=== PATIENT | male | born 1995 | race Caucasian/White ===

== ENCOUNTER 2017-05-25 08:28 | Emergency (ER) | payer SELFPAY ==
[~2017-05-25] VITALS: Ht 162.6 cm; Wt 63.5 kg
[~2017-05-25 08:28] MED LIST: AGM875T PO; IBUP800T26 PO; LVT.05T PO; SPRN25T PO; SULF1TAB38 PO; THYR60TA4; TRAM50TA2 PO; [UNRECOGNIZED DRUG - OTHER] PO
--- NOTE | 2017-05-25 08:43 | ED General ---
General Chief Complaint: General Problems/Pain Stated Complaint: ETOH,SOA Source of Information: Patient Exam Limitations: No Limitations History of Present Illness Date Seen by Provider: May 25, 2017 Time Seen by Provider: 08:28 Initial Comments Here by EMS due to report of being intoxicated. This is a 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 to female and goes by Nayeli. Apparently her grandmother is on hospice and that is causing great stress in her life. She admits to drinking alcohol this morning. The grandmother called because she is quite intoxicated. Denies intent to harm self and denies taking other medications or drugs. Is having difficulty coping with grandmothers illness. Timing/Duration: 1-3 Hours Severity: Moderate Associated Systoms: No Chest Pain, No Fever/Chills, No Headaches, No Nausea/ Vomiting, No Shortness of Air, No Weakness Allergies and Home Medications Allergies Coded Allergies: No Known Drug Allergies (Unverified , 11/12/09) Home Medications Ibuprofen 800 Mg Tablet, 800 MG PO q8h PRN for PAIN Prescribed by: EMANUEL THOMSON on 08/08/132234 Spironolactone 25 Mg Tab, 125 MG PO DAILY, (Reported) Tramadol Hcl 50 Mg Tablet, 50 MG PO Q4H PRN for PAIN Prescribed by: EMANUEL THOMSON on 08/08/132234 Trimethoprim/Sulfamethoxazole 1 Ea Tablet, 1 EA PO BID Prescribed by: EMANUEL THOMSON on 12/28/122139 [Estrofem] , 2 MG PO DAILY, (Reported) Patient Home Medication List Home Medication List Reviewed: Yes Constitutional: see HPI, No chills, No fever EENTM: no symptoms reported Respiratory: no symptoms reported Cardiovascular: no symptoms reported Gastrointestinal: no symptoms reported, No abdominal pain, No vomiting Genitourinary: no symptoms reported Musculoskeletal: no symptoms reported Skin: no symptoms reported All Other Systems Reviewed Negative Unless Noted: Yes Past Hzffqeh-Lzedmb-Bejwhq Hx Patient Social History Alcohol Use: Occasionally Uses Recreational Drug Use: No Smoking Status: Current Everyday Smoker Surgeries History of Surgeries: No Respiratory History of Respiratory Disorde: No Cardiovascular History of Cardiac Disorders: No Neurological History of Neurological Disord: No Reproductive System Hx Reproductive Disorders: No Sexually Transmitted Disease: No Gastrointestinal History of Gastrointestinal Di: No Musculoskeletal History of Musculoskeletal Dis: No Endocrine History of Endocrine Disorders: No Cancer History of Cancer: No Psychosocial History of Psychiatric Problem: No Integumentary History of Skin or Integumenta: Yes (LESION L THIGH) Blood Transfusions History of Blood Disorders: No Reviewed Nursing Assessment Reviewed/Agree w Nursing PMH: Yes Family Medical History Significant Family History: No Pertinent Family Hx Physical Exam Vital Signs Vital Signs - First Documented 05/25/17 08:28 Temp 97.6 Pulse 120 Resp 18 B/P (MAP) 111/68 (82) Pulse Ox 99 O2 Delivery Room Air Capillary Refill : General Appearance: No Apparent Distress, WD/WN HEENT: PERRL/EOMI, Pharynx Normal Neck: Non Tender, Supple Respiratory: Lungs Clear, Normal Breath Sounds Cardiovascular: No Murmur, Tachycardia Gastrointestinal: Non Tender, Soft Back: Normal Inspection, No CVA Tenderness, No Vertebral Tenderness Extremity: Normal Range of Motion, Non Tender Neurologic/Psychiatric: Alert, Oriented x3 Skin: Normal Color, Warm/Dry Progress/Results/Core Measures Suspected Sepsis SIRS Temperature: Pulse: Respiratory Rate: Laboratory Tests 05/25/17 08:44: White Blood Count 7.4 Blood Pressure / Mean: Laboratory Tests 05/25/17 08:44: Creatinine 0.85, Platelet Count 355, Total Bilirubin 0.5 Results/Orders Lab Results Laboratory Tests Test 05/25/17 08:18 05/25/17 08:27 05/25/17 08:44 Range/Units Urine Opiates Screen NEGATIVE NEGATIVE Urine Oxycodone Screen NEGATIVE NEGATIVE Urine Methadone Screen NEGATIVE NEGATIVE Urine Propoxyphene Screen NEGATIVE NEGATIVE Urine Barbiturates Screen NEGATIVE NEGATIVE Ur Tricyclic Antidepressants Screen NEGATIVE NEGATIVE Urine Phencyclidine Screen NEGATIVE NEGATIVE Urine Amphetamines Screen NEGATIVE NEGATIVE Urine Methamphetamines Screen NEGATIVE NEGATIVE Urine Benzodiazepines Screen POSITIVE H NEGATIVE Urine Cocaine Screen NEGATIVE NEGATIVE Urine Cannabinoids Screen POSITIVE H NEGATIVE Urine Color YELLOW Urine Clarity CLEAR Urine pH 7 5-9 Urine Specific [place] 1.005 L 1.016-1.022 Urine Protein NEGATIVE NEGATIVE Urine Glucose (UA) NEGATIVE NEGATIVE Urine Ketones NEGATIVE NEGATIVE Urine Nitrite NEGATIVE NEGATIVE Urine Bilirubin NEGATIVE NEGATIVE Urine Urobilinogen NORMAL NORMAL MG/DL Urine Leukocyte Esterase NEGATIVE NEGATIVE Urine RBC (Auto) NEGATIVE NEGATIVE Urine RBC NONE /HPF Urine WBC NONE /HPF Urine Squamous Epithelial Cells 2-5 /HPF Urine Crystals NONE /LPF Urine Bacteria NEGATIVE /HPF Urine Casts NONE /LPF Urine Mucus NEGATIVE /LPF Urine Culture Indicated NO White Blood Count 7.4 4.3-11.0 10^3/uL Red Blood Count 4.78 4.35-5.85 10^6/uL Hemoglobin 15.5 13.3-17.7 G/DL Hematocrit 44 40-54 % Mean Corpuscular Volume 92 80-99 FL Mean Corpuscular Hemoglobin 32 25-34 PG Mean Corpuscular Hemoglobin Concent 35 32-36 G/DL Red Cell Distribution Width 13.3 10.0-14.5 % Platelet Count 355 130-400 10^3/uL Mean Platelet Volume 9.7 7.4-10.4 FL Neutrophils (%) (Auto) 44 42-75 % Lymphocytes (%) (Auto) 46 H 12-44 % Monocytes (%) (Auto) 9 0-12 % Eosinophils (%) (Auto) 0 0-10 % Basophils (%) (Auto) 1 0-10 % Neutrophils # (Auto) 3.2 1.8-7.8 X 10^3 Lymphocytes # (Auto) 3.4 1.0-4.0 X 10^3 Monocytes # (Auto) 0.7 0.0-1.0 X 10^3 Eosinophils # (Auto) 0.0 0.0-0.3 10^3/uL Basophils # (Auto) 0.1 0.0-0.1 10^3/uL Sodium Level 148 H 135-145 MMOL/L Potassium Level 4.2 3.6-5.0 MMOL/L Chloride Level 112 H 98-107 MMOL/L Carbon Dioxide Level 23 21-32 MMOL/L Anion Gap 13 5-14 MMOL/L Blood Urea Nitrogen 10 7-18 MG/DL Creatinine 0.85 0.60-1.30 MG/DL Estimat Glomerular Filtration Rate > 60 BUN/Creatinine Ratio 12 Glucose Level 104 70-105 MG/DL Calcium Level 9.1 8.5-10.1 MG/DL Total Bilirubin 0.5 0.1-1.0 MG/DL Aspartate Amino Transf (AST/SGOT) 33 5-34 U/L Alanine Aminotransferase (ALT/SGPT) 28 0-55 U/L Alkaline Phosphatase 59 40-136 U/L Total Protein 7.0 6.4-8.2 GM/DL Albumin 4.7 H 3.2-4.5 GM/DL Salicylates Level < 5.0 L 5.0-20.0 MG/DL Acetaminophen Level < 10 L 10-30 UG/ML Serum Alcohol 384 *H <10 MG/DL My Orders Orders - REFUGIO CROUCH MD Acetaminophen (05/25/17 08:34) Alcohol (05/25/17 08:34) Cbc With Automated Diff (05/25/17 08:34) Comprehensive Metabolic Panel (05/25/17 08:34) Salicylate (05/25/17 08:34) Ua Culture If Indicated (05/25/17 08:34) Lactated Ringers (Lr 1000 Ml Iv Solution (05/25/17 08:54) Drug Screen Stat (Urine) (05/25/17 09:09) Medications Given in ED Current Medications Medications Dose Ordered Sig/Selma Route Start Time Stop Time Status Last Admin Dose Admin Lactated Ringer's 1,000 ml @ 0 mls/hr Q0M ONCE IV 05/25/17 08:54 05/25/17 08:55 DC 05/25/17 09:22 1,000 MLS/HR Vital Signs/I&O Vital Sign - Last 12Hours 05/25/17 08:28 Temp 97.6 Pulse 120 Resp 18 B/P (MAP) 111/68 (82) Pulse Ox 99 O2 Delivery Room Air Capillary Refill : Progress Note : Progress Note Seen and evaluated. IV by EMS. 1 L normal saline infusing currently. We will check basic labs and alcohol level. Monitor patient. 1042: I did discuss the case with the patient and the patient's grandmother who is on hospice. Overall this point and comfortable going home and alcohol level is very high. Does have mixed toxicity with reported benzos taken as well. We will admit the patient for monitoring and observation overnight and continued fluids. 1112: Patient has changed her mind now and does not want to stay. Grandmother still uncomfortable but the patient is adamant. We will discharge the patient but AMA form signed. I did discuss with her at length about returning for any concerns. I also expressed my concerns about mixed alcohol and benzodiazepine use as this is dangerous and deadly. Patient and family verbalize understanding. Departure Impression Impression: Primary Impression: Alcohol intoxication Qualified Codes: F10.920 - Alcohol use, unspecified with intoxication, uncomplicated Disposition: AGAINST MEDICAL ADVICE Condition: Stable Departure-Patient Inst. Decision time for Depature: 11:14 Referrals: NO,LOCAL PHYSICIAN (PCP/Family) Primary Care Physician Patient Instructions: Alcohol Poisoning (DC) Add. Discharge Instructions: All discharge instructions reviewed with patient and/or family. Voiced understanding. You should not use benzodiazepines (Xanax/Ativan or similar) and alcohol at the same time as this may result in your . You should avoid alcohol. I highly encouraged due to seek follow-up and establish care with mental health provider such as at [facility] to help you with depression and coping. Return for worse pain, fever, vomiting, weakness, breathing problems or other concerns as needed. REFUGIO CROUCH MD May 25, 2017 08:43
[2017-05-25 08:50] LABS: BASOPHILS # (AUTO) 0.1 10^3/uL (0.0-0.1); BASOPHILS % (AUTO) 1 % (0-10); EOSINOPHILS % (AUTO) 0 % (0-10); HEMATOCRIT 44 % (40-54); HEMOGLOBIN 15.5 G/DL (13.3-17.7); LYMPHOCYTES # (AUTO) 3.4 X 10^3 (1.0-4.0); LYMPHOCYTES % (AUTO) 46 % (12-44); MEAN CORPUSCULAR HEMOGLOBIN 32 PG (25-34); MEAN CORPUSCULAR HGB CONC 35 G/DL (32-36); MEAN CORPUSCULAR VOLUME 92 FL (80-99); MEAN PLATELET VOLUME 9.7 FL (7.4-10.4); MONOCYTES # (AUTO) 0.7 X 10^3 (0.0-1.0); MONOCYTES % (AUTO) 9 % (0-12); NEUTROPHILS # (AUTO) 3.2 X 10^3 (1.8-7.8); NEUTROPHILS % (AUTO) 44 % (42-75); PLATELET COUNT 355 10^3/uL (130-400); RED BLOOD COUNT 4.78 10^6/uL (4.35-5.85); RED CELL DISTRIBUTION WIDTH 13.3 % (10.0-14.5); WHITE BLOOD COUNT 7.4 10^3/uL (4.3-11.0)
[2017-05-25] MEDS ORDERED: LACTATED RINGERS 1,000 ML IV ONE (08:54)
[2017-05-25 08:57] LABS: BILIRUBIN,URINE NEGATIVE (NEGATIVE); CLARITY,URINE CLEAR; COLOR,URINE YELLOW; GLUCOSE, URINE (UA) NEGATIVE (NEGATIVE); KETONES,URINE NEGATIVE (NEGATIVE); LEUKOCYTE ESTERASE ,URINE NEGATIVE (NEGATIVE); NITRITE,URINE NEGATIVE (NEGATIVE); PH,URINE 7 (5-9); PROTEIN,URINE NEGATIVE (NEGATIVE); UROBILINOGEN,URINE NORMAL (NORMAL)
[2017-05-25 09:07] LABS: BACTERIA,URINE NEGATIVE /HPF
[2017-05-25 09:12] LABS: ALANINE AMINOTRANSFERASE 28 U/L (0-55); ALBUMIN 4.7 GM/DL (3.2-4.5); ALKALINE PHOSPHATASE 59 U/L (40-136); BILIRUBIN,TOTAL 0.5 MG/DL (0.1-1.0); BUN/CREATININE RATIO 12; CALCIUM 9.1 MG/DL (8.5-10.1); CARBON DIOXIDE 23 MMOL/L (21-32); CHLORIDE 112 MMOL/L (98-107); CREATININE SERUM 0.85 MG/DL (0.60-1.30); GFR ESTIMATED > 60; GLUCOSE 104 MG/DL (70-105); POTASSIUM 4.2 MMOL/L (3.6-5.0); SALICYLATE < 5.0 MG/DL (5.0-20.0); SODIUM 148 MMOL/L (135-145)
[2017-05-25 09:21] LABS: ACETAMINOPHEN < 10 UG/ML (10-30)
[2017-05-25 09:28] LABS: AMPHETAMINE SCREEN, URINE NEGATIVE (NEGATIVE); BENZODIAZEPINES SCREEN URINE POSITIVE (NEGATIVE); COCAINE SCREEN URINE NEGATIVE (NEGATIVE); METHAMPHETAMINE SCREEN URINE S NEGATIVE (NEGATIVE)
[2017-05-25 09:29] LABS: BARBITURATE SCREEN URINE NEGATIVE (NEGATIVE); CANNABINOID SCREEN, URINE POSITIVE (NEGATIVE); METHADONE STAT NEGATIVE (NEGATIVE); OPIATE SCREEN URINE NEGATIVE (NEGATIVE); OXYCODONE STAT NEGATIVE (NEGATIVE); PROPOXYPHENE STAT NEGATIVE (NEGATIVE); TRICYCLIC ANTIDEPRESSANTS SCRE NEGATIVE (NEGATIVE)
--- OUTSIDE RECORDS SUMMARY | 2017-05-25 11:16 | XMS REPORT | Continuity of Care Document ---
Author Author [facility] Organization [facility] Address Unknown Phone Unavailable Allergies Active Description Code Type Severity Reaction Onset Reported/Identified Relationship to Patient Clinical Status Yes No Known Drug Allergies [id number] Drug Allergy Unknown N/A 11/12/2009 Medications There is no data. Problems Date Dx Coded Attending Type Code Diagnosis Diagnosed By 12/28/2012 EMANUEL BIRMINGHAM Ot 682.6 CELLULITIS OF LEG 12/28/2012 EMANUEL BIRMINGHAM Ot 782.2 LOCAL SUPRFICIAL SWELLNG 08/08/2013 EMANUEL BIRMINGHAM Ot 845.00 SPRAIN OF ANKLE NOS 08/08/2013 EMANUEL BIRMINGHAM Ot E987.9 UNDET CIRC-FALL SITE NOS 07/25/2015 REFUGIO CROUCH MD Ot R05 COUGH 07/25/2015 REFUGIO CROUCH MD Ot Z53.21 PROC/TRTMT NOT CRD OUT D/T PT LV BEF SEE Procedures There is no data. Results Test Result Range Urine drug screening test - 05/25/17 08:18 Urine phencyclidine detection by screening method NEGATIVE NEGATIVE Urine benzodiazepines detection by screening method POSITIVE NEGATIVE Urine cocaine detection NEGATIVE NEGATIVE Urine amphetamines detection by screening method NEGATIVE NEGATIVE Urine methamphetamine detection by screening method NEGATIVE NEGATIVE Urine cannabinoids detection by screening method POSITIVE NEGATIVE Urine opiates detection by screening method NEGATIVE NEGATIVE Urine barbiturates detection NEGATIVE NEGATIVE Screening urine tricyclic antidepressants detection NEGATIVE NEGATIVE Urine methadone detection by screening method NEGATIVE NEGATIVE Urine oxycodone detection NEGATIVE NEGATIVE Urine propoxyphene detection NEGATIVE NEGATIVE Complete urinalysis with reflex to culture - 05/25/17 08:27 Urine color determination YELLOW NRG Urine clarity determination CLEAR NRG Urine pH measurement by test strip 7 5-9 Specific gravity of urine by test strip 1.005 1.016- 1.022 Urine protein assay by test strip, semi-quantitative NEGATIVE NEGATIVE Urine glucose detection by automated test strip NEGATIVE NEGATIVE Erythrocytes detection in urine sediment by light microscopy NEGATIVE NEGATIVE Urine ketones detection by automated test strip NEGATIVE NEGATIVE Urine nitrite detection by test strip NEGATIVE NEGATIVE Urine total bilirubin detection by test strip NEGATIVE NEGATIVE Urine urobilinogen measurement by automated test strip (mass/volume) NORMAL NORMAL Urine leukocyte esterase detection by dipstick NEGATIVE NEGATIVE Automated urine sediment erythrocyte count by microscopy (number/high power field) NONE NRG Automated urine sediment leukocyte count by microscopy (number/high power field ) NONE NRG Bacteria detection in urine sediment by light microscopy NEGATIVE NRG Squamous epithelial cells detection in urine sediment by light microscopy 2-5 NRG Crystals detection in urine sediment by light microscopy NONE NRG Casts detection in urine sediment by light microscopy NONE NRG Mucus detection in urine sediment by light microscopy NEGATIVE NRG Complete urinalysis with reflex to culture NO NRG Complete blood count (CBC) with automated white blood cell (WBC) differential - 05/25/17 08:44 Blood leukocytes automated count (number/volume) 7.4 10*3/uL 4.3-11.0 Blood erythrocytes automated count (number/volume) 4.78 10*6/uL 4.35-5.85 Venous blood hemoglobin measurement (mass/volume) 15.5 g/dL 13.3-17.7 Blood hematocrit (volume fraction) 44 % 40-54 Automated erythrocyte mean corpuscular volume 92 [foz_us] 80-99 Automated erythrocyte mean corpuscular hemoglobin (mass per erythrocyte) 32 pg 25-34 Automated erythrocyte mean corpuscular hemoglobin concentration measurement ( mass/volume) 35 g/dL 32-36 Automated erythrocyte distribution width ratio 13.3 % 10.0-14.5 Automated blood platelet count (count/volume) 355 10*3/uL 130-400 Automated blood platelet mean volume measurement 9.7 [foz_us] 7.4-10.4 Automated blood neutrophils/100 leukocytes 44 % 42-75 Automated blood lymphocytes/100 leukocytes 46 % 12-44 Blood monocytes/100 leukocytes 9 % 0-12 Automated blood eosinophils/100 leukocytes 0 % 0-10 Automated blood basophils/100 leukocytes 1 % 0-10 Blood neutrophils automated count (number/volume) 3.2 10*3 1.8-7.8 Blood lymphocytes automated count (number/volume) 3.4 10*3 1.0-4.0 Blood monocytes automated count (number/volume) 0.7 10*3 0.0-1.0 Automated eosinophil count 0.0 10*3/uL 0.0-0.3 Automated blood basophil count (count/volume) 0.1 10*3/uL 0.0-0.1 Comprehensive metabolic panel - 05/25/17 08:44 Serum or plasma sodium measurement (moles/volume) 148 mmol/L 135-145 Serum or plasma potassium measurement (moles/volume) 4.2 mmol/L 3.6-5.0 Serum or plasma chloride measurement (moles/volume) 112 mmol/L 98-107 Carbon dioxide 23 mmol/L 21-32 Serum or plasma anion gap determination (moles/volume) 13 mmol/L 5-14 Serum or plasma urea nitrogen measurement (mass/volume) 10 mg/dL 7-18 Serum or plasma creatinine measurement (mass/volume) 0.85 mg/dL 0.60-1.30 Serum or plasma urea nitrogen/creatinine mass ratio 12 NRG Serum or plasma creatinine measurement with calculation of estimated glomerular filtration rate > NRG Serum or plasma glucose measurement (mass/volume) 104 mg/dL 70-105 Serum or plasma calcium measurement (mass/volume) 9.1 mg/dL 8.5-10.1 Serum or plasma total bilirubin measurement (mass/volume) 0.5 mg/dL 0.1-1.0 Serum or plasma alkaline phosphatase measurement (enzymatic activity/volume) 59 U/L 40-136 Serum or plasma aspartate aminotransferase measurement (enzymatic activity/ volume) 33 U/L 5-34 Serum or plasma alanine aminotransferase measurement (enzymatic activity/volume ) 28 U/L 0-55 Serum or plasma protein measurement (mass/volume) 7.0 g/dL 6.4-8.2 Serum or plasma albumin measurement (mass/volume) 4.7 g/dL 3.2-4.5 Serum or plasma salicylates measurement (mass/volume) - 05/25/17 08:44 Serum or plasma salicylates measurement (mass/volume) < mg/dL 5.0-20.0 Serum or plasma acetaminophen measurement (mass/volume) - 05/25/17 08:44 Serum or plasma acetaminophen measurement (mass/volume) < ug/mL 10-30 Serum or plasma ethanol measurement (mass/volume) - 05/25/17 08:44 Serum or plasma ethanol measurement (mass/volume) 384 mg/dL <10 Encounters ACCT No. Visit Date/Time Discharge Status Pt. Type Provider Facility Loc./Unit Complaint [id number] 07/25/2015 17:48:00 07/25/2015 18:22:00 DIS Emergency REFUGIO CROUCH MD [facility] ER COUGH/CONGESTION [id number] 03/19/2014 18:54:00 03/19/2014 23:59:59 CLS Outpatient GABI WOOD [facility] QUICK [id number] 08/08/2013 21:32:00 08/08/2013 22:50:00 DIS Emergency EMANUEL BIRMINGHAM [facility] ER L ANKLE INJ [id number] 12/28/2012 21:17:00 12/28/2012 21:44:00 DIS Emergency EMANUEL BIRMINGHAM [facility] ER LEFT LEG ABSCESS [id number] 05/25/2017 11:02:00 ACT Inpatient CHARLENE FRAZIER DO [facility] 4TH ALCOHOL OVERDOSE [id number] 07/25/2015 18:26:00 Document Registration
[2017-05-25 11:20] VITALS: BP 112/80
== END 2017-05-25 11:20 | disposition left against medical advice (07) ==
LOC: EDUNIT# 08:28 → ER 08:29 → 4TH 11:02 → UNDOADMOB 11:02 → ER 11:20
DX: F10.129 Alcohol abuse with intoxication, unspecified (principal); F17.200 Nicotine dependence, unspecified, uncomplicated
CPT/HCPCS: 36415; 80053; 80306; 80320; 80329; 81000; 85025; 96360

== ENCOUNTER 2018-02-14 21:46 | Inpatient (IN) | payer SELFPAY ==
[2018-02-14] VITALS (7 sets, daily range): BP systolic 105–126; BP diastolic 66–97
[~2018-02-14] VITALS: Ht 165.1 cm; Wt 60.8 kg
[2018-02-14 22:09] LABS: BASOPHILS # (AUTO) 0.1 10^3/uL (0.0-0.1); BASOPHILS % (AUTO) 2 % (0-10); EOSINOPHILS % (AUTO) 0 % (0-10); HEMATOCRIT 47 % (40-54); HEMOGLOBIN 16.9 G/DL (13.3-17.7); LYMPHOCYTES # (AUTO) 2.4 X 10^3 (1.0-4.0); LYMPHOCYTES % (AUTO) 35 % (12-44); MEAN CORPUSCULAR HEMOGLOBIN 35 PG (25-34); MEAN CORPUSCULAR HGB CONC 36 G/DL (32-36); MEAN CORPUSCULAR VOLUME 97 FL (80-99); MEAN PLATELET VOLUME 9.8 FL (7.4-10.4); MONOCYTES # (AUTO) 0.3 X 10^3 (0.0-1.0); MONOCYTES % (AUTO) 5 % (0-12); NEUTROPHILS # (AUTO) 3.9 X 10^3 (1.8-7.8); NEUTROPHILS % (AUTO) 58 % (42-75); PLATELET COUNT 452 10^3/uL (130-400); RED BLOOD COUNT 4.88 10^6/uL (4.35-5.85); RED CELL DISTRIBUTION WIDTH 12.7 % (10.0-14.5); WHITE BLOOD COUNT 6.7 10^3/uL (4.3-11.0)
--- NOTE | 2018-02-14 22:20 | ED Psychosocial ---
General Chief Complaint: Substance Abuse Stated Complaint: ALCHOL Source: patient Exam Limitations: no limitations History of Present Illness Date Seen by Provider: Feb 14, 2018 Time Seen by Provider: 21:50 Initial Comments Here with report of alcohol abuse and would like to quit drinking. Drinks approximately 1/2 gallon of vodka daily. Does report seizures with stopping drinking. Admits to getting shakes and then seizures when she abstains from alcohol. Patient is transgender and goes by [employer]. Did take hormone replacement for several years but not under physician guidance. Reports not taking that currently although may be taking estrogen intermittently. There was concerns about suicidality and she admits that she occasionally thinks about suicide with the plan of cutting her wrist. She has done that in the past. Drink approximately 1 gallon of Vicodin today starting at 930 and stopping about 3 hours ago. Timing/Duration: getting worse Severity: moderate, severe Associated Symptoms: anxiety, suicidal ideation, other (alcohol abuse) Allergies and Home Medications Allergies Coded Allergies: No Known Drug Allergies (Unverified , 11/12/09) Home Medications Ibuprofen 800 Mg Tablet, 800 MG PO q8h PRN for PAIN Prescribed by: EMANUEL THOMSON on 08/08/132234 Spironolactone 25 Mg Tab, 125 MG PO DAILY, (Reported) Tramadol Hcl 50 Mg Tablet, 50 MG PO Q4H PRN for PAIN Prescribed by: EMANUEL THOMSON on 08/08/132234 Trimethoprim/Sulfamethoxazole 1 Ea Tablet, 1 EA PO BID Prescribed by: EMANUEL THOMSON on 12/28/12 2140 [Estrofem] , 2 MG PO DAILY, (Reported) Patient Home Medication List Home Medication List Reviewed: Yes Review of Systems Constitutional: see HPI; No chills, No fever EENTM: no symptoms reported Respiratory: no symptoms reported Cardiovascular: no symptoms reported Gastrointestinal: No abdominal pain, No nausea, No vomiting Genitourinary: no symptoms reported Musculoskeletal: no symptoms reported Skin: no symptoms reported Psychiatric/Neurological: Anxiety, Depressed, Emotional Problems All Other Systems Reviewed Negative Unless Noted: Yes Past Jgfilop-Ccdjto-Vsiigo Hx Past Med/Social Hx: Reviewed Nursing Past Med/Soc Hx Patient Social History Alcohol Use: Regular Use Alcohol Beverage of Choice: Vodka Recreational Drug Use: Yes (marijuana) Smoking Status: Current Everyday Smoker Recent Foreign Travel: No Contact w/Someone Who Travel: No Past Medical History Surgeries: No Respiratory: No Cardiac: No Neurological: No Reproductive Disorders: No Sexually Transmitted Disease: No Gastrointestinal: No Musculoskeletal: No Endocrine: No Cancer: No Psychosocial: No Integumentary: Yes (LESION L THIGH) Blood Disorders: No Family Medical History Reviewed Nursing Family Hx No Pertinent Family Hx Physical Exam Vital Signs - First Documented 02/14/18 21:46 Temp 98.1 Pulse 122 Resp 19 B/P (MAP) 124/78 (93) Pulse Ox 93 O2 Delivery Room Air Capillary Refill : Height, Weight, BMI Height: 5'4.00" Weight: 140lbs. oz. 63.992434or; BMI Method:Stated General Appearance: WD/WN, no apparent distress HEENT: PERRL/EOMI, pharynx normal Neck: full range of motion, supple Respiratory: lungs clear, normal breath sounds Cardiovascular: no murmur, tachycardia Peripheral Pulses: 2+ Dorsalis Pedis (R), 2+ Left Dors-Pedis (L), 2+ Radial Pulses (R), 2+ Radial Pulses (L) Gastrointestinal: non tender, soft Extremities: non-tender, normal inspection Neurologic/Psychiatric: alert, oriented x 3 Appearance/Memory: appropriate appearance, neat Behavior/Eye Contact: cooperative, good eye contact Thoughts/Hallucinations: normal thought pattern, no apparent hallucination Skin: normal color, warm/dry Progress/Results/Core Measures Results/Orders Lab Results Laboratory Tests Test 02/14/18 21:46 02/14/18 22:17 Range/Units White Blood Count 6.7 4.3-11.0 10^3/uL Red Blood Count 4.88 4.35-5.85 10^6/uL Hemoglobin 16.9 13.3-17.7 G/DL Hematocrit 47 40-54 % Mean Corpuscular Volume 97 80-99 FL Mean Corpuscular Hemoglobin 35 H 25-34 PG Mean Corpuscular Hemoglobin Concent 36 32-36 G/DL Red Cell Distribution Width 12.7 10.0-14.5 % Platelet Count 452 H 130-400 10^3/uL Mean Platelet Volume 9.8 7.4-10.4 FL Neutrophils (%) (Auto) 58 42-75 % Lymphocytes (%) (Auto) 35 12-44 % Monocytes (%) (Auto) 5 0-12 % Eosinophils (%) (Auto) 0 0-10 % Basophils (%) (Auto) 2 0-10 % Neutrophils # (Auto) 3.9 1.8-7.8 X 10^3 Lymphocytes # (Auto) 2.4 1.0-4.0 X 10^3 Monocytes # (Auto) 0.3 0.0-1.0 X 10^3 Eosinophils # (Auto) 0.0 0.0-0.3 10^3/uL Basophils # (Auto) 0.1 0.0-0.1 10^3/uL Sodium Level 146 H 135-145 MMOL/L Potassium Level 3.8 3.6-5.0 MMOL/L Chloride Level 105 98-107 MMOL/L Carbon Dioxide Level 24 21-32 MMOL/L Anion Gap 17 H 5-14 MMOL/L Blood Urea Nitrogen 7 7-18 MG/DL Creatinine 0.80 0.60-1.30 MG/DL Estimat Glomerular Filtration Rate > 60 BUN/Creatinine Ratio 9 Glucose Level 98 70-105 MG/DL Calcium Level 9.9 8.5-10.1 MG/DL Corrected Calcium 8.5-10.1 MG/DL Total Bilirubin 0.6 0.1-1.0 MG/DL Aspartate Amino Transf (AST/SGOT) 123 H 5-34 U/L Alanine Aminotransferase (ALT/SGPT) 50 0-55 U/L Alkaline Phosphatase 75 40-136 U/L Total Protein 8.5 H 6.4-8.2 GM/DL Albumin 5.2 H 3.2-4.5 GM/DL Salicylates Level < 5.0 L 5.0-20.0 MG/DL Acetaminophen Level < 10 L 10-30 UG/ML Serum Alcohol 384 *H <10 MG/DL Urine Color ANA H Urine Clarity CLEAR Urine pH 6 5-9 Urine Specific [place] 1.015 L 1.016-1.022 Urine Protein 1+ H NEGATIVE Urine Glucose (UA) NEGATIVE NEGATIVE Urine Ketones 2+ H NEGATIVE Urine Nitrite NEGATIVE NEGATIVE Urine Bilirubin NEGATIVE NEGATIVE Urine Urobilinogen NORMAL NORMAL MG/DL Urine Leukocyte Esterase NEGATIVE NEGATIVE Urine RBC (Auto) NEGATIVE NEGATIVE Urine RBC NONE /HPF Urine WBC 0-2 /HPF Urine Squamous Epithelial Cells 0-2 /HPF Urine Crystals NONE /LPF Urine Bacteria NEGATIVE /HPF Urine Casts NONE /LPF Urine Mucus NEGATIVE /LPF Urine Culture Indicated NO Urine Opiates Screen POSITIVE H NEGATIVE Urine Oxycodone Screen NEGATIVE NEGATIVE Urine Methadone Screen NEGATIVE NEGATIVE Urine Propoxyphene Screen NEGATIVE NEGATIVE Urine Barbiturates Screen NEGATIVE NEGATIVE Ur Tricyclic Antidepressants Screen NEGATIVE NEGATIVE Urine Phencyclidine Screen NEGATIVE NEGATIVE Urine Amphetamines Screen POSITIVE H NEGATIVE Urine Methamphetamines Screen NEGATIVE NEGATIVE Urine Benzodiazepines Screen POSITIVE H NEGATIVE Urine Cocaine Screen NEGATIVE NEGATIVE Urine Cannabinoids Screen POSITIVE H NEGATIVE My Orders Orders - REFUGIO CROUCH MD Ua Culture If Indicated (02/14/18 22:) Cbc With Automated Diff (02/14/18 22:) Comprehensive Metabolic Panel (02/14/18 22:) Alcohol (02/14/18 22:) Drug Screen Stat (Urine) (02/14/18:) Acetaminophen (02/14/18:) Salicylate (02/14/18:) Ekg Tracing (02/14/18:) Saline Lock/Iv-Start (02/14/18 22:) Monitor-Rhythm Ecg Trace Only (02/14/18:01) Bh Status Checks/Observation Q15M (02/14/18 22:01) Nicotine Patch (Nicoderm Patch) (02/14/18 22:45) Lorazepam Injection (Ativan Injection) (02/14/18 23:15) Medications Given in ED Current Medications Medications Dose Ordered Sig/[place] Route Start Time Stop Time Status Last Admin Dose Admin Nicotine 21 mg ONCE ONCE TD 02/14/18 22:45 02/14/18 22:46 DC 02/14/18 23:01 21 MG Vital Signs/I&O 02/14/18 21:46 Temp 98.1 Pulse 122 Resp 19 B/P (MAP) 124/78 (93) Pulse Ox 93 O2 Delivery Room Air Progress Progress Note : Progress Note Seen and evaluated. IV by EMS. We will continue normal saline 1 L bolus initiated by EMS. Labs, EKG, UA and UDS ordered. I did discuss with the patient at length about alcohol cessation and she states that she wants to quit drinking. Due to her seizures in the past, patient will require alcohol withdrawal protocol. Monitor patient. 2310: I discussed the case with Dr. Brewster that 2259. She accepts patient for admission, inpatient status. Patient really does want to quit drinking and understands that this will be a several-day stay for the alcohol withdrawal protocol. She denies current suicidality. Ativan 1 mg IV ordered. Nicotine patch ordered. Patient and family agree with plan. Initial ECG Impression Date: Feb 14, 2018 Initial ECG Impression Time: 22:04 Initial ECG Rate: 107 Initial ECG Rhythm: S.Tach Comment No previous available for comparison. Interpreted by me. Sinus tachycardia with normal axis. No evidence of ST elevation SC. Departure Communication (Admissions) Time/Spoke to Admitting Phy: 22:59 Impression Primary Impression: Alcohol abuse Additional Impression: Alcohol withdrawal Qualified Codes: F10.230 - Alcohol dependence with withdrawal, uncomplicated Disposition: ADMITTED INPATIENT Condition: Stable Admissions Decision to Admit Reason: Admit from ER (General) Decision to Admit/Date: Feb 14, 2018 Time/Decision to Admit Time: 22:59 Departure-Patient Inst. Referrals: NO,LOCAL PHYSICIAN (PCP/Family) Primary Care Physician Patient Instructions: ALCOHOL AND SUBSTANCE ABUSE REFUGIO CROUCH MD Feb 14, 2018 22:20
[2018-02-14 22:23] LABS: ALANINE AMINOTRANSFERASE 50 U/L (0-55); ALBUMIN 5.2 GM/DL (3.2-4.5); ALKALINE PHOSPHATASE 75 U/L (40-136); BILIRUBIN,TOTAL 0.6 MG/DL (0.1-1.0); BUN/CREATININE RATIO 9; CALCIUM 9.9 MG/DL (8.5-10.1); CARBON DIOXIDE 24 MMOL/L (21-32); CHLORIDE 105 MMOL/L (98-107); GFR ESTIMATED > 60; GLUCOSE 98 MG/DL (70-105); POTASSIUM 3.8 MMOL/L (3.6-5.0); SALICYLATE < 5.0 MG/DL (5.0-20.0); SODIUM 146 MMOL/L (135-145); TOTAL PROTEIN 8.5 GM/DL (6.4-8.2)
[2018-02-14 22:25] LABS: BILIRUBIN,URINE NEGATIVE (NEGATIVE); CLARITY,URINE CLEAR; COLOR,URINE AMBER; GLUCOSE, URINE (UA) NEGATIVE (NEGATIVE); KETONES,URINE 2+ (NEGATIVE); LEUKOCYTE ESTERASE ,URINE NEGATIVE (NEGATIVE); NITRITE,URINE NEGATIVE (NEGATIVE); PH,URINE 6 (5-9); PROTEIN,URINE 1+ (NEGATIVE); UROBILINOGEN,URINE NORMAL (NORMAL)
[2018-02-14 22:27] LABS: ACETAMINOPHEN < 10 UG/ML (10-30)
[2018-02-14 22:39] LABS: AMPHETAMINE SCREEN, URINE POSITIVE (NEGATIVE); BARBITURATE SCREEN URINE NEGATIVE (NEGATIVE); BENZODIAZEPINES SCREEN URINE POSITIVE (NEGATIVE); CANNABINOID SCREEN, URINE POSITIVE (NEGATIVE); COCAINE SCREEN URINE NEGATIVE (NEGATIVE); METHADONE STAT NEGATIVE (NEGATIVE); METHAMPHETAMINE SCREEN URINE S NEGATIVE (NEGATIVE); OPIATE SCREEN URINE POSITIVE (NEGATIVE); OXYCODONE STAT NEGATIVE (NEGATIVE); PROPOXYPHENE STAT NEGATIVE (NEGATIVE); TRICYCLIC ANTIDEPRESSANTS SCRE NEGATIVE (NEGATIVE)
[2018-02-14 22:44] LABS: BACTERIA,URINE NEGATIVE /HPF; SQUAMOUS EPITHELIAL CELL,UR 0-2 /HPF; WBC,URINE 0-2 /HPF
[2018-02-14] MEDS ORDERED: NICOTINE 21 MG (NICODERM) PATCH TD ONE (22:45)
[2018-02-14] MEDS ORDERED: LORazepam INJ 2 MG/ML (ATIVAN) VIAL IVP ONE (23:15)
--- OUTSIDE RECORDS SUMMARY | 2018-02-14 23:40 | XMS REPORT | Continuity of Care Document ---
Author Author [facility] Organization [facility] Address Unknown Phone Unavailable Allergies Active Description Code Type Severity Reaction Onset Reported/Identified Relationship to Patient Clinical Status Yes No Known Drug Allergies [id number] Drug Allergy Unknown N/A 11/12/2009 Medications There is no data. 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129 ALCOHOL ABUSE WITH INTOXICATION, UNSPECI 05/28/2017 REFUGIO CROUCH MD Ot F17.200 NICOTINE DEPENDENCE, UNSPECIFIED, UNCOMP 05/31/2017 REFUGIO CROUCH MD Ot F10.129 ALCOHOL ABUSE WITH INTOXICATION, UNSPECI 05/31/2017 REFUGIO CROUCH MD Ot F17.200 NICOTINE DEPENDENCE, UNSPECIFIED, UNCOMP Procedures There is no data. Results Test [...] plasma ethanol measurement (mass/volume) 384 mg/dL <10 Complete blood count (CBC) with automated white blood cell (WBC) differential - 02/14/18 21:46 Blood leukocytes automated count (number/volume) 6.7 10*3/uL 4.3-11.0 Blood erythrocytes automated count (number/volume) 4.88 10*6/uL 4.35-5.85 Venous blood hemoglobin measurement (mass/volume) 16.9 g/dL 13.3-17.7 Blood hematocrit (volume fraction) 47 % 40-54 Automated erythrocyte mean corpuscular volume 97 [foz_us] 80-99 Automated erythrocyte mean corpuscular hemoglobin (mass per erythrocyte) 35 pg 25-34 Automated erythrocyte mean corpuscular hemoglobin concentration measurement ( mass/volume) 36 g/dL 32-36 Automated erythrocyte distribution width ratio 12.7 % 10.0-14.5 Automated blood platelet count (count/volume) 452 10*3/uL 130-400 Automated blood platelet mean volume measurement 9.8 [foz_us] 7.4-10.4 Automated blood neutrophils/100 leukocytes 58 % 42-75 Automated blood lymphocytes/100 leukocytes 35 % 12-44 Blood monocytes/100 leukocytes 5 % 0-12 Automated blood eosinophils/100 leukocytes 0 % 0-10 Automated blood basophils/100 leukocytes 2 % 0-10 Blood neutrophils automated count (number/volume) 3.9 10*3 1.8-7.8 Blood lymphocytes automated count (number/volume) 2.4 10*3 1.0-4.0 Blood monocytes automated count (number/volume) 0.3 10*3 0.0-1.0 Automated eosinophil count 0.0 10*3/uL 0.0-0.3 Automated blood basophil count (count/volume) 0.1 10*3/uL 0.0-0.1 Comprehensive metabolic panel - 02/14/18 21:46 Serum or plasma sodium measurement (moles/volume) 146 mmol/L 135-145 Serum or plasma potassium measurement (moles/volume) 3.8 mmol/L 3.6-5.0 Serum or plasma chloride measurement (moles/volume) 105 mmol/L 98-107 Carbon dioxide 24 mmol/L 21-32 Serum or plasma anion gap determination (moles/volume) 17 mmol/L 5-14 Serum or plasma urea nitrogen measurement (mass/volume) 7 mg/dL 7-18 Serum or plasma creatinine measurement (mass/volume) 0.80 mg/dL 0.60-1.30 Serum or plasma urea nitrogen/creatinine mass ratio 9 NRG Serum or plasma creatinine measurement with calculation of estimated glomerular filtration rate > NRG Serum or plasma glucose measurement (mass/volume) 98 mg/dL 70-105 Serum or plasma calcium measurement (mass/volume) 9.9 mg/dL 8.5-10.1 Serum or plasma total bilirubin measurement (mass/volume) 0.6 mg/dL 0.1-1.0 Serum or plasma alkaline phosphatase measurement (enzymatic activity/volume) 75 U/L 40-136 Serum or plasma aspartate aminotransferase measurement (enzymatic activity/ volume) 123 U/L 5-34 Serum or plasma alanine aminotransferase measurement (enzymatic activity/volume ) 50 U/L 0-55 Serum or plasma protein measurement (mass/volume) 8.5 g/dL 6.4-8.2 Serum or plasma albumin measurement (mass/volume) 5.2 g/dL 3.2-4.5 Serum or plasma salicylates measurement (mass/volume) - 02/14/18 21:46 Serum or plasma salicylates measurement (mass/volume) < mg/dL 5.0-20.0 Serum or plasma acetaminophen measurement (mass/volume) - 02/14/18 21:46 Serum or plasma acetaminophen measurement (mass/volume) < ug/mL 10-30 Serum or plasma ethanol measurement (mass/volume) - 02/14/18 21:46 Serum or plasma ethanol measurement (mass/volume) 384 mg/dL <10 Urine drug screening test - 02/14/18 22:17 Urine phencyclidine detection by screening method NEGATIVE NEGATIVE Urine benzodiazepines detection by screening method POSITIVE NEGATIVE Urine cocaine detection NEGATIVE NEGATIVE Urine amphetamines detection by screening method POSITIVE NEGATIVE Urine methamphetamine detection by screening method NEGATIVE NEGATIVE Urine cannabinoids detection by screening method POSITIVE NEGATIVE Urine opiates detection by screening method POSITIVE NEGATIVE Urine barbiturates detection NEGATIVE NEGATIVE Screening urine tricyclic antidepressants detection NEGATIVE NEGATIVE Urine methadone detection by screening method NEGATIVE NEGATIVE Urine oxycodone detection NEGATIVE NEGATIVE Urine propoxyphene detection NEGATIVE NEGATIVE Complete urinalysis with reflex to culture - 02/14/18 22:17 Urine color determination ANA NRG Urine clarity determination CLEAR NRG Urine pH measurement by test strip 6 5-9 Specific gravity of urine by test strip 1.015 1.016- 1.022 Urine protein assay by test strip, semi-quantitative 1+ NEGATIVE Urine glucose detection by automated test strip NEGATIVE NEGATIVE Erythrocytes detection in urine sediment by light microscopy NEGATIVE NEGATIVE Urine ketones detection by automated test strip 2+ NEGATIVE Urine nitrite detection by test strip NEGATIVE NEGATIVE Urine total bilirubin detection by test strip NEGATIVE NEGATIVE Urine urobilinogen measurement by automated test strip (mass/volume) NORMAL NORMAL Urine leukocyte esterase detection by dipstick NEGATIVE NEGATIVE Automated urine sediment erythrocyte count by microscopy (number/high power field) NONE NRG Automated urine sediment leukocyte count by microscopy (number/high power field ) [HPF] NRG Bacteria detection in urine sediment by light microscopy NEGATIVE NRG Squamous epithelial cells detection in urine sediment by light microscopy 0-2 NRG Crystals detection in urine sediment by light microscopy NONE NRG Casts detection in urine sediment by light microscopy NONE NRG Mucus detection in urine sediment by light microscopy NEGATIVE NRG Complete urinalysis with reflex to culture NO NRG Encounters ACCT No. Visit Date/Time Discharge Status Pt. Type Provider Facility Loc./Unit Complaint [id number] 05/25/2017 08:29:00 05/25/2017 11:20:00 DIS Outpatient REFUGIO CROUCH MD [facility] ER ALCOHOL OVERDOSE [id number] 07/25/2015 17:48:00 07/25/2015 18:22:00 DIS Emergency REFUGIO CROUCH MD [facility] ER COUGH/CONGESTION [id number] 03/19/2014 18:54:00 03/19/2014 23:59:59 CLS Outpatient GABI WOOD [facility] QUICK [id number] 08/08/2013 21:32:00 08/08/2013 22:50:00 DIS Emergency EMANUEL BIRMINGHAM [facility] ER L ANKLE INJ [id number] 12/28/2012 21:17:00 12/28/2012 21:44:00 DIS Emergency EMANUEL BIRMINGHAM [facility] ER LEFT LEG ABSCESS [id number] 02/14/2018 22:10:00 Document Registration [id number] 07/25/2015 18:26:00 Document Registration [email or web address] 03/19/2014 18:55:29 ACT Document Registration [id number] 01/30/2018 11:40:00 01/30/2018 23:59:59 CLS Outpatient [facility] [id number] 05/09/2011 14:11:00 05/09/2011 23:59:59 CLS Outpatient [id number] 03/27/2012 18:34:11 RECURRING
[2018-02-15] VITALS (23 sets, daily range): BP systolic 86–128; BP diastolic 51–80
[2018-02-15] MEDS ORDERED: 1/2 NS IV SOLUTION 1,000 ML IV PRN (02:19)
[2018-02-15] MEDS ORDERED: D5 1/2 NS W/KCL 20 MEQ/L 1,000 ML IV ONE (02:22)
[2018-02-15] MEDS ORDERED: SENNA W/DOCUSATE (SENOKOT S) TABLET PO PRN (02:30)
[2018-02-15] MEDS ORDERED: ONDANSETRON 4 MG/2 ML (SDV) Z0FRAN IV PRN (02:30)
[2018-02-15] MEDS ORDERED: LORazepam INJ 2 MG/ML (ATIVAN) VIAL IM/IV PRN (02:30)
[2018-02-15] MEDS ORDERED: ANTACID SUSP 30 ML UDC (MYLANTA) PO PRN (02:30)
[2018-02-15] MEDS ORDERED: ONDANSETRON 4 MG (ZOFRAN) ORAL DISSOLVE TAB SL PRN (02:30)
[2018-02-15] MEDS ORDERED: D5 1/2 NS 1000 ML IV SOLUTION 1,000 ML IV PRN (02:30)
[2018-02-15] MEDS: D5 1/2 NS W/KCL 20 MEQ/L 1,000 ML IV SCH ×6 (02:31→21:58)
[2018-02-15] MEDS: THIAMINE INJECTION 100 MG, FOLIC ACID INJECTION 1 MG, MAGNESIUM SULFATE 2 GM, VITAMIN M... IV SCH ×15 (02:32→08:42)
[2018-02-15] MEDS ORDERED: LORazepam INJ 2 MG/ML (ATIVAN) VIAL ONE (02:41)
[2018-02-15] MEDS: LORazepam INJ 2 MG/ML (ATIVAN) VIAL IV PRN ×3 (02:44→12:26)
[2018-02-15 03:58] LABS: BASOPHILS # (AUTO) 0.1 10^3/uL (0.0-0.1); BASOPHILS % (AUTO) 1 % (0-10); EOSINOPHILS % (AUTO) 0 % (0-10); HEMATOCRIT 40 % (40-54); HEMOGLOBIN 13.5 G/DL (13.3-17.7); LYMPHOCYTES # (AUTO) 1.4 X 10^3 (1.0-4.0); LYMPHOCYTES % (AUTO) 15 % (12-44); MEAN CORPUSCULAR HEMOGLOBIN 34 PG (25-34); MEAN CORPUSCULAR HGB CONC 34 G/DL (32-36); MEAN CORPUSCULAR VOLUME 99 FL (80-99); MEAN PLATELET VOLUME 9.6 FL (7.4-10.4); MONOCYTES # (AUTO) 0.4 X 10^3 (0.0-1.0); MONOCYTES % (AUTO) 4 % (0-12); NEUTROPHILS % (AUTO) 80 % (42-75); PLATELET COUNT 324 10^3/uL (130-400); RED BLOOD COUNT 3.98 10^6/uL (4.35-5.85); RED CELL DISTRIBUTION WIDTH 12.3 % (10.0-14.5); WHITE BLOOD COUNT 8.8 10^3/uL (4.3-11.0)
[2018-02-15 04:24] LABS: MAGNESIUM 1.8 MG/DL (1.8-2.4); PHOSPHORUS 4.1 MG/DL (2.3-4.7)
[2018-02-15 04:25] LABS: ALANINE AMINOTRANSFERASE 43 U/L (0-55); ALBUMIN 4.1 GM/DL (3.2-4.5); ALKALINE PHOSPHATASE 55 U/L (40-136); BILIRUBIN,TOTAL 0.6 MG/DL (0.1-1.0); BUN/CREATININE RATIO 15; CALCIUM 8.4 MG/DL (8.5-10.1); CARBON DIOXIDE 17 MMOL/L (21-32); CHLORIDE 104 MMOL/L (98-107); CREATININE SERUM 0.65 MG/DL (0.60-1.30); GFR ESTIMATED > 60; GLUCOSE 99 MG/DL (70-105); SODIUM 137 MMOL/L (135-145); TOTAL PROTEIN 6.5 GM/DL (6.4-8.2)
[2018-02-15] MEDS: POTASSIUM CL 10MEQ/50ML IVPB 50 ML IV SCH (04:38)
[2018-02-15] MEDS: MAGNESIUM 1 GM/100 ML IVPB 100 ML IV SCH (04:39)
[2018-02-15] MEDS: KCL 20 MEQ TAB (K-DUR) PO SCH (04:39)
--- NOTE | 2018-02-15 07:55 | History & Physical-Hospitalist ---
History of Present Illness HPI/Chief Complaint Pt is a 22yo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 to female who presented to the ER due to alcohol abuse and desire to quit. She states that she drank 1/2 gallon of Vodka yesterday and generally drinks 1L daily. She has tried to quit on her own in the past and has had at least 5 seizures from those attempts. She currently complains of feeling anxious and shakey only right now. She would like to get in to an alcohol treatment center. She states she smokes THC occasionally as well (most recently as last week) but denies any other drug use. Her UDS is positive for amphetamines, benzos, opioids, and THC though. She has no other complaints at this time. Source: patient Date Seen 02/15/18 Time Seen by a Provider: 07:49 Attending Physician Doris Brewster DO PCP No,Local Physician Referring Physician Date of Admission Feb 14, 2018 at 23:05 Home Medications & Allergies Home Medications Reviewed patient Home Medication Reconciliation performed by pharmacy medication reconciliations master fire control technician and/or nursing. Patients Allergies have been reviewed. Allergies Allergies Coded Allergies No Known Drug Allergies (Unverified11/12/09) Past Cjaxzaj-Hafwgk-Uzuphu Hx Past Med/Social Hx: Reviewed Nursing Past Med/Soc Hx Patient Social History Marrital Status: Alcohol Use: Regular Use Number of Drinks Today: FF Alcohol Beverage of Choice: Vodka Recreational Drug Use: Yes (marijuana) Smoking Status: Current Everyday Smoker Type Used: Cigarettes 2nd Hand Smoke Exposure: Yes Physical Abuse Screen: No Sexual Abuse: No Recent Foreign Travel: No Contact w/other who traveled: No Recent Hopitalizations: No Recent Infectious Disease Expo: No Immunizations Up To Date Pediatric: No Seasonal Allergies Seasonal Allergies: No Past Medical History Currently Using CPAP: No Currently Using BIPAP: No Reproductive: No Sexually Transmitted Disease: No Psychosocial: Anxiety, Suicide Attempts, Depression alcohol abuse History of Blood Disorders: No Adverse Reaction to Blood Rivera: No Family History Reviewed Nursing Family Hx No Pertinent Family Hx Review of Systems Constitutional: No chills, No fever EENTM: No blurred vision, No double vision, No nose congestion, No throat pain Respiratory: No cough, No dyspnea on exertion, No short of breath Cardiovascular: No chest pain, No edema, No palpitations Gastrointestinal: No abdominal pain, No constipation, No diarrhea, No nausea, No vomiting Genitourinary: No dysuria, No frequency Musculoskeletal: No joint pain, No muscle pain Skin: No lesions, No rash Psychiatric/Neurological: Anxiety; Denies Headache, Denies Numbness, Denies Tingling Physical Exam Physical Exam Vital Signs Vital Signs - First Documented 02/14/18 21:46 Temp 98.1 Pulse 122 Resp 19 B/P (MAP) 124/78 (93) Pulse Ox 93 O2 Delivery Room Air Capillary Refill : Less Than 3 Seconds Height, Weight, BMI Height: 5'5.00" Weight: 134lbs. 0.0oz. 60.389588vp; 22.3 BMI Method:Stated General Appearance: No Apparent Distress, WD/WN HEENT: PERRL/EOMI, Moist Mucous Membranes Neck: Non Tender, Supple Respiratory: Lungs Clear, No Respiratory Distress Cardiovascular: Regular Rate, Rhythm, No Murmur Gastrointestinal: Normal Bowel Sounds, Non Tender, Soft Extremity: Normal Capillary Refill, No Calf Tenderness Neurologic/Psychiatric: Alert, Oriented x3, Normal Mood/Affect Skin: Normal Color, Warm/Dry Results Results/Procedures Labs Laboratory Tests 02/14/18 21:46 02/15/18 03:34 Patient resulted labs reviewed. Assessment/Plan Admission Diagnosis Alcohol Withdrawal Admission Status: Inpatient Order (span 2 midnights) Reason for Inpatient Admission: Acute alcohol withdrawal, history of DTs and seizures, will need more than two midnights to stabilize Diagnosis/Problems Diagnosis/Problems (1) Alcohol withdrawal Status: Acute Assessment & Plan: Continue on CIWA protocol Alcohol level 384 Banana Bag ordered visitor services information assistant consulted Qualifiers: Complication of substance-induced condition: uncomplicated Qualified Codes : F10.230 - Alcohol dependence with withdrawal, uncomplicated (2) Polysubstance abuse Assessment & Plan: UDS positive for multiple illicit drugs Likely will contribute to withdrawal visitor services information assistant consulted (3) [id number]-vg-[id number] transgender person Assessment & Plan: Pt person female pronouns and preferred name is Nayeli Not currently on hormones and has not undergone gender reassignment surgery Clinical Quality Measures DVT/VTE Risk/Contraindication: Risk Factor Score Per Nursin RFS Level Per Nursing on Admit: 2=Moderate LILIAN CHATMAN MD Feb 15, 2018 07:55
[2018-02-15] MEDS ORDERED: FLU QUADRIvalent (5+ YOA) 2018-2019 (AFLURIA) 0.5 ML IM ONE ×2 (08:00→18:07)
[2018-02-15] MEDS: NICOTINE 21 MG (NICODERM) PATCH TD SCH (08:25)
[2018-02-15] MEDS ORDERED: DOXY25TA50 PO (09:41)
[2018-02-15] MEDS ORDERED: MELA5CAP PO (09:41)
[2018-02-15] MEDS: LORazepam 1 MG (ATIVAN) TAB PO PRN ×2 (18:12→21:57)
[2018-02-16] VITALS: BP 129/84
[2018-02-16] MEDS: LORazepam 1 MG (ATIVAN) TAB PO PRN ×3 (00:04→09:53)
[2018-02-16] MEDS: D5 1/2 NS W/KCL 20 MEQ/L 1,000 ML IV SCH ×5 (04:57→07:39)
[2018-02-16 06:08] LABS: BASOPHILS % (AUTO) 1 % (0-10); EOSINOPHILS # (AUTO) 0.2 10^3/uL (0.0-0.3); EOSINOPHILS % (AUTO) 2 % (0-10); HEMATOCRIT 39 % (40-54); HEMOGLOBIN 13.7 G/DL (13.3-17.7); LYMPHOCYTES # (AUTO) 1.6 X 10^3 (1.0-4.0); LYMPHOCYTES % (AUTO) 19 % (12-44); MEAN CORPUSCULAR HEMOGLOBIN 35 PG (25-34); MEAN CORPUSCULAR HGB CONC 35 G/DL (32-36); MEAN CORPUSCULAR VOLUME 100 FL (80-99); MEAN PLATELET VOLUME 9.5 FL (7.4-10.4); MONOCYTES # (AUTO) 0.5 X 10^3 (0.0-1.0); MONOCYTES % (AUTO) 6 % (0-12); NEUTROPHILS # (AUTO) 6.1 X 10^3 (1.8-7.8); NEUTROPHILS % (AUTO) 73 % (42-75); PLATELET COUNT 280 10^3/uL (130-400); RED BLOOD COUNT 3.95 10^6/uL (4.35-5.85); RED CELL DISTRIBUTION WIDTH 12.2 % (10.0-14.5); WHITE BLOOD COUNT 8.3 10^3/uL (4.3-11.0)
[2018-02-16 06:36] LABS: BUN/CREATININE RATIO 7; CALCIUM 9.3 MG/DL (8.5-10.1); CARBON DIOXIDE 25 MMOL/L (21-32); CHLORIDE 106 MMOL/L (98-107); CREATININE SERUM 0.72 MG/DL (0.60-1.30); GFR ESTIMATED > 60; GLUCOSE 105 MG/DL (70-105); MAGNESIUM 2.1 MG/DL (1.8-2.4); PHOSPHORUS 3.4 MG/DL (2.3-4.7); POTASSIUM 4.5 MMOL/L (3.6-5.0); SODIUM 140 MMOL/L (135-145)
[2018-02-16] MEDS: POTASSIUM CL 10MEQ/50ML IVPB 50 ML IV SCH (06:37)
[2018-02-16] MEDS: KCL 20 MEQ TAB (K-DUR) PO SCH (06:38)
[2018-02-16] MEDS: MAGNESIUM 1 GM/100 ML IVPB 100 ML IV SCH (06:38)
--- NOTE | 2018-02-16 09:00 | Progress Note-Hospitalist ---
Subjective HPI/CC On Admission Date Seen by Provider: Feb 16, 2018 Time Seen by Provider: 08:55 Pt is a 22yo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 to female who presented to the ER due to alcohol abuse and desire to quit. She states that she drank 1/2 gallon of Vodka yesterday and generally drinks 1L daily. She has tried to quit on her own in the past and has had at least 5 seizures from those attempts. She currently complains of feeling anxious and shakey only right now. She would like to get in to an alcohol treatment center. She states she smokes THC occasionally as well (most recently as last week) but denies any other drug use. Her UDS is positive for amphetamines, benzos, opioids, and THC though. She has no other complaints at this time. Subjective/Events-last exam Pt is sleeping in bed but awakens easily. States doing well but still somewhat shakey. Objective Exam Vital Signs Vital Signs Date Time Temp Pulse Resp B/P (MAP) Pulse Ox O2 Delivery O2 Flow Rate FiO2 02/16/18 11:46 100 Room Air 02/16/18 07:00 98.6 02/16/18 07:00 90 02/15/18 11:00 15 Capillary Refill : Less Than 3 Seconds General Appearance: No Apparent Distress, WD/WN Respiratory: No Respiratory Distress Neurologic/Psychiatric: Alert, Oriented x3, Normal Mood/Affect Skin: Normal Color, Warm/Dry Results/Procedures Lab Patient resulted labs reviewed. Assessment/Plan Assessment and Plan Assess & Plan/Chief Complaint Alcohol Withdrawal Diagnosis/Problems Diagnosis/Problems (1) Alcohol withdrawal Status: Acute Assessment & Plan: Continue on CIWA protocol Scores between 15-16 last night Alcohol level 384 on arrival Day 2 of abstinence- maintain in ICU status for now Banana Bag financial services consultant consulted Qualifiers: Complication of substance-induced condition: uncomplicated Qualified Codes : F10.230 - Alcohol dependence with withdrawal, uncomplicated (2) Polysubstance abuse Assessment & Plan: UDS positive for multiple illicit drugs Likely will contribute to withdrawal financial services consultant consulted (3) [id number]-[id number] transgender person Assessment & Plan: Pt prefers female pronouns and preferred name is Nayeli Not currently on hormones and has not undergone gender reassignment surgery Clinical Quality Measures DVT/VTE Risk/Contraindication: Risk Factor Score Per Nursin RFS Level Per Nursing on Admit: 2=Moderate LILIAN CHATMAN MD Feb 16, 2018 09:00
[2018-02-16] MEDS: NICOTINE 21 MG (NICODERM) PATCH TD SCH (09:53)
--- NOTE | 2018-02-16 11:56 | Discharge Summary-Hospitalist ---
Diagnosis/Chief Complaint Date of Admission Feb 14, 2018 at 23:05 Date of Discharge Feb 16, 2018 at 11:28 Admission Diagnosis Alcohol Withdrawal Discharge Diagnosis (1) Alcohol withdrawal Status: Acute Assessment & Plan: Continue on CIWA protocol Scores between 15-16 last night Alcohol level 384 on arrival Day 2 of abstinence- maintain in ICU status for now [employer] marketing services specialist consulted (2) Polysubstance abuse Assessment & Plan: UDS positive for multiple illicit drugs Likely will contribute to withdrawal marketing services specialist consulted (3) Skxs-il-apmrjr transgender person Assessment & Plan: Pt prefers female pronouns and preferred name is Nayeli Not currently on hormones and has not undergone gender reassignment surgery Discharge Summary Discharge Physical Exam Allergies: Coded Allergies: No Known Drug Allergies (Unverified , 11/12/09) Vitals & I&Os Vital Signs Date Time Temp Pulse Resp B/P (MAP) Pulse Ox O2 Delivery O2 Flow Rate FiO2 02/16/18 11:46 100 Room Air 02/16/18 07:00 98.6 02/16/18 07:00 90 02/15/18 11:00 15 General Appearance: No Apparent Distress, WD/WN Hospital Course Pt was admitted desiring alcohol withdrawal. She was admitted for two days to ICU for CIWA protocol and treatment with Ativan per CIWA scoring and protocol. On day #2 of admission she elected to DC AMA after being told she could not smoke in the ICU room. AMA paperwork was signed prior to DC. She had also met with Social Work the day prior to discharge and arrangements were made for assessment for treatment on 02/19. Labs (last 24 hrs) Laboratory Tests 02/16/18 06:00: White Blood Count 8.3, Red Blood Count 3.95L, Hemoglobin 13.7, Hematocrit 39L, Mean Corpuscular Volume 100H, Mean Corpuscular Hemoglobin 35H, Mean Corpuscular Hemoglobin Concent 35, Red Cell Distribution Width 12.2, Platelet Count 280, Mean Platelet Volume 9.5, Neutrophils (%) (Auto) 73, Lymphocytes (%) (Auto) 19, Monocytes (%) (Auto) 6, Eosinophils (%) (Auto) 2, Basophils (%) (Auto) 1, Neutrophils # (Auto) 6.1, Lymphocytes # (Auto) 1.6, Monocytes # (Auto) 0.5, Eosinophils # (Auto) 0.2, Basophils # (Auto) 0.0, Sodium Level 140, Potassium Level 4.5, Chloride Level 106, Carbon Dioxide Level 25, Anion Gap 9, Blood Urea Nitrogen 5L, Creatinine 0.72, Estimat Glomerular Filtration Rate > 60, BUN/ Creatinine Ratio 7, Glucose Level 105, Calcium Level 9.3, Phosphorus Level 3.4, Magnesium Level 2.1 Patient resulted labs reviewed. Pending Labs Laboratory Tests 02/16/18 06:00: White Blood Count 8.3, Red Blood Count 3.95, Hemoglobin 13.7, Hematocrit 39, Mean Corpuscular Volume 100, Mean Corpuscular Hemoglobin 35, Mean Corpuscular Hemoglobin Concent 35, Red Cell Distribution Width 12.2, Platelet Count 280, Mean Platelet Volume 9.5, Neutrophils (%) (Auto) 73, Lymphocytes (%) (Auto) 19, Monocytes (%) (Auto) 6, Eosinophils (%) (Auto) 2, Basophils (%) (Auto) 1, Neutrophils # (Auto) 6.1, Lymphocytes # (Auto) 1.6, Monocytes # (Auto) 0.5, Eosinophils # (Auto) 0.2, Basophils # (Auto) 0.0, Sodium Level 140, Potassium Level 4.5, Chloride Level 106, Carbon Dioxide Level 25, Anion Gap 9, Blood Urea Nitrogen 5, Creatinine 0.72, Estimat Glomerular Filtration Rate > 60, BUN/ Creatinine Ratio 7, Glucose Level 105, Calcium Level 9.3, Phosphorus Level 3.4, Magnesium Level 2.1 Discussion & Recommendations Discharge Planning: <30 minutes discharge planning Discharge Home Medications: Active Scripts Active Reported Sleep Aid (Doxylamine Succinate) 25 Mg Tablet 25 Mg PO HS PRN ALTERNATES BETWEEN MELATONIN AND OTC SLEEP AID Melatonin 5 Mg Capsule 5 Mg PO HS PRN ALTERNATES BETWEEN MELATONIN AND OTC SLEEP AID Instructions to patient/family Please see electronic discharge instructions given to patient. Clinical Quality Measures DVT/VTE Risk/Contraindication: Risk Factor Score Per Nursin RFS Level Per Nursing on Admit: 2=Moderate Problem Qualifiers (1) Alcohol withdrawal: Complication of substance-induced condition: uncomplicated Qualified Codes: F10.230 - Alcohol dependence with withdrawal, uncomplicated LILIAN CHATMAN MD Feb 16, 2018 11:56
== END 2018-02-16 11:28 | disposition left against medical advice (07) | DRG 894 ==
LOC: EDUNIT# 21:46 → ER 21:47 → ICU 23:05
PROVIDERS: ADMIT Internal Medicine; ATTEND Internal Medicine
DX: F10.230 Alcohol dependence with withdrawal, uncomplicated (principal); F15.10 Other stimulant abuse, uncomplicated; F11.10 Opioid abuse, uncomplicated; F12.10 Cannabis abuse, uncomplicated; F17.210 Nicotine dependence, cigarettes, uncomplicated; F41.9 Anxiety disorder, unspecified; F32.9 Major depressive disorder, single episode, unspecified; F64.8 Other gender identity disorders
CPT/HCPCS: 36415; 80048; 80053; 80306; 80320; 80329; 81000; 83735; 84100; 85025; 87081; 90686; 93005; 93041; 96374

== ENCOUNTER 2018-05-07 12:39 | Emergency (ER) | payer SELFPAY ==
[~2018-05-07] VITALS: Ht 162.6 cm; Wt 63.5 kg
[~2018-05-07 12:39] MED LIST changes: +DOXY25TA50 PO; +MELA5CAP PO
--- OUTSIDE RECORDS SUMMARY | 2018-05-07 12:44 | XMS REPORT | Continuity of Care Document ---
Author Author [facility] Organization [facility] Address Unknown Phone Unavailable Allergies Active Description Code Type Severity Reaction Onset Reported/Identified Relationship to Patient Clinical Status Yes NO KNOWN DRUG ALLERGIES UNKNOWN NO KNOWN DRUG ALLERG Yes No Known Drug Allergies [id number] Drug Allergy Unknown N/A 11/12/2009 Medications Medication Packaging Start Date Stop Date Route Dosage Sig OXAZEPAM CAP 15 MG (SERAX) MG 03/0903/09/2018 PRN ONCE ACETAMINOPHEN ORAL TABLET 325mg(Tylenol) MG 03/09/2018 04/08/2018 PRN EVERY 4 Hour OXAZEPAM CAP 15 MG (SERAX) MG 03/0903/16/2018 PRN EVERY 60 Minute NICOTINE PATCH PAT 21 MG (NICODERM) MG 03/09/2018 03/09/2018 ONCE&0754 PANTOPRAZOLE TAB 40 MG (PROTONIX) MG 03/09/2018 03/15/2018 Daily&0900 THIAMINE TAB 100 MG (VITAMIN B1) MG 03/09/2018 03/11/2018 Daily&0900 MULTIPLE VITAMIN INFUSION INJ (MVI ADULT 2 VIAL KIT) VIALS 03/09/2018 03/10/2018 Daily&0900 HALOPERIDOL VIAL INJ 5 MG/CC (HALDOL 1CC VIAL) MG 03/09/2018 03/16/2018 PRN Q4H ALUM/MAG/SIMETH 30CC LIQ (MYLANTA PLUS) cc 03/09/2018 03/19/2018 PRN Q4H PROMETHAZINE VIAL INJ 25 MG/CC (PHENERGAN VIAL) MG 03/09/2018 03/19/2018 PRN Q6H MELATONIN TAB 3 MG (MELATONIN) MG 03/09/2018 03/15/2018 QHS&2100 Problems Date Dx Coded Attending Type Code Diagnosis Diagnosed By 01/13/2008 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 05/09/2011 462 ACUTE PHARYNGITIS 12/28/2012 BERTO PEREZ, EMANUEL Lester Ot 682.6 CELLULITIS OF LEG 12/28/2012 EMANUEL [...] MD Ot F17.200 NICOTINE DEPENDENCE, UNSPECIFIED, UNCOMP 02/16/2018 KARIN SANDRA CHARLENE Ot F10.230 ALCOHOL DEPENDENCE WITH WITHDRAWAL, UNCO 02/16/2018 KARIN SANDRA CHARLENE Ot F11.10 OPIOID ABUSE, UNCOMPLICATED 02/16/2018 KARIN SANDRA CHARLENE Ot F12.10 CANNABIS ABUSE, UNCOMPLICATED 02/16/2018 KARIN SANDRA CHARLENE Ot F15.10 OTHER STIMULANT ABUSE, UNCOMPLICATED 02/16/2018 KARIN SANDRA CHARLENE Ot F17.210 NICOTINE DEPENDENCE, CIGARETTES, UNCOMPL 02/16/2018 KARIN SANDRA CHARLENE Ot F32.9 MAJOR DEPRESSIVE DISORDER, SINGLE EPISOD 02/16/2018 KARIN SANDRA CHARLENE Ot F41.9 ANXIETY DISORDER, UNSPECIFIED 02/16/2018 KARIN SANDRA CHARLENE Ot 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 Results Test [...] urinalysis with reflex to culture NO NRG Methicillin resistant Staphylococcus aureus (MRSA) screening culture - 00:34 Methicillin resistant Staphylococcus aureus (MRSA) screening culture NEG NRG Complete blood count (CBC) with automated white blood cell (WBC) differential - 02/15/18 03:34 Blood leukocytes automated count (number/volume) 8.8 10*3/uL 4.3-11.0 Blood erythrocytes automated count (number/volume) 3.98 10*6/uL 4.35-5.85 Venous blood hemoglobin measurement (mass/volume) 13.5 g/dL 13.3-17.7 Blood hematocrit (volume fraction) 40 % 40-54 Automated erythrocyte mean corpuscular volume 99 [foz_us] 80-99 Automated erythrocyte mean corpuscular hemoglobin (mass per erythrocyte) 34 pg 25-34 Automated erythrocyte mean corpuscular hemoglobin concentration measurement ( mass/volume) 34 g/dL 32-36 Automated erythrocyte distribution width ratio 12.3 % 10.0-14.5 Automated blood platelet count (count/volume) 324 10*3/uL 130-400 Automated blood platelet mean volume measurement 9.6 [foz_us] 7.4-10.4 Automated blood neutrophils/100 leukocytes 80 % 42-75 Automated blood lymphocytes/100 leukocytes 15 % 12-44 Blood monocytes/100 leukocytes 4 % 0-12 Automated blood eosinophils/100 leukocytes 0 % 0-10 Automated blood basophils/100 leukocytes 1 % 0-10 Blood neutrophils automated count (number/volume) 7.0 10*3 1.8-7.8 Blood lymphocytes automated count (number/volume) 1.4 10*3 1.0-4.0 Blood monocytes automated count (number/volume) 0.4 10*3 0.0-1.0 Automated eosinophil count 0.0 10*3/uL 0.0-0.3 Automated blood basophil count (count/volume) 0.1 10*3/uL 0.0-0.1 Serum or plasma phosphate measurement (mass/volume) - 02/15/18 03:34 Serum or plasma phosphate measurement (mass/volume) 4.1 mg/dL 2.3-4.7 Magnesium - 02/15/18 03:34 Magnesium 1.8 mg/dL 1.8-2.4 Comprehensive metabolic panel - 02/15/18 03:34 Serum or plasma sodium measurement (moles/volume) 137 mmol/L 135-145 Serum or plasma potassium measurement (moles/volume) 4.0 mmol/L 3.6-5.0 Serum or plasma chloride measurement (moles/volume) 104 mmol/L 98-107 Carbon dioxide 17 mmol/L 21-32 Serum or plasma anion gap determination (moles/volume) 16 mmol/L 5-14 Serum or plasma urea nitrogen measurement (mass/volume) 10 mg/dL 7-18 Serum or plasma creatinine measurement (mass/volume) 0.65 mg/dL 0.60-1.30 Serum or plasma urea nitrogen/creatinine mass ratio 15 NRG Serum or plasma creatinine measurement with calculation of estimated glomerular filtration rate > NRG Serum or plasma glucose measurement (mass/volume) 99 mg/dL 70-105 Serum or plasma calcium measurement (mass/volume) 8.4 mg/dL 8.5-10.1 Serum or plasma total bilirubin measurement (mass/volume) 0.6 mg/dL 0.1-1.0 Serum or plasma alkaline phosphatase measurement (enzymatic activity/volume) 55 U/L 40-136 Serum or plasma aspartate aminotransferase measurement (enzymatic activity/ volume) 107 U/L 5-34 Serum or plasma alanine aminotransferase measurement (enzymatic activity/volume ) 43 U/L 0-55 Serum or plasma protein measurement (mass/volume) 6.5 g/dL 6.4-8.2 Serum or plasma albumin measurement (mass/volume) 4.1 g/dL 3.2-4.5 CALCIUM CORRECTED 8.3 mg/dL 8.5-10.1 Complete blood count (CBC) with automated white blood cell (WBC) differential - 02/16/18 06:00 Blood leukocytes automated count (number/volume) 8.3 10*3/uL 4.3-11.0 Blood erythrocytes automated count (number/volume) 3.95 10*6/uL 4.35-5.85 Venous blood hemoglobin measurement (mass/volume) 13.7 g/dL 13.3-17.7 Blood hematocrit (volume fraction) 39 % 40-54 Automated erythrocyte mean corpuscular volume 100 [foz_us] 80-99 Automated erythrocyte mean corpuscular hemoglobin (mass per erythrocyte) 35 pg 25-34 Automated erythrocyte mean corpuscular hemoglobin concentration measurement ( mass/volume) 35 g/dL 32-36 Automated erythrocyte distribution width ratio 12.2 % 10.0-14.5 Automated blood platelet count (count/volume) 280 10*3/uL 130-400 Automated blood platelet mean volume measurement 9.5 [foz_us] 7.4-10.4 Automated blood neutrophils/100 leukocytes 73 % 42-75 Automated blood lymphocytes/100 leukocytes 19 % 12-44 Blood monocytes/100 leukocytes 6 % 0-12 Automated blood eosinophils/100 leukocytes 2 % 0-10 Automated blood basophils/100 leukocytes 1 % 0-10 Blood neutrophils automated count (number/volume) 6.1 10*3 1.8-7.8 Blood lymphocytes automated count (number/volume) 1.6 10*3 1.0-4.0 Blood monocytes automated count (number/volume) 0.5 10*3 0.0-1.0 Automated eosinophil count 0.2 10*3/uL 0.0-0.3 Automated blood basophil count (count/volume) 0.0 10*3/uL 0.0-0.1 Whole blood basic metabolic panel - 02/16/18 06:00 Serum or plasma sodium measurement (moles/volume) 140 mmol/L 135-145 Serum or plasma potassium measurement (moles/volume) 4.5 mmol/L 3.6-5.0 Serum or plasma chloride measurement (moles/volume) 106 mmol/L 98-107 Carbon dioxide 25 mmol/L 21-32 Serum or plasma anion gap determination (moles/volume) 9 mmol/L 5-14 Serum or plasma urea nitrogen measurement (mass/volume) 5 mg/dL 7-18 Serum or plasma creatinine measurement (mass/volume) 0.72 mg/dL 0.60-1.30 Serum or plasma urea nitrogen/creatinine mass ratio 7 NRG Serum or plasma creatinine measurement with calculation of estimated glomerular filtration rate > NRG Serum or plasma glucose measurement (mass/volume) 105 mg/dL 70-105 Serum or plasma calcium measurement (mass/volume) 9.3 mg/dL 8.5-10.1 Serum or plasma phosphate measurement (mass/volume) - 02/16/18 06:00 Serum or plasma phosphate measurement (mass/volume) 3.4 mg/dL 2.3-4.7 Magnesium - 02/16/18 06:00 Magnesium 2.1 mg/dL 1.8-2.4 Magnesium - 03/09/18 06:41 Mg++ 2.2 mg/dL 1.6-2.6 Ethanol - 03/09/18 06:41 Ethanol 227 mg/dL 20-80 Rapid Drug Screen + ETOH,Medical - 03/09/18 06:41 Encounters ACCT No. Visit Date/Time Discharge Status Pt. Type Provider Facility Loc./Unit Complaint [id number] 02/14/2018 23:05:00 02/16/2018 11:28:00 DIS Inpatient CHARLENE FRAZIER DO [facility] ICU ETOH ABUSE [id number] 05/25/2017 08:29:00 05/25/2017 11:20:00 DIS Emergency REFUGIO CROUCH MD [facility] ER ALCOHOL OVERDOSE [id number] 07/25/2015 17:48:00 07/25/2015 18:22:00 DIS Emergency REFUGIO CROUCH MD [facility] ER COUGH/CONGESTION [id number] 03/19/2014 18:54:00 03/19/2014 23:59:59 CLS Outpatient GABI WOOD [facility] QUICK [id number] 08/08/2013 21:32:00 08/08/2013 22:50:00 DIS Emergency EMANUEL BIRMINGHAM [facility] ER L ANKLE INJ [id number] 12/28/2012 21:17:00 12/28/2012 21:44:00 DIS Emergency EMANUEL B[place] [facility] ER LEFT LEG ABSCESS [id number] 07/25/2015 18:26:00 Document Registration [id number] 03/19/2014 18:55:29 ACT Document Registration [id number] 03/09/2018 05:40:00 03/09/2018 09:52:00 DIS Inpatient [facility] MED-SURG [id number] 03/09/2018 07:34:12 Document Registration [id number] 04/20/2018 14:30:00 04/20/2018 23:59:59 CLS Outpatient LAI RONNIE [facility] [id number] 05/09/2011 14:11:00 05/09/2011 23:59:59 CLS Outpatient [id number] 03/27/2012 18:34:11 RECURRING
[2018-05-07] MEDS ORDERED: NS IV 1000 ML 1,000 ML IV SCH ×2 (13:00→14:30)
[2018-05-07 13:12] LABS: BASOPHILS # (AUTO) 0.1 10^3/uL (0.0-0.1); BASOPHILS % (AUTO) 1 % (0-10); EOSINOPHILS % (AUTO) 0 % (0-10); HEMATOCRIT 38 % (40-54); HEMOGLOBIN 12.9 G/DL (13.3-17.7); LYMPHOCYTES # (AUTO) 2.9 X 10^3 (1.0-4.0); LYMPHOCYTES % (AUTO) 18 % (12-44); MEAN CORPUSCULAR HEMOGLOBIN 34 PG (25-34); MEAN CORPUSCULAR HGB CONC 34 G/DL (32-36); MEAN CORPUSCULAR VOLUME 100 FL (80-99); MEAN PLATELET VOLUME 8.8 FL (7.4-10.4); MONOCYTES # (AUTO) 0.8 X 10^3 (0.0-1.0); MONOCYTES % (AUTO) 5 % (0-12); NEUTROPHILS # (AUTO) 12.6 X 10^3 (1.8-7.8); NEUTROPHILS % (AUTO) 77 % (42-75); PLATELET COUNT 866 10^3/uL (130-400); RED CELL DISTRIBUTION WIDTH 13.4 % (10.0-14.5); WHITE BLOOD COUNT 16.3 10^3/uL (4.3-11.0)
[2018-05-07 13:31] LABS: ALANINE AMINOTRANSFERASE 18 U/L (0-55); ALBUMIN 3.7 GM/DL (3.2-4.5); ALKALINE PHOSPHATASE 128 U/L (40-136); BILIRUBIN,TOTAL 0.3 MG/DL (0.1-1.0); BUN/CREATININE RATIO 6; CALCIUM 9.4 MG/DL (8.5-10.1); CARBON DIOXIDE 27 MMOL/L (21-32); CHLORIDE 107 MMOL/L (98-107); CREATININE SERUM 0.62 MG/DL (0.60-1.30); GFR ESTIMATED > 60; GLUCOSE 113 MG/DL (70-105); SALICYLATE < 5.0 MG/DL (5.0-20.0); SODIUM 146 MMOL/L (135-145); TOTAL PROTEIN 7.9 GM/DL (6.4-8.2)
[2018-05-07 13:32] LABS: ACETAMINOPHEN < 10 UG/ML (10-30)
[2018-05-07 13:40] LABS: BAND NEUTROPHILS 2 %; BASOPHILS % (MANUAL) 0 %; EOSINOPHILS % (MANUAL) 0 %; LYMPHOCYTES % (MANUAL) 14 %; MONOCYTES % (MANUAL) 5 %; NEUTROPHILS % (MANUAL) 79 %; RBC MORPH NORMAL
--- NOTE | 2018-05-07 14:14 | ED General ---
General Chief Complaint: Detox Stated Complaint: ETOH DETOX Nursing Triage Note: TO ED PER EMS WANTS DETOX DRINKS APX A LITER OF VODKA DAILY Nursing Sepsis Screen: No Definite Risk Source of Information: Patient Exam Limitations: No Limitations History of Present Illness Date Seen by Provider: May 07, 2018 Time Seen by Provider: 12:50 Initial Comments 23-year-old male who identifies as female was brought to the emergency room by [facility] for wanting to be admitted for alcohol detox. She reports drinking a liter of vodka daily. She reports not drinking alcohol for 12 hours. She reports history of seizures when she withdraws. Denies seizure activity today. Timing/Duration: 12 Hours Allergies and Home Medications Allergies Coded Allergies: No Known Drug Allergies (Unverified , 11/12/09) Home Medications Doxylamine Succinate 25 Mg Tablet, 25 MG PO HS PRN for SLEEP, (Reported) ALTERNATES BETWEEN MELATONIN AND OTC SLEEP AID Melatonin 5 Mg Capsule, 5 MG PO HS PRN for SLEEP, (Reported) ALTERNATES BETWEEN MELATONIN AND OTC SLEEP AID Patient Home Medication List Home Medication List Reviewed: Yes Review of Systems Review of Systems Constitutional: no symptoms reported, see HPI Psychiatric/Neurological: See HPI, Other (Wants alcohol detox) All Other Systems Reviewed Negative Unless Noted: Yes Past Uabmayt-Vzhbop-Jhdvvs Hx Past Med/Social Hx: Reviewed Nursing Past Med/Soc Hx Patient Social History Alcohol Use: Regular Use Number of Drinks Today: FF Alcohol Beverage of Choice: Vodka Recreational Drug Use: Yes Smoking Status: Current Everyday Smoker Type Used: Cigarettes 2nd Hand Smoke Exposure: Yes Recent Foreign Travel: No Contact w/Someone Who Travel: No Recent Infectious Disease Expo: No Recent Hopitalizations: No Immunizations Up To Date Tetanus Booster (TDap): Unknown PED Vaccines UTD: No Seasonal Allergies Seasonal Allergies: No Past Medical History Surgeries: No Respiratory: No Currently Using CPAP: No Currently Using BIPAP: No Cardiac: No Neurological: No Reproductive Disorders: No Sexually Transmitted Disease: No Genitourinary: No Gastrointestinal: No Musculoskeletal: No Endocrine: No HEENT: No Cancer: No Psychosocial: Yes Anxiety, Suicide Attempts, Depression Integumentary: Yes (LESION L THIGH) Blood Disorders: No Adverse Reaction/Blood Tranf: No Family Medical History Reviewed Nursing Family Hx No Pertinent Family Hx Physical Exam Vital Signs Vital Signs - First Documented 05/07/18 05/07/18 12:51 16:00 Temp 98.5 Pulse 122 Resp 18 B/P (MAP) 124/89 (101) Pulse Ox 98 O2 Delivery Room Air Capillary Refill : Less Than 3 Seconds Height, Weight, BMI Height: 5'4.00" Weight: 140lbs. 0.0oz. [id number]; 22.3 BMI Method:Stated General Appearance: No Apparent Distress, WD/WN HEENT: PERRL/EOMI, TMs Normal, Normal ENT Inspection, Pharynx Normal Respiratory: Chest Non Tender, Lungs Clear, Normal Breath Sounds, No Accessory Muscle Use, No Respiratory Distress Cardiovascular: No Edema, No Gallop, No JVD, No Murmur, Normal Peripheral Pulses, Tachycardia Gastrointestinal: Normal Bowel Sounds, No Organomegaly, No Pulsatile Mass, Non Tender, Soft Extremity: Normal Capillary Refill Neurologic/Psychiatric: Alert, Oriented x3, Normal Mood/Affect Skin: Normal Color, Warm/Dry Progress/Results/Core Measures Suspected Sepsis Recent Fever Within 48 Hours: No Infection Criteria Present: None New/Unexplained Altered Menta: No Sepsis Screen: No Definite Risk SIRS Temperature:98.5 Pulse: 122 Respiratory Rate: 18 Laboratory Tests 05/07/18 13:05: White Blood Count 16.3H Blood Pressure 124 /89 Mean: 101 Laboratory Tests 05/07/18 13:05: Creatinine 0.62, Platelet Count 866H, Total Bilirubin 0.3 Results/Orders Lab Results Laboratory Tests Test 05/07/18 13:05 Range/Units White Blood Count 16.3 H 4.3-11.0 10^3/uL Red Blood Count 3.84 L 4.35-5.85 10^6/uL Hemoglobin 12.9 L 13.3-17.7 G/DL Hematocrit 38 L 40-54 % Mean Corpuscular Volume 100 H 80-99 FL Mean Corpuscular Hemoglobin 34 25-34 PG Mean Corpuscular Hemoglobin Concent 34 32-36 G/DL Red Cell Distribution Width 13.4 10.0-14.5 % Platelet Count 866 H 130-400 10^3/uL Mean Platelet Volume 8.8 7.4-10.4 FL Neutrophils (%) (Auto) 77 H 42-75 % Lymphocytes (%) (Auto) 18 12-44 % Monocytes (%) (Auto) 5 0-12 % Eosinophils (%) (Auto) 0 0-10 % Basophils (%) (Auto) 1 0-10 % Neutrophils # (Auto) 12.6 H 1.8-7.8 X 10^3 Lymphocytes # (Auto) 2.9 1.0-4.0 X 10^3 Monocytes # (Auto) 0.8 0.0-1.0 X 10^3 Eosinophils # (Auto) 0.0 0.0-0.3 10^3/uL Basophils # (Auto) 0.1 0.0-0.1 10^3/uL Neutrophils % (Manual) 79 % Lymphocytes % (Manual) 14 % Monocytes % (Manual) 5 % Eosinophils % (Manual) 0 % Basophils % (Manual) 0 % Band Neutrophils 2 % Blood Morphology Comment NORMAL Sodium Level 146 H 135-145 MMOL/L Potassium Level 4.0 3.6-5.0 MMOL/L Chloride Level 107 98-107 MMOL/L Carbon Dioxide Level 27 21-32 MMOL/L Anion Gap 12 5-14 MMOL/L Blood Urea Nitrogen 4 L 7-18 MG/DL Creatinine 0.62 0.60-1.30 MG/DL Estimat Glomerular Filtration Rate > 60 BUN/Creatinine Ratio 6 Glucose Level 113 H 70-105 MG/DL Calcium Level 9.4 8.5-10.1 MG/DL Corrected Calcium 9.6 8.5-10.1 MG/DL Total Bilirubin 0.3 0.1-1.0 MG/DL Aspartate Amino Transf (AST/SGOT) 38 H 5-34 U/L Alanine Aminotransferase (ALT/SGPT) 18 0-55 U/L Alkaline Phosphatase 128 40-136 U/L Total Protein 7.9 6.4-8.2 GM/DL Albumin 3.7 3.2-4.5 GM/DL Salicylates Level < 5.0 L 5.0-20.0 MG/DL Acetaminophen Level < 10 L 10-30 UG/ML Serum Alcohol 307 *H <10 MG/DL My Orders Orders - AFTAB QUINTEROS Cbc With Automated Diff (05/07/18 12:52) Comprehensive Metabolic Panel (05/07/18 12:52) Alcohol (05/07/18 12:52) Acetaminophen (05/07/18 12:52) Salicylate (05/07/18 12:52) Ekg Tracing (05/07/18 12:52) Saline Lock/Iv-Start (05/07/18 12:52) Monitor-Rhythm Ecg Trace Only (05/07/18 12:52) Saline Lock/Iv-Start (05/07/18 12:52) Ns Iv 1000 Ml (Sodium Chloride 0.9%) (05/07/18 13:00) Manual Differential (05/07/18 13:05) Nicotine Patch (Nicoderm Patch) (05/07/18 14:30) Ns Iv 1000 Ml (Sodium Chloride 0.9%) (05/07/18 14:30) General/Regular (05/07/18 Lunch) Medications Given in ED Vital Signs/I&O Capillary Refill : Less Than 3 Seconds Blood Pressure Mean: 101 Progress Note : Time: 14:50 Progress Note I have seen and evaluated the patient. He has not had any seizure activity during his stay. His gait is steady. He is able to eat and drink fluids without difficulty. He did receive a 2 L saline bolus. I discussed the case with Dr. Brewster and she does not believe that the patient meets admission criteria at this time. I have discussed the case with [facility] and they will be calling the patient today for an appointment time. The patient was informed of laboratory findings. She agrees with plan of care, plans for discharge, return precautions were given. Departure Impression Primary Impression: Alcohol abuse Disposition: 01 HOME, SELF-CARE Condition: Stable/Unchanged Departure-Patient Inst. Decision time for Depature: 15:13 Referrals: LOC SALAS,LOCAL PHYSICIAN (PCP) Primary Care Physician Patient Instructions: Alcohol Abuse and Alcoholism (DC) Add. Discharge Instructions: As you are waiting for your appointment time with [facility] do not stop drinking abruptly. Return back to the emergency room for worsening symptoms, seizure activity, or any other concerns as needed. They will be calling you with an appointment today or tomorrow for outpatient treatment. All discharge instructions reviewed with patient and/or family. Voiced understanding. AFTAB QUINTEROS May 07, 2018 14:13
[2018-05-07] MEDS ORDERED: NICOTINE 14 MG (NICODERM) PATCH TD ONE (14:30)
--- NOTE | 2018-05-07 14:50 | NUR ---
FOOD TRAY ORDERED.
--- NOTE | 2018-05-07 15:13 | NUR ---
FOOD TRAY GIVEN
[2018-05-07 16:00] VITALS: BP 109/73
== END 2018-05-07 16:03 | disposition home or self-care (01) ==
LOC: EDUNIT# 12:39 → ER 12:40
DX: F10.10 Alcohol abuse, uncomplicated (principal); F17.210 Nicotine dependence, cigarettes, uncomplicated; F41.9 Anxiety disorder, unspecified; F32.9 Major depressive disorder, single episode, unspecified; Z91.5 Personal history of self-harm
CPT/HCPCS: 36415; 80053; 80320; 80329; 85007; 85027; 93005; 93041

== ENCOUNTER 2018-05-19 17:46 | Inpatient (IN) | payer OTHER ==
[~2018-05-19] VITALS: Ht 162.6 cm; Wt 57.4 kg
--- OUTSIDE RECORDS SUMMARY | 2018-05-19 17:51 | XMS REPORT | Continuity of Care Document ---
Author Author [facility] Organization [facility] Address Unknown Phone Unavailable Allergies Active Description Code Type Severity Reaction Onset Reported/Identified Relationship to Patient Clinical Status Yes NO KNOWN DRUG ALLERGIES UNKNOWN NO KNOWN DRUG ALLERG Yes No Known Drug Allergies [id number] Drug Allergy Unknown N/A 11/12/2009 Medications Medication [...] Drug Screen + ETOH,Medical - 03/09/18 06:41 Complete blood count (CBC) with automated white blood cell (WBC) differential - 05/07/18 13:05 Blood leukocytes automated count (number/volume) 16.3 10*3/uL 4.3-11.0 Blood erythrocytes automated count (number/volume) 3.84 10*6/uL 4.35-5.85 Venous blood hemoglobin measurement (mass/volume) 12.9 g/dL 13.3-17.7 Blood hematocrit (volume fraction) 38 % 40-54 Automated erythrocyte mean corpuscular volume 100 [foz_us] 80-99 Automated erythrocyte mean corpuscular hemoglobin (mass per erythrocyte) 34 pg 25-34 Automated erythrocyte mean corpuscular hemoglobin concentration measurement ( mass/volume) 34 g/dL 32-36 Automated erythrocyte distribution width ratio 13.4 % 10.0-14.5 Automated blood platelet count (count/volume) 866 10*3/uL 130-400 Automated blood platelet mean volume measurement 8.8 [foz_us] 7.4-10.4 Automated blood neutrophils/100 leukocytes 77 % 42-75 Automated blood lymphocytes/100 leukocytes 18 % 12-44 Blood monocytes/100 leukocytes 5 % 0-12 Automated blood eosinophils/100 leukocytes 0 % 0-10 Automated blood basophils/100 leukocytes 1 % 0-10 Blood neutrophils automated count (number/volume) 12.6 10*3 1.8-7.8 Blood lymphocytes automated count (number/volume) 2.9 10*3 1.0-4.0 Blood monocytes automated count (number/volume) 0.8 10*3 0.0-1.0 Automated eosinophil count 0.0 10*3/uL 0.0-0.3 Automated blood basophil count (count/volume) 0.1 10*3/uL 0.0-0.1 Comprehensive metabolic panel - 05/07/18 13:05 Serum or plasma sodium measurement (moles/volume) 146 mmol/L 135-145 Serum or plasma potassium measurement (moles/volume) 4.0 mmol/L 3.6-5.0 Serum or plasma chloride measurement (moles/volume) 107 mmol/L 98-107 Carbon dioxide 27 mmol/L 21-32 Serum or plasma anion gap determination (moles/volume) 12 mmol/L 5-14 Serum or plasma urea nitrogen measurement (mass/volume) 4 mg/dL 7-18 Serum or plasma creatinine measurement (mass/volume) 0.62 mg/dL 0.60-1.30 Serum or plasma urea nitrogen/creatinine mass ratio 6 NRG Serum or plasma creatinine measurement with calculation of estimated glomerular filtration rate > NRG Serum or plasma glucose measurement (mass/volume) 113 mg/dL 70-105 Serum or plasma calcium measurement (mass/volume) 9.4 mg/dL 8.5-10.1 Serum or plasma total bilirubin measurement (mass/volume) 0.3 mg/dL 0.1-1.0 Serum or plasma alkaline phosphatase measurement (enzymatic activity/volume) 128 U/L 40-136 Serum or plasma aspartate aminotransferase measurement (enzymatic activity/ volume) 38 U/L 5-34 Serum or plasma alanine aminotransferase measurement (enzymatic activity/volume ) 18 U/L 0-55 Serum or plasma protein measurement (mass/volume) 7.9 g/dL 6.4-8.2 Serum or plasma albumin measurement (mass/volume) 3.7 g/dL 3.2-4.5 CALCIUM CORRECTED 9.6 mg/dL 8.5-10.1 Serum or plasma salicylates measurement (mass/volume) - 05/07/18 13:05 Serum or plasma salicylates measurement (mass/volume) < mg/dL 5.0-20.0 Serum or plasma acetaminophen measurement (mass/volume) - 05/07/18 13:05 Serum or plasma acetaminophen measurement (mass/volume) < ug/mL 10-30 Serum or plasma ethanol measurement (mass/volume) - 05/07/18 13:05 Serum or plasma ethanol measurement (mass/volume) 307 mg/dL <10 Blood manual differential performed detection - 05/07/18 13:05 Blood monocytes/100 leukocytes 5 % NRG Manual blood segmented neutrophils/100 leukocytes 79 % NRG Blood band neutrophils/100 leukocytes 2 % NRG Manual blood lymphocytes/100 leukocytes 14 % NRG Manual eosinophils/100 leukocytes in nose 0 % NRG Manual blood basophils/100 leukocytes 0 % NRG Blood erythrocyte morphology finding identification NORMAL NRG Encounters ACCT No. Visit Date/Time Discharge Status Pt. Type Provider Facility Loc./Unit Complaint [id number] 05/07/2018 12:40:00 05/07/2018 16:03:00 DIS Emergency AFTAB QUINTEROS [facility] ER ETOH DETOX [id number] 02/14/2018 23:05:00 02/16/2018 11:28:00 DIS Inpatient CHARLENE FRAZIER DO [facility] ICU ETOH ABUSE [id number] 05/25/2017 08:29:00 05/25/2017 11:20:00 DIS Emergency REFUGIO CROUCH MD [facility] ER ALCOHOL OVERDOSE [id number] 07/25/2015 17:48:00 07/25/2015 18:22:00 DIS Emergency REFUGIO CROUCH MD [facility] ER COUGH/CONGESTION [id number] 03/19/2014 18:54:00 03/19/2014 23:59:59 CLS Outpatient GABI WOOD [facility] QUICK [id number] 08/08/2013 21:32:00 08/08/2013 22:50:00 DIS Emergency EMANUEL BIRMINGHAM [facility] ER L ANKLE INJ [id number] 12/28/2012 21:17:00 12/28/2012 21:44:00 DIS Emergency EMANUEL B[place] [facility] ER LEFT LEG ABSCESS [id number] 07/25/2015 18:26:00 Document Registration [id number] 03/19/2014 18:55:29 ACT Document Registration [id number] 03/09/2018 05:40:00 03/09/2018 09:52:00 DIS Inpatient [facility] MED-SURG [id number] 03/09/2018 07:34:12 Document Registration [id number] 04/20/2018 14:30:00 04/20/2018 23:59:59 CLS Outpatient LAI MORE RONNIE [facility] [id number] 05/09/2011 14:11:00 05/09/2011 23:59:59 CLS Outpatient [id number] 03/27/2012 18:34:11 RECURRING
[2018-05-19] MEDS ORDERED: NS IV 1000 ML 1,000 ML IV ONE (17:52)
--- NOTE | 2018-05-19 18:03 | ED Abdominal Pain ---
General Chief Complaint: Abdominal/GI Problems Stated Complaint: ETOH Nursing Triage Note: Pt to ED via [facility]. EMS reports grandmother called ambulance for vomiting and alcohol withdrawal. Pt reports taking 3 shots of vodka today, c/o L sided abd pain. Pt slow to answer questions when asked during intial assessment. Sepsis Screen: No Definite Risk Source of Information: Patient Exam Limitations: No Limitations (AFTAB QUINTEROS) History of Present Illness Date Seen by Provider: May 19, 2018 Time Seen by Provider: 17:50 Initial Comments 23-year-old male who identifies as a female was brought to the emergency room by [facility] with reports of nausea, vomiting, left lower quadrant abdominal pain and alcohol withdrawal. She is a daily drinker and has been seen in the emergency room several times for alcohol withdrawal\\detox. EMS reports of the grandmother did call 911 for transportation. The patient reports that she did take 3 shots of vodka today. She has slurred speech and excessive yawning on arrival to the emergency room. Timing/Duration: 1 Day Location: [facility] Radiation: No Radiation Associated Symptoms: Nausea/Vomiting (AFTAB QUINTEROS) Allergies and Home Medications Allergies Coded Allergies: No Known Drug Allergies (Unverified , 11/12/09) Home Medications Doxylamine Succinate 25 Mg Tablet, 25 MG PO HS PRN for SLEEP, (Reported) ALTERNATES BETWEEN MELATONIN AND OTC SLEEP AID Melatonin 5 Mg Capsule, 5 MG PO HS PRN for SLEEP, (Reported) ALTERNATES BETWEEN MELATONIN AND OTC SLEEP AID Patient Home Medication List Home Medication List Reviewed: Yes (AFTAB QUINTEROS) Review of Systems Review of Systems Constitutional: No chills, No fever EENTM: No Symptoms Reported Respiratory: Denies Cough, Denies Shortness of Air; Other (persistent yawning) Cardiovascular: Denies Chest Pain, Denies Edema Gastrointestinal: Abdominal Pain, Nausea, Vomiting Genitourinary: No Symptoms Reported Musculoskeletal: no symptoms reported Skin: no symptoms reported Psychiatric/Neurological: Anxiety, Emotional Problems (REFUGIO CROUCH MD) All Other Systems Reviewed Negative Unless Noted: Yes (AFTAB QUINTEROS) Negative Unless Noted: Yes (REFUGIO CROUCH MD) Past Lpbyrtq-Klfehx-Anksoo Hx Past Med/Social Hx: Reviewed Nursing Past Med/Soc Hx (REFUGIO CROUCH MD) Patient Social History Alcohol Use: Regular Use Number of Drinks Today: FF Alcohol Beverage of Choice: Vodka Recreational Drug Use: Yes Type Used: Cigarettes 2nd Hand Smoke Exposure: Yes Recent Foreign Travel: No Contact w/Someone Who Travel: No Recent Infectious Disease Expo: No Recent Hopitalizations: No (AFTAB QUINTEROS) Immunizations Up To Date Tetanus Booster (TDap): Unknown PED Vaccines UTD: No (AFTAB QUINTEROS) Seasonal Allergies Seasonal Allergies: No (AFTAB QUINTEROS) Past Medical History Surgeries: No Respiratory: No Currently Using CPAP: No Currently Using BIPAP: No Cardiac: No Neurological: No Reproductive Disorders: No Sexually Transmitted Disease: No Genitourinary: No Gastrointestinal: No Musculoskeletal: No Endocrine: No HEENT: No Cancer: No Psychosocial: Yes Anxiety, Suicide Attempts, Depression Integumentary: Yes (LESION L THIGH) Blood Disorders: No Adverse Reaction/Blood Tranf: No (AFTAB QUINTEROS) Family Medical History Reviewed Nursing Family Hx (REFUGIO CROUCH MD) No Pertinent Family Hx (AFTAB QUINTEROS) Physical Exam Vital Signs Vital Signs - First Documented 05/19/18 17:50 Temp 98.2 Pulse 105 Resp 18 B/P (MAP) 125/109 (114) Pulse Ox 100 O2 Delivery Room Air (REFUGIO CROUCH MD) Vital Signs Capillary Refill : Less Than 3 Seconds (AFTAB QUINTEROS) Height/Weight/BMI Height: 5'4.00" Weight: 140lbs. 0.0oz. 63.339448la; 22.3 BMI Method:Stated (AFTAB QUINTEROS) General Appearance: WD/WN, no apparent distress HEENT: PERRL/EOMI, pharynx normal, other (moderate bilateral nasal congestion with clear to mucoid rhinorrhea and moderate erythema) Neck: full range of motion, supple Respiratory: lungs clear, normal breath sounds Cardiovascular: no murmur, tachycardia Peripheral Pulses: 2+ Dorsalis Pedis (R), 2+ Left Dors-Pedis (L), 2+ Radial Pulses (R), 2+ Radial Pulses (L) Gastrointestinal: non tender, soft Extremities: non-tender, normal inspection Back: normal inspection, no CVA tenderness, no vertebral tenderness Neurologic/Psychiatric: alert, oriented x 3 Skin: normal color, warm/dry (REFUGIO CROUCH MD) Focused Exam Lactate Level 05/19/18 20:30: Lactic Acid Level 2.96*H (REFUGIO CROUCH MD) Lactic Acid Level Laboratory Tests Test 05/19/18 20:30 Lactic Acid Level 2.96 MMOL/L (0.50-2.00) *H (REFUGIO CROUCH MD) Progress/Results/Core Measures Results/Orders Lab Results Laboratory Tests Test 05/19/18 18:01 05/19/18 19:49 05/19/18 19:54 05/19/18 20:30 Range/Units White Blood Count 16.3 H 4.3-11.0 10^3/uL Red Blood Count 4.80 4.35-5.85 10^6/uL Hemoglobin 16.0 13.3-17.7 G/DL Hematocrit 46 40-54 % Mean Corpuscular Volume 95 80-99 FL Mean Corpuscular Hemoglobin 33 25-34 PG Mean Corpuscular Hemoglobin Concent 35 32-36 G/DL Red Cell Distribution Width 13.9 10.0-14.5 % Platelet Count 1089 *H 130-400 10^3/uL Mean Platelet Volume 8.7 7.4-10.4 FL Neutrophils (%) (Auto) 88 H 42-75 % Lymphocytes (%) (Auto) 6 L 12-44 % Monocytes (%) (Auto) 6 0-12 % Eosinophils (%) (Auto) 0 0-10 % Basophils (%) (Auto) 0 0-10 % Neutrophils # (Auto) 14.3 H 1.8-7.8 X 10^3 Lymphocytes # (Auto) 0.9 L 1.0-4.0 X 10^3 Monocytes # (Auto) 1.0 0.0-1.0 X 10^3 Eosinophils # (Auto) 0.0 0.0-0.3 10^3/uL Basophils # (Auto) 0.1 0.0-0.1 10^3/uL Neutrophils % (Manual) 82 % Lymphocytes % (Manual) 2 % Monocytes % (Manual) 11 % Eosinophils % (Manual) 0 % Basophils % (Manual) 0 % Band Neutrophils 1 % Reactive Lymphocytes 4 % Blood Morphology Comment NORMAL Sodium Level 137 135-145 MMOL/L Potassium Level 4.1 3.6-5.0 MMOL/L Chloride Level 90 L 98-107 MMOL/L Carbon Dioxide Level 24 21-32 MMOL/L Anion Gap 23 H 5-14 MMOL/L Blood Urea Nitrogen 14 7-18 MG/DL Creatinine 2.24 H 0.60-1.30 MG/DL Estimat Glomerular Filtration Rate 37 BUN/Creatinine Ratio 6 Glucose Level 153 H 70-105 MG/DL Calcium Level 11.2 H 8.5-10.1 MG/DL Corrected Calcium 8.5-10.1 MG/DL Magnesium Level 2.3 1.8-2.4 MG/DL Total Bilirubin 0.7 0.1-1.0 MG/DL Aspartate Amino Transf (AST/SGOT) 37 H 5-34 U/L Alanine Aminotransferase (ALT/SGPT) 20 0-55 U/L Alkaline Phosphatase 120 40-136 U/L Total Protein 10.3 H 6.4-8.2 GM/DL Albumin 5.1 H 3.2-4.5 GM/DL TSH [place] Testing 0.84 0.35-4.94 UIU/ML Salicylates Level < 5.0 L 5.0-20.0 MG/DL Acetaminophen Level < 10 L 10-30 UG/ML Serum Alcohol 33 H <10 MG/DL Urine Color DARK YELLOW Urine Clarity CLOUDY H Urine pH 5 5-9 Urine Specific [place] 1.025 H 1.016-1.022 Urine Protein 4+ NEGATIVE Urine Glucose (UA) NEGATIVE NEGATIVE Urine Ketones 1+ H NEGATIVE Urine Nitrite POSITIVE H NEGATIVE Urine Bilirubin 1+ H NEGATIVE Urine Urobilinogen 4 H NORMAL MG/DL Urine Leukocyte Esterase 2+ H NEGATIVE Urine RBC (Auto) 1+ H NEGATIVE Urine RBC 0-2 /HPF Urine WBC 0-2 /HPF Urine Squamous Epithelial Cells 0-2 /HPF Urine Crystals PRESENT H /LPF Urine Calcium Oxalate Crystals MODERATE H /LPF Urine Bacteria LARGE H /HPF Urine Casts PRESENT /LPF Urine Hyaline Casts 10-25 H /LPF Urine Mucus NEGATIVE /LPF Urine Culture Indicated YES Urine Opiates Screen POSITIVE H NEGATIVE Urine Oxycodone Screen NEGATIVE NEGATIVE Urine Methadone Screen NEGATIVE NEGATIVE Urine Propoxyphene Screen NEGATIVE NEGATIVE Urine Barbiturates Screen NEGATIVE NEGATIVE Ur Tricyclic Antidepressants Screen NEGATIVE NEGATIVE Urine Phencyclidine Screen NEGATIVE NEGATIVE Urine Amphetamines Screen NEGATIVE NEGATIVE Urine Methamphetamines Screen POSITIVE H NEGATIVE Urine Benzodiazepines Screen POSITIVE H NEGATIVE Urine Cocaine Screen NEGATIVE NEGATIVE Urine Cannabinoids Screen POSITIVE H NEGATIVE Blood Gas Puncture Site R RAD Blood Gas Patient Temperature 98.2 Arterial Blood pH 7.48 H 7.37-7.43 Arterial Blood Partial Pressure CO2 35 35-45 MMHG Arterial Blood Partial Pressure O2 96 H 79-93 MMHG Arterial Blood HCO3 26 23-27 MMOL/L Arterial Blood Total CO2 27.0 21.0-31.0 MMOL/L Arterial Blood Oxygen Saturation 98 94-100 % Arterial Blood Base Excess 2.6 H -2.5-2.5 MMOL/L Fermín Test YES-POS Blood Gas Ventilator Setting NO Blood Gas Inspired Oxygen RA Lactic Acid Level 2.96 *H 0.50-2.00 MMOL/L (REFUGIO CROUCH MD) Micro Results Microbiology 05/19/18 Influenza Types A,B Antigen (MARNI) - Final, Complete 05/19/18 Urine Culture - Final, Complete NO GROWTH (REFUGIO CROUCH MD) My Orders Orders - REFUGIO CROUCH MD Magnesium (05/19/18 18:55) Influenza A And B Antigens (05/19/18 18:55) Arterial Blood Gas (05/19/18 19:54) Chest 1 View, Ap/Pa Only (05/19/18 20:00) Lactic Acid Analyzer (05/19/18 20:12) Blood Culture (05/19/18 20:12) Ceftriaxone For Iv Use (Rocephin For I (05/19/18 20:45) Ondansetron Injection (Zofran Injectio (05/19/18 21:06) Ondansetron Injection (Zofran Injectio (05/19/18 21:15) (REFUGIO CROUCH MD) Medications Given in ED (REFUGIO CROUCH MD) Vital Signs/I&O 05/19/18 17:50 Temp 98.2 Pulse 105 Resp 18 B/P (MAP) 125/109 (114) Pulse Ox 100 O2 Delivery Room Air (REFUGIO CROUCH MD) Blood Pressure Mean: 114 Progress Progress Note : Progress Note I assumed care of the patient for transfer not, LABOR SERVICE REPRESENTATIVE pending labs and CT. Patient is here with abdominal discomfort and is quite confused currently. Has known history of alcohol abuse. Patient is transgender genetic male to female and identifies as female. She is significantly confused today. Alcohol level was low and I do believe she is withdrawing. She is quite dehydrated with acute renal failure noted. We have fluid administration in progress. She will need alcohol withdrawal protocol and rehydration. Patient has persisting yawning feature that is not normal for her. She denies taking other substances other than admitting to alcohol. I have added influenza screen. Monitor patient. Patient did get CT head complete. Chest x-ray was done and shows no acute findings. Urine is grossly infected. Blood cultures and lactic acid ordered. Lactic acid is positive. Patient has received 2 liters of normal saline IV which exceeds the 30 mL/kg bolus required. Not hypotensive and not requiring pressors. Patient is presently dehydrated which is likely part of the issue. Rocephin 1 g IV ordered. Patient will be admitted for urinary tract infection with sepsis and acute renal failure. This was discussed with patient and family who agree. Admit, inpatient status. Patient also has known chronic alcohol abuse and alcohol withdrawal protocol will be discussed. 2117: I did discuss the case with Dr. Hudson and she accepts patient for admission. (REFUGIO CROUCH MD) Initial ECG Impression Date: May 19, 2018 Initial ECG Impression Time: 18:10 Initial ECG Rate: 94 Initial ECG Rhythm: Normal Sinus Comment Sinus rhythm with normal axis. No evidence of ST elevation MD. Unchanged from previous of 05/07/18.. Interpreted by me. (REFUGIO CROUCH MD) Diagnostic Imaging Diagonstic Imaging: CT Plain Films/CT/US/NM/MRI: head Comments [facility]. [place], [place] NAME: STEVE NICHOLE Rachele [facility] REC#: [id number] PT STATUS: REG ER : 1995 PHYSICIAN: AFTAB QUINTEROS ADMIT DATE: 05/19/18/ER Draft Date of Exam:05/19/18 CT HEAD WO PROCEDURE: CT head without contrast. TECHNIQUE: Multiple contiguous axial images were obtained through the brain without the use of intravenous contrast. INDICATION: Vomiting, alcohol withdrawal. EXAMINATION: CT brain without contrast dated 05/19/2018. FINDINGS: Multiple axial images of the brain without contrast. There is no evidence for acute hemorrhage or infarct. There is no mass, mass effect, midline shift or hydrocephalus. The paranasal sinuses and mastoid air cells demonstrate no acute abnormality. IMPRESSION: No acute intracranial process. Dictated on workstation # [id number] Dict: 05/19/181854 Trans: 05/19/181855 [id number] Interpreted by: JEFF RUSSELL MD Electronically signed by: Denny Imaging: Xray Plain Films/CT/US/NM/MRI: chest Comments [facility] [place] [place] NAME: STEVE NICHOLE [facility] REC#: [id number] PT STATUS: REG ER : 1995 PHYSICIAN: REFUGIO CROUCH MD ADMIT DATE: 05/19/18/ER Draft Date of Exam:05/19/18 CHEST 1 VIEW, AP/PA ONLY INDICATION: Vomiting, alcohol withdrawal. Pain. EXAMINATION: Chest 05/19/2018 FINDINGS: Minimal increased markings in the right mid chest most likely due to focal atelectasis. No focal infiltrates, effusions or pneumothorax. Heart and pulmonary vasculature are unremarkable. IMPRESSION: 1. Likely atelectasis right midlung. Remaining chest is unremarkable. Dictated on workstation # [id number] Dict: 05/19/182037 Trans: 05/19/182044 [facility] [id number] Interpreted by: JEFF RUSSELL MD Electronically signed by: Reviewed: Reviewed by Me (REFUGIO CROUCH MD) Departure Communication (Admissions) Time/Spoke to Admitting Phy: 21:18 (REFUGIO CROUCH MD) Impression Primary Impression: Urinary tract infection Qualified Codes: N30.00 - Acute cystitis without hematuria Additional Impressions: Acute renal failure Qualified Codes: N17.9 - Acute kidney failure, unspecified Sepsis Qualified Codes: A41.9 - Sepsis, unspecified organism Polysubstance abuse Disposition: ADMITTED INPATIENT Condition: Stable Admissions Decision to Admit Reason: Admit from ER (General) Decision to Admit/Date: May 19, 2018 Time/Decision to Admit Time: 21:03 (REFUGIO CROUCH MD) Departure-Patient Inst. Referrals: [facility] (PCP) Primary Care Physician PRAFUL,LOCAL PHYSICIAN (Family) Primary Care Physician AFTAB QUINTEROS 10, 2019 18:03 REFUGIO CROUCH MD May 19, 2018 19:02
[2018-05-19 18:08] LABS: BASOPHILS # (AUTO) 0.1 10^3/uL (0.0-0.1); BASOPHILS % (AUTO) 0 % (0-10); EOSINOPHILS % (AUTO) 0 % (0-10); HEMATOCRIT 46 % (40-54); LYMPHOCYTES # (AUTO) 0.9 X 10^3 (1.0-4.0); LYMPHOCYTES % (AUTO) 6 % (12-44); MEAN CORPUSCULAR HEMOGLOBIN 33 PG (25-34); MEAN CORPUSCULAR HGB CONC 35 G/DL (32-36); MEAN CORPUSCULAR VOLUME 95 FL (80-99); MEAN PLATELET VOLUME 8.7 FL (7.4-10.4); MONOCYTES % (AUTO) 6 % (0-12); NEUTROPHILS # (AUTO) 14.3 X 10^3 (1.8-7.8); NEUTROPHILS % (AUTO) 88 % (42-75); RED CELL DISTRIBUTION WIDTH 13.9 % (10.0-14.5); WHITE BLOOD COUNT 16.3 10^3/uL (4.3-11.0)
[2018-05-19 18:13] LABS: PLATELET COUNT 1089 10^3/uL (130-400)
[2018-05-19] MEDS ORDERED: NS IV 1000 ML 1,000 ML IV SCH (18:15)
[2018-05-19 18:24] LABS: BAND NEUTROPHILS 1 %; BASOPHILS % (MANUAL) 0 %; EOSINOPHILS % (MANUAL) 0 %; LYMPHOCYTES % (MANUAL) 2 %; MONOCYTES % (MANUAL) 11 %; NEUTROPHILS % (MANUAL) 82 %; RBC MORPH NORMAL; REACTIVE LYMPHOCYTES 4 %
[2018-05-19 18:26] LABS: ALANINE AMINOTRANSFERASE 20 U/L (0-55); ALBUMIN 5.1 GM/DL (3.2-4.5); ALKALINE PHOSPHATASE 120 U/L (40-136); BILIRUBIN,TOTAL 0.7 MG/DL (0.1-1.0); BUN/CREATININE RATIO 6; CALCIUM 11.2 MG/DL (8.5-10.1); CARBON DIOXIDE 24 MMOL/L (21-32); CHLORIDE 90 MMOL/L (98-107); CREATININE SERUM 2.24 MG/DL (0.60-1.30); GFR ESTIMATED 37; GLUCOSE 153 MG/DL (70-105); POTASSIUM 4.1 MMOL/L (3.6-5.0); SALICYLATE < 5.0 MG/DL (5.0-20.0); SODIUM 137 MMOL/L (135-145); TOTAL PROTEIN 10.3 GM/DL (6.4-8.2)
[2018-05-19 18:31] LABS: ACETAMINOPHEN < 10 UG/ML (10-30)
--- NOTE | 2018-05-19 18:57 | Diagnostic Imaging Report ---
PROCEDURE: CT head without contrast. TECHNIQUE: Multiple contiguous axial images were obtained through the brain without the use of intravenous contrast. INDICATION: Vomiting, alcohol withdrawal. EXAMINATION: CT brain without contrast dated 05/19/2018. FINDINGS: Multiple axial images of the brain without contrast. There is no evidence for acute hemorrhage or infarct. There is no mass, mass effect, midline shift or hydrocephalus. The paranasal sinuses and mastoid air cells demonstrate no acute abnormality. IMPRESSION: No acute intracranial process. Dictated by: Dictated on workstation # [id number]
--- NOTE | 2018-05-19 19:00 | NUR ---
1L NS infusing per EMS complete at this time.
[2018-05-19 19:59] LABS: GLUCOSE, URINE (UA) NEGATIVE (NEGATIVE); KETONES,URINE 1+ (NEGATIVE); LEUKOCYTE ESTERASE ,URINE 2+ (NEGATIVE); NITRITE,URINE POSITIVE (NEGATIVE); PH,URINE 5 (5-9); PROTEIN,URINE 4+ (NEGATIVE); UROBILINOGEN,URINE 4 MG/DL (NORMAL)
[2018-05-19 20:00] LABS: ABG BASE EXCESS 2.6 MMOL/L (-2.5-2.5); ABG OXYGEN SATURATION 98 % (94-100); ABG PCO2 35 MMHG (35-45); ABG PH 7.48 (7.37-7.43); ABG PO2 96 MMHG (79-93); ALLENS TEST YES-POS; INSPIRED O2 RA; VENTILATOR NO
[2018-05-19 20:01] LABS: CLARITY,URINE CLOUDY; COLOR,URINE DARK YELLOW
[2018-05-19 20:01] LABS: PATIENT TEMP 98.2
[2018-05-19 20:03] LABS: BILIRUBIN,URINE 1+ (NEGATIVE)
[2018-05-19 20:06] LABS: BACTERIA,URINE LARGE /HPF; CALCIUM OXALATE CRYSTALS,UR MODERATE /LPF; RBC,URINE 0-2 /HPF; SQUAMOUS EPITHELIAL CELL,UR 0-2 /HPF; WBC,URINE 0-2 /HPF
[2018-05-19 20:09] LABS: AMPHETAMINE SCREEN, URINE NEGATIVE (NEGATIVE); BARBITURATE SCREEN URINE NEGATIVE (NEGATIVE); BENZODIAZEPINES SCREEN URINE POSITIVE (NEGATIVE); CANNABINOID SCREEN, URINE POSITIVE (NEGATIVE); COCAINE SCREEN URINE NEGATIVE (NEGATIVE); METHADONE STAT NEGATIVE (NEGATIVE); METHAMPHETAMINE SCREEN URINE S POSITIVE (NEGATIVE); OPIATE SCREEN URINE POSITIVE (NEGATIVE); OXYCODONE STAT NEGATIVE (NEGATIVE); PROPOXYPHENE STAT NEGATIVE (NEGATIVE); TRICYCLIC ANTIDEPRESSANTS SCRE NEGATIVE (NEGATIVE)
[2018-05-19] MEDS ORDERED: cefTRIAXone FOR IV USE 1,000 MG in WATER (STERILE) FOR INJECTION 10 ML IV ONE (20:45)
--- NOTE | 2018-05-19 20:46 | Diagnostic Imaging Report ---
INDICATION: Vomiting, alcohol withdrawal. Pain. EXAMINATION: Chest 05/19/2018 FINDINGS: Minimal increased markings in the right mid chest most likely due to focal atelectasis. No focal infiltrates, effusions or pneumothorax. Heart and pulmonary vasculature are unremarkable. IMPRESSION: 1. Likely atelectasis right midlung. Remaining chest is unremarkable. Dictated by: Dictated on workstation # [id number]
[2018-05-19] MEDS ORDERED: ONDANSETRON 4 MG/2 ML (SDV) Z0FRAN ONE (21:06)
[2018-05-19] MEDS ORDERED: ONDANSETRON 4 MG/2 ML (SDV) Z0FRAN IVP ONE ×2 (21:15→22:00)
[2018-05-19] MEDS ORDERED: NS IV 1000 ML 1,000 ML IV STA (21:59)
--- OUTSIDE RECORDS SUMMARY | 2018-05-19 21:59 | XMS REPORT | Continuity of Care Document ---
Author Author [facility] Organization [facility] Address Unknown Phone Unavailable Allergies Active Description Code Type Severity Reaction Onset Reported/Identified Relationship to Patient Clinical Status Yes NO KNOWN DRUG ALLERGIES UNKNOWN NO KNOWN DRUG ALLERG Yes No Known Drug Allergies [id number] Drug Allergy Unknown N/A 11/12/2009 Medications Medication [...] Ot F17.210 NICOTINE DEPENDENCE, CIGARETTES, UNCOMPL 02/16/2018 KAIRN SANDRA CHARLENE Ot F32.9 MAJOR DEPRESSIVE DISORDER, [...] Status Pt. Type Provider Facility Loc./Unit Complaint [id number] 05/07/2018 12:40:00 05/07/2018 16:03:00 DIS Emergency AFTAB QUINTEROS [facility] ER ETOH DETOX [id number] 02/14/2018 23:05:00 02/16/2018 11:28:00 DIS Inpatient CHARLENE FRAZIER DO [facility] ICU ETOH ABUSE [id number] 05/25/2017 08:29:00 05/25/2017 11:20:00 DIS Emergency REFUGIO CROUCH MD [facility] ER ALCOHOL OVERDOSE [id number] 07/25/2015 17:48:00 07/25/2015 18:22:00 DIS Emergency REFUGIO CROUCH MD [facility] ER COUGH/CONGESTION [id number] 03/19/2014 18:54:00 03/19/2014 23:59:59 CLS Outpatient GABI WOOD [facility] QUICK [id number] 08/08/2013 21:32:00 08/08/2013 22:50:00 DIS Emergency EMANUEL [place] [facility] ER L ANKLE INJ [id number] 12/28/2012 21:17:00 12/28/2012 21:44:00 DIS Emergency EMANUEL [place] [facility] ER LEFT LEG ABSCESS [id number] 07/25/2015 18:26:00 Document Registration [id number] 03/19/2014 18:55:29 ACT Document Registration [id number] 03/09/2018 05:40:00 03/09/2018 09:52:00 DIS Inpatient [facility] MED-SURG [id number] 03/09/2018 07:34:12 Document Registration [id number] 04/20/2018 14:30:00 04/20/2018 23:59:59 CLS Outpatient LAI MORE RONNIE [facility] [id number] 05/09/2011 14:11:00 05/09/2011 23:59:59 CLS Outpatient [id number] 03/27/2012 18:34:11 RECURRING
--- NOTE | 2018-05-19 22:30 | NUR ---
STEVE NICHOLE admitted to room 430-1, with an admitting diagnosis of UTI, sepsis, ARF, on 05/19/18 from ED via WC, accompanied by staff member and mother.STEVE NICHOLE introduced to surroundings, call light, bed controls, phone, TV, temperature control, lights, meal times, smoking policy, visitor policy, side rail policy, bathrooms and showers. Patient Rights given to patient in the handbook. STEVE NICHOLE verbalizes understanding that [facility] is not responsible for the loss or damage to any personal effects or valuables that are kept in the patients posession during their hospitalization. STEVE NICHOLE verbalizes understanding of Interdisciplinary Patient Education. Patient and/or family were informed about the Rapid Response Team and its purpose. Patient plan of care discuassed with patient, no concerns at this time.
[2018-05-19 22:32] VITALS: BP 129/95
--- NOTE | 2018-05-19 23:36 | NUR ---
MD called as pt is c/o pain level 7 from headache and abdominal pain. Dr. Hudson only okay with starting 1,000mg Tylenol PO Q6H PRN pain. Order read back and confirmed.
[2018-05-19] MEDS: ACETAMINOPHEN 500 MG TAB (TYLENOL) PO PRN (23:41)
[2018-05-19] MEDS ORDERED: LORazepam 1 MG (ATIVAN) TAB ONE (23:46)
[2018-05-19 23:48] VITALS: BP 114/65
[2018-05-19] MEDS ORDERED: THIAMINE INJECTION 100 MG, FOLIC ACID INJECTION 1 MG, MAGNESIUM SULFATE 2 GM, VITAMIN M... IV SCH ×5 (23:49)
[2018-05-19] MEDS ORDERED: 1/2 NS IV SOLUTION 1,000 ML IV PRN (23:49)
--- NOTE | 2018-05-19 23:50 | NUR ---
2230 CIWA scale showed score of 17 and per protocal pt is to receive 2mg ativan. 2320 [facility] called as no medication orders have been entered yet, Maria M assured this RN that orders would be added. 2340 Orders still not entered and pt still scoring 17 on CIWA. Ativan 2mg PO overridden by Rachele Palomo RN and dose confirmed with this RN. Orders refaxed to pharmacy. Will continue to monitor.
[2018-05-19] MEDS: cefTRIAXone 1,000 MG/SWFI 10 ML IV PUSH IV SCH ×2 (23:53)
[2018-05-19] MEDS: NS IV 1000 ML 1,000 ML IV SCH (23:54)
[2018-05-20] MEDS ORDERED: LORazepam INJ 2 MG/ML (ATIVAN) VIAL IV PRN
[2018-05-20] MEDS ORDERED: SENNA W/DOCUSATE (SENOKOT S) TABLET PO PRN
[2018-05-20] MEDS ORDERED: ONDANSETRON 4 MG/2 ML (SDV) Z0FRAN IV PRN
[2018-05-20] MEDS ORDERED: ONDANSETRON 4 MG (ZOFRAN) ORAL DISSOLVE TAB SL PRN
[2018-05-20] MEDS ORDERED: LORazepam INJ 2 MG/ML (ATIVAN) VIAL IM/IV PRN
[2018-05-20] MEDS ORDERED: D5 1/2 NS 1000 ML IV SOLUTION 1,000 ML IV PRN
[2018-05-20] MEDS ORDERED: ANTACID SUSP 30 ML UDC (MYLANTA) PO PRN
[2018-05-20] MEDS: D5 1/2 NS W/KCL 20 MEQ/L 1,000 ML IV SCH ×4 (00:29→23:42)
[2018-05-20 04:00] VITALS: BP 126/87
[2018-05-20] MEDS: ONDANSETRON 4 MG/2 ML (SDV) Z0FRAN IV PRN ×2 (04:22→09:01)
[2018-05-20] MEDS: LORazepam 1 MG (ATIVAN) TAB PO PRN ×9 (04:22→21:41)
[2018-05-20] MEDS: NS IV 1000 ML 1,000 ML IV SCH ×2 (05:35→23:42)
[2018-05-20 06:45] LABS: BASOPHILS % (AUTO) 0 % (0-10); EOSINOPHILS % (AUTO) 0 % (0-10); HEMATOCRIT 41 % (40-54); HEMOGLOBIN 13.8 G/DL (13.3-17.7); LYMPHOCYTES # (AUTO) 1.7 X 10^3 (1.0-4.0); LYMPHOCYTES % (AUTO) 14 % (12-44); MEAN CORPUSCULAR HEMOGLOBIN 33 PG (25-34); MEAN CORPUSCULAR HGB CONC 34 G/DL (32-36); MEAN CORPUSCULAR VOLUME 98 FL (80-99); MONOCYTES # (AUTO) 1.5 X 10^3 (0.0-1.0); MONOCYTES % (AUTO) 13 % (0-12); NEUTROPHILS # (AUTO) 8.4 X 10^3 (1.8-7.8); NEUTROPHILS % (AUTO) 72 % (42-75); PLATELET COUNT 818 10^3/uL (130-400); RED CELL DISTRIBUTION WIDTH 14.1 % (10.0-14.5); WHITE BLOOD COUNT 11.6 10^3/uL (4.3-11.0)
[2018-05-20 07:10] LABS: ALANINE AMINOTRANSFERASE 13 U/L (0-55); ALBUMIN 4.1 GM/DL (3.2-4.5); ALKALINE PHOSPHATASE 87 U/L (40-136); BILIRUBIN,TOTAL 0.8 MG/DL (0.1-1.0); BUN/CREATININE RATIO 12; CALCIUM 9.4 MG/DL (8.5-10.1); CARBON DIOXIDE 25 MMOL/L (21-32); CREATININE SERUM 0.83 MG/DL (0.60-1.30); GFR ESTIMATED > 60; GLUCOSE 132 MG/DL (70-105); TOTAL PROTEIN 7.6 GM/DL (6.4-8.2)
[2018-05-20 07:31] LABS: CHLORIDE 103 MMOL/L (98-107); POTASSIUM 4.8 MMOL/L (3.6-5.0); SODIUM 139 MMOL/L (135-145)
[2018-05-20 08:00] VITALS: BP 113/83
[2018-05-20] MEDS: THIAMINE INJECTION 100 MG, FOLIC ACID INJECTION 1 MG, VITAMIN MULTI INJECTION 10 ML, MA... IV SCH ×5 (08:47)
[2018-05-20] MEDS: NICOTINE 21 MG (NICODERM) PATCH TD SCH (08:47)
[2018-05-20] MEDS: NICOTINE PATCH REMOVAL TP SCH (08:48)
--- NOTE | 2018-05-20 10:12 | NUR ---
CM/SS attempted to speak with the patient in regards to the SS consult. Patient was sleeping. Will attempt to speak with at later time.
--- NOTE | 2018-05-20 11:12 | NUR ---
PATIENT STATES THEY TAKE OTC SLEEP AID AND MELATONIN ALTERNATING NEEDED. ALSO REPORTS ATIVAN AND HYDROCODONE BUT STATES THEY ARE NOT PRESCRIBED TO THEM. I DID NOT INCLUDE THAT ON THE MED REC AT THIS TIME.
--- NOTE | 2018-05-20 11:16 | History & Physical-Hospitalist ---
History of Present Illness HPI/Chief Complaint CC: Abdominal pain HPI: This is a 23-year-old white male transitioning to a female and goes by "Keyana" who presented to the ER when the family reports that he/she was going through alcohol withdrawal and having abdominal pain and nausea and fever. Patient was found to have UTI sepsis and acute renal failure and in need of hospitalization. Patient is currently sleeping slow to respond but stable. Laboratory evaluation was reviewed and much improved after supportive care given. Patient has a strong history of illicit drug abuse and alcohol abuse which all was evident on ER results. Source: patient Exam Limitations: no limitations Date Seen 05/20/18 Time Seen by a Provider: 10:00 Attending Physician Sulema Hudson DO [facility] [place] Referring Physician Date of Admission May 19, 2018 at 21:20 Home Medications & Allergies Home Medications Reviewed patient Home Medication Reconciliation performed by pharmacy medication reconciliations marine electronics technician and/or nursing. Patients Allergies have been reviewed. Allergies Allergies Coded Allergies No Known Drug Allergies (Unverified11/12/09) Past Ixyfqbb-Rqzaeq-Olpdld Hx Past Med/Social Hx: Reviewed Nursing Past Med/Soc Hx, Reviewed and Corrections made Patient Social History Marrital Status: single Employed/Student: unemployed Alcohol Use: Regular Use Number of Drinks Today: FF Alcohol Beverage of Choice: Vodka Recreational Drug Use: Yes Smoking Status: Current Everyday Smoker Type Used: Cigarettes 2nd Hand Smoke Exposure: Yes Recent Foreign Travel: No Contact w/other who traveled: No Recent Hopitalizations: No Recent Infectious Disease Expo: Yes (Flu, first few weeks of April ) Immunizations Up To Date Tetanus Booster (TDap): Unknown Pediatric: No Date of Influenza Vaccine: Mar 14, 2018 Seasonal Allergies Seasonal Allergies: No Past Medical History Currently Using CPAP: No Currently Using BIPAP: No Reproductive: No Sexually Transmitted Disease: No Psychosocial: Anxiety, Suicide Attempts, Depression alcohol abuse History of Blood Disorders: No Adverse Reaction to Blood Rivera: No Family History No Pertinent Family Hx Review of Systems ROS-Unable to Obtain: unable to ascertain Constitutional: see HPI Physical Exam Physical Exam Vital Signs Vital Signs - First Documented 05/19/18 17:50 Temp 98.2 Pulse 105 Resp 18 B/P (MAP) 125/109 (114) Pulse Ox 100 O2 Delivery Room Air Capillary Refill : Less Than 3 Seconds Height, Weight, BMI Height: 5'4.00" Weight: 126lbs. 8.0oz. [id number]; 21.6 BMI Method:Stated General Appearance: No Apparent Distress, WD/WN, Chronically ill Eyes: Right Eye Normal Inspection, Right Eye PERRL Neck: Normal Inspection, Non Tender Respiratory: Chest Non Tender, Lungs Clear, Normal Breath Sounds, No Accessory Muscle Use, No Respiratory Distress Cardiovascular: Regular Rate, Rhythm, No Edema, No Gallop, No JVD, No Murmur, Normal Peripheral Pulses Gastrointestinal: Normal Bowel Sounds, No Organomegaly, No Pulsatile Mass, Non Tender, Soft Back: Normal Inspection Extremity: Normal Capillary Refill, Normal Inspection, No Pedal Edema Neurologic/Psychiatric: Other (sleeping) Skin: Normal Color, Warm/Dry Lymphatic: No Adenopathy Results Results/Procedures Labs Laboratory Tests 05/19/18 18:01 05/20/18 06:16 Patient resulted labs reviewed. Assessment/Plan Admission Diagnosis Assessment: Sepsis Acute renal failure UTI Abdominal pain Illicit drug abuse Alcohol withdrawal Dehydration Plan: Continue supportive care IV antibiotics empirically Await culture Admission Status: Inpatient Order (span 2 midnights) Reason for Inpatient Admission: Acute renal failure and sepsis will require 3 days of hospital stay Diagnosis/Problems Diagnosis/Problems (1) Sepsis Status: Acute Qualifiers: Sepsis type: sepsis due to unspecified organism Qualified Codes: A41.9 - Sepsis, unspecified organism (2) Hkwt-br-wruebd transgender person Status: Chronic (3) Acute renal failure Status: Acute Qualifiers: Acute renal failure type: unspecified Qualified Codes: N17.9 - Acute kidney failure, unspecified (4) Urinary tract infection Status: Acute Qualifiers: Urinary tract infection type: acute cystitis Hematuria presence: without hematuria Qualified Codes: N30.00 - Acute cystitis without hematuria (5) Polysubstance abuse Clinical Quality Measures DVT/VTE Risk/Contraindication: Risk Factor Score Per Nursin RFS Level Per Nursing on Admit: 4+=Very High CHARLENE FRAZIER DO May 20, 2018 11:16
[2018-05-20 12:00] VITALS: BP 118/82
[2018-05-20] MEDS: ACETAMINOPHEN 500 MG TAB (TYLENOL) PO PRN ×2 (12:29→18:07)
[2018-05-20 16:30] VITALS: BP 132/93
[2018-05-20 19:20] VITALS: BP 127/81
[2018-05-20 23:00] VITALS: BP 108/57
[2018-05-20] MEDS: cefTRIAXone 1,000 MG/SWFI 10 ML IV PUSH IV SCH ×2 (23:34)
[2018-05-21] MEDS: LORazepam 1 MG (ATIVAN) TAB PO PRN ×6 (00:05→09:54)
[2018-05-21 03:53] VITALS: BP 114/63
[2018-05-21] MEDS: ACETAMINOPHEN 500 MG TAB (TYLENOL) PO PRN (03:55)
[2018-05-21 06:08] LABS: BASOPHILS % (AUTO) 1 % (0-10); EOSINOPHILS % (AUTO) 0 % (0-10); HEMATOCRIT 34 % (40-54); LYMPHOCYTES # (AUTO) 1.9 X 10^3 (1.0-4.0); LYMPHOCYTES % (AUTO) 31 % (12-44); MEAN CORPUSCULAR HEMOGLOBIN 33 PG (25-34); MEAN CORPUSCULAR HGB CONC 33 G/DL (32-36); MEAN CORPUSCULAR VOLUME 100 FL (80-99); MEAN PLATELET VOLUME 9.2 FL (7.4-10.4); MONOCYTES # (AUTO) 0.6 X 10^3 (0.0-1.0); MONOCYTES % (AUTO) 9 % (0-12); NEUTROPHILS # (AUTO) 3.7 X 10^3 (1.8-7.8); NEUTROPHILS % (AUTO) 60 % (42-75); PLATELET COUNT 476 10^3/uL (130-400); RED CELL DISTRIBUTION WIDTH 13.8 % (10.0-14.5); WHITE BLOOD COUNT 6.2 10^3/uL (4.3-11.0)
[2018-05-21 06:26] LABS: ALANINE AMINOTRANSFERASE 17 U/L (0-55); ALBUMIN 3.3 GM/DL (3.2-4.5); ALKALINE PHOSPHATASE 59 U/L (40-136); BILIRUBIN,TOTAL 0.4 MG/DL (0.1-1.0); BUN/CREATININE RATIO 6; CALCIUM 8.1 MG/DL (8.5-10.1); CARBON DIOXIDE 21 MMOL/L (21-32); CHLORIDE 109 MMOL/L (98-107); CREATININE SERUM 0.63 MG/DL (0.60-1.30); GFR ESTIMATED > 60; GLUCOSE 86 MG/DL (70-105); POTASSIUM 3.9 MMOL/L (3.6-5.0); SODIUM 138 MMOL/L (135-145); TOTAL PROTEIN 5.8 GM/DL (6.4-8.2)
[2018-05-21] MEDS: D5 1/2 NS W/KCL 20 MEQ/L 1,000 ML IV SCH ×2 (06:38→09:55)
[2018-05-21] MEDS: NS IV 1000 ML 1,000 ML IV SCH (06:40)
[2018-05-21 08:00] VITALS: BP 106/57
[2018-05-21] MEDS: NICOTINE 21 MG (NICODERM) PATCH TD SCH (08:57)
[2018-05-21] MEDS: NICOTINE PATCH REMOVAL TP SCH (08:57)
[2018-05-21] MEDS: THIAMINE INJECTION 100 MG, FOLIC ACID INJECTION 1 MG, VITAMIN MULTI INJECTION 10 ML, MA... IV SCH ×5 (09:54)
--- NOTE | 2018-05-21 11:08 | NUR ---
CM/SS spoke with the patient in regards to SS consult. Patient had services at [facility] for Addiction Treatment. Called [facility] and scheduled new appointment with her counselor for 05/22 at 1:30pm.
[2018-05-21] MEDS ORDERED: CEFD300C3 PO (11:18)
--- NOTE | 2018-05-21 11:22 | Discharge Summary-Hospitalist ---
Diagnosis/Chief Complaint Date of Admission May 19, 2018 at 21:20 Date of Discharge Discharge Date: May 21, 2018 Admission Diagnosis Assessment: Sepsis Acute renal failure UTI Abdominal pain Illicit drug abuse Alcohol withdrawal Dehydration Plan: Continue supportive care IV antibiotics empirically Await culture Discharge Diagnosis (1) Sepsis Status: Resolved (2) Qqrg-rg-bvnxel transgender person Status: Chronic (3) Acute renal failure Status: Resolved (4) Urinary tract infection Status: Acute (5) Polysubstance abuse Status: Chronic Discharge Summary Discharge Physical Exam Allergies: Coded Allergies: No Known Drug Allergies (Unverified , 11/12/09) Vitals & I&Os Vital Signs Date Time Temp Pulse Resp B/P (MAP) Pulse Ox O2 Delivery O2 Flow Rate FiO2 05/21/18 13:00 106 18 106/57 97 Room Air 05/21/18 08:00 98.4 General Appearance: No Apparent Distress, WD/WN, Chronically ill Respiratory: Chest Non Tender, Lungs Clear, Normal Breath Sounds, No Accessory Muscle Use, No Respiratory Distress Cardiovascular: Regular Rate, Rhythm, No Edema, No Gallop, No JVD, No Murmur, Normal Peripheral Pulses Neurologic/Psychiatric: Alert, Oriented x3, No Motor/Sensory Deficits, Normal Mood/Affect Hospital Course Was the Problem List Reviewed?: Yes Hospital course: Pt had an uneventful hospital course, he was admitted for a UTI with sepsis and noted to be transgender into a female. She responded to IV fluids and IV antibiotics and alcohol protocol was placed. Pt overall is doing well, had no pain, was eating and drinking well, bowels were moving and was able to ambulate. Pt was ready for discharge with close follow-up at [facility]. Labs (last 24 hrs) Laboratory Tests 05/21/18 05:49: White Blood Count 6.2, Red Blood Count 3.34L, Hemoglobin 11.0#L, Hematocrit 34L , Mean Corpuscular Volume 100H, Mean Corpuscular Hemoglobin 33, Mean Corpuscular Hemoglobin Concent 33, Red Cell Distribution Width 13.8, Platelet Count 476H, Mean Platelet Volume 9.2, Neutrophils (%) (Auto) 60, Lymphocytes (% ) (Auto) 31, Monocytes (%) (Auto) 9, Eosinophils (%) (Auto) 0, Basophils (%) ( Auto) 1, Neutrophils # (Auto) 3.7, Lymphocytes # (Auto) 1.9, Monocytes # (Auto) 0.6, Eosinophils # (Auto) 0.0, Basophils # (Auto) 0.0, Sodium Level 138, Potassium Level 3.9, Chloride Level 109H, Carbon Dioxide Level 21, Anion Gap 8, Blood Urea Nitrogen 4L, Creatinine 0.63, Estimat Glomerular Filtration Rate > 60 , BUN/Creatinine Ratio 6, Glucose Level 86, Calcium Level 8.1L, Corrected Calcium 8.7, Total Bilirubin 0.4, Aspartate Amino Transf (AST/SGOT) 51H, Alanine Aminotransferase (ALT/SGPT) 17, Alkaline Phosphatase 59, Total Protein 5.8L, Albumin 3.3 Microbiology 05/19/18 Blood Culture - Preliminary, Resulted No growth 05/19/18 Influenza Types A,B Antigen (MARNI) - Final, Complete 05/19/18 Urine Culture - Final, Complete NO GROWTH Patient resulted labs reviewed. Pending Labs Discussion & Recommendations Discharge Planning: <30 minutes discharge planning Discharge Home Medications: Active Scripts Active Cefdinir 300 Mg Capsule 300 Mg PO BID Reported Sleep Aid (Doxylamine Succinate) 25 Mg Tablet 25 Mg PO HS PRN ALTERNATES BETWEEN MELATONIN AND OTC SLEEP AID Melatonin 5 Mg Capsule 5 Mg PO HS PRN ALTERNATES BETWEEN MELATONIN AND OTC SLEEP AID Instructions to patient/family Please see electronic discharge instructions given to patient. Clinical Quality Measures DVT/VTE Risk/Contraindication: Risk Factor Score Per Nursin RFS Level Per Nursing on Admit: 4+=Very High Problem Qualifiers (1) Sepsis: Sepsis type: sepsis due to unspecified organism Qualified Codes: A41.9 - Sepsis, unspecified organism (2) Acute renal failure: Acute renal failure type: unspecified Qualified Codes: N17.9 - Acute kidney failure, unspecified (3) Urinary tract infection: Urinary tract infection type: acute cystitis Hematuria presence: without hematuria Qualified Codes: N30.00 - Acute cystitis without hematuria CHARLENE FRAZIER DO May 21, 2018 11:22
[2018-05-21 13:00] VITALS: BP 106/57
--- NOTE | 2018-05-21 13:00 | NUR ---
DISCHARGE INSTRUCTIONS GIVEN TO PATIENT WITH TIME ALLOWED FOR QUESTIONS. IV REMOVED WITH CATHETER TIP INTACT. PATIENT HAD NO COMPLAINTS OF PAIN AT THIS TIME. BELONGINGS GATHERED AND PATIENT LEFT ROOM VIA WHEELCHAIR ACCOMPANIED BY STAFF. LEFT FACILITY IN PRIVATE VEHICLE.
== END 2018-05-21 13:00 | disposition home or self-care (01) | DRG 872 ==
LOC: EDUNIT# 17:46 → ER 17:47 → 4TH 21:20
PROVIDERS: ADMIT Family Medicine; ATTEND Family Medicine
DX: A41.9 Sepsis, unspecified organism (principal); N39.0 Urinary tract infection, site not specified; N17.9 Acute kidney failure, unspecified; F10.239 Alcohol dependence with withdrawal, unspecified; F17.210 Nicotine dependence, cigarettes, uncomplicated; F41.9 Anxiety disorder, unspecified; F32.9 Major depressive disorder, single episode, unspecified; F19.10 Other psychoactive substance abuse, uncomplicated
CPT/HCPCS: 36415; 70450; 71045; 80053; 80306; 80320; 80329; 81000; 82805; 83605; 83735; 84443; 85007; 85025; 85027; 87040; 87088; 87804; 93005; 93041

== ENCOUNTER 2018-05-31 20:53 | Inpatient (IN) | payer OTHER ==
[~2018-05-31] VITALS: Ht 162.6 cm; Wt 59.4 kg
[~2018-05-31 20:53] MED LIST changes: +CEFD300C3 PO
[2018-05-31] MEDS ORDERED: LACTATED RINGERS 1,000 ML IV ONE (20:57)
[2018-05-31 21:25] LABS: BASOPHILS % (AUTO) 1 % (0-10); EOSINOPHILS % (AUTO) 1 % (0-10); HEMATOCRIT 42 % (40-54); HEMOGLOBIN 14.1 G/DL (13.3-17.7); LYMPHOCYTES # (AUTO) 2.6 X 10^3 (1.0-4.0); LYMPHOCYTES % (AUTO) 45 % (12-44); MEAN CORPUSCULAR HEMOGLOBIN 34 PG (25-34); MEAN CORPUSCULAR HGB CONC 33 G/DL (32-36); MEAN CORPUSCULAR VOLUME 101 FL (80-99); MEAN PLATELET VOLUME 9.5 FL (7.4-10.4); MONOCYTES # (AUTO) 0.2 X 10^3 (0.0-1.0); MONOCYTES % (AUTO) 3 % (0-12); NEUTROPHILS % (AUTO) 51 % (42-75); PLATELET COUNT 328 10^3/uL (130-400); WHITE BLOOD COUNT 5.8 10^3/uL (4.3-11.0)
[2018-05-31 21:38] LABS: PROTHROMBIN TIME PATIENT 13.6 SEC (12.2-14.7)
[2018-05-31 21:44] LABS: ALANINE AMINOTRANSFERASE 28 U/L (0-55); ALBUMIN 4.5 GM/DL (3.2-4.5); ALKALINE PHOSPHATASE 76 U/L (40-136); AMYLASE 60 U/L (25-125); BILIRUBIN,TOTAL 0.3 MG/DL (0.1-1.0); BUN/CREATININE RATIO 8; CALCIUM 9.2 MG/DL (8.5-10.1); CARBON DIOXIDE 25 MMOL/L (21-32); CHLORIDE 110 MMOL/L (98-107); CREATININE SERUM 0.79 MG/DL (0.60-1.30); GFR ESTIMATED > 60; GLUCOSE 95 MG/DL (70-105); LIPASE 8 U/L (8-78); POTASSIUM 4.1 MMOL/L (3.6-5.0); SALICYLATE < 5.0 MG/DL (5.0-20.0); SODIUM 147 MMOL/L (135-145); TOTAL PROTEIN 7.6 GM/DL (6.4-8.2)
[2018-05-31 21:45] LABS: ACETAMINOPHEN < 10 UG/ML (10-30)
[2018-05-31 21:53] LABS: BILIRUBIN,URINE NEGATIVE (NEGATIVE); CLARITY,URINE CLEAR; COLOR,URINE YELLOW; GLUCOSE, URINE (UA) NEGATIVE (NEGATIVE); KETONES,URINE NEGATIVE (NEGATIVE); LEUKOCYTE ESTERASE ,URINE NEGATIVE (NEGATIVE); NITRITE,URINE NEGATIVE (NEGATIVE); PH,URINE 6 (5-9); PROTEIN,URINE NEGATIVE (NEGATIVE); UROBILINOGEN,URINE NORMAL (NORMAL)
[2018-05-31 22:01] LABS: BACTERIA,URINE NEGATIVE /HPF; WBC,URINE RARE /HPF
[2018-05-31 22:09] LABS: AMPHETAMINE SCREEN, URINE NEGATIVE (NEGATIVE); BARBITURATE SCREEN URINE NEGATIVE (NEGATIVE); BENZODIAZEPINES SCREEN URINE POSITIVE (NEGATIVE); CANNABINOID SCREEN, URINE POSITIVE (NEGATIVE); COCAINE SCREEN URINE NEGATIVE (NEGATIVE); METHADONE STAT NEGATIVE (NEGATIVE); METHAMPHETAMINE SCREEN URINE S NEGATIVE (NEGATIVE); OPIATE SCREEN URINE POSITIVE (NEGATIVE); OXYCODONE STAT NEGATIVE (NEGATIVE); PROPOXYPHENE STAT NEGATIVE (NEGATIVE); TRICYCLIC ANTIDEPRESSANTS SCRE NEGATIVE (NEGATIVE)
--- NOTE | 2018-05-31 22:35 | ED Psychosocial ---
General Chief Complaint: Substance Abuse Stated Complaint: ALCOHOL INTOXICATION,POLYSUBSTANCE ABUSE Nursing Triage Note: PT TO ROOM #5 VIA [facility] EMS CART FROM UNKNOWN LOCATION. EMS ADVISE PT HAS BEEN DRINKING FOR X3 DAYS, HAS TAKEN X6 HYDROCODONE, AND X1 ATIVAN DELIVERY MGR. UPON ARRIVAL PT A&OX4, COOPERATIVE, WITH SLURRED SPEACH NOTED. REPORTS LOWER LT ABD DISCOMFORT THAT BEGAN ON THIS DAY. REPORTS NAUSEA, VOMITING, AND BURNING UPON URINATION. PT STATES, "I AM HERE TO BE DETOXED." PROVIDER IN ROOM DURING TRIAGE. Source: patient, EMS Exam Limitations: intoxication History of Present Illness Date Seen by Provider: May 31, 2018 Time Seen by Provider: 20:54 Initial Comments PT ARRIVES VIA [facility] PT HAS BEEN ON A 3 DAY BINGE OF ALCOHOL, DRINKING AT LEAST A PINT OF VODKA A DAY ALSO STATES HE TOOK 6 HYDROCODONE AND 1 ATIVAN TODAY WELL--THESE MEDICATIONS ARE NOT PRESCRIBED TO HIM AND WILL NOT STATE HOW HE GETS THESE MEDICATIONS C/O LOWER ABDOMINAL PAIN WHICH BEGAN TODAY C/O NAUSEA AND HAS VOMITED UNKNOWN # OF TIMES TODAY PT STATES HE CAME HERE "TO BE DETOXED" PT ADMITTED HERE 05/19-05/21 FOR UTI, SEPSIS--PT DOES NOT MENTION THIS TO ME [facility] PT ALSO INTOXICATED AT THAT TIME, AND ALSO TESTED + FOR MULTIPLE SUBSTANCES INCLUDING METH AT THAT TIME PCP: [facility] Allergies and Home Medications Allergies Coded Allergies: No Known Drug Allergies (Unverified , 11/12/09) Home Medications Cefdinir 300 Mg Capsule, 300 MG PO BID Prescribed by: CHARLENE FRAZIER on 05/21/18 1118 Doxylamine Succinate 25 Mg Tablet, 25 MG PO HS PRN for SLEEP, (Reported) ALTERNATES BETWEEN MELATONIN AND OTC SLEEP AID Melatonin 5 Mg Capsule, 5 MG PO HS PRN for SLEEP, (Reported) ALTERNATES BETWEEN MELATONIN AND OTC SLEEP AID Patient Home Medication List Home Medication List Reviewed: Yes Review of Systems Constitutional: no symptoms reported Respiratory: no symptoms reported Cardiovascular: no symptoms reported Gastrointestinal: see HPI, abdominal pain; No diarrhea; nausea, vomiting Genitourinary: no symptoms reported Musculoskeletal: no symptoms reported Skin: no symptoms reported Psychiatric/Neurological: See HPI Past Nuampod-Adhnkw-Lfvbti Hx Patient Social History Alcohol Use: Regular Use (DAILY USE--VERY HEAVY AT TIMES, GIVES CONFLICTING INFORMATION TO HOW MUCH HE DRINKS --HAS STATED AT TIMES A PINT, OR A LITER OR A HALF GALLON OF VODKA A DAY.) Number of Drinks Today: 5 Alcohol Beverage of Choice: Vodka Recreational Drug Use: Yes (+ THC, HAS TESTED + FOR BENZO'S, OPIATES, AND METH IN THE PAST) Drug of Choice: THC, BENZO'S, OPIATES, METH Smoking Status: Current Everyday Smoker (1 PPD) Type Used: Cigarettes 2nd Hand Smoke Exposure: Yes Recent Foreign Travel: No Contact w/Someone Who Travel: No Recent Infectious Disease Expo: No Recent Hopitalizations: Yes (05/19-05/21 FOR UTI/SEPSIS) Physical Abuse: No Sexual Abuse: No Immunizations Up To Date Tetanus Booster (TDap): Unknown PED Vaccines UTD: No Date of Influenza Vaccine: Mar 14, 2018 Seasonal Allergies Seasonal Allergies: No Past Medical History Surgeries: No Respiratory: No Currently Using CPAP: No Currently Using BIPAP: No Cardiac: No Neurological: No Reproductive Disorders: No Sexually Transmitted Disease: No Genitourinary: Yes Bladder Infection Gastrointestinal: No Musculoskeletal: No Endocrine: No HEENT: No Cancer: No Psychosocial: Yes ("TRANSGENDER" IS A MALE, WHO IDENTIFIES HIMSELF A FEMALE. HAS NOT HAD SURGERY OR TAKING ANY HORMONAL THERAPY, PER PT ON 05/31/18) Anxiety, Suicide Attempts, Depression Integumentary: Yes (LESION L THIGH) Blood Disorders: No Adverse Reaction/Blood Tranf: No Family Medical History No Pertinent Family Hx Physical Exam Vital Signs - First Documented 05/31/18 05/31/18 20:45 20:54 Temp 97.3 Pulse 101 Resp 18 B/P (MAP) 108/73 (85) Pulse Ox 98 O2 Delivery Room Air Capillary Refill : Less Than 3 Seconds Height, Weight, BMI Height: 5'4.00" Weight: 140lbs. 8.0oz. [id number]; 21.6 BMI Method:Stated General Appearance: WD/WN, no apparent distress, other (REEKS OF ALCOHOL AND CIGARETTES. UNKEMPT, COOPERATIVE, SPEECH SLIGHTLY SLURRED) HEENT: PERRL/EOMI Neck: normal inspection Respiratory: normal breath sounds, no respiratory distress, no accessory muscle use Cardiovascular: regular rate, rhythm, no murmur Gastrointestinal: normal bowel sounds, soft, no organomegaly, no pulsatile mass , tenderness (MILD SUPRAPUBIC TENDERNESS) Extremities: normal inspection Neurologic/Psychiatric: impression printer II-XII nml as tested, no motor/sensory deficits, alert, oriented x 3 Appearance/Memory: disheveled Behavior/Eye Contact: cooperative, good eye contact Thoughts/Hallucinations: no apparent hallucination; No delusions, No flight of ideas, No grandiose, No incoherent, No obsessive, No paranoid, No persecution, No phobic, No spiritism Skin: normal color, warm/dry Progress/Results/Core Measures Results/Orders Lab Results Laboratory Tests Test 05/31/18 21:17 05/31/18 21:49 06/01/18 03:35 Range/Units White Blood Count 5.8 5.9 4.3-11.0 10^3/uL Red Blood Count 4.20 L 3.58 L 4.35-5.85 10^6/uL Hemoglobin 14.1 12.0 L 13.3-17.7 G/DL Hematocrit 42 36 L 40-54 % Mean Corpuscular Volume 101 H 101 H 80-99 FL Mean Corpuscular Hemoglobin 34 34 25-34 PG Mean Corpuscular Hemoglobin Concent 33 33 32-36 G/DL Red Cell Distribution Width 14.0 13.6 10.0-14.5 % Platelet Count 328 283 130-400 10^3/uL Mean Platelet Volume 9.5 9.7 7.4-10.4 FL Neutrophils (%) (Auto) 51 67 42-75 % Lymphocytes (%) (Auto) 45 H 28 12-44 % Monocytes (%) (Auto) 3 5 0-12 % Eosinophils (%) (Auto) 1 0 0-10 % Basophils (%) (Auto) 1 1 0-10 % Neutrophils # (Auto) 3.0 3.9 1.8-7.8 X 10^3 Lymphocytes # (Auto) 2.6 1.6 1.0-4.0 X 10^3 Monocytes # (Auto) 0.2 0.3 0.0-1.0 X 10^3 Eosinophils # (Auto) 0.0 0.0 0.0-0.3 10^3/uL Basophils # (Auto) 0.0 0.0 0.0-0.1 10^3/uL Prothrombin Time 13.6 12.2-14.7 SEC INR Comment 1.0 0.8-1.4 Activated Partial Thromboplast Time 28 24-35 SEC Sodium Level 147 H 142 135-145 MMOL/L Potassium Level 4.1 3.5 L 3.6-5.0 MMOL/L Chloride Level 110 H 112 H 98-107 MMOL/L Carbon Dioxide Level 25 21 21-32 MMOL/L Anion Gap 12 9 5-14 MMOL/L Blood Urea Nitrogen 6 L 6 L 7-18 MG/DL Creatinine 0.79 0.71 0.60-1.30 MG/DL Estimat Glomerular Filtration Rate > 60 > 60 BUN/Creatinine Ratio 8 8 Glucose Level 95 144 H 70-105 MG/DL Calcium Level 9.2 8.3 L 8.5-10.1 MG/DL Corrected Calcium 8.8 8.5-10.1 MG/DL Total Bilirubin 0.3 0.1-1.0 MG/DL Aspartate Amino Transf (AST/SGOT) 45 H 5-34 U/L Alanine Aminotransferase (ALT/SGPT) 28 0-55 U/L Alkaline Phosphatase 76 40-136 U/L Total Protein 7.6 6.4-8.2 GM/DL Albumin 4.5 3.2-4.5 GM/DL Amylase Level 60 25-125 U/L Lipase 8 8-78 U/L Salicylates Level < 5.0 L 5.0-20.0 MG/DL Acetaminophen Level < 10 L 10-30 UG/ML Serum Alcohol 391 *H <10 MG/DL Urine Color YELLOW Urine Clarity CLEAR Urine pH 6 5-9 Urine Specific [place] 1.010 L 1.016-1.022 Urine Protein NEGATIVE NEGATIVE Urine Glucose (UA) NEGATIVE NEGATIVE Urine Ketones NEGATIVE NEGATIVE Urine Nitrite NEGATIVE NEGATIVE Urine Bilirubin NEGATIVE NEGATIVE Urine Urobilinogen NORMAL NORMAL MG/DL Urine Leukocyte Esterase NEGATIVE NEGATIVE Urine RBC (Auto) NEGATIVE NEGATIVE Urine RBC NONE /HPF Urine WBC RARE /HPF Urine Crystals NONE /LPF Urine Bacteria NEGATIVE /HPF Urine Casts NONE /LPF Urine Mucus NEGATIVE /LPF Urine Culture Indicated NO Urine Opiates Screen POSITIVE H NEGATIVE Urine Oxycodone Screen NEGATIVE NEGATIVE Urine Methadone Screen NEGATIVE NEGATIVE Urine Propoxyphene Screen NEGATIVE NEGATIVE Urine Barbiturates Screen NEGATIVE NEGATIVE Ur Tricyclic Antidepressants Screen NEGATIVE NEGATIVE Urine Phencyclidine Screen NEGATIVE NEGATIVE Urine Amphetamines Screen NEGATIVE NEGATIVE Urine Methamphetamines Screen NEGATIVE NEGATIVE Urine Benzodiazepines Screen POSITIVE H NEGATIVE Urine Cocaine Screen NEGATIVE NEGATIVE Urine Cannabinoids Screen POSITIVE H NEGATIVE Phosphorus Level 1.6 L 2.3-4.7 MG/DL Magnesium Level 1.7 L 1.8-2.4 MG/DL My Orders Orders - ANGELA CELESTIN DO Acetaminophen (05/31/18 20:57) Alcohol (05/31/18 20:57) Amylase (05/31/18 20:57) Cbc With Automated Diff (05/31/18 20:57) Comprehensive Metabolic Panel (05/31/18 20:57) Drug Screen Stat (Urine) (05/31/18 20:57) Lipase (05/31/18 20:57) Protime With Inr (05/31/18 20:57) Partial Thromboplastin Time (05/31/18 20:57) Ua Culture If Indicated (05/31/18 20:57) Saline Lock/Iv-Start (05/31/18 20:57) Lactated Ringers (Lr 1000 Ml Iv Solution (05/31/18 20:57) Ekg Tracing (05/31/18 20:57) Monitor-Rhythm Ecg Trace Only (05/31/18 20:57) Salicylate (05/31/18 21:07) Medications Given in ED Vital Signs/I&O 06/01/18 07:00 Pulse 94 Blood Pressure Mean: 85 Progress Progress Note : Progress Note NO DETERIORATION IN PT'S CONDITION DURING ER STAY Initial ECG Impression Date: May 31, 2018 Initial ECG Impression Time: 21:51 Initial ECG Rate: 99 Initial ECG Rhythm: Normal Sinus Departure Communication (Admissions) 2150--SPOKE WITH DR. RODRIGUEZ, [employer] FOR [facility], ACCEPTS PT FOR ADMIT Impression Primary Impression: Alcohol intoxication in active alcoholic Additional Impression: Polysubstance abuse Disposition: 09 ADMITTED INPATIENT Condition: Stable Admissions Decision to Admit Reason: Admit from ER (General) Decision to Admit/Date: May 31, 2018 Time/Decision to Admit Time: 21:50 Departure-Patient Inst. Referrals: [facility] [place]Family) Primary Care Physician ANGELA CELESTIN DO May 31, 2018 22:35
[2018-05-31 22:45] VITALS: BP 107/79
[2018-05-31 23:00] VITALS: BP 106/75
[2018-05-31 23:15] VITALS: BP 99/75
[2018-05-31] MEDS ORDERED: PANTOPRAZOLE 40 MG (PROTONIX) VIAL IV SCH (23:18)
[2018-05-31] MEDS ORDERED: D5 1/2 NS W/KCL 20 MEQ/L 1,000 ML IV ONE (23:18)
[2018-05-31] MEDS ORDERED: 1/2 NS IV SOLUTION 1,000 ML IV PRN (23:19)
[2018-05-31] MEDS ORDERED: D5 1/2 NS W/KCL 20 MEQ/L 1,000 ML IV SCH ×2 (23:19→23:30)
[2018-05-31 23:30] VITALS: BP 92/61
[2018-05-31] MEDS ORDERED: ANTACID SUSP 30 ML UDC (MYLANTA) PO PRN (23:30)
[2018-05-31] MEDS ORDERED: ONDANSETRON 4 MG/2 ML (SDV) Z0FRAN IV PRN ×2 (23:30)
[2018-05-31] MEDS ORDERED: ONDANSETRON 4 MG (ZOFRAN) ORAL DISSOLVE TAB SL PRN (23:30)
[2018-05-31] MEDS ORDERED: D5 1/2 NS 1000 ML IV SOLUTION 1,000 ML IV PRN (23:30)
[2018-05-31] MEDS ORDERED: SENNA W/DOCUSATE (SENOKOT S) TABLET PO PRN (23:30)
[2018-05-31] MEDS ORDERED: LORazepam 1 MG (ATIVAN) TAB PO PRN (23:30)
[2018-05-31] MEDS ORDERED: LORazepam INJ 2 MG/ML (ATIVAN) VIAL IM/IV PRN (23:30)
[2018-06-01] VITALS (9 sets, daily range): BP systolic 93–151; BP diastolic 55–88
[2018-06-01] MEDS: LORazepam INJ 2 MG/ML (ATIVAN) VIAL IV PRN ×3 (00:52→05:12)
[2018-06-01 03:59] LABS: BASOPHILS % (AUTO) 1 % (0-10); EOSINOPHILS % (AUTO) 0 % (0-10); HEMATOCRIT 36 % (40-54); LYMPHOCYTES # (AUTO) 1.6 X 10^3 (1.0-4.0); LYMPHOCYTES % (AUTO) 28 % (12-44); MEAN CORPUSCULAR HEMOGLOBIN 34 PG (25-34); MEAN CORPUSCULAR HGB CONC 33 G/DL (32-36); MEAN CORPUSCULAR VOLUME 101 FL (80-99); MEAN PLATELET VOLUME 9.7 FL (7.4-10.4); MONOCYTES # (AUTO) 0.3 X 10^3 (0.0-1.0); MONOCYTES % (AUTO) 5 % (0-12); NEUTROPHILS # (AUTO) 3.9 X 10^3 (1.8-7.8); NEUTROPHILS % (AUTO) 67 % (42-75); PLATELET COUNT 283 10^3/uL (130-400); RED CELL DISTRIBUTION WIDTH 13.6 % (10.0-14.5); WHITE BLOOD COUNT 5.9 10^3/uL (4.3-11.0)
[2018-06-01 04:15] LABS: BUN/CREATININE RATIO 8; CALCIUM 8.3 MG/DL (8.5-10.1); CARBON DIOXIDE 21 MMOL/L (21-32); CHLORIDE 112 MMOL/L (98-107); CREATININE SERUM 0.71 MG/DL (0.60-1.30); GFR ESTIMATED > 60; GLUCOSE 144 MG/DL (70-105); MAGNESIUM 1.7 MG/DL (1.8-2.4); PHOSPHORUS 1.6 MG/DL (2.3-4.7); POTASSIUM 3.5 MMOL/L (3.6-5.0); SODIUM 142 MMOL/L (135-145)
--- NOTE | 2018-06-01 05:00 | NUR ---
pt stated to this RN earlier in the night that she had a purse with her when she was picked up by EMS. there was no purse with pt when arrived to ICU room 6. I called down to Ashkan RN in ED, he stated that she did not have a purse with her down in the ED- only the clothes she was wearing and her cell phone. I notified anne snow (Mundo) about the situation. Mundo called and left a message with the shift captain of the EMS company that picked the patients up. still awaiting a response at this time.
[2018-06-01] MEDS ORDERED: cloNIDine 0.1 MG (CATAPRES) TAB PO PRN (05:15)
[2018-06-01] MEDS ORDERED: METHADONE 10 MG (DOLOPHINE) TAB PO PRN (05:15)
--- NOTE | 2018-06-01 06:46 | History & Physicial (CHS) ---
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 He arrives via [facility]. Apparently he's been on a 3 day binge of alcohol drinking and according to the ER physician had admitted to a pint of vodka each day. It was also determined that he had took 6 hydrocodone and 1 Ativan on May 31, 2018. He apparently would not dari where he got the medications. In the ED he did complain of lower abdominal discomfort which began on May 31, 2018. Source: patient Date seen by provider: Jun 01, 2018 Time Seen by Provider: 07:00 Attending Physician Bindu Rodriguez MD [facility] [place] [facility] [place] Consult Date of Admission May 31, 2018 at 22:10 Home Medications Home Medications Reviewed patient Home Medication Reconciliation performed by pharmacy medication reconciliations dyno technician and/or nursing. Patients Allergies have been reviewed. Allergies Coded Allergies: No Known Drug Allergies (Unverified , 11/12/09) [facility]-Xftvrt-Lzqsff Hx Patient Social History Marrital Status: single Alcohol Use: Rarely Uses Recreational Drug Use: Yes (ALCOHOL) Smoking Status: Current Everyday Smoker Type Used: Cigarettes 2nd Hand Smoke Exposure: Yes Recent Foreign Travel: No Contact w/other who traveled: No Recent Hopitalizations: No Recent Infectious Disease Expo: No Immunizations Up To Date Tetanus Booster (TDap): Unknown Date of Influenza Vaccine: Mar 14, 2018 Family Medical History Significant Family History: No Pertinent Family Hx Review of Systems (CHC) Constitutional: see HPI Reviewed Test Results Reviewed Test Results Lab Laboratory Tests Test 05/31/18 21:17 05/31/18 21:49 06/01/18 03:35 Range/Units White Blood Count 5.8 5.9 4.3-11.0 10^3/uL Red Blood Count 4.20 L 3.58 L 4.35-5.85 10^6/uL Hemoglobin 14.1 12.0 L 13.3-17.7 G/DL Hematocrit 42 36 L 40-54 % Mean Corpuscular Volume 101 H 101 H 80-99 FL Mean Corpuscular Hemoglobin 34 34 25-34 PG Mean Corpuscular Hemoglobin Concent 33 33 32-36 G/DL Red Cell Distribution Width 14.0 13.6 10.0-14.5 % Platelet Count 328 283 130-400 10^3/uL Mean Platelet Volume 9.5 9.7 7.4-10.4 FL Neutrophils (%) (Auto) 51 67 42-75 % Lymphocytes (%) (Auto) 45 H 28 12-44 % Monocytes (%) (Auto) 3 5 0-12 % Eosinophils (%) (Auto) 1 0 0-10 % Basophils (%) (Auto) 1 1 0-10 % Neutrophils # (Auto) 3.0 3.9 1.8-7.8 X 10^3 Lymphocytes # (Auto) 2.6 1.6 1.0-4.0 X 10^3 Monocytes # (Auto) 0.2 0.3 0.0-1.0 X 10^3 Eosinophils # (Auto) 0.0 0.0 0.0-0.3 10^3/uL Basophils # (Auto) 0.0 0.0 0.0-0.1 10^3/uL Prothrombin Time 13.6 12.2-14.7 SEC INR Comment 1.0 0.8-1.4 Activated Partial Thromboplast Time 28 24-35 SEC Sodium Level 147 H 142 135-145 MMOL/L Potassium Level 4.1 3.5 L 3.6-5.0 MMOL/L Chloride Level 110 H 112 H 98-107 MMOL/L Carbon Dioxide Level 25 21 21-32 MMOL/L Anion Gap 12 9 5-14 MMOL/L Blood Urea Nitrogen 6 L 6 L 7-18 MG/DL Creatinine 0.79 0.71 0.60-1.30 MG/DL Estimat Glomerular Filtration Rate > 60 > 60 BUN/Creatinine Ratio 8 8 Glucose Level 95 144 H 70-105 MG/DL Calcium Level 9.2 8.3 L 8.5-10.1 MG/DL Corrected Calcium 8.8 8.5-10.1 MG/DL Total Bilirubin 0.3 0.1-1.0 MG/DL Aspartate Amino Transf (AST/SGOT) 45 H 5-34 U/L Alanine Aminotransferase (ALT/SGPT) 28 0-55 U/L Alkaline Phosphatase 76 40-136 U/L Total Protein 7.6 6.4-8.2 GM/DL Albumin 4.5 3.2-4.5 GM/DL Amylase Level 60 25-125 U/L Lipase 8 8-78 U/L Salicylates Level < 5.0 L 5.0-20.0 MG/DL Acetaminophen Level < 10 L 10-30 UG/ML Serum Alcohol 391 *H <10 MG/DL Urine Color YELLOW Urine Clarity CLEAR Urine pH 6 5-9 Urine Specific [place] 1.010 L 1.016-1.022 Urine Protein NEGATIVE NEGATIVE Urine Glucose (UA) NEGATIVE NEGATIVE Urine Ketones NEGATIVE NEGATIVE Urine Nitrite NEGATIVE NEGATIVE Urine Bilirubin NEGATIVE NEGATIVE Urine Urobilinogen NORMAL NORMAL MG/DL Urine Leukocyte Esterase NEGATIVE NEGATIVE Urine RBC (Auto) NEGATIVE NEGATIVE Urine RBC NONE /HPF Urine WBC RARE /HPF Urine Crystals NONE /LPF Urine Bacteria NEGATIVE /HPF Urine Casts NONE /LPF Urine Mucus NEGATIVE /LPF Urine Culture Indicated NO Urine Opiates Screen POSITIVE H NEGATIVE Urine Oxycodone Screen NEGATIVE NEGATIVE Urine Methadone Screen NEGATIVE NEGATIVE Urine Propoxyphene Screen NEGATIVE NEGATIVE Urine Barbiturates Screen NEGATIVE NEGATIVE Ur Tricyclic Antidepressants Screen NEGATIVE NEGATIVE Urine Phencyclidine Screen NEGATIVE NEGATIVE Urine Amphetamines Screen NEGATIVE NEGATIVE Urine Methamphetamines Screen NEGATIVE NEGATIVE Urine Benzodiazepines Screen POSITIVE H NEGATIVE Urine Cocaine Screen NEGATIVE NEGATIVE Urine Cannabinoids Screen POSITIVE H NEGATIVE Phosphorus Level 1.6 L 2.3-4.7 MG/DL Magnesium Level 1.7 L 1.8-2.4 MG/DL Physical Exam-(CHC) Physical Exam Vital Signs VS - Last 72 Hours, by Label 05/31/18 05/31/18 05/31/18 05/31/18 20:45 20:54 22:09 22:30 Temp 97.3 97.3 Pulse 101 103 105 Resp 18 18 B/P (MAP) 108/73 (85) 108/73 (85) Pulse Ox 98 99 96 O2 Delivery Room Air Room Air Room Air 05/31/18 05/31/18 05/31/18 05/31/18 22:45 23:00 23:15 23:30 Temp 98.2 Pulse 101 101 98 110 Resp 15 15 18 23 B/P (MAP) 107/79 (88) 106/75 (85) 99/75 (83) 92/61 (71) Pulse Ox 100 99 99 95 O2 Delivery Room Air Room Air Room Air Room Air 06/01/18 06/01/18 06/01/18 06/01/18 00:00 00:00 00:00 00:30 Temp 98.9 Pulse 93 101 Resp 15 16 B/P (MAP) 102/78 (86) 101/74 (83) Pulse Ox 99 96 99 O2 Delivery Room Air Room Air Room Air 06/01/18 06/01/18 06/01/18 06/01/18 01:00 01:00 01:30 02:00 Pulse 121 111 96 104 Resp 15 16 19 B/P (MAP) 100/73 (82) 97/67 (77) 108/75 (86) Pulse Ox 99 98 97 O2 Delivery Room Air Room Air Room Air 06/01/18 06/01/18 06/01/18 06/01/18 03:00 04:00 04:00 04:00 Temp 99.2 Pulse 112 104 Resp 13 17 B/P (MAP) 93/55 (68) 108/81 (90) Pulse Ox 100 96 96 O2 Delivery Room Air Room Air Room Air 06/01/18 06/01/18 06/01/18 05:00 06:00 07:00 Pulse 111 90 94 Resp 19 18 B/P (MAP) 111/80 (90) 151/88 (109) Pulse Ox 98 95 O2 Delivery Room Air Room Air Capillary Refill : Less Than 3 Seconds General Appearance: no apparent distress Eyes: Bilateral Eye Normal Inspection Neck: full range of motion Respiratory: lungs clear Cardiovascular: regular rate, rhythm Gastrointestinal: soft Rectal: deferred Extremities: non-tender Neurologic/Psychiatric: alert, oriented x 3 (On floor in the morning of June 01, 2018) Assessment/Plan Assessment/Plan Admission Dx 1. Alcohol intoxication 2. Substance abuse hydrocodone and benzodiazepine Admission Status: Observation Reason for Inpatient Admission: Alcohol detoxification along with cardiopulmonary monitoring in ICU Assessment & Plan 1. Alcohol intoxication -Alcohol Detoxification protocol -Patient will need mental health evaluation for outpatient treatment 2. Substance abuse hydrocodone and benzodiazepine Clinical Quality Measures DVT/VTE Risk/Contraindication: Risk Factor Score Per Nursin RFS Level Per Nursing on Admit: 1=Low/No VTE PPX BINDU RODRIGUEZ MD Jun 01, 2018 06:46
--- NOTE | 2018-06-01 08:05 | NUR ---
PATIENT CALLED BRANCH CONTROLLER ASKING FOR NURSE TO COME IN WITH AMA PAPERWORK BECAUSE SHE WAS UNABLE TO RECEIVE MEDS. THIS NURSE GOT PAPERWORK ET EXPLAINED TO PATIENT THAT WE HAVE TO FOLLOW DOCTORS ORDERS AND CANNOT JUST GIVE MEDICATION UNLESS IT IS DUE. PATIENT STATED SHE WAS UNHAPPY. THIS NURSE EXPLAINED AMA PAPERWORK TO PATIENT, PATIENT STATES SHE UNDERSTOOD ET SIGNED AMA PAPERS. PHYSICIAN DR. RODRIGUEZ NOTIFIED OF PATIENT SIGNING AMA. PATIENT BELONGINGS RETURNED TO HER, PATIENT STATED HER RIDE WOULD BE HERE IN 30 MINUTES
--- NOTE | 2018-06-01 08:31 | NUR ---
PATIENT SELF AMBULATED OUT AT THIS TIME. BELONGINGS WITH PATIENT.
[2018-06-01] MEDS ORDERED: THIAMINE INJECTION 100 MG, FOLIC ACID INJECTION 1 MG, MAGNESIUM SULFATE 2 GM, VITAMIN M... IV SCH ×5 (09:00)
== END 2018-06-01 08:32 | disposition left against medical advice (07) | DRG 918 ==
LOC: EDUNIT# 20:53 → ER 20:56 → ICU 22:10
PROVIDERS: ADMIT Family Medicine; ATTEND Family Medicine
DX: T51.0X1A Toxic effect of ethanol, accidental (unintentional), initial encounter (principal); T40.2X1A Poisoning by other opioids, accidental (unintentional), initial encounter; T42.4X1A Poisoning by benzodiazepines, accidental (unintentional), initial encounter; F10.129 Alcohol abuse with intoxication, unspecified; F17.210 Nicotine dependence, cigarettes, uncomplicated
CPT/HCPCS: 36415; 80048; 80053; 80306; 80320; 80329; 81000; 82150; 83690; 83735; 84100; 85025; 85610; 85730; 87081; 93005; 93041

== ENCOUNTER 2018-06-25 19:30 | Emergency (ER) | payer SELFPAY ==
[~2018-06-25] VITALS: Ht 162.6 cm; Wt 59.4 kg
[2018-06-25] MEDS ORDERED: LACTATED RINGERS 1,000 ML IV ONE (19:31)
--- NOTE | 2018-06-25 19:43 | ED Psychosocial ---
General Stated Complaint: ETOH WITHDRAWAL Source: patient, EMS, old records Exam Limitations: intoxication History of Present Illness Date Seen by Provider: Jun 25, 2018 Time Seen by Provider: 19:31 Initial Comments PT ARRIVES VIA EMS FROM HOME CALLED EMS BECAUSE HE HAS BEEN DRINKING --STATES HE HAS HAD "A LITER" OF VODKA, HAS BEEN SMOKING "WEED" AND TOOK 1 MG XANAX PT DRINKS DAILY AND IS UNCLEAR WHAT IS DIFFERENT TODAY OR WHAT PROMPTED HIM TO CALL EMS PT HAS BEEN IN THIS FACILITY MULTIPLE TIMES FOR SAME, AND HAS NEVER FOLLOWED UP WITH ANYONE FOR FURTHER CARE OR ALCOHOL TREATMENT, DESPITE HIM STATING "I BEEN TRYING TO QUIT FOR A COUPLE OF MONTHS" PT DENIES SUICIDAL IDEATIONS PT HAS BEEN HERE 5 TIMES SINCE FEBRUARY--ALL WITH ALCOHOL INTOXICATION. WAS HERE TWICE IN MAY, AND LAST ADMIT WAS 05/31 AND HE LEFT AMA Allergies and Home Medications Allergies Coded Allergies: No Known Drug Allergies (Unverified , 11/12/09) Home Medications Cefdinir 300 Mg Capsule, 300 MG PO BID Prescribed by: CHARLENE FRAZIER on 05/21/18 1118 Doxylamine Succinate 25 Mg Tablet, 25 MG PO HS PRN for SLEEP, (Reported) ALTERNATES BETWEEN MELATONIN AND OTC SLEEP AID Melatonin 5 Mg Capsule, 5 MG PO HS PRN for SLEEP, (Reported) ALTERNATES BETWEEN MELATONIN AND OTC SLEEP AID Patient Home Medication List Home Medication List Reviewed: Yes Review of Systems Constitutional: no symptoms reported Respiratory: no symptoms reported Cardiovascular: no symptoms reported Gastrointestinal: no symptoms reported Genitourinary: no symptoms reported Musculoskeletal: no symptoms reported Skin: no symptoms reported Psychiatric/Neurological: See HPI Past Oadwexz-Ypetcb-Xhavaz Hx Patient Social History Alcohol Use: Regular Use Alcohol Beverage of Choice: Vodka Recreational Drug Use: Yes (THC, BENZO'S, OPIATES, METH) Drug of Choice: THC, BENZO'S, OPIATES, METH Smoking Status: Current Everyday Smoker Type Used: Cigarettes 2nd Hand Smoke Exposure: Yes Recent Foreign Travel: No Contact w/Someone Who Travel: No Recent Hopitalizations: Yes (05/19-05/21 FOR UTI/SEPSIS) Immunizations Up To Date Tetanus Booster (TDap): Unknown PED Vaccines UTD: No Date of Influenza Vaccine: Mar 14, 2018 Seasonal Allergies Seasonal Allergies: No Past Medical History Surgeries: No Respiratory: No Currently Using CPAP: No Currently Using BIPAP: No Cardiac: No Neurological: No Reproductive Disorders: No Sexually Transmitted Disease: No Genitourinary: Yes Bladder Infection Gastrointestinal: No Musculoskeletal: No Endocrine: No HEENT: No Cancer: No Psychosocial: Yes (POLYSUBSTANCE ABUSE) Anxiety, Suicide Attempts, Depression Integumentary: Yes (LESION L THIGH) Blood Disorders: No Adverse Reaction/Blood Tranf: No Family Medical History No Pertinent Family Hx Physical Exam Vital Signs - First Documented 06/25/18 06/25/18 19:31 22:30 Temp 96.8 Pulse 114 Resp 18 B/P (MAP) 110/75 (87) Pulse Ox 100 O2 Delivery Room Air Capillary Refill : Height, Weight, BMI Height: 5'4.00" Weight: 131lbs. 0.0oz. 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 nml as tested, no motor/sensory deficits, alert, oriented x 3, other (SPEECH CLEAR) Appearance/Memory: disheveled, impaired insight, impaired recent memory Behavior/Eye Contact: cooperative, other (SLURRED SPEECH) Thoughts/Hallucinations: no apparent hallucination Skin: normal color, warm/dry Progress/Results/Core Measures Results/Orders Lab Results Laboratory Tests Test 06/25/18 19:43 06/25/18 19:50 Range/Units White Blood Count 7.5 4.3-11.0 10^3/uL Red Blood Count 4.31 L 4.35-5.85 10^6/uL Hemoglobin 14.8 13.3-17.7 G/DL Hematocrit 43 40-54 % Mean Corpuscular Volume 99 80-99 FL Mean Corpuscular Hemoglobin 34 25-34 PG Mean Corpuscular Hemoglobin Concent 35 32-36 G/DL Red Cell Distribution Width 13.2 10.0-14.5 % Platelet Count 380 130-400 10^3/uL Mean Platelet Volume 9.5 7.4-10.4 FL Neutrophils (%) (Auto) 71 42-75 % Lymphocytes (%) (Auto) 23 12-44 % Monocytes (%) (Auto) 6 0-12 % Eosinophils (%) (Auto) 0 0-10 % Basophils (%) (Auto) 0 0-10 % Neutrophils # (Auto) 5.3 1.8-7.8 X 10^3 Lymphocytes # (Auto) 1.7 1.0-4.0 X 10^3 Monocytes # (Auto) 0.4 0.0-1.0 X 10^3 Eosinophils # (Auto) 0.0 0.0-0.3 10^3/uL Basophils # (Auto) 0.0 0.0-0.1 10^3/uL Prothrombin Time 13.5 12.2-14.7 SEC INR Comment 1.0 0.8-1.4 Activated Partial Thromboplast Time 28 24-35 SEC Sodium Level 151 H 135-145 MMOL/L Potassium Level 3.9 3.6-5.0 MMOL/L Chloride Level 113 H 98-107 MMOL/L Carbon Dioxide Level 25 21-32 MMOL/L Anion Gap 13 5-14 MMOL/L Blood Urea Nitrogen 6 L 7-18 MG/DL Creatinine 0.77 0.60-1.30 MG/DL Estimat Glomerular Filtration Rate > 60 BUN/Creatinine Ratio 8 Glucose Level 105 70-105 MG/DL Calcium Level 9.1 8.5-10.1 MG/DL Corrected Calcium 8.9 8.5-10.1 MG/DL Magnesium Level 2.7 H 1.8-2.4 MG/DL Total Bilirubin 0.2 0.1-1.0 MG/DL Aspartate Amino Transf (AST/SGOT) 52 H 5-34 U/L Alanine Aminotransferase (ALT/SGPT) 27 0-55 U/L Alkaline Phosphatase 92 40-136 U/L Total Protein 7.1 6.4-8.2 GM/DL Albumin 4.2 3.2-4.5 GM/DL Amylase Level 65 25-125 U/L Lipase 6 L 8-78 U/L Acetaminophen Level < 10 L 10-30 UG/ML Serum Alcohol 425 *H <10 MG/DL Urine Color YELLOW Urine Clarity CLEAR Urine pH 6 5-9 Urine Specific [place] 1.010 L 1.016-1.022 Urine Protein NEGATIVE NEGATIVE Urine Glucose (UA) NEGATIVE NEGATIVE Urine Ketones NEGATIVE NEGATIVE Urine Nitrite NEGATIVE NEGATIVE Urine Bilirubin NEGATIVE NEGATIVE Urine Urobilinogen NORMAL NORMAL MG/DL Urine Leukocyte Esterase NEGATIVE NEGATIVE Urine RBC (Auto) NEGATIVE NEGATIVE Urine RBC NONE /HPF Urine WBC 0-2 /HPF Urine Squamous Epithelial Cells 0-2 /HPF Urine Crystals NONE /LPF Urine Bacteria TRACE /HPF Urine Casts NONE /LPF Urine Mucus NEGATIVE /LPF Urine Culture Indicated NO Urine Opiates Screen POSITIVE H NEGATIVE Urine Oxycodone Screen NEGATIVE NEGATIVE Urine Methadone Screen NEGATIVE NEGATIVE Urine Propoxyphene Screen NEGATIVE NEGATIVE Urine Barbiturates Screen NEGATIVE NEGATIVE Ur Tricyclic Antidepressants Screen NEGATIVE NEGATIVE Urine Phencyclidine Screen NEGATIVE NEGATIVE Urine Amphetamines Screen POSITIVE H NEGATIVE Urine Methamphetamines Screen NEGATIVE NEGATIVE Urine Benzodiazepines Screen POSITIVE H NEGATIVE Urine Cocaine Screen NEGATIVE NEGATIVE Urine Cannabinoids Screen POSITIVE H NEGATIVE My Orders Orders - ANGELA CELESTIN DO Ed Iv/Invasive Line Start (06/25/18 19:31) Ekg Tracing (06/25/18:31) Monitor-Rhythm Ecg Trace Only (06/25/18:31) Acetaminophen (06/25/18:31) Alcohol (06/25/18:31) Amylase (06/25/18:) Cbc With Automated Diff (06/25/18:31) Comprehensive Metabolic Panel (06/25/18:31) Drug Screen Stat (Urine) (06/25/18:31) Lipase (06/25/18:31) Ed Iv/Invasive Line Start (06/25/18:31) Magnesium (06/25/18:31) Protime With Inr (06/25/18:) Partial Thromboplastin Time (06/25/18:31) Ua Culture If Indicated (06/25/18:31) Lactated Ringers (Lr 1000 Ml Iv Solution (06/25/18 19:31) 1/2 Ns Iv Solution (0.45% Sodium Chlorid (06/25/18 20:45) 1/2 Ns Iv Solution (0.45% Sodium Chlorid (06/25/18 21:00) Medications Given in ED Vital Signs/I&O 06/25/18 22:30 Temp 96.8 Pulse 99 Resp 18 B/P (MAP) 110/75 (87) Pulse Ox 100 06/26/18 00:00 Intake Total 2000 ml Balance 2000 ml Progress Progress Note : Progress Note PT WAS COOPERATIVE UNTIL A MALE FRIEND ARRIVED, AND THEN I INFORMED PT THAT HE WOULD NEED TO BE TRANSFERRED TO [place] BY EMS. THIS FACILITY IS ON DIVERSION. PT STATES HE WILL NOT GO IF HIS FRIEND CANNOT RIDE IN THE AMBULANCE WITH HIM-- ADVISED THAT HIS FRIEND COULD MEET HIM IN [place] ( FRIEND ARRIVED TO ER BY POV) , BUT HE COULD NOT RIDE IN THE AMBULANCE WITH HIM, PER AMBULANCE PROTOCOL PT THEN STATES HE ISN'T GOING, AND FRIEND STATES HE IS GOING TO TAKE PT AND LEAVE--ADVISED THAT PT WAS TOO INTOXICATED AND HAD OTHER SUBSTANCES IN HIS SYSTEM THAT HE COULD NOT MAKE RATIONAL DECISIONS AT THIS TIME, AND HE WAS TOO INTOXICATED TO GO HOME. PT AND FRIEND BECAME BELLIGERENT AND CALLING ME NAMES, INCLUDING "BITCH" AMONG OTHER NAMES PT THEN RIPPED OUT HIS IV AND STARTED TO LEAVE ER WITH HIS FRIEND AT THAT POINT, FRIEND WAS TOLD HE NEEDED TO LEAVE THE ER, AND POLICE WERE CONTACTED FOR ASSISTANCE PT ESCORTED BACK TO ROOM, PLACED INTO A GOWN AND IV RESTARTED. PT THEN CALMED AND WAS COOPERATIVE AND AGREEABLE TO TRANSFER, AND HAD NO FURTHER OUTBURSTS DURING ER STAY. Initial ECG Impression Date: Jun 25, 2018 Initial ECG Impression Time: 19:40 Initial ECG Rate: 111 Initial ECG Rhythm: S.Tach Departure Communication (Admissions) THIS FACILITY IS CURRENTLY ON DIVERSION 1921--SPOKE WITH DR. FRAZIER, SHE WILL ADMIT PT TO [place] ICU--SHE WILL CALL BACK TO VERIFY BED AVAILABILITY 1928--DR. FRAZIER ACCEPTS PT FOR ADMIT TO [place] Impression Primary Impression: Alcohol intoxication in active alcoholic Additional Impression: Polysubstance abuse Disposition: 02 XFER SHT-TRM HOSP Condition: Stable Transfer Transfer Facility: [facility] Method of Transfer: EMS Departure-Patient Inst. Referrals: [facility] (PCP/Family) Primary Care Physician ANGELA CELESTIN DO Jun 25, 2018 19:42
[2018-06-25 19:52] LABS: BASOPHILS % (AUTO) 0 % (0-10); EOSINOPHILS % (AUTO) 0 % (0-10); HEMATOCRIT 43 % (40-54); HEMOGLOBIN 14.8 G/DL (13.3-17.7); LYMPHOCYTES # (AUTO) 1.7 X 10^3 (1.0-4.0); LYMPHOCYTES % (AUTO) 23 % (12-44); MEAN CORPUSCULAR HEMOGLOBIN 34 PG (25-34); MEAN CORPUSCULAR HGB CONC 35 G/DL (32-36); MEAN CORPUSCULAR VOLUME 99 FL (80-99); MEAN PLATELET VOLUME 9.5 FL (7.4-10.4); MONOCYTES # (AUTO) 0.4 X 10^3 (0.0-1.0); MONOCYTES % (AUTO) 6 % (0-12); NEUTROPHILS # (AUTO) 5.3 X 10^3 (1.8-7.8); NEUTROPHILS % (AUTO) 71 % (42-75); PLATELET COUNT 380 10^3/uL (130-400); RED CELL DISTRIBUTION WIDTH 13.2 % (10.0-14.5); WHITE BLOOD COUNT 7.5 10^3/uL (4.3-11.0)
[2018-06-25 19:57] LABS: BILIRUBIN,URINE NEGATIVE (NEGATIVE); CLARITY,URINE CLEAR; COLOR,URINE YELLOW; GLUCOSE, URINE (UA) NEGATIVE (NEGATIVE); KETONES,URINE NEGATIVE (NEGATIVE); LEUKOCYTE ESTERASE ,URINE NEGATIVE (NEGATIVE); NITRITE,URINE NEGATIVE (NEGATIVE); PH,URINE 6 (5-9); PROTEIN,URINE NEGATIVE (NEGATIVE); UROBILINOGEN,URINE NORMAL (NORMAL)
--- OUTSIDE RECORDS SUMMARY | 2018-06-25 19:59 | XMS REPORT | Continuity of Care Document ---
Author Organization Unknown Address Unknown Allergies Active Description Code Type Severity Reaction Onset Reported/Identified Relationship to Patient Clinical Status Yes NO KNOWN DRUG ALLERGIES UNKNOWN NO KNOWN DRUG ALLERG Yes No Known Drug Allergies [id number] Drug Allergy Unknown N/A 11/12/2009 Medications Medication [...] 05/09/2011 462 ACUTE PHARYNGITIS 12/28/2012 EMANUEL BIRMINGHAM L Ot 682.6 CELLULITIS OF LEG 12/28/2012 EMANUEL BIRMINGHAM Ot 782.2 LOCAL SUPRFICIAL SWELLNG 08/08/2013 EMANUEL BIRMINGHAM Ot 845.00 SPRAIN OF ANKLE NOS 08/08/2013 EMANUEL BIRMINGHAM Ot E987.9 UNDET CIRC-FALL SITE NOS 07/25/2015 REFUGIO CROUCH MD Ot R05 COUGH 07/25/2015 REFUGIO CROUCH MD Ot Z53.21 PROC/TRTMT NOT CRD OUT D/T PT LV BEF SEE 05/25/2017 REFUGIO CROUCH MD, Ot F10.129 ALCOHOL ABUSE WITH INTOXICATION, UNSPECI 05/25/2017 REFUGIO CROUCH MD Ot F17.200 NICOTINE DEPENDENCE, UNSPECIFIED, UNCOMP 05/28/2017 REUFGIO CROUCH MD Ot F10.129 ALCOHOL ABUSE WITH [...] OTHER GENDER IDENTITY DISORDERS 03/09/2018 Clayton Saldana 305.00 ALCOHOL ABUSE, UNSPECIFIED DRINKING BEHAVIOR 03/09/2018 Clayton Saldana F10.10 ALCOHOL ABUSE, UNCOMPLICATED 03/09/2018 Clayton Saldana 305.00 ALCOHOL ABUSE, UNSPECIFIED DRINKING BEHAVIOR 03/09/2018 Clayton Saldana F10.10 ALCOHOL ABUSE, UNCOMPLICATED 05/07/2018 AFTAB QUINTEROS Ot F10.10 ALCOHOL ABUSE, UNCOMPLICATED 05/07/2018 AFTAB QUINTEROS Ot F17.210 NICOTINE DEPENDENCE, CIGARETTES, UNCOMPL 05/07/2018 AFTAB QUINTEROS Ot F32.9 MAJOR DEPRESSIVE DISORDER, SINGLE EPISOD 05/07/2018 AFTAB QUINTEROS Ot F41.9 ANXIETY DISORDER, UNSPECIFIED 05/07/2018 AFTAB QUINTEROS Ot Z91.5 PERSONAL HISTORY OF SELF-HARM 05/21/2018 SALAS DO, LOC K Ot A41.9 SEPSIS, UNSPECIFIED ORGANISM 05/21/2018 SALAS DO, LOC K Ot F10.239 ALCOHOL DEPENDENCE WITH WITHDRAWAL, UNSP 05/21/2018 SALAS DO, LOC K Ot F17.210 NICOTINE DEPENDENCE, CIGARETTES, UNCOMPL 05/21/2018 SALAS DO, LOC K Ot F19.10 OTHER PSYCHOACTIVE SUBSTANCE ABUSE, UNCO 05/21/2018 SALAS DO, LOC K Ot F32.9 MAJOR DEPRESSIVE DISORDER, SINGLE EPISOD 05/21/2018 SALAS DO, LOC K Ot F41.9 ANXIETY DISORDER, UNSPECIFIED 05/21/2018 SALAS DO, LOC K Ot N17.9 ACUTE KIDNEY FAILURE, UNSPECIFIED 05/21/2018 SALAS DO, LOC K Ot N39.0 URINARY TRACT INFECTION, SITE NOT SPECIF 06/01/2018 BINDU RODRIGUEZ MD Ot F10.129 ALCOHOL ABUSE WITH INTOXICATION, UNSPECI 06/01/2018 BINDU RODRIGUEZ MD Ot F17.210 NICOTINE DEPENDENCE, CIGARETTES, UNCOMPL 06/01/2018 BINDU RODRIGUEZ MD Ot T40.2X1A POISONING BY OTH OPIOIDS, ACCIDENTAL (UN 06/01/2018 BINDU RODRIGUEZ MD Ot T42.4X1A POISONING BY BENZODIAZEPINES, ACCIDENTAL 06/01/2018 BINDU RODRIGUEZ MD Ot T51.0X1A TOXIC EFFECT OF ETHANOL, ACCIDENTAL (UNI Procedures There is no data. Results Test [...] NRG Blood erythrocyte morphology finding identification NORMAL NR Complete blood count (CBC) with automated white blood cell (WBC) differential - 05/19/18 18:01 Blood leukocytes automated count (number/volume) 16.3 10*3/uL 4.3-11.0 Blood erythrocytes automated count (number/volume) 4.80 10*6/uL 4.35-5.85 Venous blood hemoglobin measurement (mass/volume) 16.0 g/dL 13.3-17.7 Blood hematocrit (volume fraction) 46 % 40-54 Automated erythrocyte mean corpuscular volume 95 [foz_us] 80-99 Automated erythrocyte mean corpuscular hemoglobin (mass per erythrocyte) 33 pg 25-34 Automated erythrocyte mean corpuscular hemoglobin concentration measurement ( mass/volume) 35 g/dL 32-36 Automated erythrocyte distribution width ratio 13.9 % 10.0-14.5 Automated blood platelet count (count/volume) 1089 10*3/uL 130-400 Automated blood platelet mean volume measurement 8.7 [foz_us] 7.4-10.4 Automated blood neutrophils/100 leukocytes 88 % 42-75 Automated blood lymphocytes/100 leukocytes 6 % 12-44 Blood monocytes/100 leukocytes 6 % 0-12 Automated blood eosinophils/100 leukocytes 0 % 0-10 Automated blood basophils/100 leukocytes 0 % 0-10 Blood neutrophils automated count (number/volume) 14.3 10*3 1.8-7.8 Blood lymphocytes automated count (number/volume) 0.9 10*3 1.0-4.0 Blood monocytes automated count (number/volume) 1.0 10*3 0.0-1.0 Automated eosinophil count 0.0 10*3/uL 0.0-0.3 Automated blood basophil count (count/volume) 0.1 10*3/uL 0.0-0.1 Blood manual differential performed detection - 05/19/18 18:01 Blood monocytes/100 leukocytes 11 % NRG Manual blood segmented neutrophils/100 leukocytes 82 % NRG Blood band neutrophils/100 leukocytes 1 % NRG Manual blood lymphocytes/100 leukocytes 2 % NRG Manual eosinophils/100 leukocytes in nose 0 % NRG Manual blood basophils/100 leukocytes 0 % NRG Blood lymphocytes variant/100 leukocytes 4 % NRG Blood erythrocyte morphology finding identification NORMAL NR Comprehensive metabolic panel - 05/19/18 18:01 Serum or plasma sodium measurement (moles/volume) 137 mmol/L 135-145 Serum or plasma potassium measurement (moles/volume) 4.1 mmol/L 3.6-5.0 Serum or plasma chloride measurement (moles/volume) 90 mmol/L 98-107 Carbon dioxide 24 mmol/L 21-32 Serum or plasma anion gap determination (moles/volume) 23 mmol/L 5-14 Serum or plasma urea nitrogen measurement (mass/volume) 14 mg/dL 7-18 Serum or plasma creatinine measurement (mass/volume) 2.24 mg/dL 0.60-1.30 Serum or plasma urea nitrogen/creatinine mass ratio 6 NRG Serum or plasma creatinine measurement with calculation of estimated glomerular filtration rate 37 NRG Serum or plasma glucose measurement (mass/volume) 153 mg/dL 70-105 Serum or plasma calcium measurement (mass/volume) 11.2 mg/dL 8.5-10.1 Serum or plasma total bilirubin measurement (mass/volume) 0.7 mg/dL 0.1-1.0 Serum or plasma alkaline phosphatase measurement (enzymatic activity/volume) 120 U/L 40-136 Serum or plasma aspartate aminotransferase measurement (enzymatic activity/ volume) 37 U/L 5-34 Serum or plasma alanine aminotransferase measurement (enzymatic activity/volume ) 20 U/L 0-55 Serum or plasma protein measurement (mass/volume) 10.3 g/dL 6.4-8.2 Serum or plasma albumin measurement (mass/volume) 5.1 g/dL 3.2-4.5 Serum or plasma salicylates measurement (mass/volume) - 05/19/18 18:01 Serum or plasma salicylates measurement (mass/volume) < mg/dL 5.0-20.0 Serum or plasma acetaminophen measurement (mass/volume) - 05/19/18 18:01 Serum or plasma acetaminophen measurement (mass/volume) < ug/mL 10-30 Serum or plasma ethanol measurement (mass/volume) - 05/19/18 18:01 Serum or plasma ethanol measurement (mass/volume) 33 mg/dL <10 Serum or plasma thyrotropin measurement by detection limit <=0.05 miu/l (units/ volume) - 05/19/18 18:01 Serum or plasma thyrotropin measurement by detection limit <=0.05 miu/l (units/ volume) 0.84 u[iU]/mL 0.35-4.94 Magnesium - 05/19/18 18:01 Magnesium 2.3 mg/dL 1.8-2.4 Influenza virus A and B antigen detection - 05/19/18 18:56 FLU RESULT NEGATIVE FOR INFLUENZA A AND B ANTIGENS BY IA NRG Complete urinalysis with reflex to culture - 05/19/18 19:49 Urine color determination DARK YELLOW NRG Urine clarity determination CLOUDY NRG Urine pH measurement by test strip 5 5-9 Specific gravity of urine by test strip 1.025 1.016- 1.022 Urine protein assay by test strip, semi-quantitative 4+ NEGATIVE Urine glucose detection by automated test strip NEGATIVE NEGATIVE Erythrocytes detection in urine sediment by light microscopy 1+ NEGATIVE Urine ketones detection by automated test strip 1+ NEGATIVE Urine nitrite detection by test strip POSITIVE NEGATIVE Urine total bilirubin detection by test strip 1+ NEGATIVE Urine urobilinogen measurement by automated test strip (mass/volume) 4 mg/dL NORMAL Urine leukocyte esterase detection by dipstick 2+ NEGATIVE Automated urine sediment erythrocyte count by microscopy (number/high power field) [HPF] NRG Automated urine sediment leukocyte count by microscopy (number/high power field ) [HPF] NRG Bacteria detection in urine sediment by light microscopy LARGE NRG Squamous epithelial cells detection in urine sediment by light microscopy 0-2 NRG Crystals detection in urine sediment by light microscopy PRESENT NRG Casts detection in urine sediment by light microscopy PRESENT NRG Mucus detection in urine sediment by light microscopy NEGATIVE NRG Complete urinalysis with reflex to culture YES NRG Hyaline casts detection in urine sediment by light microscopy 10-25 NRG Calcium oxalate crystals detection in urine sediment by light microscopy MODERATE NRG Urine drug screening test - 05/19/18 19:49 Urine phencyclidine detection by screening method NEGATIVE NEGATIVE Urine benzodiazepines detection by screening method POSITIVE NEGATIVE Urine cocaine detection NEGATIVE NEGATIVE Urine amphetamines detection by screening method NEGATIVE NEGATIVE Urine methamphetamine detection by screening method POSITIVE NEGATIVE Urine cannabinoids detection by screening method POSITIVE NEGATIVE Urine opiates detection by screening method POSITIVE NEGATIVE Urine barbiturates detection NEGATIVE NEGATIVE Screening urine tricyclic antidepressants detection NEGATIVE NEGATIVE Urine methadone detection by screening method NEGATIVE NEGATIVE Urine oxycodone detection NEGATIVE NEGATIVE Urine propoxyphene detection NEGATIVE NEGATIVE Bacterial urine culture - 05/19/18 19:49 Bacterial urine culture NG NRG Arterial blood gas measurement - 05/19/18 19:54 Blood pCO2 35 mm[Hg] 35-45 Blood pO2 96 mm[Hg] 79-93 Arterial blood bicarbonate measurement (moles/volume) 26 mmol/L 23-27 Arterial blood base excess by calculation 2.6 mmol/L -2.5 -2.5 Arterial blood oxygen saturation measurement 98 % 94-100 * Inhaled oxygen flow rate RA NRG Arterial blood pH measurement with patient temperature correction 7.48 7.37-7.43 Arterial blood carbon dioxide, total measurement (moles/volume) 27.0 mmol/L 21.0-31.0 Body site R RAD NRG Assessment of wrist artery patency prior to arterial puncture YES- POS NRG Setting of ventilation mode NO NRG Measurement of body temperature 98.2 NRG Blood lactic acid measurement (moles/volume) - 05/19/18 20:30 Blood lactic acid measurement (moles/volume) 2.96 mmol/L 0.50-2.00 Bacterial blood culture - 05/19/18 20:30 QUANTITY OF GROWTH . NRG Bacterial blood culture SEE COMMEN NRG Bacterial blood culture - 05/19/18 20:45 Bacterial blood culture NG NRG Serum or plasma lactate measurement (moles/volume) - 05/19/18 22:18 Serum or plasma lactate measurement (moles/volume) 2.14 mmol/L 0.50-2.00 Complete blood count (CBC) with automated white blood cell (WBC) differential - 05/20/18 06:16 Blood leukocytes automated count (number/volume) 11.6 10*3/uL 4.3-11.0 Blood erythrocytes automated count (number/volume) 4.18 10*6/uL 4.35-5.85 Venous blood hemoglobin measurement (mass/volume) 13.8 g/dL 13.3-17.7 Blood hematocrit (volume fraction) 41 % 40-54 Automated erythrocyte mean corpuscular volume 98 [foz_us] 80-99 Automated erythrocyte mean corpuscular hemoglobin (mass per erythrocyte) 33 pg 25-34 Automated erythrocyte mean corpuscular hemoglobin concentration measurement ( mass/volume) 34 g/dL 32-36 Automated erythrocyte distribution width ratio 14.1 % 10.0-14.5 Automated blood platelet count (count/volume) 818 10*3/uL 130-400 Automated blood platelet mean volume measurement 9.0 [foz_us] 7.4-10.4 Automated blood neutrophils/100 leukocytes 72 % 42-75 Automated blood lymphocytes/100 leukocytes 14 % 12-44 Blood monocytes/100 leukocytes 13 % 0-12 Automated blood eosinophils/100 leukocytes 0 % 0-10 Automated blood basophils/100 leukocytes 0 % 0-10 Blood neutrophils automated count (number/volume) 8.4 10*3 1.8-7.8 Blood lymphocytes automated count (number/volume) 1.7 10*3 1.0-4.0 Blood monocytes automated count (number/volume) 1.5 10*3 0.0-1.0 Automated eosinophil count 0.0 10*3/uL 0.0-0.3 Automated blood basophil count (count/volume) 0.0 10*3/uL 0.0-0.1 Comprehensive metabolic panel - 05/20/18 06:16 Serum or plasma sodium measurement (moles/volume) 139 mmol/L 135-145 Serum or plasma potassium measurement (moles/volume) 4.8 mmol/L 3.6-5.0 Serum or plasma chloride measurement (moles/volume) 103 mmol/L 98-107 Carbon dioxide 25 mmol/L 21-32 Serum or plasma anion gap determination (moles/volume) 11 mmol/L 5-14 Serum or plasma urea nitrogen measurement (mass/volume) 10 mg/dL 7-18 Serum or plasma creatinine measurement (mass/volume) 0.83 mg/dL 0.60-1.30 Serum or plasma urea nitrogen/creatinine mass ratio 12 NRG Serum or plasma creatinine measurement with calculation of estimated glomerular filtration rate > NRG Serum or plasma glucose measurement (mass/volume) 132 mg/dL 70-105 Serum or plasma calcium measurement (mass/volume) 9.4 mg/dL 8.5-10.1 Serum or plasma total bilirubin measurement (mass/volume) 0.8 mg/dL 0.1-1.0 Serum or plasma alkaline phosphatase measurement (enzymatic activity/volume) 87 U/L 40-136 Serum or plasma aspartate aminotransferase measurement (enzymatic activity/ volume) 27 U/L 5-34 Serum or plasma alanine aminotransferase measurement (enzymatic activity/volume ) 13 U/L 0-55 Serum or plasma protein measurement (mass/volume) 7.6 g/dL 6.4-8.2 Serum or plasma albumin measurement (mass/volume) 4.1 g/dL 3.2-4.5 CALCIUM CORRECTED 9.3 mg/dL 8.5-10.1 Complete blood count (CBC) with automated white blood cell (WBC) differential - 05/21/18 05:49 Blood leukocytes automated count (number/volume) 6.2 10*3/uL 4.3-11.0 Blood erythrocytes automated count (number/volume) 3.34 10*6/uL 4.35-5.85 Venous blood hemoglobin measurement (mass/volume) 11.0 g/dL 13.3-17.7 Blood hematocrit (volume fraction) 34 % 40-54 Automated erythrocyte mean corpuscular volume 100 [foz_us] 80-99 Automated erythrocyte mean corpuscular hemoglobin (mass per erythrocyte) 33 pg 25-34 Automated erythrocyte mean corpuscular hemoglobin concentration measurement ( mass/volume) 33 g/dL 32-36 Automated erythrocyte distribution width ratio 13.8 % 10.0-14.5 Automated blood platelet count (count/volume) 476 10*3/uL 130-400 Automated blood platelet mean volume measurement 9.2 [foz_us] 7.4-10.4 Automated blood neutrophils/100 leukocytes 60 % 42-75 Automated blood lymphocytes/100 leukocytes 31 % 12-44 Blood monocytes/100 leukocytes 9 % 0-12 Automated blood eosinophils/100 leukocytes 0 % 0-10 Automated blood basophils/100 leukocytes 1 % 0-10 Blood neutrophils automated count (number/volume) 3.7 10*3 1.8-7.8 Blood lymphocytes automated count (number/volume) 1.9 10*3 1.0-4.0 Blood monocytes automated count (number/volume) 0.6 10*3 0.0-1.0 Automated eosinophil count 0.0 10*3/uL 0.0-0.3 Automated blood basophil count (count/volume) 0.0 10*3/uL 0.0-0.1 Comprehensive metabolic panel - 05/21/18 05:49 Serum or plasma sodium measurement (moles/volume) 138 mmol/L 135-145 Serum or plasma potassium measurement (moles/volume) 3.9 mmol/L 3.6-5.0 Serum or plasma chloride measurement (moles/volume) 109 mmol/L 98-107 Carbon dioxide 21 mmol/L 21-32 Serum or plasma anion gap determination (moles/volume) 8 mmol/L 5-14 Serum or plasma urea nitrogen measurement (mass/volume) 4 mg/dL 7-18 Serum or plasma creatinine measurement (mass/volume) 0.63 mg/dL 0.60-1.30 Serum or plasma urea nitrogen/creatinine mass ratio 6 NRG Serum or plasma creatinine measurement with calculation of estimated glomerular filtration rate > NRG Serum or plasma glucose measurement (mass/volume) 86 mg/dL 70-105 Serum or plasma calcium measurement (mass/volume) 8.1 mg/dL 8.5-10.1 Serum or plasma total bilirubin measurement (mass/volume) 0.4 mg/dL 0.1-1.0 Serum or plasma alkaline phosphatase measurement (enzymatic activity/volume) 59 U/L 40-136 Serum or plasma aspartate aminotransferase measurement (enzymatic activity/ volume) 51 U/L 5-34 Serum or plasma alanine aminotransferase measurement (enzymatic activity/volume ) 17 U/L 0-55 Serum or plasma protein measurement (mass/volume) 5.8 g/dL 6.4-8.2 Serum or plasma albumin measurement (mass/volume) 3.3 g/dL 3.2-4.5 CALCIUM CORRECTED 8.7 mg/dL 8.5-10.1 Complete blood count (CBC) with automated white blood cell (WBC) differential - 05/31/18 21:17 Blood leukocytes automated count (number/volume) 5.8 10*3/uL 4.3-11.0 Blood erythrocytes automated count (number/volume) 4.20 10*6/uL 4.35-5.85 Venous blood hemoglobin measurement (mass/volume) 14.1 g/dL 13.3-17.7 Blood hematocrit (volume fraction) 42 % 40-54 Automated erythrocyte mean corpuscular volume 101 [foz_us] 80-99 Automated erythrocyte mean corpuscular hemoglobin (mass per erythrocyte) 34 pg 25-34 Automated erythrocyte mean corpuscular hemoglobin concentration measurement ( mass/volume) 33 g/dL 32-36 Automated erythrocyte distribution width ratio 14.0 % 10.0-14.5 Automated blood platelet count (count/volume) 328 10*3/uL 130-400 Automated blood platelet mean volume measurement 9.5 [foz_us] 7.4-10.4 Automated blood neutrophils/100 leukocytes 51 % 42-75 Automated blood lymphocytes/100 leukocytes 45 % 12-44 Blood monocytes/100 leukocytes 3 % 0-12 Automated blood eosinophils/100 leukocytes 1 % 0-10 Automated blood basophils/100 leukocytes 1 % 0-10 Blood neutrophils automated count (number/volume) 3.0 10*3 1.8-7.8 Blood lymphocytes automated count (number/volume) 2.6 10*3 1.0-4.0 Blood monocytes automated count (number/volume) 0.2 10*3 0.0-1.0 Automated eosinophil count 0.0 10*3/uL 0.0-0.3 Automated blood basophil count (count/volume) 0.0 10*3/uL 0.0-0.1 PT panel in platelet poor plasma by coagulation assay - 05/31/18 21:17 Prothrombin time (PT) in platelet poor plasma by coagulation assay 13.6 s 12.2-14.7 INR in platelet poor plasma or blood by coagulation assay 1.0 0.8-1.4 Activated partial thromboplastin time (aPTT) in platelet poor plasma bycoagulation assay - 05/31/18 21:17 Activated partial thromboplastin time (aPTT) in platelet poor plasma bycoagulation assay 28 s 24-35 Comprehensive metabolic panel - 05/31/18 21:17 Serum or plasma sodium measurement (moles/volume) 147 mmol/L 135-145 Serum or plasma potassium measurement (moles/volume) 4.1 mmol/L 3.6-5.0 Serum or plasma chloride measurement (moles/volume) 110 mmol/L 98-107 Carbon dioxide 25 mmol/L 21-32 Serum or plasma anion gap determination (moles/volume) 12 mmol/L 5-14 Serum or plasma urea nitrogen measurement (mass/volume) 6 mg/dL 7-18 Serum or plasma creatinine measurement (mass/volume) 0.79 mg/dL 0.60-1.30 Serum or plasma urea nitrogen/creatinine mass ratio 8 NRG Serum or plasma creatinine measurement with calculation of estimated glomerular filtration rate > NRG Serum or plasma glucose measurement (mass/volume) 95 mg/dL 70-105 Serum or plasma calcium measurement (mass/volume) 9.2 mg/dL 8.5-10.1 Serum or plasma total bilirubin measurement (mass/volume) 0.3 mg/dL 0.1-1.0 Serum or plasma alkaline phosphatase measurement (enzymatic activity/volume) 76 U/L 40-136 Serum or plasma aspartate aminotransferase measurement (enzymatic activity/ volume) 45 U/L 5-34 Serum or plasma alanine aminotransferase measurement (enzymatic activity/volume ) 28 U/L 0-55 Serum or plasma protein measurement (mass/volume) 7.6 g/dL 6.4-8.2 Serum or plasma albumin measurement (mass/volume) 4.5 g/dL 3.2-4.5 CALCIUM CORRECTED 8.8 mg/dL 8.5-10.1 Serum or plasma amylase measurement (enzymatic activity/volume) - 05/31/18 21: 17 Serum or plasma amylase measurement (enzymatic activity/volume) 60 U /L 25-125 Lipase - 05/31/18 21:17 Lipase 8 U/L 8-78 Serum or plasma salicylates measurement (mass/volume) - 05/31/18 21:17 Serum or plasma salicylates measurement (mass/volume) < mg/dL 5.0-20.0 Serum or plasma acetaminophen measurement (mass/volume) - 05/31/18 21:17 Serum or plasma acetaminophen measurement (mass/volume) < ug/mL 10-30 Serum or plasma ethanol measurement (mass/volume) - 05/31/18 21:17 Serum or plasma ethanol measurement (mass/volume) 391 mg/dL <10 Complete urinalysis with reflex to culture - 05/31/18 21:49 Urine color determination YELLOW NRG Urine clarity determination CLEAR NRG Urine pH measurement by test strip 6 5-9 Specific gravity of urine by test strip 1.010 1.016- 1.022 Urine protein assay by test [...] count by microscopy (number/high power field ) RARE NRG Bacteria detection in urine sediment by light microscopy NEGATIVE NRG Crystals detection in urine sediment by light microscopy NONE NRG Casts detection in urine sediment by light microscopy NONE NRG Mucus detection in urine sediment by light microscopy NEGATIVE NRG Complete urinalysis with reflex to culture NO NRG Urine drug screening test - 05/31/18 21:49 Urine phencyclidine detection by screening method NEGATIVE [...] NEGATIVE NEGATIVE Urine propoxyphene detection NEGATIVE NEGATIVE Methicillin resistant Staphylococcus aureus (MRSA) screening culture - 22:30 Methicillin resistant Staphylococcus aureus (MRSA) screening culture NEG NRG Complete blood count (CBC) with automated white blood cell (WBC) differential - 06/01/18 03:35 Blood leukocytes automated count (number/volume) 5.9 10*3/uL 4.3-11.0 Blood erythrocytes automated count (number/volume) 3.58 10*6/uL 4.35-5.85 Venous blood hemoglobin measurement (mass/volume) 12.0 g/dL 13.3-17.7 Blood hematocrit (volume fraction) 36 % 40-54 Automated erythrocyte mean corpuscular volume 101 [foz_us] 80-99 Automated erythrocyte mean corpuscular hemoglobin (mass per erythrocyte) 34 pg 25-34 Automated erythrocyte mean corpuscular hemoglobin concentration measurement ( mass/volume) 33 g/dL 32-36 Automated erythrocyte distribution width ratio 13.6 % 10.0-14.5 Automated blood platelet count (count/volume) 283 10*3/uL 130-400 Automated blood platelet mean volume measurement 9.7 [foz_us] 7.4-10.4 Automated blood neutrophils/100 leukocytes 67 % 42-75 Automated blood lymphocytes/100 leukocytes 28 % 12-44 Blood monocytes/100 leukocytes 5 % [...] 0.0-0.1 Whole blood basic metabolic panel - 06/01/18 03:35 Serum or plasma sodium measurement (moles/volume) 142 mmol/L 135-145 Serum or plasma potassium measurement (moles/volume) 3.5 mmol/L 3.6-5.0 Serum or plasma chloride measurement (moles/volume) 112 mmol/L 98-107 Carbon dioxide 21 mmol/L 21-32 Serum or plasma anion gap determination (moles/volume) 9 mmol/L 5-14 Serum or plasma urea nitrogen measurement (mass/volume) 6 mg/dL 7-18 Serum or plasma creatinine measurement (mass/volume) 0.71 mg/dL 0.60-1.30 Serum or plasma urea nitrogen/creatinine mass ratio 8 NRG Serum or plasma creatinine measurement with calculation of estimated glomerular filtration rate > NRG Serum or plasma glucose measurement (mass/volume) 144 mg/dL 70-105 Serum or plasma calcium measurement (mass/volume) 8.3 mg/dL 8.5-10.1 Serum or plasma phosphate measurement (mass/volume) - 06/01/18 03:35 Serum or plasma phosphate measurement (mass/volume) 1.6 mg/dL 2.3-4.7 Magnesium - 06/01/18 03:35 Magnesium 1.7 mg/dL 1.8-2.4 Encounters ACCT No. Visit Date/Time Discharge Status Pt. Type Provider Facility Loc./Unit Complaint [id number] 05/31/2018 22:10:00 06/01/2018 08:32:00 DIS Inpatient BINDU RODRIGUEZ MD [facility] ICU ALCOHOL INTOXICATION, POLYSUBSTANCE ABUSE [id number] 05/19/2018 21:20:00 05/21/2018 13:00:00 DIS Inpatient LOC SALAS DO [facility] 4TH UTI,SEPSIS,ACUTE RENAL FAILURE [id number] 05/07/2018 12:40:00 05/07/2018 16:03:00 DIS Emergency AFTAB QUINTEROS [facility] ER ETOH DETOX [id number] 02/14/2018 23:05:00 02/16/2018 11:28:00 DIS Inpatient FRAZIERVANNESA FRANCO DOI [facility] ETOH ABUSE [id number] 05/25/2017 08:29:00 05/25/2017 11:20:00 DIS Emergency REFUGIO CROUCH MD [facility] ER ALCOHOL OVERDOSE [id number] 07/25/2015 17:48:00 07/25/2015 18:22:00 DIS Emergency REFUGIO CROUCH MD [facility] ER COUGH/CONGESTION [id number] 03/19/2014 18:54:00 03/19/2014 23:59:59 CLS Outpatient GABI WOOD [facility] QUICK [id number] 08/08/2013 21:32:00 08/08/2013 22:50:00 DIS Emergency EMANUEL BIRMINGHAM [facility] ER L ANKLE INJ [id number] 12/28/2012 21:17:00 12/28/2012 21:44:00 DIS Emergency EMANUEL BIRMINGHAM [facility] ER LEFT LEG ABSCESS [id number] 06/25/2018 19:31:00 ACT Emergency ANGELA CELESTIN DO [facility] ETOH WITHDRAWAL [id number] 07/25/2015 18:26:00 Document Registration [id number] 03/19/2014 18:55:29 ACT Document Registration [id number] 03/09/2018 05:40:00 03/09/2018 09:52:00 DIS Inpatient [facility] MED-SURG [id number] 03/09/2018 07:34:12 Document Registration [id number] 04/20/2018 14:30:00 04/20/2018 23:59:59 CLS Outpatient RONNIE HOYT [facility] [id number] 05/09/2011 14:11:00 05/09/2011 23:59:59 CLS Outpatient [id number] 03/27/2012 18:34:11 RECURRING
[2018-06-25 20:06] LABS: PROTHROMBIN TIME PATIENT 13.5 SEC (12.2-14.7)
[2018-06-25 20:09] LABS: BACTERIA,URINE TRACE /HPF; WBC,URINE 0-2 /HPF
[2018-06-25 20:10] LABS: SQUAMOUS EPITHELIAL CELL,UR 0-2 /HPF
[2018-06-25 20:12] LABS: AMPHETAMINE SCREEN, URINE POSITIVE (NEGATIVE); BENZODIAZEPINES SCREEN URINE POSITIVE (NEGATIVE); CANNABINOID SCREEN, URINE POSITIVE (NEGATIVE); OPIATE SCREEN URINE POSITIVE (NEGATIVE)
[2018-06-25 20:14] LABS: BARBITURATE SCREEN URINE NEGATIVE (NEGATIVE); COCAINE SCREEN URINE NEGATIVE (NEGATIVE); METHADONE STAT NEGATIVE (NEGATIVE); METHAMPHETAMINE SCREEN URINE S NEGATIVE (NEGATIVE); OXYCODONE STAT NEGATIVE (NEGATIVE); PROPOXYPHENE STAT NEGATIVE (NEGATIVE); TRICYCLIC ANTIDEPRESSANTS SCRE NEGATIVE (NEGATIVE)
[2018-06-25 20:14] LABS: CARBON DIOXIDE 25 MMOL/L (21-32); CHLORIDE 113 MMOL/L (98-107); POTASSIUM 3.9 MMOL/L (3.6-5.0); SODIUM 151 MMOL/L (135-145)
[2018-06-25 20:15] LABS: ACETAMINOPHEN < 10 UG/ML (10-30); ALANINE AMINOTRANSFERASE 27 U/L (0-55); ALBUMIN 4.2 GM/DL (3.2-4.5); ALKALINE PHOSPHATASE 92 U/L (40-136); AMYLASE 65 U/L (25-125); BILIRUBIN,TOTAL 0.2 MG/DL (0.1-1.0); BUN/CREATININE RATIO 8; CALCIUM 9.1 MG/DL (8.5-10.1); CREATININE SERUM 0.77 MG/DL (0.60-1.30); GFR ESTIMATED > 60; GLUCOSE 105 MG/DL (70-105); LIPASE 6 U/L (8-78); MAGNESIUM 2.7 MG/DL (1.8-2.4); TOTAL PROTEIN 7.1 GM/DL (6.4-8.2)
[2018-06-25] MEDS ORDERED: 1/2 NS IV SOLUTION 1,000 ML IV SCH ×2 (20:45→21:00)
--- NOTE | 2018-06-25 20:45 | NUR ---
PT STUMBLES OUT OF ED ROOM 6 WITH FRIEND STATING, "I'M GOING HOME". PT ESCORTED BACK TO ROOM. EXPLAINED TO PT THAT ETOH LEVEL IS TOO ELEVATED AND DRUG SCREEN POSITIVE FOR MANY SUBTANCES AND CANNOT LEAVE WITH THAT LEVEL OF INTOXICATION. PT PULLED OUT IV, IVF EMPTYING INTO FLOOR. PT FRIEND STARTING TO GET BELLIGERENT WELL AND ASKED TO LEAVE ER. [place] [employer] CALLED.
--- NOTE | 2018-06-25 20:50 | NUR ---
[address] [place] [employer] OFFICERS HERE AT THIS TIME.
[2018-06-25 22:30] VITALS: BP 110/75
== END 2018-06-25 22:00 | disposition short-term general hospital (02) ==
LOC: EDUNIT# 19:30 → ER 19:31
DX: F10.229 Alcohol dependence with intoxication, unspecified (principal); F19.10 Other psychoactive substance abuse, uncomplicated; F41.9 Anxiety disorder, unspecified; F32.9 Major depressive disorder, single episode, unspecified; F12.10 Cannabis abuse, uncomplicated; F11.10 Opioid abuse, uncomplicated; F15.10 Other stimulant abuse, uncomplicated; F17.210 Nicotine dependence, cigarettes, uncomplicated; Z87.448 Personal history of other diseases of urinary system; Z91.5 Personal history of self-harm
CPT/HCPCS: 36415; 80053; 80306; 80320; 80329; 81000; 82150; 83690; 83735; 85025; 85610; 85730; 93005; 93041

== ENCOUNTER 2018-07-01 00:12 | Emergency (ER) | payer OTHER ==
--- NOTE | 2018-07-01 00:38 | NUR ---
Pt to registration desk stating she was tired of waiting. Pt told reg social welfare clerk she would be leaving at this time.
== END 2018-07-01 00:38 | disposition left against medical advice (07) ==
LOC: EDUNIT# 00:12 → ER 00:15
DX: F10.239 Alcohol dependence with withdrawal, unspecified (principal); R52 Pain, unspecified

== ENCOUNTER 2018-07-17 02:56 | Emergency (ER) | payer SELFPAY ==
[~2018-07-17] VITALS: Ht 162.6 cm; Wt 61.7 kg
[2018-07-17 02:56] VITALS: BP 106/81
[2018-07-17] MEDS ORDERED: LACTATED RINGERS 1,000 ML IV ONE ×2 (03:02→03:57)
[2018-07-17 03:13] LABS: BASOPHILS # (AUTO) 0.1 10^3/uL (0.0-0.1); BASOPHILS % (AUTO) 1 % (0-10); EOSINOPHILS # (AUTO) 0.1 10^3/uL (0.0-0.3); EOSINOPHILS % (AUTO) 1 % (0-10); HEMATOCRIT 47 % (40-54); HEMOGLOBIN 16.7 G/DL (13.3-17.7); LYMPHOCYTES # (AUTO) 4.4 X 10^3 (1.0-4.0); LYMPHOCYTES % (AUTO) 38 % (12-44); MEAN CORPUSCULAR HEMOGLOBIN 33 PG (25-34); MEAN CORPUSCULAR HGB CONC 35 G/DL (32-36); MEAN CORPUSCULAR VOLUME 93 FL (80-99); MEAN PLATELET VOLUME 9.5 FL (7.4-10.4); MONOCYTES # (AUTO) 0.6 X 10^3 (0.0-1.0); MONOCYTES % (AUTO) 5 % (0-12); NEUTROPHILS # (AUTO) 6.5 X 10^3 (1.8-7.8); NEUTROPHILS % (AUTO) 56 % (42-75); PLATELET COUNT 394 10^3/uL (130-400); WHITE BLOOD COUNT 11.6 10^3/uL (4.3-11.0)
[2018-07-17] MEDS ORDERED: ONDANSETRON 4 MG/2 ML (SDV) Z0FRAN IVP ONE (03:15)
--- NOTE | 2018-07-17 03:15 | ED Psychosocial ---
General Chief Complaint: Substance Abuse Stated Complaint: ETOH Source: patient, EMS, old records History of Present Illness Date Seen by Provider: July 17, 2018 Time Seen by Provider: 02:53 Initial Comments PT ARRIVES VIA EMS FROM HOME PT CALLED EMS FOR "ALCOHOL WITHDRAWL" --STATES HIS LAST DRINK WAS AN HOUR AGO STATES TO ME THAT HE IS HERE BECAUSE "I NEED NUTRITION" "I HAVEN'T EATEN IN A WEEK" --BECAUSE HE HAS BEEN DRINKING PT STATES HE HAS BEEN DRINKING WINE + VODKA TONIGHT PT HAS ALSO BEEN SMOKING MARIJUANA, WHICH HE ALSO DOES ON A DAILY BASIS IS UNCLEAR WHAT IS DIFFERENT TONIGHT THAT PROMPTED HIM TO CALL EMS YET AGAIN. PT HAS HAD A MULTITUDE OF VISITS--ALL SIMPLY BECAUSE HE IS INTOXICATED. LAST VISIT WAS 06/25/18 PT DRINKS LARGE AMOUNTS OF ALCOHOL DAILY TODAY, HE STATES HE HAS "CUT DOWN" HIS ALCOHOL INTAKE FROM HIS LAST ER VISIT-- STATES "I WAS DRINKING 1/2 A GALLON AND NOW I'M ONLY DRINKING 1/2 PINT--"ONLY A VERY MINIMUM" PT HAS NOT SOUGHT ALCOHOL OR DRUG TREATMENT AT ANY TIME, AFTER BEING DISMISSED FROM THE HOSPITAL. PT VOICES NO INTENTION OF QUITTING ALCOHOL OR DRUGS--PT ALSO HAS HISTORY OF METH , XANAX/BENZODIAZEPINES, OPIATES PT HAS NO SUICIDAL IDEATIONS ON ARRIVAL, PT STATES WHAT HIS ALCOHOL LEVEL WAS THE LAST TIME HE WAS HERE. 7 VISITS SINCE FEBRUARY 2018 PCP [facility] Allergies and Home Medications Allergies Coded Allergies: No Known Drug Allergies (Unverified , 11/12/09) Patient Home Medication List Home Medication List Reviewed: Yes Review of Systems Constitutional: no symptoms reported Respiratory: no symptoms reported Cardiovascular: no symptoms reported Gastrointestinal: no symptoms reported Genitourinary: no symptoms reported Musculoskeletal: no symptoms reported Skin: no symptoms reported Psychiatric/Neurological: No Symptoms Reported Past Nzlvyrm-Hazpxx-Rhulud Hx Patient Social History Alcohol Use: Regular Use (VODKA DAILY, ALSO WINE--HEAVY/DAILY USE) Number of Drinks Today: FF Alcohol Beverage of Choice: Wine, Vodka Recreational Drug Use: Yes (THC, METH, BENZODIAZEPINES, OPIATES) Drug of Choice: THC, BENZO'S, OPIATES, METH Smoking Status: Current Everyday Smoker (1 PPD) Type Used: Cigarettes 2nd Hand Smoke Exposure: Yes Recent Foreign Travel: No Contact w/Someone Who Travel: No Recent Hopitalizations: No Immunizations Up To Date Tetanus Booster (TDap): Unknown PED Vaccines UTD: No Date of Influenza Vaccine: Mar 14, 2018 Seasonal Allergies Seasonal Allergies: No Past Medical History Surgeries: No Respiratory: No Currently Using CPAP: No Currently Using BIPAP: No Cardiac: No Neurological: No Reproductive Disorders: No Sexually Transmitted Disease: No Genitourinary: Yes Bladder Infection Gastrointestinal: No Musculoskeletal: No Endocrine: No HEENT: No Cancer: No Psychosocial: Yes (POLYSUBSTANCE ABUSE) Anxiety, Suicide Attempts, Depression Integumentary: Yes (LESION LEFT THIGH) Blood Disorders: No Adverse Reaction/Blood Tranf: No Physical Exam Vital Signs - First Documented 07/17/18 02:56 Temp 97.0 Pulse 106 Resp 16 B/P (MAP) 106/81 (89) Pulse Ox 97 O2 Delivery Room Air Capillary Refill : Height, Weight, BMI Height: 5'4.00" Weight: 131lbs. 0.0oz. [id number]; 22.5 BMI Method:Stated General Appearance: no apparent distress, other (REEKS OF ALCOHOL AND CIGARETTES; PT ONLY WEARING A BATH ROBE. ) HEENT: PERRL/EOMI Neck: normal inspection Respiratory: normal breath sounds, no respiratory distress, no accessory muscle use Cardiovascular: no murmur, tachycardia (105-110) Gastrointestinal: non tender, soft Extremities: normal inspection, normal capillary refill Neurologic/Psychiatric: critical care physician II-XII nml as tested, no motor/sensory deficits, alert, oriented x 3 Appearance/Memory: no memory impairment, disheveled Behavior/Eye Contact: avoids eye contact, other (SPEECH MILDLY SLURRED) Thoughts/Hallucinations: no apparent hallucination Skin: normal color, warm/dry, tattoos/piercings Progress/Results/Core Measures Results/Orders Lab Results Laboratory Tests Test 07/17/18 03:00 Range/Units White Blood Count 11.6 H 4.3-11.0 10^3/uL Red Blood Count 5.10 4.35-5.85 10^6/uL Hemoglobin 16.7 13.3-17.7 G/DL Hematocrit 47 40-54 % Mean Corpuscular Volume 93 80-99 FL Mean Corpuscular Hemoglobin 33 25-34 PG Mean Corpuscular Hemoglobin Concent 35 32-36 G/DL Red Cell Distribution Width 13.0 10.0-14.5 % Platelet Count 394 130-400 10^3/uL Mean Platelet Volume 9.5 7.4-10.4 FL Neutrophils (%) (Auto) 56 42-75 % Lymphocytes (%) (Auto) 38 12-44 % Monocytes (%) (Auto) 5 0-12 % Eosinophils (%) (Auto) 1 0-10 % Basophils (%) (Auto) 1 0-10 % Neutrophils # (Auto) 6.5 1.8-7.8 X 10^3 Lymphocytes # (Auto) 4.4 H 1.0-4.0 X 10^3 Monocytes # (Auto) 0.6 0.0-1.0 X 10^3 Eosinophils # (Auto) 0.1 0.0-0.3 10^3/uL Basophils # (Auto) 0.1 0.0-0.1 10^3/uL Sodium Level 148 H 135-145 MMOL/L Potassium Level 3.4 L 3.6-5.0 MMOL/L Chloride Level 108 H 98-107 MMOL/L Carbon Dioxide Level 26 21-32 MMOL/L Anion Gap 14 5-14 MMOL/L Blood Urea Nitrogen 5 L 7-18 MG/DL Creatinine 0.77 0.60-1.30 MG/DL Estimat Glomerular Filtration Rate > 60 BUN/Creatinine Ratio 6 Glucose Level 105 70-105 MG/DL Calcium Level 9.1 8.5-10.1 MG/DL Corrected Calcium 8.9 8.5-10.1 MG/DL Total Bilirubin 0.2 0.1-1.0 MG/DL Aspartate Amino Transf (AST/SGOT) 52 H 5-34 U/L Alanine Aminotransferase (ALT/SGPT) 50 0-55 U/L Alkaline Phosphatase 79 40-136 U/L Total Protein 7.2 6.4-8.2 GM/DL Albumin 4.2 3.2-4.5 GM/DL Amylase Level 116 25-125 U/L Lipase 81 H 8-78 U/L TSH [place] Testing 1.44 0.35-4.94 UIU/ML Salicylates Level < 5.0 L 5.0-20.0 MG/DL Acetaminophen Level < 10 L 10-30 UG/ML Serum Alcohol 390 *H <10 MG/DL My Orders Orders - ANGELA CELESTIN DO Urinalysis (07/17/18 03:02) Thyroid Analyzer (07/17/18 03:02) Drug Screen Stat (Urine) (07/17/18 03:02) Cbc With Automated Diff (07/17/18 03:02) Comprehensive Metabolic Panel (07/17/18 03:02) Amylase (07/17/18 03:02) Alcohol (07/17/18 03:02) Acetaminophen (07/17/18 03:02) Salicylate (07/17/18 03:02) Ekg Tracing (07/17/18 03:02) Monitor-Rhythm Ecg Trace Only (07/17/18 03:02) Lipase (07/17/18 03:02) Ed Iv/Invasive Line Start (07/17/18 03:02) Lactated Ringers (Lr 1000 Ml Iv Solution (07/17/18 03:02) Ondansetron Injection (Zofran Injectio (07/17/18 03:15) D5 1/2 Ns W/Kcl 20 Meq/L (Dextrose 5%/0. (07/17/18 03:45) Ed Iv/Invasive Line Start (07/17/18 03:57) Lactated Ringers (Lr 1000 Ml Iv Solution (07/17/18 03:57) Medications Given in ED Current Medications Medications Dose Ordered Sig/Selma Route Start Time Stop Time Status Last Admin Dose Admin Lactated Ringer's 1,000 ml @ 0 mls/hr Q0M ONCE IV 07/17/18 03:02 07/17/18 03:04 DC 07/17/18 03:12 0 MLS/HR Ondansetron HCl 4 mg ONCE ONCE IVP 07/17/18 03:15 07/17/18 03:16 DC 07/17/18 03:12 4 MG Vital Signs/I&O 07/17/18 02:56 Temp 97.0 Pulse 106 Resp 16 B/P (MAP) 106/81 (89) Pulse Ox 97 O2 Delivery Room Air Progress Progress Note : Progress Note PT INFORMED ON ARRIVAL THAT THIS FACILITY WAS ON DIVERSION AND HE WOULD BE TRANSFERRED TO ANOTHER FACILITY, AND PT IS AGREEABLE TO THIS AT THIS TIME. DURING ER COURSE, PT IS ON PHONE AND NOW IS REFUSING TO GO TO ANOTHER HOSPITAL. 0406-PT JUST SIGNED OUT AMA. GAIT STEADY PT REFUSED TO GIVE URINE SAMPLE Initial ECG Impression Date: July 17, 2018 Initial ECG Impression Time: 03:05 Initial ECG Rate: 106 Initial ECG Rhythm: S.Tach Departure Communication (Admissions) THIS FACILITY IS CURRENTLY ON DIVERSION 336--CALLED [facility], HAVE BEDS. PT HAS BEEN TO THEIR FACILITY IN THE PAST, INCLUDING THE [facility]/INPATIENT PSYCH. PAGING HOSPITALIST 405--CALLED [facility], LEFT MESSAGE. 0406--PT HAS JUST SIGNED OUT AMA 0407--[facility] CALLED BACK, AND INFORMED THEM OF THE ABOVE Impression Primary Impression: Alcohol intoxication in active alcoholic Additional Impression: Left against medical advice Disposition: 07 AGAINST MEDICAL ADVICE Condition: Against Medical Advice Departure-Patient Inst. Referrals: [facility] (PCP/Family) Primary Care Physician ANGELA CELESTIN DO July 17, 2018 03:15
--- NOTE | 2018-07-17 03:15 | NUR ---
PT REFUSING TO PROVIDE URINE SPECIMEN UNTIL MEAL TRAY PROVIDED.
[2018-07-17 03:33] LABS: ALANINE AMINOTRANSFERASE 50 U/L (0-55); ALBUMIN 4.2 GM/DL (3.2-4.5); ALKALINE PHOSPHATASE 79 U/L (40-136); AMYLASE 116 U/L (25-125); BILIRUBIN,TOTAL 0.2 MG/DL (0.1-1.0); BUN/CREATININE RATIO 6; CALCIUM 9.1 MG/DL (8.5-10.1); CARBON DIOXIDE 26 MMOL/L (21-32); CHLORIDE 108 MMOL/L (98-107); CREATININE SERUM 0.77 MG/DL (0.60-1.30); GFR ESTIMATED > 60; GLUCOSE 105 MG/DL (70-105); LIPASE 81 U/L (8-78); POTASSIUM 3.4 MMOL/L (3.6-5.0); SALICYLATE < 5.0 MG/DL (5.0-20.0); SODIUM 148 MMOL/L (135-145); TOTAL PROTEIN 7.2 GM/DL (6.4-8.2)
[2018-07-17 03:35] LABS: ACETAMINOPHEN < 10 UG/ML (10-30)
--- NOTE | 2018-07-17 03:36 | NUR ---
PT PROVIDED PHONE. DENIES BEING ABLE TO VOID AT THIS TIME.
[2018-07-17] MEDS ORDERED: D5 1/2 NS W/KCL 20 MEQ/L 1,000 ML IV SCH (03:45)
[2018-07-17 03:53] LABS: TSH (THYROID ANALYZER) 1.44 UIU/ML (0.35-4.94)
== END 2018-07-17 04:06 | disposition left against medical advice (07) ==
LOC: EDUNIT# 02:56 → ER 02:58
DX: F10.229 Alcohol dependence with intoxication, unspecified (principal); F12.10 Cannabis abuse, uncomplicated; F41.9 Anxiety disorder, unspecified; F32.9 Major depressive disorder, single episode, unspecified; F15.10 Other stimulant abuse, uncomplicated; F11.10 Opioid abuse, uncomplicated; F17.210 Nicotine dependence, cigarettes, uncomplicated; Z87.448 Personal history of other diseases of urinary system; Z91.5 Personal history of self-harm
CPT/HCPCS: 36415; 80053; 80320; 80329; 82150; 83690; 84443; 85025; 93005; 93041; 96374

== ENCOUNTER 2018-07-21 19:19 | Emergency (ER) | payer SELFPAY ==
[~2018-07-21] VITALS: Ht 162.6 cm; Wt 61.7 kg
[2018-07-21] MEDS ORDERED: FAMOTIDINE 20MG/2ML IV (PEPCID) IVP ONE (19:45)
[2018-07-21 19:48] LABS: BILIRUBIN,URINE NEGATIVE (NEGATIVE); CLARITY,URINE CLEAR; COLOR,URINE YELLOW; GLUCOSE, URINE (UA) NEGATIVE (NEGATIVE); KETONES,URINE NEGATIVE (NEGATIVE); LEUKOCYTE ESTERASE ,URINE NEGATIVE (NEGATIVE); NITRITE,URINE NEGATIVE (NEGATIVE); PH,URINE 6.5 (5-9); PROTEIN,URINE NEGATIVE (NEGATIVE); UROBILINOGEN,URINE NORMAL (NORMAL)
[2018-07-21 19:51] LABS: BASOPHILS % (AUTO) 0 % (0-10); EOSINOPHILS # (AUTO) 0.1 10^3/uL (0.0-0.3); EOSINOPHILS % (AUTO) 2 % (0-10); HEMATOCRIT 45 % (40-54); HEMOGLOBIN 15.9 G/DL (13.3-17.7); LYMPHOCYTES # (AUTO) 2.7 X 10^3 (1.0-4.0); LYMPHOCYTES % (AUTO) 40 % (12-44); MEAN CORPUSCULAR HEMOGLOBIN 33 PG (25-34); MEAN CORPUSCULAR HGB CONC 35 G/DL (32-36); MEAN CORPUSCULAR VOLUME 92 FL (80-99); MEAN PLATELET VOLUME 9.5 FL (7.4-10.4); MONOCYTES # (AUTO) 0.7 X 10^3 (0.0-1.0); MONOCYTES % (AUTO) 10 % (0-12); NEUTROPHILS # (AUTO) 3.3 X 10^3 (1.8-7.8); NEUTROPHILS % (AUTO) 49 % (42-75); PLATELET COUNT 455 10^3/uL (130-400); RED CELL DISTRIBUTION WIDTH 13.4 % (10.0-14.5); WHITE BLOOD COUNT 6.7 10^3/uL (4.3-11.0)
[2018-07-21 19:53] LABS: BACTERIA,URINE NEGATIVE /HPF; SQUAMOUS EPITHELIAL CELL,UR RARE /HPF
[2018-07-21 19:58] LABS: AMPHETAMINE SCREEN, URINE NEGATIVE (NEGATIVE); BARBITURATE SCREEN URINE NEGATIVE (NEGATIVE); BENZODIAZEPINES SCREEN URINE NEGATIVE (NEGATIVE); CANNABINOID SCREEN, URINE POSITIVE (NEGATIVE); COCAINE SCREEN URINE NEGATIVE (NEGATIVE); METHADONE STAT NEGATIVE (NEGATIVE); METHAMPHETAMINE SCREEN URINE S NEGATIVE (NEGATIVE); OPIATE SCREEN URINE POSITIVE (NEGATIVE); OXYCODONE STAT NEGATIVE (NEGATIVE); PROPOXYPHENE STAT NEGATIVE (NEGATIVE); TRICYCLIC ANTIDEPRESSANTS SCRE NEGATIVE (NEGATIVE)
[2018-07-21 20:06] LABS: ALANINE AMINOTRANSFERASE 29 U/L (0-55); ALBUMIN 3.9 GM/DL (3.2-4.5); ALKALINE PHOSPHATASE 97 U/L (40-136); BILIRUBIN,TOTAL 0.3 MG/DL (0.1-1.0); BUN/CREATININE RATIO 2; CALCIUM 8.5 MG/DL (8.5-10.1); CARBON DIOXIDE 26 MMOL/L (21-32); CHLORIDE 101 MMOL/L (98-107); CREATININE SERUM 0.87 MG/DL (0.60-1.30); GFR ESTIMATED > 60; GLUCOSE 120 MG/DL (70-105); LIPASE 85 U/L (8-78); MAGNESIUM 2.5 MG/DL (1.8-2.4); SALICYLATE < 5.0 MG/DL (5.0-20.0); SODIUM 145 MMOL/L (135-145)
--- NOTE | 2018-07-21 20:06 | ED Psychosocial ---
General Chief Complaint: Substance Abuse Stated Complaint: BLURRED VISION Nursing Triage Note: Pt arrived per ems after experiencing blurry vision at home. Pt is currently trying to quit drinking alcohol and has drank alcohol daily for about 2-3 years. Pt's lost consumption was at 0130 this morning and was a shot of vodka. Source: patient Exam Limitations: no limitations History of Present Illness Date Seen by Provider: July 21, 2018 Time Seen by Provider: 19:18 Initial Comments This 23-year-old man (transgender to female) presents to the emergency room with possible symptoms of withdrawal from alcohol. She presents via EMS with chief complaint of blurry vision and weakness. Davon prefers the name "Keyana" and identifies as female gender. She reports having a history of drinking alcohol excessively, sometimes up to 1/2 gallon of vodka per day up until about 4 days ago. She drank only one shot of hard alcohol today. She has had nausea , vomiting and diarrhea. These symptoms have resolved but she has some upper abdominal discomfort. She also admits to using marijuana and methamphetamines as recently as 7 days ago. She takes Ativan on a regular basis for anxiety and has been out of her Ativan for the past 2 days. Patient reports heart rate was up to the 140s at home earlier today. IV fluids are infusing as started by EMS. Allergies and Home Medications Allergies Coded Allergies: No Known Drug Allergies (Unverified , 11/12/09) Patient Home Medication List Home Medication List Reviewed: Yes Review of Systems Constitutional: no symptoms reported EENTM: see HPI Respiratory: no symptoms reported Cardiovascular: no symptoms reported Gastrointestinal: no symptoms reported Genitourinary: no symptoms reported Musculoskeletal: no symptoms reported Skin: no symptoms reported Psychiatric/Neurological: See HPI Past Kkmkyse-Ghjcfm-Rcsoio Hx Past Med/Social Hx: Reviewed and Corrections made Patient Social History Alcohol Beverage of Choice: Wine, Vodka Drug of Choice: THC, BENZO'S, OPIATES, METH Type Used: Cigarettes 2nd Hand Smoke Exposure: Yes Recent Foreign Travel: No Contact w/Someone Who Travel: No Recent Infectious Disease Expo: No Recent Hopitalizations: No Immunizations Up To Date Tetanus Booster (TDap): Unknown PED Vaccines UTD: No Date of Influenza Vaccine: Mar 14, 2018 Seasonal Allergies Seasonal Allergies: No Past Medical History Surgeries: Yes (frenulectomy) Respiratory: No Currently Using CPAP: No Currently Using BIPAP: No Cardiac: No Neurological: No Reproductive Disorders: No Sexually Transmitted Disease: No Genitourinary: Yes Bladder Infection Gastrointestinal: No Musculoskeletal: No Endocrine: No HEENT: No Cancer: No Psychosocial: Yes (POLYSUBSTANCE ABUSE) Anxiety, Suicide Attempts, Depression Integumentary: Yes (LESION LEFT THIGH) Blood Disorders: No Adverse Reaction/Blood Tranf: No Physical Exam Vital Signs - First Documented 07/21/18 19:19 Temp 98.2 Pulse 110 Resp 18 B/P (MAP) 110/87 (95) Pulse Ox 99 O2 Delivery Room Air Capillary Refill : Less Than 3 Seconds Height, Weight, BMI Height: 5'4.00" Weight: 136lbs. 0.0oz. 61.136655ql; 22.5 BMI Method:Stated General Appearance: WD/WN, no apparent distress, thin HEENT: PERRL/EOMI, normal ENT inspection, other (oropharynx dry) Neck: normal inspection Respiratory: lungs clear, normal breath sounds, no respiratory distress, no accessory muscle use Cardiovascular: no edema, no murmur, tachycardia Gastrointestinal: normal bowel sounds, non tender, soft Extremities: normal inspection, no pedal edema Neurologic/Psychiatric: reel cutter II-XII nml as tested, no motor/sensory deficits, alert, normal mood/affect, oriented x 3 Behavior/Eye Contact: cooperative, good eye contact Skin: normal color, warm/dry Progress/Results/Core Measures Results/Orders Lab Results Laboratory Tests Test 07/21/18 19:23 Range/Units White Blood Count 6.7 4.3-11.0 10^3/uL Red Blood Count 4.89 4.35-5.85 10^6/uL Hemoglobin 15.9 13.3-17.7 G/DL Hematocrit 45 40-54 % Mean Corpuscular Volume 92 80-99 FL Mean Corpuscular Hemoglobin 33 25-34 PG Mean Corpuscular Hemoglobin Concent 35 32-36 G/DL Red Cell Distribution Width 13.4 10.0-14.5 % Platelet Count 455 H 130-400 10^3/uL Mean Platelet Volume 9.5 7.4-10.4 FL Neutrophils (%) (Auto) 49 42-75 % Lymphocytes (%) (Auto) 40 12-44 % Monocytes (%) (Auto) 10 0-12 % Eosinophils (%) (Auto) 2 0-10 % Basophils (%) (Auto) 0 0-10 % Neutrophils # (Auto) 3.3 1.8-7.8 X 10^3 Lymphocytes # (Auto) 2.7 1.0-4.0 X 10^3 Monocytes # (Auto) 0.7 0.0-1.0 X 10^3 Eosinophils # (Auto) 0.1 0.0-0.3 10^3/uL Basophils # (Auto) 0.0 0.0-0.1 10^3/uL Urine Color YELLOW Urine Clarity CLEAR Urine pH 6.5 5-9 Urine Specific [place] 1.005 L 1.016-1.022 Urine Protein NEGATIVE NEGATIVE Urine Glucose (UA) NEGATIVE NEGATIVE Urine Ketones NEGATIVE NEGATIVE Urine Nitrite NEGATIVE NEGATIVE Urine Bilirubin NEGATIVE NEGATIVE Urine Urobilinogen NORMAL NORMAL MG/DL Urine Leukocyte Esterase NEGATIVE NEGATIVE Urine RBC (Auto) NEGATIVE NEGATIVE Urine RBC NONE /HPF Urine WBC NONE /HPF Urine Squamous Epithelial Cells RARE /HPF Urine Crystals NONE /LPF Urine Bacteria NEGATIVE /HPF Urine Casts NONE /LPF Urine Mucus NEGATIVE /LPF Urine Culture Indicated NO Sodium Level 145 135-145 MMOL/L Potassium Level 4.0 3.6-5.0 MMOL/L Chloride Level 101 98-107 MMOL/L Carbon Dioxide Level 26 21-32 MMOL/L Anion Gap 18 H 5-14 MMOL/L Blood Urea Nitrogen 2 L 7-18 MG/DL Creatinine 0.87 0.60-1.30 MG/DL Estimat Glomerular Filtration Rate > 60 BUN/Creatinine Ratio 2 Glucose Level 120 H 70-105 MG/DL Calcium Level 8.5 8.5-10.1 MG/DL Corrected Calcium 8.6 8.5-10.1 MG/DL Magnesium Level 2.5 H 1.8-2.4 MG/DL Total Bilirubin 0.3 0.1-1.0 MG/DL Aspartate Amino Transf (AST/SGOT) 32 5-34 U/L Alanine Aminotransferase (ALT/SGPT) 29 0-55 U/L Alkaline Phosphatase 97 40-136 U/L Total Protein 7.0 6.4-8.2 GM/DL Albumin 3.9 3.2-4.5 GM/DL Lipase 85 H 8-78 U/L TSH [place] Testing 0.39 0.35-4.94 UIU/ML Salicylates Level < 5.0 L 5.0-20.0 MG/DL Urine Opiates Screen POSITIVE H NEGATIVE Urine Oxycodone Screen NEGATIVE NEGATIVE Urine Methadone Screen NEGATIVE NEGATIVE Urine Propoxyphene Screen NEGATIVE NEGATIVE Acetaminophen Level < 10 L 10-30 UG/ML Urine Barbiturates Screen NEGATIVE NEGATIVE Ur Tricyclic Antidepressants Screen NEGATIVE NEGATIVE Urine Phencyclidine Screen NEGATIVE NEGATIVE Urine Amphetamines Screen NEGATIVE NEGATIVE Urine Methamphetamines Screen NEGATIVE NEGATIVE Urine Benzodiazepines Screen NEGATIVE NEGATIVE Urine Cocaine Screen NEGATIVE NEGATIVE Urine Cannabinoids Screen POSITIVE H NEGATIVE Serum Alcohol 395 *H <10 MG/DL My Orders Orders - KIMMIE YOUNG MD Alcohol (07/21/18 19:39) Cbc With Automated Diff (07/21/18 19:39) Comprehensive Metabolic Panel (07/21/18 19:39) Drug Screen Stat (Urine) (07/21/18 19:39) Magnesium (07/21/18 19:39) Thyroid Analyzer (07/21/18 19:39) Ua Culture If Indicated (07/21/18 19:39) Acetaminophen (07/21/18 19:39) Salicylate (07/21/18 19:39) Famotidine Injection (Pepcid Injection) (07/21/18 19:45) Lipase (07/21/18 19:39) Ns Iv 1000 Ml (Sodium Chloride 0.9%) (07/21/18 20:28) Lorazepam Tablet (Ativan Tablet) (07/21/18 20:30) Medications Given in ED Current Medications Medications Dose Ordered Sig/Selma Route Start Time Stop Time Status Last Admin Dose Admin Famotidine 20 mg ONCE ONCE IVP 07/21/18 19:45 07/21/18 19:46 DC 07/21/18 19:45 20 MG Lorazepam 0.5 mg ONCE ONCE PO 07/21/18 20:30 07/21/18 20:31 DC 07/21/18 20:36 0.5 MG Sodium Chloride 1,000 ml @ 0 mls/hr Q0M ONCE IV 07/21/18 20:28 07/21/18 20:29 DC 07/21/18 20:36 999 MLS/HR Vital Signs/I&O 07/21/18 07/21/18 07/21/18 19:19 20:20 21:14 Temp 98.2 Pulse 110 105 104 Resp 18 18 16 B/P (MAP) 110/87 (95) 122/59 (80) Pulse Ox 99 99 99 O2 Delivery Room Air Blood Pressure Mean: 95 Progress Progress Note : Progress Note Patient was hydrated with a liter of IV fluid. Blood alcohol level was 395. Lipase was minimally elevated. She Ativan 0.5 mg orally and she did appear anxious and was tachycardic. A second liter of IV fluid was administered. She was dismissed home and strongly encouraged to follow-up with [facility] in their substance abuse program tomorrow morning. Departure Impression Primary Impression: Alcohol intoxication in active alcoholic Qualified Codes: F10.229 - Alcohol dependence with intoxication, unspecified Additional Impressions: Nausea vomiting and diarrhea Tachycardia Disposition: HOME, SELF-CARE Condition: Improved Departure-Patient Inst. Decision time for Depature: 20:33 Referrals: [facility] (PCP/Family) Primary Care Physician Patient Instructions: ALCOHOL AND SUBSTANCE ABUSE Add. Discharge Instructions: Follow-up with your primary care provider soon as possible. [facility] has a drug and alcohol rehabilitation program. Please call and asked to speak with their rehabilitation front office representative tomorrow. Return to the emergency room as needed for worsening symptoms. Gradually decrease your alcohol consumption but do not stop alcohol abruptly as this may cause life- threatening withdrawal and seizures. Drink plenty of water and gradually advance her diet with small quantities of bland food as tolerated. All discharge instructions reviewed with patient and/or family. Voiced understanding. Copy Copies To 1: LOC SALAS JOSHUA T MD July 21, 2018 20:06
[2018-07-21 20:12] LABS: ACETAMINOPHEN < 10 UG/ML (10-30)
[2018-07-21 20:26] LABS: TSH (THYROID ANALYZER) 0.39 UIU/ML (0.35-4.94)
[2018-07-21] MEDS ORDERED: NS IV 1000 ML 1,000 ML IV ONE (20:28)
[2018-07-21] MEDS ORDERED: LORazepam 0.5 MG (ATIVAN) TABLET PO ONE (20:30)
[2018-07-21 21:14] VITALS: BP 122/59
== END 2018-07-21 21:18 | disposition home or self-care (01) ==
LOC: EDUNIT# 19:19 → ER 19:21
DX: F10.229 Alcohol dependence with intoxication, unspecified (principal); R11.2 Nausea with vomiting, unspecified; R19.7 Diarrhea, unspecified; R00.0 Tachycardia, unspecified; F41.9 Anxiety disorder, unspecified; F32.9 Major depressive disorder, single episode, unspecified; F12.10 Cannabis abuse, uncomplicated; F15.10 Other stimulant abuse, uncomplicated; Z77.22 Contact with and (suspected) exposure to environmental tobacco smoke (acute) (chronic); Z90.89 Acquired absence of other organs; Z91.5 Personal history of self-harm; Z87.448 Personal history of other diseases of urinary system
CPT/HCPCS: 36415; 80053; 80306; 80320; 80329; 81000; 83690; 83735; 84443; 85025

== ENCOUNTER 2018-07-24 08:51 | Emergency (ER) | payer SELFPAY ==
[~2018-07-24] VITALS: Ht 162.6 cm; Wt 61.7 kg
[2018-07-24] MEDS ORDERED: NS IV 1000 ML 1,000 ML IV SCH (09:34)
--- NOTE | 2018-07-24 09:45 | NUR ---
PLACED ON 2 L OF 02 DUE WHILE SLEEPING SA02 WENT DOWN TO 90%
[2018-07-24 10:10] LABS: BASOPHILS # (AUTO) 0.1 10^3/uL (0.0-0.1); BASOPHILS % (AUTO) 1 % (0-10); EOSINOPHILS # (AUTO) 0.1 10^3/uL (0.0-0.3); EOSINOPHILS % (AUTO) 0 % (0-10); HEMATOCRIT 47 % (40-54); HEMOGLOBIN 16.6 G/DL (13.3-17.7); LYMPHOCYTES # (AUTO) 2.6 X 10^3 (1.0-4.0); LYMPHOCYTES % (AUTO) 15 % (12-44); MEAN CORPUSCULAR HEMOGLOBIN 33 PG (25-34); MEAN CORPUSCULAR HGB CONC 36 G/DL (32-36); MEAN CORPUSCULAR VOLUME 93 FL (80-99); MEAN PLATELET VOLUME 9.2 FL (7.4-10.4); MONOCYTES # (AUTO) 0.7 X 10^3 (0.0-1.0); MONOCYTES % (AUTO) 4 % (0-12); NEUTROPHILS # (AUTO) 13.6 X 10^3 (1.8-7.8); NEUTROPHILS % (AUTO) 80 % (42-75); PLATELET COUNT 403 10^3/uL (130-400); RED CELL DISTRIBUTION WIDTH 14.4 % (10.0-14.5); WHITE BLOOD COUNT 17.1 10^3/uL (4.3-11.0)
--- NOTE | 2018-07-24 10:14 | ED Psychosocial ---
General Chief Complaint: Detox Stated Complaint: ALCOHOL WITHDRAWALS Nursing Triage Note: TO ED PER W/C FROM [facility] TO BE ADMITTED FOR MEDICAL DETOX. HAD BEEN SEEN IN CLINIC X2 AND ONCE THIS AM AT [facility] AT 3A TODAY. [facility] SENT DUE TO PATIENT HAD TOLD THEM THAT OP IS NOT WORKING. PATIENT IS TAKING THE ATIVAN AND CON'T TO DRINK. REPORTS IS EXPERICED DELERIUM TREMERS WITH VISUAL HALLUCINATIONS. PER MATTEO PATRICK FROM [facility] LETTER ATTACHED TO CHART Source: patient Exam Limitations: intoxication History of Present Illness Date Seen by Provider: July 24, 2018 Time Seen by Provider: 09:49 Initial Comments Arrives with letter from mental health provider describing withdraws and concerns for needing inpatient detox. Patient apparently went to [place] last night but the wait time was extended and her grandmother that lives with her is unable to stay because she requires oxygen. Patient went homeand apparently drank again this morning. Patient goes by the name of Keyana and is 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 to female. Long history of alcohol abuse and some drug abuse. She currently denies using other drugs except for the prescribed Ativan and alcohol. Does report wanting to do detox if possible. Speech is quite slurred and initial O2 sat of 88% resting noted. Timing/Duration: getting worse, other (chronic) Severity: moderate, severe Associated Symptoms: ingestion Allergies and Home Medications Allergies Coded Allergies: No Known Drug Allergies (Unverified , 11/12/09) Patient Home Medication List Home Medication List Reviewed: Yes Review of Systems Constitutional: see HPI; No chills, No fever EENTM: no symptoms reported Respiratory: see HPI; No short of breath, No wheezing Cardiovascular: No chest pain, No edema Gastrointestinal: No abdominal pain, No nausea, No vomiting Genitourinary: no symptoms reported Musculoskeletal: no symptoms reported Skin: no symptoms reported All Other Systems Reviewed Negative Unless Noted: Yes Past Lhltkya-Yvbttr-Xfneou Hx Past Med/Social Hx: Reviewed Nursing Past Med/Soc Hx Patient Social History Alcohol Use: Regular Use Number of Drinks Today: FF Alcohol Beverage of Choice: Vodka Recreational Drug Use: Yes (CANNIBUS) Drug of Choice: Majijuana, meth Smoking Status: Current Everyday Smoker Type Used: Cigarettes 2nd Hand Smoke Exposure: No Recent Foreign Travel: No Contact w/Someone Who Travel: No Recent Infectious Disease Expo: No Recent Hopitalizations: No Immunizations Up To Date Tetanus Booster (TDap): Unknown PED Vaccines UTD: No Date of Influenza Vaccine: Mar 14, 2018 Seasonal Allergies Seasonal Allergies: No Past Medical History Surgeries: Yes (frenulectomy) Respiratory: No Currently Using CPAP: No Currently Using BIPAP: No Cardiac: No Neurological: No Reproductive Disorders: No Sexually Transmitted Disease: No Genitourinary: Yes Bladder Infection Gastrointestinal: No Musculoskeletal: No Endocrine: No HEENT: No Cancer: No Psychosocial: Yes (POLYSUBSTANCE ABUSE) Anxiety, Suicide Attempts, Depression Integumentary: Yes (LESION LEFT THIGH) Blood Disorders: No Adverse Reaction/Blood Tranf: No Family Medical History Reviewed Nursing Family Hx Physical Exam Vital Signs - First Documented 07/24/18 09:05 Temp 97.0 Pulse 119 Resp 18 B/P (MAP) 124/88 (100) Pulse Ox 94 Capillary Refill : Less Than 3 Seconds Height, Weight, BMI Height: 5'4.00" Weight: 136lbs. 0.0oz. [id number]; 22.5 BMI Method:Stated General Appearance: WD/WN, no apparent distress HEENT: PERRL/EOMI, pharynx normal Neck: full range of motion, supple Respiratory: lungs clear, normal breath sounds Cardiovascular: regular rate, rhythm, no murmur Gastrointestinal: non tender, soft Extremities: non-tender, normal inspection Neurologic/Psychiatric: alert, depressed affect Appearance/Memory: appropriate insight, disheveled Behavior/Eye Contact: cooperative, good eye contact, decreased rate of speech, other (slurred speech) Thoughts/Hallucinations: normal thought pattern Skin: normal color, warm/dry Progress/Results/Core Measures Results/Orders Lab Results Laboratory Tests Test 07/24/18 09:57 Range/Units White Blood Count 17.1 H 4.3-11.0 10^3/uL Red Blood Count 5.02 4.35-5.85 10^6/uL Hemoglobin 16.6 13.3-17.7 G/DL Hematocrit 47 40-54 % Mean Corpuscular Volume 93 80-99 FL Mean Corpuscular Hemoglobin 33 25-34 PG Mean Corpuscular Hemoglobin Concent 36 32-36 G/DL Red Cell Distribution Width 14.4 10.0-14.5 % Platelet Count 403 H 130-400 10^3/uL Mean Platelet Volume 9.2 7.4-10.4 FL Neutrophils (%) (Auto) 80 H 42-75 % Lymphocytes (%) (Auto) 15 12-44 % Monocytes (%) (Auto) 4 0-12 % Eosinophils (%) (Auto) 0 0-10 % Basophils (%) (Auto) 1 0-10 % Neutrophils # (Auto) 13.6 H 1.8-7.8 X 10^3 Lymphocytes # (Auto) 2.6 1.0-4.0 X 10^3 Monocytes # (Auto) 0.7 0.0-1.0 X 10^3 Eosinophils # (Auto) 0.1 0.0-0.3 10^3/uL Basophils # (Auto) 0.1 0.0-0.1 10^3/uL Sodium Level 147 H 135-145 MMOL/L Potassium Level 3.4 L 3.6-5.0 MMOL/L Chloride Level 107 98-107 MMOL/L Carbon Dioxide Level 22 21-32 MMOL/L Anion Gap 18 H 5-14 MMOL/L Blood Urea Nitrogen 5 L 7-18 MG/DL Creatinine 0.69 0.60-1.30 MG/DL Estimat Glomerular Filtration Rate > 60 BUN/Creatinine Ratio 7 Glucose Level 110 H 70-105 MG/DL Calcium Level 8.5 8.5-10.1 MG/DL Corrected Calcium 8.7 8.5-10.1 MG/DL Total Bilirubin 0.4 0.1-1.0 MG/DL Aspartate Amino Transf (AST/SGOT) 51 H 5-34 U/L Alanine Aminotransferase (ALT/SGPT) 31 0-55 U/L Alkaline Phosphatase 119 40-136 U/L Total Protein 6.7 6.4-8.2 GM/DL Albumin 3.8 3.2-4.5 GM/DL Salicylates Level < 5.0 L 5.0-20.0 MG/DL Acetaminophen Level < 10 L 10-30 UG/ML Serum Alcohol 497 *H <10 MG/DL My Orders Orders - REFUGIO CROUCH MD Ua Culture If Indicated (07/24/18 09:34) Cbc With Automated Diff (07/24/18:34) Comprehensive Metabolic Panel (07/24/18 09:34) Alcohol (07/24/18 09:34) Drug Screen Stat (Urine) (07/24/18:34) Acetaminophen (07/24/18 09:34) Salicylate (07/24/18 09:34) Ekg Tracing (07/24/18 09:34) Ed Iv/Invasive Line Start (07/24/18 09:34) Monitor-Rhythm Ecg Trace Only (07/24/18 09:34) Bh Status Checks/Observation Q15M (07/24/18 09:34) Ed Iv/Invasive Line Start (07/24/18 09:34) Ns Iv 1000 Ml (Sodium Chloride 0.9%) (07/24/18 09:34) Manual Differential (07/24/18 09:57) Vital Signs/I&O 07/24/18 09:05 Temp 97.0 Pulse 119 Resp 18 B/P (MAP) 124/88 (100) Pulse Ox 94 Blood Pressure Mean: 100 Progress Progress Note : Progress Note Seen and evaluated. IV, labs, UA, UDS, EKG and normal saline 1 L bolus ordered. Patient placed on oxygen. O2 saturation 88% while resting on room air. Monitor patient. 1033: Patient has elected to leave AGAINST MEDICAL ADVICE. She reports that she was told that this hospital. Do anything for her anyway and did not want to stay. She's already called a ride and wants to leave now. Disconnected from lines and equipment. Patient left under own accord. Highly encouraged to stay but patient elected to leave anyway. I will update [facility] on concerns. Initial ECG Impression Date: July 24, 2018 Initial ECG Impression Time: 10:10 Initial ECG Rate: 101 Initial ECG Rhythm: S.Tach Comment Sinus tachycardia with normal axis. No evidence of ST elevation [place]. Similar to previous of 07/17/18. Interpreted by me. Departure Impression Primary Impression: Alcohol intoxication in active alcoholic Qualified Codes: F10.229 - Alcohol dependence with intoxication, unspecified Additional Impression: Left against medical advice Disposition: 07 AGAINST MEDICAL ADVICE Condition: Stable/Unchanged Departure-Patient Inst. Decision time for Depature: 10:33 Referrals: [facility] (PCP/Family) Primary Care Physician Patient Instructions: Alcohol Abuse and Alcoholism (DC) REFUGIO CROUCH MD July 24, 2018 10:14
[2018-07-24 10:25] LABS: ALANINE AMINOTRANSFERASE 31 U/L (0-55); ALBUMIN 3.8 GM/DL (3.2-4.5); ALKALINE PHOSPHATASE 119 U/L (40-136); BILIRUBIN,TOTAL 0.4 MG/DL (0.1-1.0); BUN/CREATININE RATIO 7; CALCIUM 8.5 MG/DL (8.5-10.1); CARBON DIOXIDE 22 MMOL/L (21-32); CHLORIDE 107 MMOL/L (98-107); CREATININE SERUM 0.69 MG/DL (0.60-1.30); GFR ESTIMATED > 60; GLUCOSE 110 MG/DL (70-105); POTASSIUM 3.4 MMOL/L (3.6-5.0); SALICYLATE < 5.0 MG/DL (5.0-20.0); SODIUM 147 MMOL/L (135-145); TOTAL PROTEIN 6.7 GM/DL (6.4-8.2)
[2018-07-24 10:33] VITALS: BP 106/76
--- NOTE | 2018-07-24 10:33 | NUR ---
WHEN PATIENT LEFT AMA SAID TO THIS NURSE THAT [facility] TOLD HIM TO GO TO [facility] BECAUSE THIS HOSPITAL USELESS
[2018-07-24 10:36] LABS: ACETAMINOPHEN < 10 UG/ML (10-30)
[2018-07-24 11:02] LABS: EOSINOPHILS % (MANUAL) 1 %; LYMPHOCYTES % (MANUAL) 14 %; MONOCYTES % (MANUAL) 4 %; NEUTROPHILS % (MANUAL) 81 %; RBC MORPH NORMAL
== END 2018-07-24 10:37 | disposition left against medical advice (07) ==
LOC: EDUNIT# 08:51 → ER 08:52
DX: F10.229 Alcohol dependence with intoxication, unspecified (principal); F12.10 Cannabis abuse, uncomplicated; F17.210 Nicotine dependence, cigarettes, uncomplicated; F15.10 Other stimulant abuse, uncomplicated; F41.9 Anxiety disorder, unspecified; F32.9 Major depressive disorder, single episode, unspecified; Z91.5 Personal history of self-harm; Z98.890 Other specified postprocedural states; Z87.448 Personal history of other diseases of urinary system
CPT/HCPCS: 36415; 80053; 80320; 80329; 85007; 85027; 93005; 93041; 96360

== ENCOUNTER 2018-07-26 22:20 | Emergency (ER) | payer SELFPAY ==
[~2018-07-26] VITALS: Ht 162.6 cm; Wt 61.7 kg
[2018-07-26 23:07] LABS: AMPHETAMINE SCREEN, URINE NEGATIVE (NEGATIVE); BARBITURATE SCREEN URINE NEGATIVE (NEGATIVE); BENZODIAZEPINES SCREEN URINE POSITIVE (NEGATIVE); CANNABINOID SCREEN, URINE POSITIVE (NEGATIVE); COCAINE SCREEN URINE NEGATIVE (NEGATIVE); METHADONE STAT NEGATIVE (NEGATIVE); METHAMPHETAMINE SCREEN URINE S NEGATIVE (NEGATIVE); OPIATE SCREEN URINE POSITIVE (NEGATIVE); OXYCODONE STAT NEGATIVE (NEGATIVE); PROPOXYPHENE STAT NEGATIVE (NEGATIVE); TRICYCLIC ANTIDEPRESSANTS SCRE NEGATIVE (NEGATIVE)
[2018-07-26 23:10] LABS: BASOPHILS # (AUTO) 0.1 10^3/uL (0.0-0.1); BASOPHILS % (AUTO) 1 % (0-10); EOSINOPHILS # (AUTO) 0.1 10^3/uL (0.0-0.3); EOSINOPHILS % (AUTO) 1 % (0-10); HEMATOCRIT 42 % (40-54); HEMOGLOBIN 14.8 G/DL (13.3-17.7); LYMPHOCYTES # (AUTO) 1.9 X 10^3 (1.0-4.0); LYMPHOCYTES % (AUTO) 16 % (12-44); MEAN CORPUSCULAR HEMOGLOBIN 33 PG (25-34); MEAN CORPUSCULAR HGB CONC 35 G/DL (32-36); MEAN CORPUSCULAR VOLUME 94 FL (80-99); MEAN PLATELET VOLUME 9.3 FL (7.4-10.4); MONOCYTES # (AUTO) 0.4 X 10^3 (0.0-1.0); MONOCYTES % (AUTO) 3 % (0-12); NEUTROPHILS # (AUTO) 9.8 X 10^3 (1.8-7.8); NEUTROPHILS % (AUTO) 80 % (42-75); PLATELET COUNT 225 10^3/uL (130-400); RED CELL DISTRIBUTION WIDTH 13.4 % (10.0-14.5); WHITE BLOOD COUNT 12.3 10^3/uL (4.3-11.0)
[2018-07-26 23:15] LABS: INR 1.2 (0.8-1.4); PROTHROMBIN TIME PATIENT 15.2 SEC (12.2-14.7)
[2018-07-26 23:24] LABS: ALANINE AMINOTRANSFERASE 79 U/L (0-55); ALBUMIN 3.6 GM/DL (3.2-4.5); ALKALINE PHOSPHATASE 170 U/L (40-136); BILIRUBIN,TOTAL 0.7 MG/DL (0.1-1.0); BUN/CREATININE RATIO 6; CALCIUM 8.7 MG/DL (8.5-10.1); CARBON DIOXIDE 27 MMOL/L (21-32); CHLORIDE 103 MMOL/L (98-107); CREATININE SERUM 0.69 MG/DL (0.60-1.30); GFR ESTIMATED > 60; GLUCOSE 98 MG/DL (70-105); POTASSIUM 3.5 MMOL/L (3.6-5.0); SODIUM 144 MMOL/L (135-145); TOTAL PROTEIN 6.7 GM/DL (6.4-8.2)
[2018-07-26] MEDS ORDERED: LACTATED RINGERS 1,000 ML IV ONE (23:29)
[2018-07-26] MEDS ORDERED: ONDANSETRON 4 MG/2 ML (SDV) Z0FRAN IVP ONE (23:30)
[2018-07-26] MEDS ORDERED: FAMOTIDINE 20MG/2ML IV (PEPCID) IVP ONE (23:30)
[2018-07-26] MEDS ORDERED: RX-ONDANSETRON 4 MG ODT (ZOFRAN) PPK #4 SL STA (23:57)
[2018-07-27] MEDS ORDERED: ANTACID SUSP 30 ML UDC (MYLANTA) PO ONE
[2018-07-27] MEDS ORDERED: LIDOCAINE 2% VISCOUS 15 ML UDC PO ONE
[2018-07-27] MEDS ORDERED: OMEP20CA12 PO (00:03)
[2018-07-27] MEDS ORDERED: ONDA4TAB11 PO (00:03)
--- NOTE | 2018-07-27 00:04 | ED Psychosocial ---
General Chief Complaint: Substance Abuse Stated Complaint: ETOH/CP Source: patient, family, old records Exam Limitations: no limitations History of Present Illness Date Seen by Provider: July 26, 2018 Time Seen by Provider: 22:47 Initial Comments This 23-year-old male who identifies as transgender female presents to the emergency room with nausea and vomiting. He is also inquiring about inpatient detox in preparation for alcohol rehabilitation. Patient has been seen in this ER multiple times in the recent past. He has had concerns about possible withdrawal but has been intoxicated during these visits. Patient had been instructed to follow-up with [facility]. He reports he did so and was referred to [facility] as [facility] was on diversion at the time. He states he waited in their emergency room for 8 hours without being seen and therefore left without being assessed. Patient has some upper abdominal discomfort as well. Patient denies suicidal ideation. Allergies and Home Medications Allergies Coded Allergies: No Known Drug Allergies (Unverified , 11/12/09) Home Medications Omeprazole 20 Mg Capsule.dr, 20 MG PO BID Prescribed by: KIMMIE NEVILLE on 07/27/18 0003 Ondansetron 4 Mg Tab.rapdis, 4 MG PO Q4H PRN for NAUSEA/VOMITING Prescribed by: KIMMIE NEVILLE on 07/27/18 0003 Patient Home Medication List Home Medication List Reviewed: Yes Review of Systems Constitutional: other (intoxicated) EENTM: no symptoms reported Respiratory: no symptoms reported Cardiovascular: no symptoms reported Gastrointestinal: see HPI Genitourinary: no symptoms reported Musculoskeletal: no symptoms reported Skin: no symptoms reported Psychiatric/Neurological: See HPI Past Gkxhofk-Vvvslo-Ekoetp Hx Patient Social History Alcohol Beverage of Choice: Vodka Drug of Choice: Majijuana, meth Type Used: Cigarettes 2nd Hand Smoke Exposure: No Recent Foreign Travel: No Contact w/Someone Who Travel: No Recent Hopitalizations: No Immunizations Up To Date Tetanus Booster (TDap): Unknown PED Vaccines UTD: No Date of Influenza Vaccine: Mar 14, 2018 Seasonal Allergies Seasonal Allergies: No Past Medical History Surgeries: Yes (frenulectomy) Respiratory: No Currently Using CPAP: No Currently Using BIPAP: No Cardiac: No Neurological: No 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) Sexually Transmitted Disease: No Genitourinary: Yes Bladder Infection Gastrointestinal: No Musculoskeletal: No Endocrine: No HEENT: No Cancer: No Psychosocial: Yes (POLYSUBSTANCE ABUSE, alcoholism, 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 to female) Anxiety, Suicide Attempts, Depression Integumentary: Yes (LESION LEFT THIGH) Blood Disorders: No Adverse Reaction/Blood Tranf: No Physical Exam Vital Signs - First Documented 07/26/18 07/27/18 22:30 00:20 Temp 98.4 Pulse 136 Resp 20 B/P (MAP) 121/83 (96) Pulse Ox 99 O2 Delivery Room Air Capillary Refill : Height, Weight, BMI Height: 5'4.00" Weight: 136lbs. 0.0oz. 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 He has evidence of some mild alcoholic hepatitis the labs were otherwise fairly unremarkable. Patient's symptoms were treated with GI cocktail, Pepcid, and Zofran. He was hydrated with 1 L of LR. A take-home of Zofran was dispensed. Patient was dismissed with instructions to follow back up with [facility] to discuss outpatient rehabilitation potential. This facility as on ICU diversion at this time and could not accommodate an inpatient detox even if there was accepting attending. Alternatively, he can present back to another facility such as [place]. Initial ECG Impression Date: July 26, 2018 Initial ECG Impression Time: 22:50 Initial ECG Rate: 119 Initial ECG Rhythm: S.Tach Comment Sinus tachycardia with no ST elevation or depression. No abnormal intervals or axis deviation. Diagnostic Imaging Diagonstic Imaging: Xray Plain Films/CT/US/NM/MRI: chest Comments Chest x-ray viewed by me. Report not yet available. No acute abnormalities appreciated. Departure Impression Primary Impression: Polysubstance abuse Additional Impressions: Alcohol intoxication in active alcoholic Qualified Codes: F10.229 - Alcohol dependence with intoxication, unspecified Atypical chest pain Nausea and vomiting Qualified Codes: R11.2 - Nausea with vomiting, unspecified Disposition: 01 HOME, SELF-CARE Condition: Improved Departure-Patient Inst. Decision time for Depature: 00:01 Referrals: [facility] (PCP/Family) Primary Care Physician Patient Instructions: ALCOHOL AND SUBSTANCE ABUSE Add. Discharge Instructions: Follow-up with the [facility] as soon as possible. Follow-up in the ER symptoms are worsening. Gradually reduce your alcohol consumption over several days. Avoid stopping alcohol abruptly as is can cause dangerous withdrawals and life-threatening seizures. Use omeprazole twice daily as prescribed. Use Zofran (ondansetron) dissolved under the tongue every 4 hours as needed for nausea and vomiting. All discharge instructions reviewed with patient and/or family. Voiced understanding. Scripts Ondansetron (Ondansetron Odt) 4 Mg Tab.rapdis 4 MG PO Q4H PRN for NAUSEA/VOMITING, #10 TAB Prov: KIMMIE YOUNG MD 07/27/18 Omeprazole (Omeprazole) 20 Mg Capsule.dr 20 MG PO BID, #60 CAP Prov: KIMMIE YOUNG MD 07/27/18 KIMMIE YOUNG MD July 27, 2018 00:04
[2018-07-27 00:20] VITALS: BP 118/87
--- NOTE | 2018-07-27 08:15 | Diagnostic Imaging Report ---
EXAMINATION: Portable chest INDICATION: Chest pain. Comparison made to prior from 05/19/2018. FINDINGS: The lungs demonstrate no focal pulmonary infiltrate or consolidation. There is no effusion. There is no pneumothorax. Heart size and mediastinal contours appear appropriate. Pulmonary vascularity appears normal. There is no acute or suspicious osseous abnormality. IMPRESSION: 1. No radiographic evidence of an acute cardio pulmonary process. Dictated by: Dictated on workstation # [id number]
== END 2018-07-27 00:22 | disposition home or self-care (01) ==
LOC: EDUNIT# 22:20 → ER 22:21
DX: F10.229 Alcohol dependence with intoxication, unspecified (principal); F12.10 Cannabis abuse, uncomplicated; F15.10 Other stimulant abuse, uncomplicated; R11.2 Nausea with vomiting, unspecified; R07.89 Other chest pain; F41.9 Anxiety disorder, unspecified; F32.9 Major depressive disorder, single episode, unspecified
CPT/HCPCS: 36415; 71045; 80053; 80306; 80320; 83690; 83735; 83874; 84484; 85025; 85610; 85730; 93041

== ENCOUNTER 2018-08-02 06:19 | Emergency (ER) | payer OTHER ==
[~2018-08-02] VITALS: Ht 162.6 cm; Wt 61.7 kg
[~2018-08-02 06:19] MED LIST changes: +OMEP20CA12 PO; +ONDA4TAB11 PO
[2018-08-02] MEDS ORDERED: NS IV 1000 ML 1,000 ML IV ONE (06:26)
[2018-08-02 06:42] LABS: BASOPHILS # (AUTO) 0.1 10^3/uL (0.0-0.1); BASOPHILS % (AUTO) 1 % (0-10); EOSINOPHILS % (AUTO) 0 % (0-10); HEMATOCRIT 44 % (40-54); HEMOGLOBIN 15.9 G/DL (13.3-17.7); LYMPHOCYTES % (AUTO) 18 % (12-44); MEAN CORPUSCULAR HEMOGLOBIN 33 PG (25-34); MEAN CORPUSCULAR HGB CONC 36 G/DL (32-36); MEAN CORPUSCULAR VOLUME 90 FL (80-99); MEAN PLATELET VOLUME 8.8 FL (7.4-10.4); MONOCYTES # (AUTO) 0.6 X 10^3 (0.0-1.0); MONOCYTES % (AUTO) 5 % (0-12); NEUTROPHILS # (AUTO) 8.5 X 10^3 (1.8-7.8); NEUTROPHILS % (AUTO) 76 % (42-75); PLATELET COUNT 250 10^3/uL (130-400); WHITE BLOOD COUNT 11.2 10^3/uL (4.3-11.0)
[2018-08-02 07:10] LABS: ALANINE AMINOTRANSFERASE 57 U/L (0-55); ALBUMIN 3.9 GM/DL (3.2-4.5); ALKALINE PHOSPHATASE 181 U/L (40-136); BILIRUBIN,TOTAL 0.6 MG/DL (0.1-1.0); BUN/CREATININE RATIO 13; CALCIUM 8.7 MG/DL (8.5-10.1); CARBON DIOXIDE 26 MMOL/L (21-32); CHLORIDE 97 MMOL/L (98-107); CREATININE SERUM 0.69 MG/DL (0.60-1.30); GFR ESTIMATED > 60; GLUCOSE 104 MG/DL (70-105); MAGNESIUM 2.1 MG/DL (1.8-2.4); POTASSIUM 3.6 MMOL/L (3.6-5.0); SODIUM 142 MMOL/L (135-145); TOTAL PROTEIN 7.2 GM/DL (6.4-8.2)
[2018-08-02 07:15] LABS: BILIRUBIN,URINE NEGATIVE (NEGATIVE); CLARITY,URINE CLEAR; COLOR,URINE YELLOW; GLUCOSE, URINE (UA) NEGATIVE (NEGATIVE); KETONES,URINE 4+ (NEGATIVE); LEUKOCYTE ESTERASE ,URINE 1+ (NEGATIVE); NITRITE,URINE NEGATIVE (NEGATIVE); PH,URINE 6.5 (5-9); PROTEIN,URINE 2+ (NEGATIVE); UROBILINOGEN,URINE 4 MG/DL (NORMAL)
[2018-08-02 07:29] LABS: BACTERIA,URINE TRACE /HPF; WBC,URINE 0-2 /HPF
[2018-08-02] MEDS ORDERED: NICOTINE 21 MG (NICODERM) PATCH TD ONE (07:30)
[2018-08-02 07:33] LABS: BENZODIAZEPINES SCREEN URINE POSITIVE (NEGATIVE)
[2018-08-02 07:34] LABS: AMPHETAMINE SCREEN, URINE NEGATIVE (NEGATIVE); BARBITURATE SCREEN URINE NEGATIVE (NEGATIVE); CANNABINOID SCREEN, URINE POSITIVE (NEGATIVE); COCAINE SCREEN URINE NEGATIVE (NEGATIVE); METHADONE STAT NEGATIVE (NEGATIVE); METHAMPHETAMINE SCREEN URINE S NEGATIVE (NEGATIVE); OPIATE SCREEN URINE POSITIVE (NEGATIVE); OXYCODONE STAT NEGATIVE (NEGATIVE); PROPOXYPHENE STAT NEGATIVE (NEGATIVE); TRICYCLIC ANTIDEPRESSANTS SCRE NEGATIVE (NEGATIVE)
--- NOTE | 2018-08-02 07:51 | ED Psychosocial ---
General Chief Complaint: Substance Abuse Stated Complaint: ETOH WITHDRAWL Nursing Triage Note: PT ARRIVES BY EMS TO ROOM 5 WITH C/O ANXIETY, SINUS PROBLEMS (WATERY EYES, RUNNY NOSE) AND BLURRED VISION X 6 DAYS. PT ALSO WISHES TO DETOX FROM ETOH. LAST DRINK WAS VODKA 16 HOURS AGO. SINCE LAST DRINK, PT HAS DEVELOPED HEADACHE, INCREASED ANXIETY, AND HALLUCINATIONS. PT DENIES N/V AT THIS TIME. PT DENIES SI/HI AT THIS TIME. Source: patient Exam Limitations: no limitations (REFUGIO CROUCH MD) History of Present Illness Date Seen by Provider: August 02, 2018 Time Seen by Provider: 06:20 Initial Comments Here with report of a variety of complaints including alcohol withdrawal and falls related to that. Has history of alcohol abuse. Patient is transgender and goes by Keyana. Reports is on Ativan for anxiety and alcohol withdrawals. States that is prescribed from the clinic. Reports that she has a sinus infection. States last drink was about 16 hours ago although does smell of alcohol. States that she has not had a shower and several days because her family want a shower because of falls and concerns of withdrawal. Does have abrasion on her back on the right side secondary to a fall. Long history of alcohol abuse. Denies other drugs besides marijuana. Timing/Duration: getting worse, other (chronic alcoholic) Severity: moderate, severe Associated Symptoms: anxiety, impaired concentration (REFUGIO CROUCH MD) Allergies and Home Medications Allergies Coded Allergies: No Known Drug Allergies (Unverified , 11/12/09) Home Medications Omeprazole 20 Mg Capsule.dr, 20 MG PO BID Prescribed by: KIMMIE NEVILLE on 07/27/18 0003 Ondansetron 4 Mg Tab.rapdis, 4 MG PO Q4H PRN for NAUSEA/VOMITING Prescribed by: KIMMIE NEVILLE on 07/27/18 0003 Patient Home Medication List Home Medication List Reviewed: Yes (REFUGIO CROUCH MD) Review of Systems Constitutional: No fever; weakness EENTM: no symptoms reported Respiratory: No cough, No short of breath Cardiovascular: No chest pain; palpitations Gastrointestinal: No abdominal pain; nausea; No vomiting Genitourinary: no symptoms reported Musculoskeletal: no symptoms reported Skin: change in color, lesions Psychiatric/Neurological: Denies Headache; Weakness (REFUGIO CROUCH MD) All Other Systems Reviewed Negative Unless Noted: Yes (REFUGIO CROCUH MD) Past Euoudtk-Clrbcy-Hvxrkt Hx Past Med/Social Hx: Reviewed Nursing Past Med/Soc Hx (REFUGIO CROUCH MD) Patient Social History Alcohol Use: Regular Use Number of Drinks Today: 0 Alcohol Beverage of Choice: Vodka Recreational Drug Use: Yes (CANNIBUS) Drug of Choice: Majijuana, meth Type Used: Cigarettes 2nd Hand Smoke Exposure: No Recent Foreign Travel: No Contact w/Someone Who Travel: No Recent Infectious Disease Expo: No Recent Hopitalizations: No (REFUGIO CROUCH MD) Immunizations Up To Date Tetanus Booster (TDap): Unknown PED Vaccines UTD: No Date of Influenza Vaccine: Mar 14, 2018 (REFUGIO CROUCH MD) Seasonal Allergies Seasonal Allergies: No (REFUGIO CROUCH MD) Past Medical History Surgeries: Yes (frenulectomy) Respiratory: No Currently Using CPAP: No Currently Using BIPAP: No Cardiac: No Neurological: No 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) Sexually Transmitted Disease: No Genitourinary: Yes Bladder Infection Gastrointestinal: No Musculoskeletal: No Endocrine: No HEENT: No Cancer: No Psychosocial: Yes (POLYSUBSTANCE ABUSE, alcoholism, 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 to female) Anxiety, Suicide Attempts, Depression Integumentary: Yes (LESION LEFT THIGH) Blood Disorders: No Adverse Reaction/Blood Tranf: No (REFUGIO CROUCH MD) Family Medical History Reviewed Nursing Family Hx (REFUGIO CROUCH MD) No Pertinent Family Hx (REFUGIO CROUCH MD) Physical Exam Vital Signs - First Documented 08/02/18 06:21 Temp 98.3 Pulse 116 Resp 19 B/P (MAP) 127/89 (102) Pulse Ox 97 O2 Delivery Room Air (KIMMIE YOUNG MD) Capillary Refill : Less Than 3 Seconds (REFUGIO CROUCH MD) Height, Weight, BMI Height: 5'4.00" Weight: 136lbs. 0.0oz. [id number]; 22.5 BMI Method:Stated General Appearance: WD/WN, no apparent distress HEENT: PERRL/EOMI, pharynx normal Neck: full range of motion, supple Respiratory: lungs clear, normal breath sounds Cardiovascular: no murmur, tachycardia Gastrointestinal: non tender, soft Extremities: non-tender, normal inspection Neurologic/Psychiatric: alert, oriented x 3 Appearance/Memory: appropriate insight, disheveled Behavior/Eye Contact: cooperative, good eye contact, other (slurred speech) Thoughts/Hallucinations: normal thought pattern, no apparent hallucination Skin: warm/dry, ecchymosis (right side of the back lower and mid aspect with abrasion and contusion) (REFUGIO CROUCH MD) Progress/Results/Core Measures Results/Orders Lab Results Laboratory Tests Test 08/02/18 06:34 08/02/18 07:05 Range/Units White Blood Count 11.2 H 4.3-11.0 10^3/uL Red Blood Count 4.88 4.35-5.85 10^6/uL Hemoglobin 15.9 13.3-17.7 G/DL Hematocrit 44 40-54 % Mean Corpuscular Volume 90 80-99 FL Mean Corpuscular Hemoglobin 33 25-34 PG Mean Corpuscular Hemoglobin Concent 36 32-36 G/DL Red Cell Distribution Width 14.0 10.0-14.5 % Platelet Count 250 130-400 10^3/uL Mean Platelet Volume 8.8 7.4-10.4 FL Neutrophils (%) (Auto) 76 H 42-75 % Lymphocytes (%) (Auto) 18 12-44 % Monocytes (%) (Auto) 5 0-12 % Eosinophils (%) (Auto) 0 0-10 % Basophils (%) (Auto) 1 0-10 % Neutrophils # (Auto) 8.5 H 1.8-7.8 X 10^3 Lymphocytes # (Auto) 2.0 1.0-4.0 X 10^3 Monocytes # (Auto) 0.6 0.0-1.0 X 10^3 Eosinophils # (Auto) 0.0 0.0-0.3 10^3/uL Basophils # (Auto) 0.1 0.0-0.1 10^3/uL Sodium Level 142 135-145 MMOL/L Potassium Level 3.6 3.6-5.0 MMOL/L Chloride Level 97 L 98-107 MMOL/L Carbon Dioxide Level 26 21-32 MMOL/L Anion Gap 19 H 5-14 MMOL/L Blood Urea Nitrogen 9 7-18 MG/DL Creatinine 0.69 0.60-1.30 MG/DL Estimat Glomerular Filtration Rate > 60 BUN/Creatinine Ratio 13 Glucose Level 104 70-105 MG/DL Calcium Level 8.7 8.5-10.1 MG/DL Corrected Calcium 8.8 8.5-10.1 MG/DL Magnesium Level 2.1 1.8-2.4 MG/DL Total Bilirubin 0.6 0.1-1.0 MG/DL Aspartate Amino Transf (AST/SGOT) 97 H 5-34 U/L Alanine Aminotransferase (ALT/SGPT) 57 H 0-55 U/L Alkaline Phosphatase 181 H 40-136 U/L Total Protein 7.2 6.4-8.2 GM/DL Albumin 3.9 3.2-4.5 GM/DL Serum Alcohol 428 *H <10 MG/DL Urine Color YELLOW Urine Clarity CLEAR Urine pH 6.5 5-9 Urine Specific [place] 1.015 L 1.016-1.022 Urine Protein 2+ H NEGATIVE Urine Glucose (UA) NEGATIVE NEGATIVE Urine Ketones 4+ H NEGATIVE Urine Nitrite NEGATIVE NEGATIVE Urine Bilirubin NEGATIVE NEGATIVE Urine Urobilinogen 4 H NORMAL MG/DL Urine Leukocyte Esterase 1+ H NEGATIVE Urine RBC (Auto) NEGATIVE NEGATIVE Urine RBC NONE /HPF Urine WBC 0-2 /HPF Urine Squamous Epithelial Cells 5-10 /HPF Urine Crystals NONE /LPF Urine Bacteria TRACE /HPF Urine Casts NONE /LPF Urine Mucus SMALL H /LPF Urine Culture Indicated NO Urine Opiates Screen POSITIVE H NEGATIVE Urine Oxycodone Screen NEGATIVE NEGATIVE Urine Methadone Screen NEGATIVE NEGATIVE Urine Propoxyphene Screen NEGATIVE NEGATIVE Urine Barbiturates Screen NEGATIVE NEGATIVE Ur Tricyclic Antidepressants Screen NEGATIVE NEGATIVE Urine Phencyclidine Screen NEGATIVE NEGATIVE Urine Amphetamines Screen NEGATIVE NEGATIVE Urine Methamphetamines Screen NEGATIVE NEGATIVE Urine Benzodiazepines Screen POSITIVE H NEGATIVE Urine Cocaine Screen NEGATIVE NEGATIVE Urine Cannabinoids Screen POSITIVE H NEGATIVE (KIMMIE YOUNG MD) My Orders Orders - KIMMIE YOUNG MD Lactated Ringers (Lr 1000 Ml Iv Solution (08/02/18 09:28) General/Regular (08/02/18 Lunch) (KIMMIE YOUNG MD) Medications Given in ED Current Medications Medications Dose Ordered Sig/Selma Route Start Time Stop Time Status Last Admin Dose Admin Lactated Ringer's 1,000 ml @ 0 mls/hr Q0M ONCE IV 08/02/18 09:28 08/02/18 09:29 DC 08/02/18 09:39 1,000 MLS/HR Nicotine 21 mg ONCE ONCE TD 08/02/18 07:30 08/02/18 07:31 DC 08/02/18 08:15 21 MG Sodium Chloride 1,000 ml @ 0 mls/hr Q0M ONCE IV 08/02/18 06:26 08/02/18 06:28 DC 08/02/18 06:30 1,000 MLS/HR (KIMMIE YOUNG MD) Vital Signs/I&O 08/02/18 08/02/18 06:21 10:17 Temp 98.3 Pulse 116 110 Resp 19 19 B/P (MAP) 127/89 (102) 110/79 (89) Pulse Ox 97 97 O2 Delivery Room Air (KIMMIE YOUNG MD) Blood Pressure Mean: 102 Progress Progress Note : Progress Note Seen and evaluated. IV, labs, UA, UDS, normal saline 1 L bolus ordered. NicoDerm 21 mg patch ordered. Monitor patient. (REFUGIO CROUCH MD) Progress Note : Time: 09:51 Progress Note Care of this patient was assumed from a Dr. Crouch. Patient was reassessed. He is alert, oriented, and conversational. A second liter of IV fluid has been ordered for hypovolemia. Patient is not withdrawing as his blood alcohol level was quite high. I anticipate discharging patient with IV fluids are completed. I have counseled patient on appropriate means to engage in alcohol treatment and have discussed the case with Dr. Hudson who will follow-up with the patient from the [facility] side. On reexamination lungs are clear to auscultation, heart is regular and tachycardic, abdomen is soft and nontender with normal bowel sounds. (KIMMIE YOUNG MD) Departure Impression Primary Impression: Alcohol intoxication in active alcoholic Qualified Codes: F10.229 - Alcohol dependence with intoxication, unspecified Additional Impressions: Polysubstance abuse Hypovolemia Disposition: 01 HOME, SELF-CARE Condition: Improved Departure-Patient Inst. Decision time for Depature: 09:53 (KIMMIE YOUNG MD) Referrals: [facility] (PCP/Family) Primary Care Physician Patient Instructions: ALCOHOL AND SUBSTANCE ABUSE Add. Discharge Instructions: Please follow-up with [facility] for your psychiatric care and substance abuse treatment. You may also follow up with the [facility] ([facility] at . Drink plenty of nonalcoholic clear liquids and eat a well-balanced diet. Gradually reduce your alcohol consumption. Do not stop alcohol consumption abruptly without the medical direction and supervision of your doctor. Please be advised that [facility] does not have an [facility] substance abuse treatment program. Return to the emergency room if you have worsening condition, withdrawal, etc. For emergent behavioral health issues such as suicidal thinking, etc. you may call the [facility] SAVE line at [phone] ([phone]). All discharge instructions reviewed with patient and/or family. Voiced understanding. Copy Copies To 1: LOC HUDSON TIMOTHY D MD August 02, 2018 07:51 KIMMIE YOUNG MD August 02, 2018 09:55
--- NOTE | 2018-08-02 08:18 | Diagnostic Imaging Report ---
PROCEDURE: CT head without contrast. TECHNIQUE: Multiple contiguous axial images were obtained through the brain without the use of intravenous contrast. Auto Exposure Controls were utilized during the CT exam to meet ALARA standards for radiation dose reduction. INDICATION: Anxiety, blurred vision with head pain. Study compared to 05/19/2018. The brain appeared normal. There is no hemorrhage, hydrocephalus, edema, mass, mass effect or evidence for an elevation of the intracranial pressures. The basilar cisterns are patent and there is no sulcal effacement. There is development of substantial nearly completely occlusive membrane thickening circumferentially throughout the right maxillary sinus with only a trace amount of aeration present. There is right greater than left ethmoid air cell membrane thickening having developed. The frontal sinuses are clear. There is no mastoid effusion. The middle ear cavities clear. There is some dependent debris and posterior membrane thickening in the left sphenoid sinus. Impression: Interval development of substantial paranasal sinus membrane disease however no jacquie air-fluid level is demonstrated. The brain itself is stable and unremarkable in appearance. Dictated by: Dictated on workstation # [id number]
--- NOTE | 2018-08-02 09:25 | NUR ---
PT UP TO BATHROOM FOR BM
[2018-08-02] MEDS ORDERED: LACTATED RINGERS 1,000 ML IV ONE (09:28)
[2018-08-02 10:17] VITALS: BP 110/79
== END 2018-08-02 10:25 | disposition home or self-care (01) ==
LOC: EDUNIT# 06:19 → ER 06:20
DX: F10.239 Alcohol dependence with withdrawal, unspecified (principal); F15.10 Other stimulant abuse, uncomplicated; F12.10 Cannabis abuse, uncomplicated; E86.1 Hypovolemia; F32.9 Major depressive disorder, single episode, unspecified; F41.9 Anxiety disorder, unspecified; Z91.81 History of falling; Z90.89 Acquired absence of other organs; Z91.5 Personal history of self-harm; Z87.890 Personal history of sex reassignment; Z87.448 Personal history of other diseases of urinary system
CPT/HCPCS: 36415; 70450; 80053; 80306; 80320; 81000; 83735; 85025

== ENCOUNTER 2018-08-06 23:56 | Emergency (ER) | payer SELFPAY ==
[~2018-08-06] VITALS: Ht 162.6 cm; Wt 61.7 kg
[2018-08-07] MEDS ORDERED: TETANUS,DIPTH,PERTUSS P/F (BOOSTRIX) 0.5 ML VIAL IM ONE (00:15)
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
[2018-08-07 00:30] LABS: BASOPHILS # (AUTO) 0.1 10^3/uL (0.0-0.1); BASOPHILS % (AUTO) 0 % (0-10); EOSINOPHILS % (AUTO) 0 % (0-10); HEMATOCRIT 38 % (40-54); HEMOGLOBIN 13.4 G/DL (13.3-17.7); LYMPHOCYTES # (AUTO) 1.7 X 10^3 (1.0-4.0); LYMPHOCYTES % (AUTO) 11 % (12-44); MEAN CORPUSCULAR HEMOGLOBIN 33 PG (25-34); MEAN CORPUSCULAR HGB CONC 35 G/DL (32-36); MEAN CORPUSCULAR VOLUME 93 FL (80-99); MEAN PLATELET VOLUME 9.2 FL (7.4-10.4); MONOCYTES # (AUTO) 0.6 X 10^3 (0.0-1.0); MONOCYTES % (AUTO) 4 % (0-12); NEUTROPHILS # (AUTO) 12.7 X 10^3 (1.8-7.8); NEUTROPHILS % (AUTO) 84 % (42-75); PLATELET COUNT 256 10^3/uL (130-400); RED CELL DISTRIBUTION WIDTH 14.8 % (10.0-14.5); WHITE BLOOD COUNT 15.1 10^3/uL (4.3-11.0)
[2018-08-07] MEDS ORDERED: ONDANSETRON 4 MG/2 ML (SDV) Z0FRAN IVP ONE (00:30)
[2018-08-07 00:55] LABS: ACETAMINOPHEN < 10 UG/ML (10-30); ALANINE AMINOTRANSFERASE 69 U/L (0-55); ALBUMIN 3.2 GM/DL (3.2-4.5); ALKALINE PHOSPHATASE 135 U/L (40-136); BILIRUBIN,TOTAL 0.5 MG/DL (0.1-1.0); BUN/CREATININE RATIO 5; CALCIUM 7.7 MG/DL (8.5-10.1); CARBON DIOXIDE 22 MMOL/L (21-32); CHLORIDE 101 MMOL/L (98-107); CREATININE SERUM 0.66 MG/DL (0.60-1.30); GFR ESTIMATED > 60; GLUCOSE 215 MG/DL (70-105); LIPASE 75 U/L (8-78); MAGNESIUM 1.7 MG/DL (1.8-2.4); POTASSIUM 2.9 MMOL/L (3.6-5.0); SALICYLATE < 5.0 MG/DL (5.0-20.0); SODIUM 142 MMOL/L (135-145); TOTAL PROTEIN 5.9 GM/DL (6.4-8.2)
[2018-08-07 01:06] LABS: AMPHETAMINE SCREEN, URINE NEGATIVE (NEGATIVE); BARBITURATE SCREEN URINE NEGATIVE (NEGATIVE); BENZODIAZEPINES SCREEN URINE POSITIVE (NEGATIVE); CANNABINOID SCREEN, URINE NEGATIVE (NEGATIVE); COCAINE SCREEN URINE NEGATIVE (NEGATIVE); METHADONE STAT NEGATIVE (NEGATIVE); METHAMPHETAMINE SCREEN URINE S NEGATIVE (NEGATIVE); OPIATE SCREEN URINE NEGATIVE (NEGATIVE); OXYCODONE STAT NEGATIVE (NEGATIVE); PROPOXYPHENE STAT NEGATIVE (NEGATIVE); TRICYCLIC ANTIDEPRESSANTS SCRE NEGATIVE (NEGATIVE)
[2018-08-07 01:12] LABS: LYMPHOCYTES % (MANUAL) 8 %; MONOCYTES % (MANUAL) 3 %; NEUTROPHILS % (MANUAL) 89 %
--- NOTE | 2018-08-07 01:24 | NUR ---
C-COLLAR REMOVED AT [address] YOUNG.
--- NOTE | 2018-08-07 01:50 | NUR ---
PT PULLED OUT IV.
[2018-08-07] MEDS ORDERED: KCL 10 MEQ TAB (MICRO K) PO ONE (02:15)
[2018-08-07] MEDS: POTASSIUM CL 10MEQ/50ML IVPB 50 ML IV ONE ×2 (02:21→03:35)
[2018-08-07] MEDS: NS IV 1000 ML 1,000 ML IV SCH ×2 (02:21→03:35)
[2018-08-07 03:37] VITALS: BP 121/71
[2018-08-07 05:02] VITALS: BP 119/76
--- NOTE | 2018-08-07 05:27 | Diagnostic Imaging Report ---
INDICATION: Cough and congestion COMPARISON: 07/26/2018 FINDINGS: Single frontal view of the chest demonstrates normal heart size and pulmonary vascularity. The lungs are well aerated and clear. No large pleural effusion or pneumothorax is seen. The visualized osseous structures show no acute abnormalities. IMPRESSION: 1. No acute cardiopulmonary process. Dictated by: Dictated on workstation # [id number]
[2018-08-07 06:11] VITALS: BP 133/80
--- NOTE | 2018-08-07 06:28 | Diagnostic Imaging Report ---
PROCEDURE: CT head, face, and cervical spine without contrast. TECHNIQUE: Multiple contiguous axial images were obtained through the head, neck, and facial bones without the use of intravenous contrast. Sagittal and coronal reformations through the cervical spine and facial bones were also performed. Auto Exposure Controls were utilized during the CT exam to meet ALARA standards for radiation dose reduction. INDICATION: Fall with trauma to head and face. COMPARISON: 08/02/2018 FINDINGS: CT head: Ventricles and cortical sulci are normal in size and contour. There is no midline shift or mass-effect. No acute intra-axial hemorrhage is seen. There are no abnormal areas of increased or decreased density to suggest acute hemorrhage or edema. No extra-axial masses or collections are present. The bony calvarium is intact. CT facial bones: Evaluation of paranasal sinuses demonstrates significant asymmetric mucosal thickening of the right maxillary sinus. A few scattered air-fluid levels are also noted within the ethmoid air cells on the right. Note is also made of minimal mucosal thickening of the left maxillary sinus and inferior margins of the right frontal sinus. There is, however, no evidence of acute fracture of the paranasal sinuses. Nasal bones are intact. Nasal septum is minimally deviated to the left with slight hooking of the nasal septum on the left as well. These findings, however, are felt to be on a congenital or developmental basis. Note is made, however, of discontinuity at the base of the anterior nasal spine. Zygomatic arches are intact, bilaterally. There is no fracture of the medial or lateral pterygoid plates on either side. There is no fracture or dislocation of the mandible. There is no fracture of the orbits. Globes are symmetric. No unexpected radiopaque foreign bodies are seen. Other superficial soft tissue structures are unremarkable as well. CT cervical spine: Static alignment of the cervical spine is maintained. There is no significant anterolisthesis or retrolisthesis. There is no evidence of jumped facets. Vertebral body heights are preserved. There is no evidence of acute fracture. No bony fragments are seen within the spinal canal. No significant degenerative changes are identified. Pre-and paravertebral soft tissue structures are unremarkable. Included portions of lung apices are clear. IMPRESSION: 1. No acute intracranial abnormality. No CT evidence of mass, acute infarct or intracranial hemorrhage. 2. Subtle discontinuity at the base of the anterior nasal spine. Findings could be developmental as well, although underlying acute fracture cannot be excluded. No other acute facial bone fracture is identified. 3. Moderate mucosal thickening of the right maxillary sinus with a few scattered air-fluid levels of the right ethmoid air cells. Correlation with underlying acute sinusitis is recommended. 4. No acute fracture or dislocation of cervical spine. Dictated by: Dictated on workstation # [id number]
== END 2018-08-07 06:10 | disposition home or self-care (01) ==
LOC: EDUNIT# 23:56 → ER 23:57
DX: S09.90XA Unspecified injury of head, initial encounter (principal); F10.229 Alcohol dependence with intoxication, unspecified; F19.10 Other psychoactive substance abuse, uncomplicated; F12.10 Cannabis abuse, uncomplicated; F15.10 Other stimulant abuse, uncomplicated; E87.6 Hypokalemia; F41.9 Anxiety disorder, unspecified; F32.9 Major depressive disorder, single episode, unspecified; Z91.5 Personal history of self-harm; Z90.89 Acquired absence of other organs; Z87.448 Personal history of other diseases of urinary system; W07.XXXA Fall from chair, initial encounter; W22.03XA Walked into furniture, initial encounter
CPT/HCPCS: 36415; 70450; 70486; 71045; 72125; 80053; 80306; 80320; 80329; 83690; 83735; 85007; 85025; 85027; 90471; 90715; 96361; 96365; 96375

== ENCOUNTER 2018-08-13 09:18 | Emergency (ER) | payer OTHER ==
[~2018-08-13] VITALS: Ht 162.6 cm; Wt 61.2 kg
[2018-08-13] MEDS ORDERED: NS IV 1000 ML 1,000 ML IV ONE (09:28)
--- NOTE | 2018-08-13 09:29 | NUR ---
pt has greenish purple bruising around bilateral eyes. pt verbalized "i fell"
[2018-08-13 09:37] LABS: WHITE BLOOD COUNT 6.6 10^3/uL (4.3-11.0)
[2018-08-13 09:38] LABS: BASOPHILS # (AUTO) 0.2 10^3/uL (0.0-0.1); BASOPHILS % (AUTO) 2 % (0-10); EOSINOPHILS % (AUTO) 0 % (0-10); HEMATOCRIT 37 % (40-54); HEMOGLOBIN 12.6 G/DL (13.3-17.7); LYMPHOCYTES # (AUTO) 1.3 X 10^3 (1.0-4.0); LYMPHOCYTES % (AUTO) 20 % (12-44); MEAN CORPUSCULAR HEMOGLOBIN 33 PG (25-34); MEAN CORPUSCULAR HGB CONC 34 G/DL (32-36); MEAN CORPUSCULAR VOLUME 96 FL (80-99); MEAN PLATELET VOLUME 8.8 FL (7.4-10.4); MONOCYTES # (AUTO) 0.6 X 10^3 (0.0-1.0); MONOCYTES % (AUTO) 9 % (0-12); NEUTROPHILS # (AUTO) 4.6 X 10^3 (1.8-7.8); NEUTROPHILS % (AUTO) 69 % (42-75); PLATELET COUNT 420 10^3/uL (130-400); RED CELL DISTRIBUTION WIDTH 15.2 % (10.0-14.5)
[2018-08-13] MEDS ORDERED: ONDANSETRON 4 MG/2 ML (SDV) Z0FRAN IVP ONE (09:45)
[2018-08-13] MEDS ORDERED: FAMOTIDINE 20MG/2ML IV (PEPCID) IVP ONE (09:45)
--- NOTE | 2018-08-13 09:47 | ED Psychosocial ---
General Chief Complaint: Substance Abuse Stated Complaint: SIEZURE;ALCOHOL WITHDRAWAL Nursing Triage Note: patient verbalized "seizure" this morning, pt states last drink was 48 hrs ago. EMS states family verbalized pts last drink was last night, stated family mixed drink for patient. EMS stated seizure witnessed by family. Source: patient Exam Limitations: no limitations History of Present Illness Date Seen by Provider: Aug 13, 2018 Time Seen by Provider: 09:20 Initial Comments This 23-year-old man who identifies as a woman and goes by the name "Keyana" presents to the emergency room via EMS after reportedly having a convulsive episode at home lasting 45 to 120 suspected to be a seizure by family. EMS was activated. This patient has severe problems with alcoholism and has been seen in this ER numerous times. This is his 10th visit this year, most of those because of alcohol abuse. Patient has been referred to substance abuse resources many times but has not followed through with any of those referrals in a meaningful way. Patient is alert to this morning. He complains of epigastric pain and nausea. He was given Zofran 4 mg by EMS. He is notably tachycardic. EMS reports family witnessed his last drink to be last night. He also recently used marijuana. Patient has presented to the ER under my care multiple times claiming to be withdrawing. In reality, each time he has been intoxicated with very high blood alcohol levels. Allergies and Home Medications Allergies Coded Allergies: No Known Drug Allergies (Unverified , 11/12/09) Home Medications Lorazepam 1 Mg Tablet, 1 MG PO Q6H PRN for TREMORS Prescribed by: KIMMIE NEVILLE on 08/13/18 1031 Omeprazole 20 Mg Capsule.dr, 20 MG PO BID Prescribed by: KIMMIE NEVILLE on 07/27/18 0003 Ondansetron 4 Mg Tab.rapdis, 4 MG PO Q4H PRN for NAUSEA/VOMITING Prescribed by: KIMMIE NEVILLE on 07/27/18 0003 Ondansetron 4 Mg Tab.rapdis, 4 MG SL Q4H PRN for NAUSEA/VOMITING Prescribed by: KIMMIE NEVILLE on 08/13/18 1031 Patient Home Medication List Home Medication List Reviewed: Yes Review of Systems Constitutional: weakness EENTM: no symptoms reported Respiratory: no symptoms reported Cardiovascular: other (tachycardia) Gastrointestinal: see HPI Genitourinary: no symptoms reported Musculoskeletal: no symptoms reported Skin: other (bruising on the face from prior injury) Psychiatric/Neurological: See HPI Past Zawfosk-Gvxpjb-Rtddfi Hx Past Med/Social Hx: Reviewed Nursing Past Med/Soc Hx Patient Social History Alcohol Use: Rarely Uses Number of Drinks Today: FF Alcohol Beverage of Choice: Vodka Recreational Drug Use: Yes (CANNIBUS) Drug of Choice: Majijuana, meth Smoking Status: Current Everyday Smoker Type Used: Cigarettes 2nd Hand Smoke Exposure: No Recent Foreign Travel: No Contact w/Someone Who Travel: No Recent Infectious Disease Expo: No Recent Hopitalizations: No Physical Abuse: No Sexual Abuse: No Mistreated: No Fear: No Immunizations Up To Date Tetanus Booster (TDap): Unknown PED Vaccines UTD: No Date of Influenza Vaccine: Mar 14, 2018 Seasonal Allergies Seasonal Allergies: No Past Medical History Surgeries: Yes (frenulectomy) Respiratory: No Currently Using CPAP: No Currently Using BIPAP: No Cardiac: No Neurological: No 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) Sexually Transmitted Disease: No Genitourinary: Yes Bladder Infection Gastrointestinal: No Musculoskeletal: No Endocrine: No HEENT: No Cancer: No Psychosocial: Yes (POLYSUBSTANCE ABUSE, alcoholism, 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 to female) Anxiety, Suicide Attempts, Depression Integumentary: Yes (LESION LEFT THIGH) Blood Disorders: No Adverse Reaction/Blood Tranf: No Family Medical History No Pertinent Family Hx Physical Exam Vital Signs - First Documented 08/13/18 09:29 Temp 98.9 Pulse 151 Resp 14 B/P (MAP) 125/98 (107) Pulse Ox 98 O2 Delivery Room Air Capillary Refill : Less Than 3 Seconds Height, Weight, BMI Height: 5'4.00" Weight: 135lbs. 0.0oz. [id number]; 22.5 BMI Method:Stated General Appearance: WD/WN, no apparent distress, thin HEENT: PERRL/EOMI, other (bruising on the face from prior injury) Neck: normal inspection Respiratory: lungs clear, normal breath sounds, no respiratory distress, no accessory muscle use Cardiovascular: no edema, no murmur, tachycardia Gastrointestinal: normal bowel sounds, soft, tenderness (epigastrium) Extremities: normal inspection, no pedal edema Neurologic/Psychiatric: business services representative II-XII nml as tested, no motor/sensory deficits, alert, normal mood/affect, oriented x 3 Appearance/Memory: disheveled Behavior/Eye Contact: cooperative, good eye contact Skin: normal color, warm/dry Progress/Results/Core Measures Results/Orders Lab Results Laboratory Tests Test 08/13/18 09:25 Range/Units White Blood Count 6.6 4.3-11.0 10^3/uL Red Blood Count 3.85 L 4.35-5.85 10^6/uL Hemoglobin 12.6 L 13.3-17.7 G/DL Hematocrit 37 L 40-54 % Mean Corpuscular Volume 96 80-99 FL Mean Corpuscular Hemoglobin 33 25-34 PG Mean Corpuscular Hemoglobin Concent 34 32-36 G/DL Red Cell Distribution Width 15.2 H 10.0-14.5 % Platelet Count 420 H 130-400 10^3/uL Mean Platelet Volume 8.8 7.4-10.4 FL Neutrophils (%) (Auto) 69 42-75 % Lymphocytes (%) (Auto) 20 12-44 % Monocytes (%) (Auto) 9 0-12 % Eosinophils (%) (Auto) 0 0-10 % Basophils (%) (Auto) 2 0-10 % Neutrophils # (Auto) 4.6 1.8-7.8 X 10^3 Lymphocytes # (Auto) 1.3 1.0-4.0 X 10^3 Monocytes # (Auto) 0.6 0.0-1.0 X 10^3 Eosinophils # (Auto) 0.0 0.0-0.3 10^3/uL Basophils # (Auto) 0.2 H 0.0-0.1 10^3/uL Sodium Level 137 135-145 MMOL/L Potassium Level 3.3 L 3.6-5.0 MMOL/L Chloride Level 98 98-107 MMOL/L Carbon Dioxide Level 22 21-32 MMOL/L Anion Gap 17 H 5-14 MMOL/L Blood Urea Nitrogen 6 L 7-18 MG/DL Creatinine 0.68 0.60-1.30 MG/DL Estimat Glomerular Filtration Rate > 60 BUN/Creatinine Ratio 9 Glucose Level 163 H 70-105 MG/DL Calcium Level 9.0 8.5-10.1 MG/DL Corrected Calcium 9.3 8.5-10.1 MG/DL Magnesium Level 1.2 L 1.8-2.4 MG/DL Total Bilirubin 0.8 0.1-1.0 MG/DL Aspartate Amino Transf (AST/SGOT) 475 H 5-34 U/L Alanine Aminotransferase (ALT/SGPT) 152 H 0-55 U/L Alkaline Phosphatase 186 H 40-136 U/L Total Protein 6.3 L 6.4-8.2 GM/DL Albumin 3.6 3.2-4.5 GM/DL Lipase 7 L 8-78 U/L Serum Alcohol < 10 <10 MG/DL My Orders Orders - KIMMIE YOUNG MD Alcohol (08/13/18 09:28) Cbc With Automated Diff (08/13/18 09:28) Comprehensive Metabolic Panel (08/13/18 09:28) Lipase (08/13/18 09:28) Magnesium (08/13/18 09:28) Ua Culture If Indicated (08/13/18 09:28) Ed Iv/Invasive Line Start (08/13/18 09:28) Ns Iv 1000 Ml (Sodium Chloride 0.9%) (08/13/18 09:28) Famotidine Injection (Pepcid Injection) (08/13/18 09:45) Ondansetron Injection (Zofran Injectio (08/13/18 09:45) Drug Screen Stat (Urine) (08/13/18 09:56) Ed Iv/Invasive Line Start (08/13/18 10:11) Lactated Ringers (Lr 1000 Ml Iv Solution (08/13/18 10:11) Lorazepam Injection (Ativan Injection) (08/13/18 10:15) Medications Given in ED Current Medications Medications Dose Ordered Sig/Selma Route Start Time Stop Time Status Last Admin Dose Admin Famotidine 20 mg ONCE ONCE IVP 08/13/18 09:45 08/13/18 09:46 DC 08/13/18 10:01 20 MG Lactated Ringer's 1,000 ml @ 0 mls/hr Q0M ONCE IV 08/13/18 10:11 08/13/18 10:12 DC 08/13/18 10:45 1,000 MLS/HR Lorazepam 2 mg ONCE ONCE IVP 08/13/18 10:15 08/13/18 10:16 DC 08/13/18 10:18 2 MG Ondansetron HCl 4 mg ONCE ONCE IVP 08/13/18 09:45 08/13/18 09:46 DC 08/13/18 10:01 4 MG Sodium Chloride 1,000 ml @ 0 mls/hr Q0M ONCE IV 08/13/18 09:28 08/13/18 09:30 DC 08/13/18 10:01 1,000 MLS/HR Vital Signs/I&O 08/13/18 08/13/18 09:29 11:10 Temp 98.9 98.0 Pulse 151 109 Resp 14 14 B/P (MAP) 125/98 (107) 111/76 (88) Pulse Ox 98 96 O2 Delivery Room Air Room Air Blood Pressure Mean: 107 Progress Progress Note #1: Time: 09:46 Progress Note Patient was seen and examined upon arrival. IV fluids are infusing. Labs are pending. An additional Zofran 4 mg dose was ordered along with Pepcid. Progress Note #2: Time: 10:35 Progress Note Patient has no measurable serum alcohol. He is likely truly withdrawing. Ativan 2 mg IV was administered. I discussed options with patient. He was offered admission for withdrawal and placement in a rehabilitation facility. He does not believe he can stay for 3 days and go through the withdrawal process. He declines admission. I contacted Dr. Faye with [facility] to help encourage follow- up there. I will prescribe him a small quantity of Ativan and some Zofran to help hold him over until he connects again with [facility]. A liter of IV normal saline and a liter of LR will be completed prior to departure. Departure Impression Primary Impression: Alcohol withdrawal seizure Qualified Codes: F10.239 - Alcohol dependence with withdrawal, unspecified; R56.9 - Unspecified convulsions Additional Impressions: Epigastric pain Nausea and vomiting Qualified Codes: R11.2 - Nausea with vomiting, unspecified Disposition: 01 HOME, SELF-CARE Condition: Improved Departure-Patient Inst. Decision time for Depature: 10:28 Referrals: [facility]/K (PCP/Family) Primary Care Physician Patient Instructions: ALCOHOL AND SUBSTANCE ABUSE Add. Discharge Instructions: Drink plenty of clear liquids. Gradually advance your diet with small quantities of bland food as tolerated. Uses Zofran as prescribed for nausea and vomiting. Continue taking omeprazole and/or Pepcid for antacid therapy. Return to care if you have worsening symptoms. Take Ativan up to every 6 hours as needed to prevent withdrawal from alcohol. Follow-up with [facility] as soon as possible to help arrange alcohol treatment. Please call them today. All discharge instructions reviewed with patient and/or family. Voiced understanding. Scripts Ondansetron (Ondansetron Odt) 4 Mg Tab.rapdis 4 MG SL Q4H PRN for NAUSEA/VOMITING, #10 TAB Prov: KIMMIE YOUNG MD 08/13/18 Lorazepam (Ativan) 1 Mg Tablet 1 MG PO Q6H PRN for TREMORS, #6 TAB Prov: KIMMIE YOUNG MD 08/13/18 Copy Copies To 1: LOC SALAS JOSHUA T MD Aug 13, 2018 09:47
[2018-08-13 10:03] LABS: ALANINE AMINOTRANSFERASE 152 U/L (0-55); ALBUMIN 3.6 GM/DL (3.2-4.5); ALKALINE PHOSPHATASE 186 U/L (40-136); BILIRUBIN,TOTAL 0.8 MG/DL (0.1-1.0); BUN/CREATININE RATIO 9; CARBON DIOXIDE 22 MMOL/L (21-32); CHLORIDE 98 MMOL/L (98-107); CREATININE SERUM 0.68 MG/DL (0.60-1.30); GFR ESTIMATED > 60; GLUCOSE 163 MG/DL (70-105); LIPASE 7 U/L (8-78); MAGNESIUM 1.2 MG/DL (1.8-2.4); POTASSIUM 3.3 MMOL/L (3.6-5.0); SODIUM 137 MMOL/L (135-145); TOTAL PROTEIN 6.3 GM/DL (6.4-8.2)
[2018-08-13] MEDS ORDERED: LACTATED RINGERS 1,000 ML IV ONE (10:11)
[2018-08-13] MEDS ORDERED: LORazepam INJ 2 MG/ML (ATIVAN) VIAL IVP ONE (10:15)
[2018-08-13] MEDS ORDERED: LORA-405 PO (10:31)
[2018-08-13] MEDS ORDERED: ONDA4TAB11 SL (10:31)
[2018-08-13 11:10] VITALS: BP 111/76
== END 2018-08-13 11:10 | disposition home or self-care (01) ==
LOC: EDUNIT# 09:18 → ER 09:19
DX: F10.239 Alcohol dependence with withdrawal, unspecified (principal); R56.9 Unspecified convulsions; R10.13 Epigastric pain; R11.2 Nausea with vomiting, unspecified; F41.9 Anxiety disorder, unspecified; F32.9 Major depressive disorder, single episode, unspecified; F12.10 Cannabis abuse, uncomplicated; F15.10 Other stimulant abuse, uncomplicated; F17.210 Nicotine dependence, cigarettes, uncomplicated; Z91.5 Personal history of self-harm; Z98.890 Other specified postprocedural states; Z87.890 Personal history of sex reassignment
CPT/HCPCS: 36415; 80053; 80320; 83690; 83735; 85025; 96361; 96374; 96375

== ENCOUNTER 2018-09-01 06:22 | Emergency (ER) | payer SELFPAY, OTHER | END 2018-09-01 08:15 | disposition home or self-care (01) | LOC: ER 06:22 ==

== ENCOUNTER 2018-09-23 21:22 | Emergency (ER) | payer SELFPAY ==
[~2018-09-23] VITALS: Ht 170.2 cm; Wt 68.0 kg
[~2018-09-23 21:22] MED LIST changes: +LORA-405 PO; +ONDA4TAB11 SL
[2018-09-23] MEDS ORDERED: TETANUS,DIPTH,PERTUSS P/F (BOOSTRIX) 0.5 ML VIAL IM ONE (21:30)
--- NOTE | 2018-09-23 21:36 | ED Head Injury ---
General Chief Complaint: Laceration Stated Complaint: ETOH Nursing Triage Note: pt was in the bath and stood up and hit his head. pt has laceration to left upper eyebrow. pt denies loc. pt is a frequent etoh user. Source: patient Exam Limitations: no limitations History of Present Illness Date Seen by Provider: Sep 23, 2018 Time Seen by Provider: 21:31 Initial Comments To ER with reports of a laceration to the left eyebrow. Was getting into the shower when he slipped and fell striking this area. No loss consciousness. No vomiting since the event, however has had some vomiting throughout the day today. Is known to be an alcoholic and admits to drinking today. Reports some upper abdominal pain as a chronic issue but a bit worse today. Occurred: just prior to arrival Severity: mild Location: frontal Method of Injury: unknown Loss of Consciousness: no loss of consciousness Allergies and Home Medications Allergies Coded Allergies: No Known Drug Allergies (Unverified , 11/12/09) Home Medications Lorazepam 1 Mg Tablet, 1 MG PO Q6H PRN for TREMORS Prescribed by: KIMMIE NEVILLE on 08/13/18 1031 Omeprazole 20 Mg Capsule.dr, 20 MG PO BID Prescribed by: KIMMIE NEVILLE on 07/27/18 0003 Ondansetron 4 Mg Tab.rapdis, 4 MG PO Q4H PRN for NAUSEA/VOMITING Prescribed by: KIMMIE NEVILLE on 07/27/18 0003 Ondansetron 4 Mg Tab.rapdis, 4 MG SL Q4H PRN for NAUSEA/VOMITING Prescribed by: KIMMIE NEVILLE on 08/13/18 1031 Patient Home Medication List Home Medication List Reviewed: Yes Review of Systems Review of Systems Constitutional: see HPI Eyes: No Symptoms Reported Ears, Nose, Mouth, Throat: see HPI Respiratory: no symptoms reported Cardiovascular: no symptoms reported Genitourinary: no symptoms reported Musculoskeletal: no symptoms reported Skin: no symptoms reported Psychiatric/Neurological: No Symptoms Reported Endocrine: No Symptoms Reported Hematologic/Lymphatic: No Symptoms Reported Past Lmnsarp-Ilhlph-Jpwbzq Hx Patient Social History Alcohol Use: Regular Use Number of Drinks Today: FF Alcohol Beverage of Choice: Vodka Recreational Drug Use: Yes (CANNIBUS) Drug of Choice: Majijuana, meth Type Used: Cigarettes 2nd Hand Smoke Exposure: No Recent Foreign Travel: No Contact w/Someone Who Travel: No Recent Infectious Disease Expo: No Recent Hopitalizations: No Physical Abuse: No Sexual Abuse: No Mistreated: No Fear: No Immunizations Up To Date Tetanus Booster (TDap): Unknown PED Vaccines UTD: No Date of Influenza Vaccine: Mar 14, 2018 Seasonal Allergies Seasonal Allergies: No Past Medical History Surgeries: Yes (frenulectomy) Respiratory: No Currently Using CPAP: No Currently Using BIPAP: No Cardiac: No Neurological: No 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) Sexually Transmitted Disease: No Genitourinary: Yes Bladder Infection Gastrointestinal: No Musculoskeletal: No Endocrine: No HEENT: No Cancer: No Psychosocial: Yes (POLYSUBSTANCE ABUSE, alcoholism, 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 0.0oz. 68.601083pa; 22.5 BMI Method:Estimated General Appearance: WD/WN, no apparent distress HEENT: PERRL/EOMI, normal ENT inspection, TMs normal, other (1 cm laceration lateral aspect left eyebrow.Muscles intact, no hyphema and no subconjunctival hemorrhage.) Neck: non-tender, full range of motion Respiratory: no respiratory distress, no accessory muscle use Gastrointestinal: normal bowel sounds, non tender, soft Extremities: normal range of motion, non-tender Psychiatric: alert, oriented x 3 Crainal Nerves: PERRL, abnormal speech (slurred speech, obviously intoxicated. He carries on conversations, alert, does answer questions appropriately.) Skin: normal color, warm/dry [place] Coma Score Best Eye Response: (4) Open Spontaneously Best Verbal Response: (5) Oriented Best Motor Response: (6) Obeys Commands Tanner Total: 15 Procedures/Interventions Wound Location: Face Wound Length (cm): 1 Wound's Depth, Shape: linear, sub Q Wound Explored: clean Anesthesia: 1% Lidocaine Suture: Ethlion Suture Size: 5-0 Number of Sutures: 2 Layer Closure?: 1 Number Deep Layer Sutures: 0 Progress/Results/Core Measures Results/Orders Lab Results Laboratory Tests Test 09/23/18 21:40 Range/Units White Blood Count 13.0 H 4.3-11.0 10^3/uL Red Blood Count 4.40 4.35-5.85 10^6/uL Hemoglobin 15.2 13.3-17.7 G/DL Hematocrit 45 40-54 % Mean Corpuscular Volume 102 H 80-99 FL Mean Corpuscular Hemoglobin 35 H 25-34 PG Mean Corpuscular Hemoglobin Concent 34 32-36 G/DL Red Cell Distribution Width 13.5 10.0-14.5 % Platelet Count 390 130-400 10^3/uL Mean Platelet Volume 9.8 7.4-10.4 FL Neutrophils (%) (Auto) 77 H 42-75 % Lymphocytes (%) (Auto) 18 12-44 % Monocytes (%) (Auto) 4 0-12 % Eosinophils (%) (Auto) 1 0-10 % Basophils (%) (Auto) 1 0-10 % Neutrophils # (Auto) 9.9 H 1.8-7.8 X 10^3 Lymphocytes # (Auto) 2.3 1.0-4.0 X 10^3 Monocytes # (Auto) 0.5 0.0-1.0 X 10^3 Eosinophils # (Auto) 0.2 0.0-0.3 10^3/uL Basophils # (Auto) 0.1 0.0-0.1 10^3/uL Sodium Level 142 135-145 MMOL/L Potassium Level 3.9 3.6-5.0 MMOL/L Chloride Level 102 98-107 MMOL/L Carbon Dioxide Level 28 21-32 MMOL/L Anion Gap 12 5-14 MMOL/L Blood Urea Nitrogen 9 7-18 MG/DL Creatinine 0.89 0.60-1.30 MG/DL Estimat Glomerular Filtration Rate > 60 BUN/Creatinine Ratio 10 Glucose Level 138 H 70-105 MG/DL Calcium Level 8.7 8.5-10.1 MG/DL Corrected Calcium 8.5 8.5-10.1 MG/DL Total Bilirubin 0.6 0.1-1.0 MG/DL Aspartate Amino Transf (AST/SGOT) 283 H 5-34 U/L Alanine Aminotransferase (ALT/SGPT) 157 H 0-55 U/L Alkaline Phosphatase 180 H 40-136 U/L Total Protein 7.4 6.4-8.2 GM/DL Albumin 4.2 3.2-4.5 GM/DL Lipase 18 8-78 U/L My Orders Orders - YASMIN RODRIGUEZ APRN Ct Head/Cervical Spine Wo (09/23/18 21:30) Cbc With Automated Diff (09/23/18 21:30) Comprehensive Metabolic Panel (09/23/18 21:30) Lipase (09/23/18 21:30) Dipht,Pertuss(Acell),Tet Adult (Boostrix (09/23/18 21:30) Ondansetron Oral Dissolve Tab (Zofran (09/23/18 22:00) Antacid Suspension (Mylanta Suspension (09/23/18 22:00) Lidocaine 2% Viscous 15 Ml (Xylocaine Vi (09/23/18 22:00) Medications Given in ED Current Medications Medications Dose Ordered Sig/Selma Route Start Time Stop Time Status Last Admin Dose Admin Al Hydrox/Mg Hydrox/Simethicone 30 ml ONCE ONCE PO 09/23/18 22:00 09/23/18 22:01 DC 09/23/18 22:00 30 ML Lidocaine HCl 10 ml ONCE ONCE PO 09/23/18 22:00 09/23/18 22:01 DC 09/23/18 22:00 10 ML Ondansetron HCl 8 mg ONCE ONCE PO 09/23/18 22:00 09/23/18 22:01 DC 09/23/18 22:00 8 MG Vital Signs/I&O 09/23/18 09/23/18 21:25 22:27 Temp 97.6 97.6 Pulse 123 123 Resp 18 18 B/P (MAP) 132/95 (107) 132/95 (107) Pulse Ox 99 99 O2 Delivery Room Air Blood Pressure Mean: 107 Departure Communication (Admissions) I called the patient's grandmother Darinel to come pick the patient up. I ambulated the patient walking next to her out to the waiting room. She is ambulatory, carries on a conversation, appreciative. Impression Primary Impression: Alcohol intoxication in active alcoholic Qualified Codes: F10.220 - Alcohol dependence with intoxication, uncomplicated Additional Impression: Eyebrow laceration Disposition: HOME, SELF-CARE Condition: Stable Departure-Patient Inst. Decision time for Depature: 21:35 Referrals: [facility] (PCP/Family) Primary Care Physician Patient Instructions: Laceration Repair With Stitches (DC) Add. Discharge Instructions: Return to ER to have stitches removed in 5-7 days. All discharge instructions reviewed with patient and/or family. Voiced understanding. YASMIN RODRIGUEZ ELECTROENCEPHALOGRAPHIC TECHNOLOGIST Sep 23, 2018 21:36
[2018-09-23 21:47] LABS: BASOPHILS # (AUTO) 0.1 10^3/uL (0.0-0.1); BASOPHILS % (AUTO) 1 % (0-10); EOSINOPHILS # (AUTO) 0.2 10^3/uL (0.0-0.3); EOSINOPHILS % (AUTO) 1 % (0-10); HEMATOCRIT 45 % (40-54); HEMOGLOBIN 15.2 G/DL (13.3-17.7); LYMPHOCYTES # (AUTO) 2.3 X 10^3 (1.0-4.0); LYMPHOCYTES % (AUTO) 18 % (12-44); MEAN CORPUSCULAR HEMOGLOBIN 35 PG (25-34); MEAN CORPUSCULAR HGB CONC 34 G/DL (32-36); MEAN CORPUSCULAR VOLUME 102 FL (80-99); MEAN PLATELET VOLUME 9.8 FL (7.4-10.4); MONOCYTES # (AUTO) 0.5 X 10^3 (0.0-1.0); MONOCYTES % (AUTO) 4 % (0-12); NEUTROPHILS # (AUTO) 9.9 X 10^3 (1.8-7.8); NEUTROPHILS % (AUTO) 77 % (42-75); PLATELET COUNT 390 10^3/uL (130-400); RED CELL DISTRIBUTION WIDTH 13.5 % (10.0-14.5)
[2018-09-23] MEDS ORDERED: ONDANSETRON 4 MG (ZOFRAN) ORAL DISSOLVE TAB PO ONE (22:00)
[2018-09-23] MEDS ORDERED: LIDOCAINE 2% VISCOUS 15 ML UDC PO ONE (22:00)
[2018-09-23] MEDS ORDERED: ANTACID SUSP 30 ML UDC (MYLANTA) PO ONE (22:00)
--- NOTE | 2018-09-23 22:05 | Diagnostic Imaging Report ---
PROCEDURE: CT head and CT cervical spine without contrast. TECHNIQUE: Multiple contiguous axial images were obtained through the brain and cervical spine without the use of intravenous contrast. Sagittal and coronal reformations through the cervical spine were then performed. Auto Exposure Controls were utilized during the CT exam to meet ALARA standards for radiation dose reduction. INDICATION: Left eyebrow laceration. Poor historian, EtOH, pain. EXAMINATION: CT brain, CT cervical spine 09/23/2018 COMPARISON: 08/07/2017 FINDINGS: Brain: There is no acute hemorrhage or infarct. No mass, mass effect or midline shift. There is streak artifact due to motion limiting evaluation especially in the region of the skull base and posterior fossa. A small bleed in this region is not excluded. No hydrocephalus is seen. Linear hyperdensity along the tentorium most likely prominent dural reflections. The calvarium is intact. Paranasal sinuses demonstrate diffuse mucosal thickening throughout the sphenoid sinus on the left, bilateral maxillary and ethmoid air cells. IMPRESSION: 1. Limited evaluation. No obvious acute process is seen but a small bleed could be missed given motion artifact and streak artifact. If symptoms persist, a followup is recommended when patient can cooperate for imaging. CT cervical spine: Alignment is preserved. No fractures identified. Lung apices clear. Prevertebral soft tissues unremarkable. IMPRESSION: 1. No acute process within the cervical spine. Dictated by: Dictated on workstation # [id number]
[2018-09-23 22:06] LABS: CARBON DIOXIDE 28 MMOL/L (21-32); CHLORIDE 102 MMOL/L (98-107); CREATININE SERUM 0.89 MG/DL (0.60-1.30); POTASSIUM 3.9 MMOL/L (3.6-5.0); SODIUM 142 MMOL/L (135-145)
[2018-09-23 22:07] LABS: ALANINE AMINOTRANSFERASE 157 U/L (0-55); ALBUMIN 4.2 GM/DL (3.2-4.5); ALKALINE PHOSPHATASE 180 U/L (40-136); BILIRUBIN,TOTAL 0.6 MG/DL (0.1-1.0); BUN/CREATININE RATIO 10; CALCIUM 8.7 MG/DL (8.5-10.1); GFR ESTIMATED > 60; GLUCOSE 138 MG/DL (70-105); LIPASE 18 U/L (8-78); TOTAL PROTEIN 7.4 GM/DL (6.4-8.2)
[2018-09-23 22:27] VITALS: BP 132/95
== END 2018-09-23 22:27 | disposition home or self-care (01) ==
LOC: EDUNIT# 21:22 → ER 21:23
DX: S01.112A Laceration without foreign body of left eyelid and periocular area, initial encounter (principal); F10.20 Alcohol dependence, uncomplicated; F12.10 Cannabis abuse, uncomplicated; F15.10 Other stimulant abuse, uncomplicated; F41.9 Anxiety disorder, unspecified; F32.9 Major depressive disorder, single episode, unspecified; W01.198A Fall on same level from slipping, tripping and stumbling with subsequent striking against other object, initial encounter; Y93.E1 Activity, personal bathing and showering; Y90.9 Presence of alcohol in blood, level not specified
CPT/HCPCS: 12011; 36415; 70450; 72125; 80053; 83690; 85025; 90471; 90715

== ENCOUNTER 2018-10-19 09:02 | Inpatient (IN) | payer SELFPAY ==
[2018-10-19] VITALS (12 sets, daily range): BP systolic 116–140; BP diastolic 84–110
[~2018-10-19] VITALS: Ht 162.6 cm; Wt 61.3 kg
[~2018-10-19 09:02] MED LIST changes: -OMEP20CA12 PO; +OMEP20CA13 PO
[2018-10-19] MEDS ORDERED: NS IV 1000 ML 1,000 ML IV ONE (09:09)
[2018-10-19 09:23] LABS: ABG BASE EXCESS 0.9 MMOL/L (-2.5-2.5); ABG OXYGEN SATURATION 63 % (94-100); ABG PO2 44 MMHG (79-93)
--- NOTE | 2018-10-19 09:24 | ED General ---
General Chief Complaint: Substance Abuse Stated Complaint: OVERDOSE Source of Information: Patient, EMS Exam Limitations: Intoxication History of Present Illness Date Seen by Provider: Oct 19, 2018 Time Seen by Provider: 08:59 Initial Comments Here by EMS with report of unresponsiveness an overdose at home. Apparently patient had got up this morning and took some morphine of unknown dose and of unknown concentration and unknown type and than laid back down. This was around 5 AM. At 5:30 he was unresponsive and remained that way. Family noted that he had gotten up and then checked on him and he was drowsy and then became increasingly so to the point of unresponsiveness. They're unable to arouse him. Ultimately due to concerns for safety, they called EMS. EMS did find the patient unresponsive and initiated IV. Ultimately 2 mg of Narcan was given and the patient woke up but still has slurred speech. Patient also takes Ativan and drinks alcohol. This does appear to be mixed drug overdose. Patient is awake but significantly somnolent and has slurred speech. Does answer simple questions. Patient is 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 to female and goes by the name Keyana. Does have long-term history of alcohol abuse and withdrawal. Timing/Duration: 1-3 Hours Severity: Moderate, Severe Modifying Factors: worse with Medication Associated Systoms: No Cough, No Fever/Chills, No Nausea/Vomiting; Weakness Allergies and Home Medications Allergies Coded Allergies: No Known Drug Allergies (Unverified , 11/12/09) Home Medications Bupropion HCl 150 Mg Tablet.er, 150 MG PO BID, (Reported) Lorazepam 1 Mg Tablet, 1 MG PO Q6H PRN for TREMORS Prescribed by: KIMMIE NEVILLE on 08/13/18 1031 Omeprazole 20 Mg Capsule.dr, 20 MG PO BID Prescribed by: KIMMIE NEVILLE on 07/27/18 0003 Ondansetron 4 Mg Tab.rapdis, 4 MG PO Q4H PRN for NAUSEA/VOMITING Prescribed by: KIMMIE NEVILLE on 07/27/18 0003 Ondansetron 4 Mg Tab.rapdis, 4 MG SL Q4H PRN for NAUSEA/VOMITING Prescribed by: KIMMIE NEVILLE on 08/13/18 1031 Sulfamethoxazole/Trimethoprim 1 Each Tablet, 1 EACH PO BID, (Reported) Patient Home Medication List Home Medication List Reviewed: Yes Review of Systems Review of Systems Constitutional: see HPI; No chills, No fever Unable to complete review of systems due to her underlying condition Past Zldpnta-Hydhrv-Ysirps Hx Past Med/Social Hx: Reviewed Nursing Past Med/Soc Hx Patient Social History Alcohol Use: Rarely Uses Alcohol Beverage of Choice: Vodka Recreational Drug Use: Yes Drug of Choice: Majijuana. meth hx Type Used: Cigarettes 2nd Hand Smoke Exposure: No Recent Foreign Travel: No Contact w/Someone Who Travel: No Recent Hopitalizations: No Immunizations Up To Date Tetanus Booster (TDap): Unknown PED Vaccines UTD: No Date of Influenza Vaccine: Mar 14, 2018 Seasonal Allergies Seasonal Allergies: No Past Medical History Surgeries: Yes (frenulectomy) Respiratory: No Currently Using CPAP: No Currently Using BIPAP: No Cardiac: No Neurological: No 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) Sexually Transmitted Disease: No Genitourinary: Yes Bladder Infection Gastrointestinal: No Musculoskeletal: No Endocrine: No HEENT: No Cancer: No Psychosocial: Yes (POLYSUBSTANCE ABUSE, alcoholism, 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 to female) Anxiety, Suicide Attempts, Depression Integumentary: Yes (LESION LEFT THIGH) Blood Disorders: No Adverse Reaction/Blood Tranf: No Family Medical History Reviewed Nursing Family Hx No Pertinent Family Hx Physical Exam Vital Signs Vital Signs - First Documented 10/19/18 09:21 Temp 98.7 Pulse 156 Resp 12 B/P (MAP) 132/101 (111) Pulse Ox 97 O2 Delivery Nasal Cannula O2 Flow Rate 2.00 Capillary Refill : Height, Weight, BMI Height: 5'7.00" Weight: 150lbs. 0.0oz. 68.145618li; 22.5 BMI Method:Estimated General Appearance: No Apparent Distress, WD/WN HEENT: Pharynx Normal, Other (pupils sluggish) Neck: Full Range of Motion, Supple Respiratory: No Accessory Muscle Use, Crackles (bilateral bases); No Wheezing Cardiovascular: No Murmur, Tachycardia Gastrointestinal: Non Tender, Soft Back: Normal Inspection, No CVA Tenderness, No Vertebral Tenderness Extremity: Non Tender Skin: Normal Color, Warm/Dry Focused Exam Lactate Level 10/19/18 10:56: Lactic Acid Level 6.15*H Lactic Acid Level Laboratory Tests Test 10/19/18 10:56 Lactic Acid Level 6.15 MMOL/L (0.50-2.00) *H Procedures/Interventions Suture Size: 5-0 Progress/Results/Core Measures Suspected Sepsis SIRS Temperature: Pulse: Respiratory Rate: Laboratory Tests 10/19/18 09:18: White Blood Count 15.0H Blood Pressure / Mean: 10/19/18 10:56: Lactic Acid Level 6.15*H Laboratory Tests 10/19/18 09:18: Creatinine 0.81, INR Comment 1.1, Platelet Count 119L, Total Bilirubin 2.2H Results/Orders Lab Results Laboratory Tests Test 10/19/18 09:12 10/19/18 09:18 10/19/18 10:08 10/19/18 10:56 Range/Units Blood Gas Puncture Site L RADIAL R Blood Gas Patient Temperature 98.7 38.7 Arterial Blood pH 7.22 *L 7.28 *L 7.37-7.43 Arterial Blood Partial Pressure CO2 71 *H 56 H 35-45 MMHG Arterial Blood Partial Pressure O2 44 L 94 H 79-93 MMHG Arterial Blood HCO3 28 H 25 23-27 MMOL/L Arterial Blood Total CO2 30.0 26.9 21.0-31.0 MMOL/L Arterial Blood Oxygen Saturation 63 L 96 94-100 % Arterial Blood Base Excess 0.9 -0.7 -2.5-2.5 MMOL/L Fermín Test YES-POS YES-POS Blood Gas Ventilator Setting NO NO Blood Gas Inspired Oxygen 2 5 White Blood Count 15.0 H 4.3-11.0 10^3/uL Red Blood Count 3.98 L 4.35-5.85 10^6/uL Hemoglobin 14.2 13.3-17.7 G/DL Hematocrit 42 40-54 % Mean Corpuscular Volume 105 H 80-99 FL Mean Corpuscular Hemoglobin 36 H 25-34 PG Mean Corpuscular Hemoglobin Concent 34 32-36 G/DL Red Cell Distribution Width 12.0 10.0-14.5 % Platelet Count 119 L 130-400 10^3/uL Mean Platelet Volume 9.8 7.4-10.4 FL Neutrophils (%) (Auto) 92 H 42-75 % Lymphocytes (%) (Auto) 5 L 12-44 % Monocytes (%) (Auto) 3 0-12 % Eosinophils (%) (Auto) 0 0-10 % Basophils (%) (Auto) 1 0-10 % Neutrophils # (Auto) 13.8 H 1.8-7.8 X 10^3 Lymphocytes # (Auto) 0.7 L 1.0-4.0 X 10^3 Monocytes # (Auto) 0.5 0.0-1.0 X 10^3 Eosinophils # (Auto) 0.0 0.0-0.3 10^3/uL Basophils # (Auto) 0.1 0.0-0.1 10^3/uL Neutrophils % (Manual) 87 % Lymphocytes % (Manual) 6 % Monocytes % (Manual) 3 % Eosinophils % (Manual) 0 % Basophils % (Manual) 1 % Band Neutrophils 3 % Blood Morphology Comment NORMAL Prothrombin Time 14.7 12.2-14.7 SEC INR Comment 1.1 0.8-1.4 Activated Partial Thromboplast Time 30 24-35 SEC Sodium Level 137 135-145 MMOL/L Potassium Level 4.2 3.6-5.0 MMOL/L Chloride Level 91 L 98-107 MMOL/L Carbon Dioxide Level 20 L 21-32 MMOL/L Anion Gap 26 H 5-14 MMOL/L Blood Urea Nitrogen 8 7-18 MG/DL Creatinine 0.81 0.60-1.30 MG/DL Estimat Glomerular Filtration Rate > 60 BUN/Creatinine Ratio 10 Glucose Level 149 H 70-105 MG/DL Calcium Level 8.9 8.5-10.1 MG/DL Corrected Calcium 8.8 8.5-10.1 MG/DL Magnesium Level 2.1 1.8-2.4 MG/DL Total Bilirubin 2.2 H 0.1-1.0 MG/DL Aspartate Amino Transf (AST/SGOT) 180 H 5-34 U/L Alanine Aminotransferase (ALT/SGPT) 97 H 0-55 U/L Alkaline Phosphatase 200 H 40-136 U/L Total Creatine Kinase 532 H 30-200 U/L C-Reactive Protein High Sensitivity 4.00 H 0.00-0.50 MG/DL Total Protein 8.2 6.4-8.2 GM/DL Albumin 4.1 3.2-4.5 GM/DL TSH [place] Testing 1.00 0.35-4.94 UIU/ML Salicylates Level < 5.0 L 5.0-20.0 MG/DL Acetaminophen Level < 10 L 10-30 UG/ML Serum Alcohol 179 H <10 MG/DL Lactic Acid Level 6.15 *H 0.50-2.00 MMOL/L My Orders Orders - REFUGIO CROUCH MD Ed Iv/Invasive Line Start (10/19/18 09:09) Ekg Tracing (10/19/18 09:09) Chest 1 View, Ap/Pa Only (10/19/18 09:09) Acetaminophen (10/19/18 09:09) Alcohol (10/19/18 09:09) Arterial Blood Gas (10/19/18 09:09) Cbc With Automated Diff (10/19/18 09:09) Comprehensive Metabolic Panel (10/19/18 09:09) Creatine Kinase (10/19/18 09:09) Hs C Reactive Protein (10/19/18 09:09) Drug Screen Stat (Urine) (10/19/18 09:09) Magnesium (10/19/18 09:09) Protime With Inr (10/19/18 09:09) Partial Thromboplastin Time (10/19/18 09:09) Salicylate (10/19/18 09:09) Thyroid Analyzer (10/19/18 09:09) Ua Culture If Indicated (10/19/18 09:09) Ed Iv/Invasive Line Start (10/19/18 09:09) Ns Iv 1000 Ml (Sodium Chloride 0.9%) (10/19/18 09:09) Manual Differential (10/19/18 09:18) Arterial Blood Gas (10/19/18 10:05) Lactic Acid Analyzer (10/19/18 10:45) Blood Culture (10/19/18 10:45) Arterial Blood Draw (10/19/18 ) Nicotine Patch (Nicoderm Patch) (10/19/18 11:15) Naloxone Injection (Narcan Injection) (10/19/18 11:15) Piperacillin Sodium/Tazobactam (Zosyn Vi (10/19/18 11:30) Naloxone Injection (Narcan Injection) (10/19/18 11:30) Sputum Culture (10/19/18 11:36) Medications Given in ED Current Medications Medications Dose Ordered Sig/[place] Route Start Time Stop Time Status Last Admin Dose Admin Naloxone HCl 1 mg ONCE ONCE IV 10/19/18 11:30 10/19/18 11:31 DC 10/19/18 11:32 1 MG Nicotine 21 mg ONCE ONCE TD 8/10/19 11:15 10/19/18 11:16 DC 10/19/18 11:30 21 MG Sodium Chloride 1,000 ml @ 0 mls/hr Q0M ONCE IV 10/19/18 09:09 10/19/18 09:13 DC 10/19/18 09:46 0 MLS/HR Vital Signs/I&O 10/19/18 09:21 Temp 98.7 Pulse 156 Resp 12 B/P (MAP) 132/101 (111) Pulse Ox 97 O2 Delivery Nasal Cannula O2 Flow Rate 2.00 Capillary Refill : Progress Note : Progress Note Seen and evaluated. IV by EMS. Second IV initiated here due to significant tachycardia at the rate of 150. Normal saline 1 L bolus initiated by EMS will continue on I will repeat that as well. Labs, EKG and chest x-ray ordered. ABG ordered. Patient is awake enough to converse and follow simple commands although still quite sluggish. She did recognize myself and the nurse taking care of her. Monitor patient. 1118: Patient does have right lower lobe infiltrate so lactic acid and blood cultures have been added. Patient is still quite somnolent. I have discussed the case with Dr. Andrews and patient will be admitted to the ICU. Lactic acid was noted to be greater than 6. Patient has received 2 L of fluid (1 L from EMS and 1 L ordered here) which exceeds the 30 mL/kg IV bolus. We will continue IV fluids. The lactic acidosis is likely mixed cause with predominance related to the excessive somnolence and the respiratory distress associated with the morphine overdose causing hypoxia and hypercarbia. They have component but to lesser degree of relationship to pneumonia. 1130: I did discuss the case with Dr. Christopher and he will see the patient in consult. Patient will be admitted to the ICU on the severe sepsis protocol with Narcan drip running. Patient is still quite tachycardic and this may be a component of withdrawal. As patient's somnolence decreases, consideration for alcohol withdrawal protocol will be made and Dr. Christopher agrees. Patient is not hypotensive and has had normal or slightly high blood pressure throughout stay. Patient did receive repeat dose of Narcan 1 mg here and that has helped. He did tolerate by mouth fluids and does recognize me as provider. Admit, inpatient status. Patient agrees to plan. 1145: I attest to focused exam at this time. Zosyn 4.5 g IV ECG Initial ECG Impression Date: Oct 19, 2018 Initial ECG Impression Time: 09:12 Initial ECG Rate: 138 Initial ECG Rhythm: S.Tach Comment Sinus tachycardia with rate of 138 and normal axis. No evidence of ST elevation [place]. Similar but faster to previous of 07/26/18. Interpreted by me. Diagnostic Imaging Diagonstic Imaging: Xray Plain Films/CT/US/NM/MRI: chest [facility] [place], [place] NAME: STEVE NICHOLE [facility] REC#: [id number] PT STATUS: REG ER : 1995 PHYSICIAN: REFUGIO CROUCH MD ADMIT DATE: 10/19/18/ER Draft Date of Exam:10/19/18 CHEST 1 VIEW, AP/PA ONLY INDICATION: Overdose. TECHNIQUE: Single view chest at 9:25 AM. CORRELATION STUDY: 08/07/2018 FINDINGS: The heart size, mediastinal configuration and pulmonary vascularity are within normal limits. Increased density at the right lung base could be reflective of atelectasis. Findings also raise concern for potential aspiration and/or developing pneumonia. IMPRESSION: 1. Question of atelectasis versus infiltrate and/or aspiration at the right lung base. Followup imaging would be recommended. Dictated on workstation # [id number] Dict: 10/19/18 0929 Trans: 10/19/18 0933 KB [id number] Interpreted by: CLINTON SCHREIBER DO Electronically signed by: Reviewed: Reviewed by Me Departure Communication (Admissions) Time/Spoke to Admitting Phy: 11:18 Time/Spoke to Consulting Phy: 11:30 Impression Primary Impression: Right lower lobe pneumonia Qualified Codes: J18.1 - Lobar pneumonia, unspecified organism Additional Impressions: Drug overdose Qualified Codes: T50.904A - Poisoning by unspecified drugs, medicaments and biological substances, undetermined, initial encounter Alcohol abuse Aspiration pneumonia Qualified Codes: J69.0 - Pneumonitis due to inhalation of food and vomit Disposition: ADMITTED INPATIENT Condition: Critical Admissions Decision to Admit Reason: Admit from ER (General) Decision to Admit/Date: Oct 19, 2018 Time/Decision to Admit Time: 11:18 Departure-Patient Inst. Referrals: [facility] [place] (PCP/Family) Primary Care Physician Patient Instructions: ALCOHOL AND SUBSTANCE ABUSE REFUGIO CROUCH MD Oct 19, 2018 09:24
[2018-10-19 09:25] LABS: ABG PCO2 71 MMHG (35-45); ABG PH 7.22 (7.37-7.43); ALLENS TEST YES-POS; INSPIRED O2 2; PATIENT TEMP 98.7; VENTILATOR NO
[2018-10-19 09:30] LABS: BASOPHILS # (AUTO) 0.1 10^3/uL (0.0-0.1); BASOPHILS % (AUTO) 1 % (0-10); EOSINOPHILS % (AUTO) 0 % (0-10); HEMATOCRIT 42 % (40-54); HEMOGLOBIN 14.2 G/DL (13.3-17.7); LYMPHOCYTES # (AUTO) 0.7 X 10^3 (1.0-4.0); LYMPHOCYTES % (AUTO) 5 % (12-44); MEAN CORPUSCULAR HEMOGLOBIN 36 PG (25-34); MEAN CORPUSCULAR HGB CONC 34 G/DL (32-36); MEAN CORPUSCULAR VOLUME 105 FL (80-99); MEAN PLATELET VOLUME 9.8 FL (7.4-10.4); MONOCYTES # (AUTO) 0.5 X 10^3 (0.0-1.0); MONOCYTES % (AUTO) 3 % (0-12); NEUTROPHILS # (AUTO) 13.8 X 10^3 (1.8-7.8); NEUTROPHILS % (AUTO) 92 % (42-75); PLATELET COUNT 119 10^3/uL (130-400)
--- NOTE | 2018-10-19 09:34 | Diagnostic Imaging Report ---
INDICATION: Overdose. TECHNIQUE: Single view chest at 9:25 AM. CORRELATION STUDY: 08/07/2018 FINDINGS: The heart size, mediastinal configuration and pulmonary vascularity are within normal limits. Increased density at the right lung base could be reflective of atelectasis. Findings also raise concern for potential aspiration and/or developing pneumonia. IMPRESSION: 1. Question of atelectasis versus infiltrate and/or aspiration at the right lung base. Followup imaging would be recommended. Dictated by: Dictated on workstation # [id number]
[2018-10-19 09:41] LABS: INR 1.1 (0.8-1.4); PROTHROMBIN TIME PATIENT 14.7 SEC (12.2-14.7)
[2018-10-19 09:51] LABS: ALANINE AMINOTRANSFERASE 97 U/L (0-55); ALBUMIN 4.1 GM/DL (3.2-4.5); ALKALINE PHOSPHATASE 200 U/L (40-136); BILIRUBIN,TOTAL 2.2 MG/DL (0.1-1.0); BUN/CREATININE RATIO 10; CALCIUM 8.9 MG/DL (8.5-10.1); CARBON DIOXIDE 20 MMOL/L (21-32); CHLORIDE 91 MMOL/L (98-107); CREATINE KINASE 532 U/L (30-200); CREATININE SERUM 0.81 MG/DL (0.60-1.30); GFR ESTIMATED > 60; GLUCOSE 149 MG/DL (70-105); MAGNESIUM 2.1 MG/DL (1.8-2.4); POTASSIUM 4.2 MMOL/L (3.6-5.0); SALICYLATE < 5.0 MG/DL (5.0-20.0); SODIUM 137 MMOL/L (135-145); TOTAL PROTEIN 8.2 GM/DL (6.4-8.2)
[2018-10-19] MEDS ORDERED: SULF1TAB35 PO (09:53)
[2018-10-19] MEDS ORDERED: BUPR150T9 PO (09:53)
[2018-10-19 09:54] LABS: BAND NEUTROPHILS 3 %; BASOPHILS % (MANUAL) 1 %; EOSINOPHILS % (MANUAL) 0 %; LYMPHOCYTES % (MANUAL) 6 %; MONOCYTES % (MANUAL) 3 %; NEUTROPHILS % (MANUAL) 87 %; RBC MORPH NORMAL
[2018-10-19 09:56] LABS: ACETAMINOPHEN < 10 UG/ML (10-30)
[2018-10-19 10:11] LABS: ABG BASE EXCESS -0.7 MMOL/L (-2.5-2.5); ABG OXYGEN SATURATION 96 % (94-100); ABG PCO2 56 MMHG (35-45); ABG PO2 94 MMHG (79-93); ABG TCO2 26.9 MMOL/L (21.0-31.0)
[2018-10-19 10:16] LABS: ABG PH 7.28 (7.37-7.43); ALLENS TEST YES-POS; PATIENT TEMP 38.7; VENTILATOR NO
[2018-10-19 10:17] LABS: INSPIRED O2 5
[2018-10-19] MEDS ORDERED: NICOTINE 21 MG (NICODERM) PATCH TD ONE (11:15)
[2018-10-19] MEDS ORDERED: NALOXONE 2 MG/2 ML (NARCAN) SYR ONE (11:15)
[2018-10-19] MEDS ORDERED: NALOXONE 0.4 MG/ML 1 ML (NARCAN) VIAL IV ONE (11:30)
[2018-10-19] MEDS ORDERED: PIPERACILLIN SODIUM/TAZOBACTAM 4.5 GM in NS (IVPB) 100 ML IV ONE (11:30)
[2018-10-19] MEDS ORDERED: NALOXONE 2 MG/2 ML (NARCAN) SYR IV ONE (11:30)
[2018-10-19] MEDS ORDERED: RT-ALBUTEROL/IPRATROPIUM 3 ML (DUONEB) VIAL INH PRN (14:00)
[2018-10-19] MEDS ORDERED: NALOXONE 2 MG/2 ML (NARCAN) SYR IV PRN (14:00)
[2018-10-19] MEDS: NALOXONE IV PRN ×2 (14:16→20:38)
[2018-10-19] MEDS: NS IV PRN ×2 (14:16→20:38)
[2018-10-19] MEDS: RT-ALBUTEROL/IPRATROPIUM 3 ML (DUONEB) VIAL INH SCH ×2 (14:53→20:34)
[2018-10-19] MEDS ORDERED: LORazepam 1 MG (ATIVAN) TAB ONE (15:04)
[2018-10-19] MEDS: LORazepam 1 MG (ATIVAN) TAB PO PRN ×2 (15:11→23:05)
--- NOTE | 2018-10-19 15:27 | History & Physical-Hospitalist ---
History of Present Illness HPI/Chief Complaint this is a 23-year-old trans- gender, male to female who has a history of excessive alcohol intake. She had been drinking approximately half gallon of Vodka daily.. evidently she was trying to detox as an outpatient with Ativan but then obtained some morphine as well, Which she took. she denies that this was an intentional suicide attempt. she says she had a seizure because of her detoxing and that is why she was unresponsive. Narcan has worked very well to reorient her and awaken her. she complains of severe shaking at this time and requests Ativan Source: patient Exam Limitations: clinical condition Date Seen 10/19/18 Time Seen by a Provider: 13:00 Attending Physician Fatimah Coon MD [facility]On License Of [facility] Referring Physician Date of Admission Oct 19, 2018 at 11:23 Home Medications & Allergies Home Medications Reviewed patient Home Medication Reconciliation performed by pharmacy medication reconciliations hydroelectric systems technician and/or nursing. Patients Allergies have been reviewed. Allergies Allergies Coded Allergies No Known Drug Allergies (Unverified11/12/09) Past Doidree-Tzdkik-Ebodpo Hx Past Med/Social Hx: Reviewed Nursing Past Med/Soc Hx Patient Social History Marrital Status: single Employed/Student: unemployed Alcohol Use: Rarely Uses Number of Drinks Today: FF Alcohol Beverage of Choice: Vodka Recreational Drug Use: Yes Drug of Choice: Majijuana. meth hx Smoking Status: Current Everyday Smoker Type Used: Cigarettes 2nd Hand Smoke Exposure: No Recent Foreign Travel: No Contact w/other who traveled: No Recent Hopitalizations: No Recent Infectious Disease Expo: No Immunizations Up To Date Tetanus Booster (TDap): Unknown Pediatric: No Date of Influenza Vaccine: Mar 14, 2018 Seasonal Allergies Seasonal Allergies: No Past Medical History Currently Using CPAP: No Currently Using BIPAP: No Reproductive: Yes (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 to female) Sexually Transmitted Disease: No Genitourinary: Bladder Infection Psychosocial: Anxiety, Suicide Attempts, Depression alcohol abuse History of Blood Disorders: No Adverse Reaction to Blood Rivera: No Family History Reviewed Nursing Family Hx No Pertinent Family Hx Review of Systems Constitutional: see HPI EENTM: no symptoms reported Respiratory: short of breath Cardiovascular: no symptoms reported Gastrointestinal: no symptoms reported Genitourinary: no symptoms reported Musculoskeletal: no symptoms reported Skin: no symptoms reported Psychiatric/Neurological: Anxiety, Depressed, Emotional Problems, Tremors Physical Exam Physical Exam Vital Signs Vital Signs - First Documented 10/19/18 09:21 Temp 98.7 Pulse 156 Resp 12 B/P (MAP) 132/101 (111) Pulse Ox 97 O2 Delivery Nasal Cannula O2 Flow Rate 2.00 Capillary Refill : Less Than 3 Seconds Height, Weight, BMI Height: 5'4.00" Weight: 140lbs. 0.0oz. 63.565150xx; 24.0 BMI Method:Stated General Appearance: Anxious, Chronically ill HEENT: Normal ENT Inspection Neck: Full Range of Motion, Normal Inspection, Non Tender, Supple Respiratory: Rhonci, Wheezing Cardiovascular: No Gallop, Tachycardia Gastrointestinal: Normal Bowel Sounds, Non Tender, Soft Rectal: Deferred Back: Normal Inspection Extremity: Normal Capillary Refill, Normal Range of Motion, No Calf Tenderness Neurologic/Psychiatric: Alert, Oriented x3, Other (diffuse tremors) Skin: Pallor Results Results/Procedures Labs Laboratory Tests 10/19/18 09:18 Patient resulted labs reviewed. Assessment/Plan Admission Diagnosis aspiration pneumonia on Zosyn multi drug overdose alcohol withdrawal transgender chronic anxiety and depression thrombocytopenia and elevated liver function tests suspicious for chronic liver damage tobaccoism 2 packs a day-counseled Admission Status: Inpatient Order (span 2 midnights) Reason for Inpatient Admission: respiratory failure secondary to aspiration pneumonia alcohol and drug withdrawal Clinical Quality Measures DVT/VTE Risk/Contraindication: RFS Level Per Nursing on Admit: 0=No Risk/No VTE PPX FATIMAH COON MD Oct 19, 2018 15:27
[2018-10-19] MEDS ORDERED: SENNA W/DOCUSATE (SENOKOT S) TABLET PO PRN (15:45)
[2018-10-19] MEDS ORDERED: ONDANSETRON 4 MG (ZOFRAN) ORAL DISSOLVE TAB SL PRN (15:45)
[2018-10-19] MEDS ORDERED: LORazepam INJ 2 MG/ML (ATIVAN) VIAL IM/IV PRN (15:45)
[2018-10-19] MEDS ORDERED: ANTACID SUSP 30 ML UDC (MYLANTA) PO PRN (15:45)
[2018-10-19] MEDS: PIPERACILLIN/TAZO 4.5 GM/NS 100 ML IV SCH ×2 (18:22)
[2018-10-19] MEDS: MAGNESIUM OXIDE (MAG-OX)400 MG TAB PO SCH (20:37)
[2018-10-19] MEDS ORDERED: ACETAMINOPHEN 325 MG TABLET ONE (21:08)
[2018-10-19] MEDS: ONDANSETRON 4 MG/2 ML (SDV) Z0FRAN IV PRN (21:26)
[2018-10-19] MEDS: ACETAMINOPHEN 325 MG TABLET PO PRN (23:11)
[2018-10-20] VITALS (9 sets, daily range): BP systolic 110–144; BP diastolic 75–100
[2018-10-20] MEDS: NS IV PRN (01:50)
[2018-10-20] MEDS: NALOXONE IV PRN (01:50)
[2018-10-20] MEDS: PIPERACILLIN/TAZO 4.5 GM/NS 100 ML IV SCH ×4 (01:50→10:17)
[2018-10-20 03:31] LABS: BASOPHILS % (AUTO) 1 % (0-10); EOSINOPHILS # (AUTO) 0.1 10^3/uL (0.0-0.3); EOSINOPHILS % (AUTO) 1 % (0-10); HEMATOCRIT 34 % (40-54); HEMOGLOBIN 11.4 G/DL (13.3-17.7); LYMPHOCYTES # (AUTO) 0.9 X 10^3 (1.0-4.0); LYMPHOCYTES % (AUTO) 14 % (12-44); MEAN CORPUSCULAR HEMOGLOBIN 35 PG (25-34); MEAN CORPUSCULAR HGB CONC 34 G/DL (32-36); MEAN CORPUSCULAR VOLUME 104 FL (80-99); MEAN PLATELET VOLUME 10.1 FL (7.4-10.4); MONOCYTES # (AUTO) 0.3 X 10^3 (0.0-1.0); MONOCYTES % (AUTO) 5 % (0-12); NEUTROPHILS # (AUTO) 5.1 X 10^3 (1.8-7.8); NEUTROPHILS % (AUTO) 79 % (42-75); PLATELET COUNT 58 10^3/uL (130-400); RED CELL DISTRIBUTION WIDTH 11.8 % (10.0-14.5); WHITE BLOOD COUNT 6.4 10^3/uL (4.3-11.0)
[2018-10-20 03:45] LABS: INR 1.2 (0.8-1.4); PROTHROMBIN TIME PATIENT 15.3 SEC (12.2-14.7)
[2018-10-20 03:55] LABS: ALANINE AMINOTRANSFERASE 69 U/L (0-55); ALBUMIN 3.2 GM/DL (3.2-4.5); ALKALINE PHOSPHATASE 166 U/L (40-136); BILIRUBIN,TOTAL 2.6 MG/DL (0.1-1.0); BUN/CREATININE RATIO 8; CALCIUM 8.7 MG/DL (8.5-10.1); CARBON DIOXIDE 27 MMOL/L (21-32); CHLORIDE 96 MMOL/L (98-107); CREATININE SERUM 0.59 MG/DL (0.60-1.30); GFR ESTIMATED > 60; GLUCOSE 89 MG/DL (70-105); MAGNESIUM 1.4 MG/DL (1.8-2.4); PHOSPHORUS 2.6 MG/DL (2.3-4.7); POTASSIUM 3.8 MMOL/L (3.6-5.0); SODIUM 137 MMOL/L (135-145); TOTAL PROTEIN 6.1 GM/DL (6.4-8.2)
[2018-10-20] MEDS: ONDANSETRON 4 MG/2 ML (SDV) Z0FRAN IV PRN (04:14)
[2018-10-20] MEDS: ACETAMINOPHEN 325 MG TABLET PO PRN ×2 (04:15→10:22)
[2018-10-20] MEDS ORDERED: POTASSIUM CL 10MEQ/50ML IVPB 50 ML IV SCH (06:00)
[2018-10-20] MEDS ORDERED: KCL 20 MEQ TAB (K-DUR) PO SCH (06:00)
[2018-10-20] MEDS ORDERED: MAGNESIUM 1 GM/100 ML IVPB 100 ML IV SCH (06:00)
[2018-10-20] MEDS: LORazepam 1 MG (ATIVAN) TAB PO PRN (06:08)
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
[2018-10-20] MEDS: MAGNESIUM 1 GM/100 ML IVPB 100 ML IV SCH ×2 (06:23→07:33)
[2018-10-20] MEDS ORDERED: SODIUM PHOSPHATE INJ 30 MM in NS (IVPB) 250 ML IV ONE (06:30)
[2018-10-20] MEDS ORDERED: THIAMINE 100 MG (VITAMIN B-1) TAB PO SCH (07:00)
[2018-10-20] MEDS ORDERED: MULTIVIT W/MINERALS TAB (THERAGRAN M) PO SCH (07:00)
[2018-10-20] MEDS: RT-ALBUTEROL/IPRATROPIUM 3 ML (DUONEB) VIAL INH SCH (07:26)
[2018-10-20] MEDS: MAGNESIUM OXIDE (MAG-OX)400 MG TAB PO SCH (08:46)
--- NOTE | 2018-10-20 08:55 | NUR ---
ICU transfer. got report from Smitha LYNN. orientated to room. call light within reach
[2018-10-20] MEDS ORDERED: NICOTINE 21 MG (NICODERM) PATCH TD SCH (09:00)
[2018-10-20] MEDS ORDERED: FOLIC ACID 1 MG TAB PO SCH (09:00)
[2018-10-20] MEDS ORDERED: PATCH REMOVAL TP SCH (09:00)
--- NOTE | 2018-10-20 09:40 | Diagnostic Imaging Report ---
EXAMINATION: Portable erect AP chest at 348h. INDICATION: Dyspnea The heart size is within normal limits and stable when compared to 10/19/2018. The prior exam did raise the question of pneumonia/atelectasis involving the right lung base. On this study the right lung base is generally clear and well aerated. The right upper lung and left lung are also clear. The mediastinum is not widened. The osseous structures are intact. IMPRESSION: There is no evidence for an acute cardiopulmonary abnormality. Dictated by: Dictated on workstation # [id number]
--- NOTE | 2018-10-20 12:00 | NUR ---
signed papers to leave AMA Dr Andrews notified
--- NOTE | 2018-10-20 12:43 | Progress Note - Hospitalist ---
Subjective HPI/CC On Admission Date Seen by Provider: Oct 20, 2018 Time Seen by Provider: 11:45 this is a 23-year-old trans- gender, male to female who has a history of excessive alcohol intake. She had been drinking approximately half gallon of Vodka daily.. evidently she was trying to detox as an outpatient with Ativan but then obtained some morphine as well, Which she took. she denies that this was an intentional suicide attempt. she says she had a seizure because of her detoxing and that is why she was unresponsive. Narcan has worked very well to reorient her and awaken her. she complains of severe shaking at this time and requests Ativan Subjective/Events-last exam patient notes that she is going AMA. Her grandfather is picking her up. She has an appointment to go into [facility] first thing in the morning and doesn't want to miss this. She continues to adamantly deny suicidal thoughts or ideation. She denies having excessive acetaminophen intake with her alcohol. I discussed with her her worsening hepatic function and further evaluation should be pursued and that I have hepatitis panels pending. She has no interest in waiting for further evaluation. She is counseled to continue to avoid alcohol and hepatic toxins as her liver appears to be in danger. She se ems to understand Focused Exam Lactate Level 10/19/18 10:56: Lactic Acid Level 6.15*H 10/19/18 14:15: Lactic Acid Level 2.95*H 10/20/18 03:17: Lactic Acid Level 0.89 Objective Exam Vital Signs Vital Signs Date Time Temp Pulse Resp B/P (MAP) Pulse Ox O2 Delivery O2 Flow Rate FiO2 10/20/18 08:00 90 8 110/75 (87) 100 Nasal Cannula 3.00 10/20/18 04:00 97.6 Capillary Refill : Less Than 3 Seconds General Appearance: No Apparent Distress, WD/WN HEENT: Normal ENT Inspection Neck: Normal Inspection, Non Tender, Supple Respiratory: Chest Non Tender, Lungs Clear, Normal Breath Sounds, No Accessory Muscle Use, No Respiratory Distress Cardiovascular: Regular Rate, Rhythm, No Edema, No Gallop, No JVD, No Murmur Gastrointestinal: Normal Bowel Sounds, Non Tender, Soft, Hepatomegaly Rectal: Deferred Extremity: Normal Capillary Refill, Normal Inspection, Normal Range of Motion, Non Tender, No Calf Tenderness Neurologic/Psychiatric: Alert, Oriented x3, No Motor/Sensory Deficits, Normal Mood/Affect, cutter aluminum sheet II-XII Norm as Tested Skin: Normal Color, Warm/Dry Results/Procedures Lab Laboratory Tests 10/20/18 03:17 Patient resulted labs reviewed. Assessment/Plan Assessment and Plan Assess & Plan/Chief Complaint 1. acute and chronic alcohol abuse 2. acute respiratory failure secondary to alcohol and medication unintentional overdose 3. hepatic dysfunction presumed secondary to excessive alcohol use 4. history of poly-drug abuse 5. transgender Clinical Quality Measures DVT/VTE Risk/Contraindication: RFS Level Per Nursing on Admit: 0=No Risk/No VTE PPX VAL COON MD Oct 20, 2018 12:43
[2018-10-22 06:51] LABS: HEPATITIS C ANTIBODY C Non-Reactive (Non-Reactive)
--- NOTE | 2018-10-22 13:59 | Physician Query-Final Dx ---
SERGEY AMOR 10/22/18 1359: Final Diagnosis Give Final Diagnosis Please give Final Diagnosis VAL COON MD 10/23/18 1103: Final Diagnosis Give Final Diagnosis unresponsive state secondary to unintentional narcotics overdose acute and chronic alcoholism hepatic dysfunction SERGEY AMOR Oct 22, 2018 13:59 VAL COON MD Oct 23, 2018 11:03
== END 2018-10-20 12:00 | disposition left against medical advice (07) | DRG 917 ==
LOC: EDUNIT# 09:02 → ER 09:03 → UNDOADMIN 11:23 → ICU 11:23 → 4TH 10-20 08:52
PROVIDERS: ADMIT Internal Medicine; ATTEND Internal Medicine
DX: T40.2X1A Poisoning by other opioids, accidental (unintentional), initial encounter (principal); T51.0X1A Toxic effect of ethanol, accidental (unintentional), initial encounter; J96.00 Acute respiratory failure, unspecified whether with hypoxia or hypercapnia; J69.0 Pneumonitis due to inhalation of food and vomit; F10.10 Alcohol abuse, uncomplicated; F15.10 Other stimulant abuse, uncomplicated; F12.10 Cannabis abuse, uncomplicated; R40.0 Somnolence; R47.81 Slurred speech; F17.210 Nicotine dependence, cigarettes, uncomplicated; F41.9 Anxiety disorder, unspecified; F32.9 Major depressive disorder, single episode, unspecified; K76.9 Liver disease, unspecified
CPT/HCPCS: 36415; 36600; 71045; 80053; 80320; 80329; 82550; 82805; 82962; 83605; 83735; 84100; 84443; 85007; 85025; 85027; 85610; 85730; 86141; 86703; 86803; 87040; 93005; 94640

== ENCOUNTER 2018-10-28 02:10 | Emergency (ER) | payer SELFPAY ==
[~2018-10-28] VITALS: Ht 162.6 cm; Wt 61.3 kg
[~2018-10-28 02:10] MED LIST changes: +BUPR150T9 PO; +SULF1TAB35 PO
[2018-10-28] MEDS ORDERED: LACTATED RINGERS 1,000 ML IV ONE ×3 (02:15→06:20)
[2018-10-28 02:32] LABS: BASOPHILS # (AUTO) 0.2 10^3/uL (0.0-0.1); BASOPHILS % (AUTO) 3 % (0-10); EOSINOPHILS # (AUTO) 0.1 10^3/uL (0.0-0.3); EOSINOPHILS % (AUTO) 1 % (0-10); HEMATOCRIT 39 % (40-54); HEMOGLOBIN 12.6 G/DL (13.3-17.7); LYMPHOCYTES # (AUTO) 3.2 X 10^3 (1.0-4.0); LYMPHOCYTES % (AUTO) 45 % (12-44); MEAN CORPUSCULAR HEMOGLOBIN 35 PG (25-34); MEAN CORPUSCULAR HGB CONC 33 G/DL (32-36); MEAN CORPUSCULAR VOLUME 106 FL (80-99); MEAN PLATELET VOLUME 9.1 FL (7.4-10.4); MONOCYTES # (AUTO) 0.5 X 10^3 (0.0-1.0); MONOCYTES % (AUTO) 7 % (0-12); NEUTROPHILS % (AUTO) 43 % (42-75); PLATELET COUNT 435 10^3/uL (130-400); RED CELL DISTRIBUTION WIDTH 12.7 % (10.0-14.5)
[2018-10-28 02:44] LABS: INR 1.1 (0.8-1.4); PROTHROMBIN TIME PATIENT 14.8 SEC (12.2-14.7)
[2018-10-28] MEDS ORDERED: CEFEPIME INJECTION 1,000 MG in WATER (STERILE) FOR INJECTION 10 ML IV ONE (02:45)
[2018-10-28 02:51] LABS: ALANINE AMINOTRANSFERASE 117 U/L (0-55); ALBUMIN 3.8 GM/DL (3.2-4.5); ALKALINE PHOSPHATASE 208 U/L (40-136); AMYLASE 119 U/L (25-125); BILIRUBIN,TOTAL 0.9 MG/DL (0.1-1.0); BUN/CREATININE RATIO 9; CALCIUM 7.5 MG/DL (8.5-10.1); CARBON DIOXIDE 19 MMOL/L (21-32); CHLORIDE 108 MMOL/L (98-107); CREATININE SERUM 0.77 MG/DL (0.60-1.30); GFR ESTIMATED > 60; GLUCOSE 167 MG/DL (70-105); MAGNESIUM 1.9 MG/DL (1.6-2.4); POTASSIUM 4.6 MMOL/L (3.6-5.0); SALICYLATE < 5.0 MG/DL (5.0-20.0); SODIUM 145 MMOL/L (135-145); TOTAL PROTEIN 7.1 GM/DL (6.4-8.2)
[2018-10-28 02:57] LABS: ACETAMINOPHEN < 10 UG/ML (10-30)
[2018-10-28] MEDS ORDERED: CALCIUM CHLORIDE 1 GM/10 ML (IMS) SYR INJ ONE (03:30)
[2018-10-28] MEDS ORDERED: CALCIUM GLUC. 10% 4.65 MEQ/10 ML VIAL ONE (03:46)
[2018-10-28] MEDS ORDERED: ONDANSETRON 4 MG/2 ML (SDV) Z0FRAN ONE ×2 (03:53→03:54)
[2018-10-28] MEDS ORDERED: SCOPOLAMINE 1.5 MG (TRANSDERM-SCOP) PATCH ONE (03:54)
[2018-10-28 03:57] LABS: ABG BASE EXCESS -1.5 MMOL/L (-2.5-2.5); ABG OXYGEN SATURATION 75 % (94-100); ABG PCO2 63 MMHG (35-45); ABG PO2 52 MMHG (79-93); ABG TCO2 27.3 MMOL/L (21.0-31.0); ALLENS TEST POSITIVE
[2018-10-28 03:58] LABS: ABG PH 7.23 (7.37-7.43); INSPIRED O2 4; PATIENT TEMP 97.6; VENTILATOR NO
[2018-10-28] MEDS ORDERED: NALOXONE 2 MG/2 ML (NARCAN) SYR IV ONE (04:00)
[2018-10-28] MEDS ORDERED: SCOPOLAMINE 1.5 MG (TRANSDERM-SCOP) PATCH TD ONE (04:00)
[2018-10-28] MEDS ORDERED: ONDANSETRON 4 MG/2 ML (SDV) Z0FRAN IVP ONE ×2 (04:00→07:00)
[2018-10-28] MEDS ORDERED: CALCIUM GLUCONATE 10% INJ 4.65 MEQ in NS (IVPB) 50 ML IV ONE (04:00)
[2018-10-28] MEDS ORDERED: methylPREDNISolone 125 MG (Solu-MEDROL) VIAL IV STA (04:24)
[2018-10-28] MEDS ORDERED: methylPREDNISolone 125 MG (Solu-MEDROL) VIAL ONE (04:26)
[2018-10-28 04:29] LABS: BILIRUBIN,URINE NEGATIVE (NEGATIVE); CLARITY,URINE CLEAR; COLOR,URINE YELLOW; GLUCOSE, URINE (UA) NEGATIVE (NEGATIVE); KETONES,URINE NEGATIVE (NEGATIVE); LEUKOCYTE ESTERASE ,URINE NEGATIVE (NEGATIVE); NITRITE,URINE NEGATIVE (NEGATIVE); PH,URINE 7 (5-9); PROTEIN,URINE 2+ (NEGATIVE); UROBILINOGEN,URINE 1 MG/DL (NORMAL)
[2018-10-28] MEDS ORDERED: RT-ALBUTEROL/IPRATROPIUM 3 ML (DUONEB) VIAL INH ONE ×2 (04:30→04:45)
[2018-10-28] MEDS ORDERED: DEXAMETHASONE 4 MG/ML SDV (DECADRON) IH ONE ×2 (04:30→04:45)
--- NOTE | 2018-10-28 04:36 | ED General ---
General Chief Complaint: Substance Abuse Stated Complaint: OVERDOSE Nursing Triage Note: BROUGHT IN BY [facility] UNRESPONSIVE Nursing Sepsis Screen: No Definite Risk Source of Information: Patient, EMS, Old Records Exam Limitations: Other (PT IS INTOXICATED AND NOT A RELIABLE HISTORIAN, NO FAMILY CAME TO ER OR CALLED ABOUT PT) History of Present Illness Date Seen by Provider: Oct 28, 2018 Time Seen by Provider: 02:05 Initial Comments PT ARRIVES VIA EMS FROM HOME ( PT LIVES WITH GRANDPARENTS ) FAMILY CALLED EMS AFTER FINDING PT UNRESPONSIVE EMS REPORT THAT INITIAL O2 SAT WAS 52% FAMILY THOUGHT THAT PT "MIGHT HAVE OVERDOSED ON SOMETHING"--"MAYBE MORPHINE", BUT THEY HAVE NO IDEA IF HE ACTUALLY DID, AND THERE WERE NO BOTTLES OF PILLS OR OTHER DRUGS FOUND NEAR PT. PT DOES NOT HAVE ANY KNOWN PRESCRIPTIONS, PER FAMILY TO EMS EMS GAVE PT 2 MG NARCAN WITH SOME IMPROVEMENT IN MENTATION, AND ON ARRIVAL TO ER, PT IS ABLE TO OPEN EYES/LOOK AROUND, BUT HAS SLURRED SPEECH AND IS VERY DROWSY AND QUICKLY FALLS BACK ASLEEP. PT KNOWS HE IS AT A HOSPITAL, BUT DOES NOT KNOW WHICH ONE, DOES NOT KNOW DATE/TIME, BUT IS ABLE TO STATE THAT HE IS HERE BECAUSE OF "ALCOHOLISM" PT DENIES TAKING ANY DRUGS, AND DENIES ANY SUICIDAL THOUGHTS OR INTENT. PT IS LONGSTANDING ALCOHOLIC WHO HAS HAD ESCALATING NUMBER OF ER VISITS--HAS HAD 17 VISITS HERE THIS YEAR--EACH ONE FOR ALCOHOL INTOXICATION. PT HAS REPEATEDLY REFUSED TO GO INTO TREATMENT FOR THIS PROBLEM. PT FREQUENTLY SIGNS OUT AMA. BLOOD ALCOHOL LEVELS IN 300'S TO 400'S EVERY TIME HE IS HERE, AND ONE TIME THE LEVEL WAS IN THE 500'S. PT USUALLY ABLE TO WALK AND TALK FAIRLY CLEARLY AT THESE HIGH ALCOHOL LEVELS. PT ALSO WITH EXTENSIVE HISTORY OF DRUG ABUSE--ATIVAN/BENZODIAZEPINES, OPIATES, THC, METHAMPHETAMINES PT WAS ADMITTED HERE 10/19/18 FOR RLL ASPIRATION PNEUMONIA, DRUG OVER DOSE OF ATIVAN AND MORPHINE AND ALCOHOL INTOXICATION--VERY SIMILAR SITUATION PT IS PRESENTING WITH TODAY. PT LEFT AMA 10/20/18 OTHER STAFF MEMBERS HERE ARE FAMILIAR WITH PT FROM OTHER LOCAL HOSPITALS WELL, ALSO FOR THESE SAME ISSUES Allergies and Home Medications Allergies Coded Allergies: No Known Drug Allergies (Unverified , 11/12/09) Home Medications Bupropion HCl 150 Mg Tablet.er, 150 MG PO BID, (Reported) Lorazepam 1 Mg Tablet, 1 MG PO Q6H PRN for TREMORS Prescribed by: KIMMIE NEVILLE on 08/13/18 1031 Omeprazole 20 Mg Capsule.dr, 20 MG PO BID Prescribed by: KIMMIE NEVILLE on 07/27/18 0003 Ondansetron 4 Mg Tab.rapdis, 4 MG PO Q4H PRN for NAUSEA/VOMITING Prescribed by: KIMMIE NEVILLE on 07/27/18 0003 Ondansetron 4 Mg Tab.rapdis, 4 MG SL Q4H PRN for NAUSEA/VOMITING Prescribed by: KIMMIE NEVILLE on 08/13/18 1031 Sulfamethoxazole/Trimethoprim 1 Each Tablet, 1 EACH PO BID, (Reported) Patient Home Medication List Home Medication List Reviewed: Yes Review of Systems Review of Systems Constitutional: other (PT INTOXICATED AND SOMNOLENT AND UNABLE TO GIVE ANY RELIABLE INFORMATION) Past Awucadk-Oxojhc-Ldpekv Hx Patient Social History Alcohol Use: Regular Use (HEAVY, DAILY USE--USUALLY VODKA, PLUS WINE. ) Number of Drinks Today: FF Alcohol Beverage of Choice: Vodka Recreational Drug Use: Yes (THC, METH, OPIATES, BENZODIAZEPINE) Drug of Choice: THC, METH, OPIATES, BENZODIAZEPINES Smoking Status: Current Everyday Smoker (2 PPD) Type Used: Cigarettes (2 PPD) 2nd Hand Smoke Exposure: No Recent Foreign Travel: No Contact w/Someone Who Travel: No Recent Infectious Disease Expo: No Recent Hopitalizations: No Physical Abuse: No Sexual Abuse: No Mistreated: No Fear: No Immunizations Up To Date Tetanus Booster (TDap): Unknown PED Vaccines UTD: No Date of Influenza Vaccine: Mar 14, 2018 Seasonal Allergies Seasonal Allergies: No Past Medical History Surgeries: Yes (FRENULECTOMY) Respiratory: Yes (ASPIRATION PNEUMONIA 10/19/18 DUE TO ETOH + MULTIPLE DRUG OVERDOSE--SINGED OUT AMA 10/20/18) Currently Using CPAP: No Currently Using BIPAP: No Cardiac: No Neurological: No 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) Sexually Transmitted Disease: No Genitourinary: Yes Bladder Infection Gastrointestinal: Yes (PERSISTENTLY ELEVATED LIVER ENZYMES) Liver Disease/Jaundice Musculoskeletal: No Endocrine: No HEENT: No Cancer: No Psychosocial: Yes (POLYSUBSTANCE ABUSE, ALCOHOLISM, WANTS TO IDENTIFY A FEMALE, BUT NO SURGERIES/HORMONES, ETC. ) Anxiety, Suicide Attempts, Depression Integumentary: Yes (LESION LEFT THIGH) Blood Disorders: No Adverse Reaction/Blood Tranf: No Physical Exam Vital Signs Vital Signs - First Documented Capillary Refill : Less Than 3 Seconds Height, Weight, BMI Height: 5'4.00" Weight: 135lbs. 3.0oz. [id number]; 24.0 BMI Method:Stated General Appearance: Other (VERY SOMNOLENT, REEKS OF ALCOHOL, SPEECH SLURRED, DOES OPEN EYES AND TALK SOME, THEN IMMEDIATELY GOES BACK TO SLEEP; DIRTY, MALODOROUS, VERY UNKEMPT. WEARING ONLY A HALF-TSHIRT AND UNDERWEAR. ) HEENT: Other (PUPILS PINPOING) Neck: Full Range of Motion Respiratory: Normal Breath Sounds, No Accessory Muscle Use, No Respiratory Distress, Other (HYPOVENTILATES AND O2 SATS DROP WHEN HE SLEEPS, RESPIRTIONS NORMAL AND O2 SATS UP TO 90'S ON O2 AT 4L/NC WHILE AWAKE. ) Cardiovascular: No Edema, No JVD, No Murmur, Tachycardia (130'S) Gastrointestinal: Non Tender, Soft Extremity: Normal Capillary Refill, Normal Range of Motion, Non Tender, No Pedal Edema Neurologic/Psychiatric: No Motor/Sensory Deficits (GROSSLY INTACT), Other (MENTATION ABOVE. OBVIOUSLY UNDER THE INFLUENCE OF SOME SUBSTANCES/S + ALCOHOL) Skin: Warm/Dry, Pallor, Tattoos/Piercings Focused Exam Lactate Level 10/28/18 03:10: Lactic Acid Level 4.10*H Lactic Acid Level Procedures/Interventions Suture Size: 5-0 Progress/Results/Core Measures Suspected Sepsis Recent Fever Within 48 Hours: No Infection Criteria Present: None New/Unexplained Altered Menta: No Sepsis Screen: No Definite Risk SIRS Temperature:97.8 Pulse: 138 Respiratory Rate: 20 Laboratory Tests 10/28/18 02:25: White Blood Count 7.0 Blood Pressure 153 /119 Mean: 130 10/28/18 03:10: Lactic Acid Level 4.10*H Laboratory Tests 10/28/18 02:25: Creatinine 0.77, INR Comment 1.1, Platelet Count 435H, Total Bilirubin 0.9 Results/Orders Lab Results Laboratory Tests Test 10/28/18 02:25 10/28/18 03:10 10/28/18 03:38 10/28/18 04:20 Range/Units White Blood Count 7.0 4.3-11.0 10^3/uL Red Blood Count 3.63 L 4.35-5.85 10^6/uL Hemoglobin 12.6 L 13.3-17.7 G/DL Hematocrit 39 L 40-54 % Mean Corpuscular Volume 106 H 80-99 FL Mean Corpuscular Hemoglobin 35 H 25-34 PG Mean Corpuscular Hemoglobin Concent 33 32-36 G/DL Red Cell Distribution Width 12.7 10.0-14.5 % Platelet Count 435 H 130-400 10^3/uL Mean Platelet Volume 9.1 7.4-10.4 FL Neutrophils (%) (Auto) 43 42-75 % Lymphocytes (%) (Auto) 45 H 12-44 % Monocytes (%) (Auto) 7 0-12 % Eosinophils (%) (Auto) 1 0-10 % Basophils (%) (Auto) 3 0-10 % Neutrophils # (Auto) 3.0 1.8-7.8 X 10^3 Lymphocytes # (Auto) 3.2 1.0-4.0 X 10^3 Monocytes # (Auto) 0.5 0.0-1.0 X 10^3 Eosinophils # (Auto) 0.1 0.0-0.3 10^3/uL Basophils # (Auto) 0.2 H 0.0-0.1 10^3/uL Prothrombin Time 14.8 H 12.2-14.7 SEC INR Comment 1.1 0.8-1.4 Activated Partial Thromboplast Time 27 24-35 SEC Sodium Level 145 135-145 MMOL/L Potassium Level 4.6 3.6-5.0 MMOL/L Chloride Level 108 H 98-107 MMOL/L Carbon Dioxide Level 19 L 21-32 MMOL/L Anion Gap 18 H 5-14 MMOL/L Blood Urea Nitrogen 7 7-18 MG/DL Creatinine 0.77 0.60-1.30 MG/DL Estimat Glomerular Filtration Rate > 60 BUN/Creatinine Ratio 9 Glucose Level 167 H 70-105 MG/DL Calcium Level 7.5 L 8.5-10.1 MG/DL Corrected Calcium 7.7 L 8.5-10.1 MG/DL Magnesium Level 1.9 1.6-2.4 MG/DL Total Bilirubin 0.9 0.1-1.0 MG/DL Aspartate Amino Transf (AST/SGOT) 334 H 5-34 U/L Alanine Aminotransferase (ALT/SGPT) 117 H 0-55 U/L Alkaline Phosphatase 208 H 40-136 U/L Total Protein 7.1 6.4-8.2 GM/DL Albumin 3.8 3.2-4.5 GM/DL Amylase Level 119 25-125 U/L Salicylates Level < 5.0 L 5.0-20.0 MG/DL Acetaminophen Level < 10 L 10-30 UG/ML Serum Alcohol 410 *H <10 MG/DL Lactic Acid Level 4.10 *H 0.50-2.00 MMOL/L Blood Gas Puncture Site LEFT RADIAL Blood Gas Patient Temperature 97.6 Arterial Blood pH 7.23 *L 7.37-7.43 Arterial Blood Partial Pressure CO2 63 H 35-45 MMHG Arterial Blood Partial Pressure O2 52 L 79-93 MMHG Arterial Blood HCO3 25 23-27 MMOL/L Arterial Blood Total CO2 27.3 21.0-31.0 MMOL/L Arterial Blood Oxygen Saturation 75 L 94-100 % Arterial Blood Base Excess -1.5 -2.5-2.5 MMOL/L [place] Test POSITIVE Blood Gas Ventilator Setting NO Blood Gas Inspired Oxygen 4 Urine Color YELLOW Urine Clarity CLEAR Urine pH 7 5-9 Urine Specific [place] 1.015 L 1.016-1.022 Urine Protein 2+ H NEGATIVE Urine Glucose (UA) NEGATIVE NEGATIVE Urine Ketones NEGATIVE NEGATIVE Urine Nitrite NEGATIVE NEGATIVE Urine Bilirubin NEGATIVE NEGATIVE Urine Urobilinogen 1 NORMAL MG/DL Urine Leukocyte Esterase NEGATIVE NEGATIVE Urine RBC (Auto) NEGATIVE NEGATIVE Urine RBC NONE /HPF Urine WBC NONE /HPF Urine Squamous Epithelial Cells 0-2 /HPF Urine Crystals NONE /LPF Urine Bacteria FEW H /HPF Urine Casts PRESENT /LPF Urine Hyaline Casts 0-2 H /LPF Urine Mucus NEGATIVE /LPF Urine Culture Indicated NO Urine Opiates Screen POSITIVE H NEGATIVE Urine Oxycodone Screen NEGATIVE NEGATIVE Urine Methadone Screen NEGATIVE NEGATIVE Urine Propoxyphene Screen NEGATIVE NEGATIVE Urine Barbiturates Screen NEGATIVE NEGATIVE Ur Tricyclic Antidepressants Screen NEGATIVE NEGATIVE Urine Phencyclidine Screen NEGATIVE NEGATIVE Urine Amphetamines Screen NEGATIVE NEGATIVE Urine Methamphetamines Screen NEGATIVE NEGATIVE Urine Benzodiazepines Screen NEGATIVE NEGATIVE Urine Cocaine Screen NEGATIVE NEGATIVE Urine Cannabinoids Screen NEGATIVE NEGATIVE Test 10/28/18 04:50 10/28/18 06:37 Range/Units Ammonia 37 H 11-32 UMOL/L Blood Gas Puncture Site R RADIAL Blood Gas Patient Temperature 97.8 Arterial Blood pH 7.32 *L 7.37-7.43 Arterial Blood Partial Pressure CO2 49 H 35-45 MMHG Arterial Blood Partial Pressure O2 87 79-93 MMHG Arterial Blood HCO3 25 23-27 MMOL/L Arterial Blood Total CO2 26.2 21.0-31.0 MMOL/L Arterial Blood Oxygen Saturation 95 94-100 % Arterial Blood Base Excess -0.8 -2.5-2.5 MMOL/L [place] Test POSITIVE Blood Gas Ventilator Setting NO Blood Gas Inspired Oxygen 35% BIPAP My Orders Orders - ANGELA CELESTIN DO Ed Iv/Invasive Line Start (10/28/18 02:15) Ekg Tracing (10/28/18 02:15) Catheter(Urinary) Insert & Ass 03,15 (10/28/18 02:15) O2 (10/28/18 02:15) Monitor-Rhythm Ecg Trace Only (10/28/18 02:15) Acetaminophen (10/28/18 02:15) Alcohol (10/28/18 02:15) Amylase (10/28/18 02:15) Arterial Blood Gas (10/28/18 02:15) Cbc With Automated Diff (10/28/18 02:15) Comprehensive Metabolic Panel (10/28/18 02:15) Drug Screen Stat (Urine) (10/28/18 02:15) Magnesium (10/28/18 02:15) Protime With Inr (10/28/18 02:15) Partial Thromboplastin Time (10/28/18 02:15) Salicylate (10/28/18 02:15) Ua Culture If Indicated (10/28/18 02:15) Ed Iv/Invasive Line Start (10/28/18 02:15) Lactated Ringers (Lr 1000 Ml Iv Solution (10/28/18 02:15) Chest 1 View, Ap/Pa Only (10/28/18 02:15) Cefepime Injection (Maxipime Injection) (10/28/18 02:45) Calcium Chloride 10% Injection (Calcium (10/28/18 03:30) Ed Iv/Invasive Line Start (10/28/18 03:32) Lactated Ringers (Lr 1000 Ml Iv Solution (10/28/18 03:32) Naloxone Injection (Narcan Injection) (10/28/18 04:00) Calcium Gluconate 10% Inj (Calcium Glu (10/28/18 04:00) Calcium Gluconate 10% Inj (Calcium Glu (10/28/18 03:46) Lactic Acid Analyzer (10/28/18 03:56) Blood Culture (10/28/18 03:56) Ondansetron Injection (Zofran Injectio (10/28/18 04:00) Scopolamine Patch (Transderm-Scop Patch) (10/28/18 04:00) Ondansetron Injection (Zofran Injectio (10/28/18 03:53) Ondansetron Injection (Zofran Injectio (10/28/18 03:54) Scopolamine Patch (Transderm-Scop Patch) (10/28/18 03:54) Albuterol/Ipra Inhalation Soln (Duoneb I (10/28/18 04:30) Dexamethasone Injection (Decadron Inject (10/28/18 04:30) Rt Request For Service (10/28/18 04:24) Methylprednisolone Sod Succ (Solu-Medrol (10/28/18 04:24) Ammonia (10/28/18 04:24) Svn Small Volume Nebulizer (10/28/18 04:24) Albuterol/Ipra Inhalation Soln (Duoneb I (10/28/18 04:45) Dexamethasone Injection (Decadron Inject (10/28/18 04:45) Rt Request For Service (10/28/18 04:37) Svn Small Volume Nebulizer (10/28/18 04:37) Piperacillin/Tazobactam (Bulk) (Zosyn In (10/28/18 05:00) Piperacillin Sodium/Tazobactam (Zosyn Vi (10/28/18 04:59) Ns (Ivpb) (Sodium Chloride 0.9% Ivpb Bag (10/28/18 05:00) Methylprednisolone Sod Succ (Solu-Medrol (10/28/18 04:26) Ed Iv/Invasive Line Start (10/28/18 06:20) Lactated Ringers (Lr 1000 Ml Iv Solution (10/28/18 06:20) Arterial Blood Gas (10/28/18 06:20) Arterial Blood Draw (10/28/18 ) Ondansetron Injection (Zofran Injectio (10/28/18 07:00) Medications Given in ED Current Medications Medications Dose Ordered Sig/[place] Route Start Time Stop Time Status Last Admin Dose Admin Albuterol/ Ipratropium 3 ml ONCE ONCE INH 10/28/18 04:30 10/28/18 05:59 DC 10/28/18 04:46 3 ML Calcium Gluconate 4.65 meq/Sodium Chloride 60 ml @ 240 mls/hr ONCE ONCE IV 10/28/18 04:00 10/28/18 04:14 DC 10/28/18 03:55 240 MLS/HR Cefepime HCl 1000 mg/Sterile Water 10 ml @ 200 mls/hr ONCE ONCE IV 10/28/18 02:45 10/28/18 02:47 DC 10/28/18 03:28 200 MLS/HR Dexamethasone Sodium Phosphate 20 mg ONCE ONCE IH 10/28/18 04:30 10/28/18 05:59 DC 10/28/18 04:47 20 MG Lactated Ringer's 1,000 ml @ 0 mls/hr Q0M ONCE IV 10/28/18 02:15 10/28/18 02:18 DC 10/28/18 02:28 0 MLS/HR Lactated Ringer's 1,000 ml @ 0 mls/hr Q0M ONCE IV 10/28/18 03:32 10/28/18 03:33 DC 10/28/18 03:55 0 MLS/HR Naloxone HCl 2 mg ONCE ONCE IV 10/28/18 04:00 10/28/18 04:01 DC 10/28/18 03:55 2 MG Ondansetron HCl 8 mg ONCE ONCE IVP 10/28/18 04:00 10/28/18 04:01 DC 10/28/18 04:12 8 MG Ondansetron HCl 8 mg ONCE ONCE IVP 10/28/18 07:00 10/28/18 07:01 DC 10/28/18 07:03 8 MG Piperacillin Sod/ Tazobactam Sod 4.5 gm/Sodium Chloride 120 ml @ 240 mls/hr ONCE ONCE IV 10/28/18 05:00 10/28/18 05:29 DC 10/28/18 05:11 240 MLS/HR Scopolamine 1.5 mg STK-MED ONCE .ROUTE 10/28/18 03:54 10/28/18 04:02 DC 10/28/18 04:12 1.5 MG Vital Signs/I&O 10/28/18 10/28/18 10/28/18 10/28/18 02:10 02:10 04:47 07:05 Temp 97.8 Pulse 138 119 113 Resp 20 25 20 B/P (MAP) 153/119 (130) 146/96 (113) Pulse Ox 100 100 100 98 O2 Delivery Non Rebreather Non Rebreather NIV Bilevel O2 Flow Rate 15.00 15.00 35.00 Capillary Refill : Less Than 3 Seconds Blood Pressure Mean: 130 Progress Note : Progress Note PT REQUIRED ADDITIONAL DOSE OF NARCAN, DUE TO SOME INCREASING SOMNOLENCE AND D ROP IN O2 SATS, WITH IMMEDIATE IMPROVEMENT IN MENTATION, AND THEN PT AT HIS NORMAL BASELINE OF BELLIGERENCE, UNCOOPERATIVENESS, COMBATIVE, DEFIANT, ARGUMENTATIVE, MANIPULATIVE, BEHAVIOR. SPEECH IS CLEAR AND PT IS ORIENTED TO PERSON, PLACE, SITUATION, AND GROSSLY ORIENTED TO TIME. PT DID HAVE SOME NAUSEA AND VOMITING--GIVEN ZOFRAN AND SCOPOLAMINE PATCH PLACED. PT EVENTUALLY PLACED ON BIPAP, PT CONTINUED TO BECOME HYPOXIC WITH SLEEPING / HYPOVENTILATION, AND AFTER OBTAINING ABG RESULTS, WITH IMPROVEMENT IN O2 SATS , AND IMPROVEMENT IN ABG'S AFTER BEING PLACED ON BIPAP ECG Initial ECG Impression Date: Oct 28, 2018 Initial ECG Impression Time: 03:20 Initial ECG Rate: 126 Initial ECG Rhythm: S.Tach Diagnostic Imaging Comments CXR--RLL PNEUMONIA, APPEARS INCREASED FROM PREVIOUS CXR--PENDING RADIOLOGIST REVIEW Reviewed: Reviewed by Me Departure Communication (Admissions) CURRENTLY THERE ARE NO BEDS AVAILABLE HERE, AND HOSPITAL IS ON DIVERSION FOR ADMISSIONS. 0450--CALLED [facility]. [facility] [phone]--SPOKE WITH DR. VAUGHN, ACCEPTS PT FOR ADMIT/TRANSFER Impression Primary Impression: Drug overdose Additional Impressions: Alcohol intoxication in active alcoholic Acute respiratory failure with hypoxia and hypercapnia Severe sepsis Aspiration pneumonia Hypocalcemia Elevated liver enzymes Disposition: XFER SHT-TRM HOSP Condition: Improved Departure-Patient Inst. Referrals: [facility] (PCP/Family) Primary Care Physician Patient Instructions: ALCOHOL AND SUBSTANCE ABUSE ANGELA CELESTIN DO Oct 28, 2018 04:36
[2018-10-28 04:46] LABS: AMPHETAMINE SCREEN, URINE NEGATIVE (NEGATIVE); BACTERIA,URINE FEW /HPF; BARBITURATE SCREEN URINE NEGATIVE (NEGATIVE); BENZODIAZEPINES SCREEN URINE NEGATIVE (NEGATIVE); CANNABINOID SCREEN, URINE NEGATIVE (NEGATIVE); COCAINE SCREEN URINE NEGATIVE (NEGATIVE); METHADONE STAT NEGATIVE (NEGATIVE); METHAMPHETAMINE SCREEN URINE S NEGATIVE (NEGATIVE); OPIATE SCREEN URINE POSITIVE (NEGATIVE); OXYCODONE STAT NEGATIVE (NEGATIVE); PROPOXYPHENE STAT NEGATIVE (NEGATIVE); SQUAMOUS EPITHELIAL CELL,UR 0-2 /HPF; TRICYCLIC ANTIDEPRESSANTS SCRE NEGATIVE (NEGATIVE)
[2018-10-28 04:47] LABS: HYALINE CASTS, URINE 0-2 /LPF
[2018-10-28] MEDS ORDERED: PIPERACILLIN/TAZO 4.5 GM VIAL (ZOSYN) IV ONE (04:59)
[2018-10-28] MEDS ORDERED: NS (IVPB) 100 ML ONE (05:00)
[2018-10-28] MEDS ORDERED: PIPERACILLIN/TAZOBACTAM (BULK) 4.5 GM in NS (IVPB) 100 ML IV ONE (05:00)
--- NOTE | 2018-10-28 05:21 | Diagnostic Imaging Report ---
INDICATION: Overdose. COMPARISON: 10/20/2018. FINDINGS: Single frontal radiographic view of the chest was obtained and demonstrate normal cardiac silhouette and pulmonary vasculature. Lungs show increased patchy airspace opacities within the medial right lower lung. Left lung is relatively clear. There is no large effusion or pneumothorax on either side. Osseous structures show no acute abnormalities. IMPRESSION: 1. Minimal patchy infiltrate or atelectasis within the right lower lung. Dictated by: Dictated on workstation # [id number]
--- NOTE | 2018-10-28 06:25 | NUR ---
[facility]
[2018-10-28 06:40] LABS: ABG BASE EXCESS -0.8 MMOL/L (-2.5-2.5); ABG OXYGEN SATURATION 95 % (94-100); ABG PCO2 49 MMHG (35-45); ABG PO2 87 MMHG (79-93); ABG TCO2 26.2 MMOL/L (21.0-31.0)
[2018-10-28 06:42] LABS: ABG PH 7.32 (7.37-7.43); ALLENS TEST POSITIVE; INSPIRED O2 35% BIPAP; PATIENT TEMP 97.8; VENTILATOR NO
[2018-10-28 07:05] VITALS: BP 146/96
== END 2018-10-28 07:18 | disposition short-term general hospital (02) ==
LOC: EDUNIT# 02:14 → ER 02:16
DX: A41.9 Sepsis, unspecified organism (principal); R65.21 Severe sepsis with septic shock; J96.01 Acute respiratory failure with hypoxia; J96.02 Acute respiratory failure with hypercapnia; J69.0 Pneumonitis due to inhalation of food and vomit; T50.901A Poisoning by unspecified drugs, medicaments and biological substances, accidental (unintentional), initial encounter; F10.229 Alcohol dependence with intoxication, unspecified; E83.51 Hypocalcemia; R74.8 Abnormal levels of other serum enzymes; F17.210 Nicotine dependence, cigarettes, uncomplicated; F41.9 Anxiety disorder, unspecified; F32.9 Major depressive disorder, single episode, unspecified; Z91.5 Personal history of self-harm; Z87.19 Personal history of other diseases of the digestive system
CPT/HCPCS: 36415; 36600; 71045; 80053; 80306; 80320; 80329; 81000; 82140; 82150; 82805; 83605; 83735; 85025; 85610; 85730; 87040; 93005; 93041; 94640

== ENCOUNTER 2019-02-05 08:08 | Emergency (ER) | payer SELFPAY ==
[~2019-02-05] VITALS: Ht 162.5 cm; Wt 61.8 kg
[2019-02-05] MEDS ORDERED: LACTATED RINGERS 1,000 ML IV ONE ×2 (08:23→09:32)
--- NOTE | 2019-02-05 08:26 | NUR ---
Pt reports not feeling safe at home with grandfather, but is planning to go to [place] to stay with boyfriend.
[2019-02-05 08:40] LABS: BASOPHILS # (AUTO) 0.1 10^3/uL (0.0-0.1); BASOPHILS % (AUTO) 1 % (0-10); EOSINOPHILS % (AUTO) 1 % (0-10); HEMATOCRIT 47 % (40-54); HEMOGLOBIN 16.4 G/DL (13.3-17.7); LYMPHOCYTES # (AUTO) 2.2 X 10^3 (1.0-4.0); LYMPHOCYTES % (AUTO) 29 % (12-44); MEAN CORPUSCULAR HEMOGLOBIN 34 PG (25-34); MEAN CORPUSCULAR HGB CONC 35 G/DL (32-36); MEAN CORPUSCULAR VOLUME 97 FL (80-99); MEAN PLATELET VOLUME 9.6 FL (7.4-10.4); MONOCYTES # (AUTO) 0.4 X 10^3 (0.0-1.0); MONOCYTES % (AUTO) 5 % (0-12); NEUTROPHILS # (AUTO) 4.9 X 10^3 (1.8-7.8); NEUTROPHILS % (AUTO) 64 % (42-75); PLATELET COUNT 296 10^3/uL (130-400); RED CELL DISTRIBUTION WIDTH 14.1 % (10.0-14.5); WHITE BLOOD COUNT 7.7 10^3/uL (4.3-11.0)
[2019-02-05] MEDS ORDERED: ONDANSETRON 4 MG/2 ML (SDV) Z0FRAN IVP ONE (08:45)
[2019-02-05 08:59] LABS: ALANINE AMINOTRANSFERASE 89 U/L (0-55); ALBUMIN 4.7 GM/DL (3.2-4.5); ALKALINE PHOSPHATASE 151 U/L (40-136); BILIRUBIN,TOTAL 0.8 MG/DL (0.1-1.0); BUN/CREATININE RATIO 8; CALCIUM 9.1 MG/DL (8.5-10.1); CARBON DIOXIDE 27 MMOL/L (21-32); CHLORIDE 102 MMOL/L (98-107); CREATININE SERUM 0.84 MG/DL (0.60-1.30); GFR ESTIMATED > 60; GLUCOSE 102 MG/DL (70-105); POTASSIUM 3.6 MMOL/L (3.6-5.0); SALICYLATE < 5.0 MG/DL (5.0-20.0); SODIUM 148 MMOL/L (135-145); TOTAL PROTEIN 8.7 GM/DL (6.4-8.2)
[2019-02-05] MEDS ORDERED: KETOROLAC 30 MG/ML VIAL IVP STA (09:02)
[2019-02-05 09:05] LABS: ACETAMINOPHEN < 10 UG/ML (10-30)
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
[2019-02-05] MEDS ORDERED: NICOTINE 21 MG (NICODERM) PATCH TD ONE (09:45)
--- NOTE | 2019-02-05 09:56 | Diagnostic Imaging Report ---
Portable erect AP chest at 9:47. Indication: Dizziness. The heart size is within normal limits and stable when compared to 10/28/2018. The prior exam did raise a question of a patchy infiltrate/atelectasis in the right lower lung. On this exam, there are a few crowded bronchovascular markings in this area but there is no clear evidence for pneumonia. The right upper lung and left lung remain generally clear. The mediastinum is not widened. The osseous structures are intact. IMPRESSION: 1. There are a few crowded bronchovascular markings in the right infrahilar region but there is no clear evidence for pneumonia in this region.. If clinical concern regarding an acute abnormality in this area persists, then followup PA and lateral chest would be recommended. 2. There is no acute cardiopulmonary abnormality identified otherwise. Dictated by: Dictated on workstation # [id number]
[2019-02-05 11:12] LABS: BILIRUBIN,URINE NEGATIVE (NEGATIVE); CLARITY,URINE CLEAR; COLOR,URINE YELLOW; GLUCOSE, URINE (UA) NEGATIVE (NEGATIVE); KETONES,URINE NEGATIVE (NEGATIVE); LEUKOCYTE ESTERASE ,URINE NEGATIVE (NEGATIVE); NITRITE,URINE NEGATIVE (NEGATIVE); PH,URINE 6.5 (5-9); PROTEIN,URINE TRACE (NEGATIVE)
[2019-02-05 11:22] LABS: BACTERIA,URINE NEGATIVE /HPF; SQUAMOUS EPITHELIAL CELL,UR 0-2 /HPF
[2019-02-05 11:25] LABS: AMPHETAMINE SCREEN, URINE NEGATIVE (NEGATIVE); BARBITURATE SCREEN URINE NEGATIVE (NEGATIVE); BENZODIAZEPINES SCREEN URINE POSITIVE (NEGATIVE); CANNABINOID SCREEN, URINE POSITIVE (NEGATIVE); COCAINE SCREEN URINE NEGATIVE (NEGATIVE); METHADONE STAT NEGATIVE (NEGATIVE); METHAMPHETAMINE SCREEN URINE S NEGATIVE (NEGATIVE); OPIATE SCREEN URINE POSITIVE (NEGATIVE); OXYCODONE STAT NEGATIVE (NEGATIVE); PROPOXYPHENE STAT NEGATIVE (NEGATIVE); TRICYCLIC ANTIDEPRESSANTS SCRE NEGATIVE (NEGATIVE)
--- NOTE | 2019-02-05 12:05 | NUR ---
NICOTINE PATCH REMOVED AT DISCHARGE
[2019-02-05 12:07] VITALS: BP 123/73
== END 2019-02-05 12:07 | disposition home or self-care (01) ==
LOC: EDUNIT# 08:08 → ER 08:09
DX: F10.129 Alcohol abuse with intoxication, unspecified (principal); E86.0 Dehydration; F41.9 Anxiety disorder, unspecified; F32.9 Major depressive disorder, single episode, unspecified
CPT/HCPCS: 36415; 71045; 80053; 80306; 80320; 80329; 81000; 83735; 85025

== ENCOUNTER 2019-02-20 13:30 | Day surgery (SDC) | payer SELFPAY ==
[~2019-02-20] VITALS: Ht 162.6 cm; Wt 62.4 kg
--- NOTE | 2019-02-20 13:39 | ED General ---
General Stated Complaint: ALCOHOL ABUSE Source of Information: Patient Exam Limitations: No Limitations History of Present Illness Date Seen by Provider: Feb 20, 2019 Time Seen by Provider: 13:37 Initial Comments Biological male undergoing gender transition to female presents to ER by EMS with reports of alcohol intoxication. Patient lives at home with grandparents, hospice nurse was there taking care of grandmother who noticed Davon to be laying on a futon couch intoxicated and called 911. Timing/Duration: 12-24 Hours Severity: Moderate Associated Systoms: Denies Symptoms Allergies and Home Medications Allergies Coded Allergies: No Known Drug Allergies (Unverified , 11/12/09) Home Medications Bupropion HCl 150 Mg Tablet.er, 150 MG PO BID, (Reported) Lorazepam 1 Mg Tablet, 1 MG PO Q6H PRN for TREMORS Prescribed by: KIMMIE NEVILLE on 08/13/18 1031 Omeprazole 20 Mg Capsule.dr, 20 MG PO BID Prescribed by: KIMMIE NEVILLE on 07/27/18 0003 Ondansetron 4 Mg Tab.rapdis, 4 MG PO Q4H PRN for NAUSEA/VOMITING Prescribed by: KIMMIE NEVILLE on 07/27/18 0003 Ondansetron 4 Mg Tab.rapdis, 4 MG SL Q4H PRN for NAUSEA/VOMITING Prescribed by: KIMMIE NEVILLE on 08/13/18 1031 Sulfamethoxazole/Trimethoprim 1 Each Tablet, 1 EACH PO BID, (Reported) Patient Home Medication List Home Medication List Reviewed: Yes Review of Systems Review of Systems Constitutional: see HPI EENTM: see HPI Respiratory: no symptoms reported Cardiovascular: no symptoms reported Genitourinary: no symptoms reported Musculoskeletal: no symptoms reported Skin: no symptoms reported Psychiatric/Neurological: No Symptoms Reported Hematologic/Lymphatic: No Symptoms Reported Immunological/Allergic: no symptoms reported Past Xicrxsj-Tffaio-Vciwui Hx Patient Social History Alcohol Beverage of Choice: Vodka Drug of Choice: THC, METH, OPIATES, BENZODIAZEPINES Type Used: Cigarettes 2nd Hand Smoke Exposure: No Recent Foreign Travel: No Contact w/Someone Who Travel: No Recent Hopitalizations: No Immunizations Up To Date Tetanus Booster (TDap): Unknown PED Vaccines UTD: No Date of Influenza Vaccine: Mar 14, 2018 Seasonal Allergies Seasonal Allergies: No Past Medical History Surgeries: Yes (FRENULECTOMY) Respiratory: Yes Currently Using CPAP: No Currently Using BIPAP: No Cardiac: No Neurological: No 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) Sexually Transmitted Disease: No Genitourinary: Yes Bladder Infection Gastrointestinal: Yes (PERSISTENTLY ELEVATED LIVER ENZYMES) Liver Disease/Jaundice Musculoskeletal: No Endocrine: No HEENT: No Cancer: No Psychosocial: Yes Anxiety, Suicide Attempts, Depression Integumentary: Yes (LESION LEFT THIGH) Blood Disorders: No Adverse Reaction/Blood Tranf: No Family Medical History No Pertinent Family Hx Physical Exam Vital Signs Vital Signs - First Documented 02/20/19 13:39 Temp 36.9 Pulse 120 Resp 16 B/P (MAP) 118/86 (97) Pulse Ox 95 O2 Delivery Nasal Cannula O2 Flow Rate 2.00 Capillary Refill : Height, Weight, BMI Height: 5'4.00" Weight: 135lbs. 3.0oz. 61.918949gk; 23.00 BMI Method:Stated General Appearance: No Apparent Distress, WD/WN, Other (alert, oriented, obviously intoxicated, answers questions, pleasant.) Eyes: Bilateral Eye Normal Inspection, Bilateral Eye PERRL, Bilateral Eye EOMI HEENT: PERRL/EOMI, TMs Normal Neck: Full Range of Motion, Normal Inspection Respiratory: No Accessory Muscle Use, No Respiratory Distress Cardiovascular: Regular Rate, Rhythm, Normal Peripheral Pulses Gastrointestinal: Normal Bowel Sounds, Non Tender, Soft Extremity: Normal Capillary Refill, Normal Range of Motion Neurologic/Psychiatric: Alert, Oriented x3 Skin: Normal Color, Warm/Dry Procedures/Interventions Suture Size: 5-0 Progress/Results/Core Measures Suspected Sepsis SIRS Temperature: Pulse: Respiratory Rate: Laboratory Tests 02/20/19 13:37: White Blood Count 12.7H Blood Pressure / Mean: Laboratory Tests 02/20/19 13:37: INR Comment 1.3, Platelet Count 172 02/20/19 14:15: Creatinine 0.69, Total Bilirubin 2.7H Results/Orders Lab Results Laboratory Tests Test 02/20/19 13:37 02/20/19 14:15 Range/Units White Blood Count 12.7 H 4.3-11.0 10^3/uL Red Blood Count 3.92 L 4.35-5.85 10^6/uL Hemoglobin 13.4 13.3-17.7 G/DL Hematocrit 39 L 40-54 % Mean Corpuscular Volume 100 H 80-99 FL Mean Corpuscular Hemoglobin 34 25-34 PG Mean Corpuscular Hemoglobin Concent 34 32-36 G/DL Red Cell Distribution Width 14.2 10.0-14.5 % Platelet Count 172 130-400 10^3/uL Mean Platelet Volume 10.7 H 7.4-10.4 FL Neutrophils (%) (Auto) 82 H 42-75 % Lymphocytes (%) (Auto) 14 12-44 % Monocytes (%) (Auto) 3 0-12 % Eosinophils (%) (Auto) 0 0-10 % Basophils (%) (Auto) 1 0-10 % Neutrophils # (Auto) 10.3 H 1.8-7.8 X 10^3 Lymphocytes # (Auto) 1.8 1.0-4.0 X 10^3 Monocytes # (Auto) 0.4 0.0-1.0 X 10^3 Eosinophils # (Auto) 0.0 0.0-0.3 10^3/uL Basophils # (Auto) 0.1 0.0-0.1 10^3/uL Prothrombin Time 16.7 H 12.2-14.7 SEC INR Comment 1.3 0.8-1.4 Sodium Level 143 135-145 MMOL/L Potassium Level 3.6 3.6-5.0 MMOL/L Chloride Level 96 L 98-107 MMOL/L Carbon Dioxide Level 28 21-32 MMOL/L Anion Gap 19 H 5-14 MMOL/L Blood Urea Nitrogen 9 7-18 MG/DL Creatinine 0.69 0.60-1.30 MG/DL Estimat Glomerular Filtration Rate > 60 BUN/Creatinine Ratio 13 Glucose Level 117 H 70-105 MG/DL Calcium Level 7.8 L 8.5-10.1 MG/DL Corrected Calcium 8.0 L 8.5-10.1 MG/DL Total Bilirubin 2.7 H 0.1-1.0 MG/DL Aspartate Amino Transf (AST/SGOT) 231 H 5-34 U/L Alanine Aminotransferase (ALT/SGPT) 72 H 0-55 U/L Alkaline Phosphatase 159 H 40-136 U/L Total Protein 7.1 6.4-8.2 GM/DL Albumin 3.8 3.2-4.5 GM/DL Serum Alcohol 454 *H <10 MG/DL My Orders Orders - YASIMN RODRIGUEZ APRN Alcohol (02/20/19 13:35) Cbc With Automated Diff (02/20/19 13:35) Comprehensive Metabolic Panel (02/20/19 13:35) Protime With Inr (02/20/19 13:35) Ns Iv 1000 Ml (Sodium Chloride 0.9%) (02/20/19 13:45) Ondansetron Injection (Zofran Injectio (02/20/19 15:05) Ondansetron Injection (Zofran Injectio (02/20/19 15:15) Pantoprazole Injection (Protonix Injecti (02/20/19 15:30) Medications Given in ED Current Medications Medications Dose Ordered Sig/Selma Route Start Time Stop Time Status Last Admin Dose Admin Ondansetron HCl 8 mg ONCE ONCE IVP 02/20/19 15:15 02/20/19 15:16 DC 02/20/19 15:16 8 MG Pantoprazole 40 mg ONCE ONCE IV 02/20/19 15:30 02/20/19 15:31 DC 02/20/19 15:56 40 MG Vital Signs/I&O 02/20/19 13:39 Temp 36.9 Pulse 120 Resp 16 B/P (MAP) 118/86 (97) Pulse Ox 95 O2 Delivery Nasal Cannula O2 Flow Rate 2.00 Capillary Refill : Departure Communication (Admissions) Time/Spoke to Admitting Phy: 16:[address] Cervantes, agrees to admit observation if surgery would be willing to scope this treatment if necessary. I spoke with Dr. Nicholas, feels that esophageal varices is unlikely the cause of this, more likely gastritis, agrees that he could keep this patient here and scope if necessary. Will continue with clear liquids, Protonix, IV fluids and he'll evaluate the patient Impression Primary Impression: Alcohol intoxication in active alcoholic Additional Impression: Coffee ground emesis Disposition: ADMITTED INPATIENT Condition: Stable Admissions Decision to Admit Reason: Admit from ER (General) Decision to Admit/Date: Feb 20, 2019 Time/Decision to Admit Time: 16:24 Departure-Patient Inst. Referrals: [facility] (PCP/Family) Primary Care Physician YASMIN RODRIGUEZ APRN Feb 20, 2019 13:39 POS
[2019-02-20] MEDS ORDERED: NS IV 1000 ML 1,000 ML IV SCH (13:45)
[2019-02-20 13:59] LABS: BASOPHILS # (AUTO) 0.1 10^3/uL (0.0-0.1); BASOPHILS % (AUTO) 1 % (0-10); EOSINOPHILS % (AUTO) 0 % (0-10); HEMATOCRIT 39 % (40-54); HEMOGLOBIN 13.4 G/DL (13.3-17.7); LYMPHOCYTES # (AUTO) 1.8 X 10^3 (1.0-4.0); LYMPHOCYTES % (AUTO) 14 % (12-44); MEAN CORPUSCULAR HEMOGLOBIN 34 PG (25-34); MEAN CORPUSCULAR HGB CONC 34 G/DL (32-36); MEAN CORPUSCULAR VOLUME 100 FL (80-99); MEAN PLATELET VOLUME 10.7 FL (7.4-10.4); MONOCYTES # (AUTO) 0.4 X 10^3 (0.0-1.0); MONOCYTES % (AUTO) 3 % (0-12); NEUTROPHILS # (AUTO) 10.3 X 10^3 (1.8-7.8); NEUTROPHILS % (AUTO) 82 % (42-75); PLATELET COUNT 172 10^3/uL (130-400); RED CELL DISTRIBUTION WIDTH 14.2 % (10.0-14.5); WHITE BLOOD COUNT 12.7 10^3/uL (4.3-11.0)
[2019-02-20 14:10] LABS: INR 1.3 (0.8-1.4); PROTHROMBIN TIME PATIENT 16.7 SEC (12.2-14.7)
[2019-02-20 14:46] LABS: ALANINE AMINOTRANSFERASE 72 U/L (0-55); ALBUMIN 3.8 GM/DL (3.2-4.5); ALKALINE PHOSPHATASE 159 U/L (40-136); BILIRUBIN,TOTAL 2.7 MG/DL (0.1-1.0); BUN/CREATININE RATIO 13; CALCIUM 7.8 MG/DL (8.5-10.1); CARBON DIOXIDE 28 MMOL/L (21-32); CHLORIDE 96 MMOL/L (98-107); CREATININE SERUM 0.69 MG/DL (0.60-1.30); GFR ESTIMATED > 60; GLUCOSE 117 MG/DL (70-105); POTASSIUM 3.6 MMOL/L (3.6-5.0); SODIUM 143 MMOL/L (135-145); TOTAL PROTEIN 7.1 GM/DL (6.4-8.2)
--- NOTE | 2019-02-20 15:00 | NUR ---
EMS IV DISLODGED WHEN PT MOVING AROUND IN THE BED AT 1500. GAUZE APPLIED TO SITE AND NEW SITE WILL BE ATTEMPTED.
[2019-02-20] MEDS ORDERED: ONDANSETRON 4 MG/2 ML (SDV) Z0FRAN ONE (15:05)
[2019-02-20] MEDS ORDERED: ONDANSETRON 4 MG/2 ML (SDV) Z0FRAN IVP ONE (15:15)
[2019-02-20] MEDS ORDERED: PANTOPRAZOLE 40 MG (PROTONIX) VIAL IV ONE (15:30)
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
[2019-02-20 17:00] VITALS: BP 109/98
[2019-02-20] MEDS: NICOTINE 21 MG (NICODERM) PATCH TD SCH (17:37)
[2019-02-20 17:41] LABS: OCCULT BLOOD,GASTRIC FLUID POSITIVE (NEGATIVE)
[2019-02-20] MEDS ORDERED: CATHETER FLUSH 10 ML SYR IV PRN (17:45)
[2019-02-20 18:00] VITALS: BP 114/78
[2019-02-20] MEDS: NS IV 1000 ML 1,000 ML IV SCH (18:07)
[2019-02-20 19:00] VITALS: BP 128/97
[2019-02-20 20:00] VITALS: BP 119/82
[2019-02-20 20:45] VITALS: BP 148/95
[2019-02-20] MEDS: PANTOPRAZOLE 40 MG (PROTONIX) VIAL IV SCH (21:12)
[2019-02-20] MEDS: ONDANSETRON 4 MG/2 ML (SDV) Z0FRAN IV PRN (21:33)
[2019-02-21] VITALS (7 sets, daily range): BP systolic 112–129; BP diastolic 67–84
[2019-02-21] MEDS ORDERED: HYDROcodone/APAP 5 MG/325 MG (LORTAB) TAB PO PRN (00:45)
[2019-02-21] MEDS ORDERED: PROMETHAZINE INJ 25 MG/ML (PHENERGAN) AMP IVP PRN (00:45)
[2019-02-21] MEDS: LORazepam INJ 2 MG/ML (ATIVAN) VIAL IVP PRN ×2 (00:45→06:18)
[2019-02-21] MEDS: NS IV 1000 ML 1,000 ML IV SCH ×2 (02:00→09:44)
[2019-02-21 04:04] LABS: BASOPHILS # (AUTO) 0.1 10^3/uL (0.0-0.1); BASOPHILS % (AUTO) 1 % (0-10); EOSINOPHILS % (AUTO) 0 % (0-10); HEMATOCRIT 33 % (40-54); HEMOGLOBIN 11.5 G/DL (13.3-17.7); LYMPHOCYTES # (AUTO) 1.2 X 10^3 (1.0-4.0); LYMPHOCYTES % (AUTO) 15 % (12-44); MEAN CORPUSCULAR HEMOGLOBIN 34 PG (25-34); MEAN CORPUSCULAR HGB CONC 35 G/DL (32-36); MEAN CORPUSCULAR VOLUME 98 FL (80-99); MEAN PLATELET VOLUME 10.2 FL (7.4-10.4); MONOCYTES # (AUTO) 0.3 X 10^3 (0.0-1.0); MONOCYTES % (AUTO) 4 % (0-12); NEUTROPHILS # (AUTO) 6.3 X 10^3 (1.8-7.8); NEUTROPHILS % (AUTO) 81 % (42-75); PLATELET COUNT 109 10^3/uL (130-400); RED CELL DISTRIBUTION WIDTH 13.9 % (10.0-14.5); WHITE BLOOD COUNT 7.8 10^3/uL (4.3-11.0)
[2019-02-21] MEDS: ONDANSETRON 4 MG/2 ML (SDV) Z0FRAN IV PRN ×2 (04:08→12:35)
[2019-02-21 04:24] LABS: ALANINE AMINOTRANSFERASE 60 U/L (0-55); ALBUMIN 3.5 GM/DL (3.2-4.5); ALKALINE PHOSPHATASE 142 U/L (40-136); BILIRUBIN,TOTAL 3.3 MG/DL (0.1-1.0); BUN/CREATININE RATIO 11; CALCIUM 7.8 MG/DL (8.5-10.1); CARBON DIOXIDE 22 MMOL/L (21-32); CHLORIDE 93 MMOL/L (98-107); CREATININE SERUM 0.66 MG/DL (0.60-1.30); GFR ESTIMATED > 60; GLUCOSE 84 MG/DL (70-105); MAGNESIUM 1.5 MG/DL (1.6-2.4); PHOSPHORUS 2.8 MG/DL (2.3-4.7); POTASSIUM 3.6 MMOL/L (3.6-5.0); SODIUM 136 MMOL/L (135-145); TOTAL PROTEIN 6.6 GM/DL (6.4-8.2)
[2019-02-21] MEDS ORDERED: KCL 20 MEQ TAB (K-DUR) PO SCH (06:00)
[2019-02-21] MEDS ORDERED: POTASSIUM CL 10MEQ/50ML IVPB 50 ML IV SCH (06:00)
[2019-02-21] MEDS ORDERED: MAGNESIUM 1 GM/100 ML IVPB 100 ML IV SCH (06:00)
--- NOTE | 2019-02-21 07:13 | Progress Note - Surgery ---
YUMI LONDONO,MED STUDENT 02/21/19 0713: Subjective Date Seen by a Provider: Feb 21, 2019 Time Seen by a Provider: 07:00 Subjective/Events-last exam Patient seen and examined. Patient says that she feels about the same or maybe a little better. Her abdominal pain is still in the epigastric area and rated as a 7/10 which is minimally better then yesterday which was an 8/10. She has had some nausea and vomiting through the night, but there was no coffee brown emesis or bright red blood in vomitus. Her head is improving and she reports being anxious but did not say what she was anxious about. When asked what is causing her anxiety she responded with "I have anxiety." Review of Systems General: No Chills HEENT: Head Aches Pulmonary: No Dyspnea, No Cough Cardiovascular: No: Chest Pain, Palpitations Gastrointestinal: Nausea, Vomiting, Abdominal Pain Objective Exam Vital Signs Date Time Temp Pulse Resp B/P (MAP) Pulse Ox O2 Delivery O2 Flow Rate FiO2 02/21/19 04:00 37.6 111 20 119/81 (94) 99 Room Air 02/21/19 01:00 104 02/21/19 00:00 36.9 105 20 129/84 (99) 99 Room Air 02/20/19 20:45 142 22 148/95 (112) 97 Room Air 02/20/19 20:00 Room Air 02/20/19 20:00 36.7 02/20/19 20:00 104 19 119/82 (94) 92 Room Air 02/20/19 19:00 110 02/20/19 19:00 110 14 128/97 (107) 96 Room Air 02/20/19 18:00 103 21 114/78 (90) 93 Room Air 02/20/19 17:04 125 02/20/19 17:00 95 Room Air 02/20/19 17:00 37.0 117 14 109/98 (102) 98 Room Air 02/20/19 16:50 115 20 122/89 98 02/20/19 13:39 36.9 120 16 118/86 (97) 95 Nasal Cannula 2.00 I & O 02/21/19 07:00 Intake Total 3950 ml Output Total 3 ml Balance 3947 ml Capillary Refill : Less Than 3 SecondsLess Than 3 Seconds General Appearance: No Apparent Distress, WD/WN, Other (alert, oriented, obviously intoxicated, answers questions, pleasant.) HEENT: PERRL/EOMI, TMs Normal Neck: Non Tender, Supple Respiratory: Chest Non Tender, Lungs Clear, Normal Breath Sounds, No Accessory Muscle Use, No Respiratory Distress Cardiovascular: Normal Peripheral Pulses, Tachycardia Peripheral Pulses: 2+ Dorsalis Pedis (R), 2+ Left Dors-Pedis (L), 2+ Radial Pulses (R), 2+ Radial Pulses (L) Gastrointestinal: soft, no organomegaly, no pulsatile mass; No distended; guarding, tenderness Extremity: Normal Capillary Refill, Normal Range of Motion; No No Calf Tenderness, No No Pedal Edema Neurologic/Psychiatric: Alert, Oriented x3 Skin: Normal Color, Warm/Dry Results Lab Laboratory Tests 02/20/19 13:37: White Blood Count 12.7H, Red Blood Count 3.92L, Hemoglobin 13.4, Hematocrit 39L, Mean Corpuscular Volume 100H, Mean Corpuscular Hemoglobin 34, Mean Corpuscular Hemoglobin Concent 34, Red Cell Distribution Width 14.2, Platelet Count 172, Mean Platelet Volume 10.7H, Neutrophils (%) (Auto) 82H, Lymphocytes (%) (Auto) 14, Monocytes (%) (Auto) 3, Eosinophils (%) (Auto) 0, Basophils (%) (Auto) 1, Neutrophils # (Auto) 10.3H, Lymphocytes # (Auto) 1.8, Monocytes # (Auto) 0.4, Eosinophils # (Auto) 0.0, Basophils # (Auto) 0.1, Prothrombin Time 16.7H, INR Comment 1.3 02/20/19 14:15: Sodium Level 143, Potassium Level 3.6, Chloride Level 96L, Carbon Dioxide Level 28, Anion Gap 19H, Blood Urea Nitrogen 9, Creatinine 0.69, Estimat Glomerular Filtration Rate > 60, BUN/Creatinine Ratio 13, Glucose Level 117H, Calcium Level 7.8L, Corrected Calcium 8.0L, Total Bilirubin 2.7H, Aspartate Amino Transf (AST/SGOT) 231H, Alanine Aminotransferase (ALT/SGPT) 72H, Alkaline Phosphatase 159H, Total Protein 7.1, Albumin 3.8, Serum Alcohol 454*H 02/20/19 17:31: Gastric Fluid Occult Blood POSITIVEH 02/21/19 03:30: White Blood Count 7.8, Red Blood Count 3.40L, Hemoglobin 11.5L, Hematocrit 33L, Mean Corpuscular Volume 98, Mean Corpuscular Hemoglobin 34, Mean Corpuscular Hemoglobin Concent 35, Red Cell Distribution Width 13.9, Platelet Count 109L, Mean Platelet Volume 10.2, Neutrophils (%) (Auto) 81H, Lymphocytes (%) (Auto) 15, Monocytes (%) (Auto) 4, Eosinophils (%) (Auto) 0, Basophils (%) (Auto) 1, Neutrophils # (Auto) 6.3, Lymphocytes # (Auto) 1.2, Monocytes # (Auto) 0.3, Eosinophils # (Auto) 0.0, Basophils # (Auto) 0.1, Sodium Level 136, Potassium Level 3.6, Chloride Level 93L, Carbon Dioxide Level 22, Anion Gap 21H, Blood Urea Nitrogen 7, Creatinine 0.66, Estimat Glomerular Filtration Rate > 60, BUN/Creatinine Ratio 11, Glucose Level 84, Calcium Level 7.8L, Corrected Calcium 8.2L, Total Bilirubin 3.3H, Aspartate Amino Transf (AST/SGOT) 202H, Alanine Aminotransferase (ALT/SGPT) 60H, Alkaline Phosphatase 142H, Total Protein 6.6, Albumin 3.5, Phosphorus Level 2.8, Magnesium Level 1.5L Assessment/Plan Assessment/Plan Assessment/Plan Abdominal pain Positive gastric occult blood test Patient is stable but still having epigastric pain and had a positive gastric occult blood test. EGD should be preformed and can be down today or as an outpatient. Patient has only been NPO since midnight, so EGD can not be preformed until this afternoon at the earliest. Clinical Quality Measures DVT/VTE Risk/Contraindication: Risk Factor Score Per Nursin RFS Level Per Nursing on Admit: 1=Low/No VTE PPX JORDEN NICHOLAS DO 02/21/19 1018: Subjective Time Seen by a Provider: 08:18 Subjective/Events-last exam Pt seen and examined, had some clear liquids this am without difficulty. Was supposed to be npo, she would like to have EGD this admission. Will try for 11:30. Objective Exam Gastrointestinal: soft, guarding (voluntary), tenderness (mild) Assessment/Plan Assessment/Plan Assessment/Plan Plan for EGD today, discussed procedure risks and complications not limited to pain, bleeding, infection, and even eophageal perforation. All questions answered to her satisfaction. Supervisory-Addendum Brief Verification & Attestation Participated in pt care: history, MDM, physical Personally performed: exam, history, MDM Care discussed with: Medical Student Procedures: n/a Verification and Attestation of Medical Student E/M Service A medical student performed and documented this service in my presence. I r eviewed and verified all information documented by the medical student and made modifications to such information, when appropriate. I personally performed the physical exam and medical decision making. Jorden Nicholas, Feb 21, 2019,10:18 YUMI LONDONO,MED STUDENT Feb 21, 2019 07:13 JORDEN MARTINES DO Feb 21, 2019 10:18 POS
[2019-02-21] MEDS ORDERED: MELA5CAP PO (08:50)
--- NOTE | 2019-02-21 08:50 | NUR ---
SPOKE WITH THE PATIENT ABOUT MEDICATIONS. IS TAKING MELATONIN 5MG HS OTC WELL REPORTS ATIVAN FROM [facility]. HOWEVER [facility] SHOWS THE LAST ATIVAN FILLED WAS 1MG #6 FOR 2 DAY SUPPLY AT [facility]. [facility] HAS NOT FILLED IT SINCE 06-28-18 1MG #60 FOR 30 DAYS. I DID NOT ADD IT TO THE MED REC AT THIS TIME SINCE IT HAS NOT BEEN RECENTLY FILLED.
[2019-02-21] MEDS ORDERED: NICOTINE PATCH REMOVAL TP SCH (08:59)
[2019-02-21] MEDS: NICOTINE 21 MG (NICODERM) PATCH TD SCH (09:44)
[2019-02-21] MEDS: PANTOPRAZOLE 40 MG (PROTONIX) VIAL IV SCH (09:44)
[2019-02-21] MEDS ORDERED: LACTATED RINGERS 1,000 ML IV STA (11:01)
[2019-02-21] MEDS ORDERED: LACTATED RINGERS 1,000 ML IV ONE (11:03)
[2019-02-21] MEDS ORDERED: HURRICAINE EXT TUBE (BENZOCAINE) XX PRN (11:15)
[2019-02-21] MEDS ORDERED: fentaNYL INJECTION 100 MCG/2 ML AMP ONE (11:28)
[2019-02-21] MEDS ORDERED: proPOfol 200 MG/20 ML (DIPRIVAN) VIAL IV ONE (11:28)
[2019-02-21] MEDS ORDERED: MIDAZOLAM 2 MG/2 ML (VERSED) VIAL ONE (11:28)
--- NOTE | 2019-02-21 11:49 | Progress Note-Post Operative ---
Post-Operative Progess Note Surgeon (s)/Chip Loft Worker (s) Surgeon MATTEO HATFIELD DO Chip Loft Worker: none Pre-Operative Diagnosis coffee ground emesis Post-Operative Diagnosis Gastritis Hiatal hernia Erosive Esophagitis Procedure & Operative Findings Date of Procedure 02/21/19 Procedure Performed/Findings EGD with bx Anesthesia Type IV sedation by SEWING MACHINE OPERATOR Estimated Blood Loss Estimated blood loss (mL): scant Specimens/Packing Specimens Removed antral bx Body of stomach bx GE jxn bx Esophageal bx MATTEO HATFIELD DO Feb 21, 2019 11:49 POS
--- NOTE | 2019-02-21 12:17 | Anesthesia-General Post-Op ---
MAC Patient Condition Mental Status/LOC: Same as Preop Cardiovascular: Satisfactory Nausea/Vomiting: Absent Respiratory: Satisfactory Pain: Controlled Complications: Absent Post Op Complications Complications None Follow Up Care/Instructions Patient Instructions None needed. Anesthesiology Discharge Order Discharge Order Patient is doing well, no complaints, stable vital signs, no apparent adverse anesthesia problems. No complications reported per nursing. KIRSTEN COX CRNA Feb 21, 2019 12:17 POS
--- NOTE | 2019-02-21 13:59 | Short Stay Summary ---
History of Present Illness History of Present Illness Reason for visit/HPI 23 yo transgender female that presented to ER with hematemesis. Patient is a known alcoholic and was found by grandmother's hospice nurse to be passed out and shallow breathing and she then called 911. Patient states that she has been drinking heavy for the last 3 years. States that 2 months ago she stopped drinking and ended up having a seizure. Denies any dizziness or shortness of breath. Last drink was 2 hrs prior to arrival at ER. Date of Admission Feb 20, 2019 at 16:23 Date of Discharge 02/21/19 Time Seen by Provider: 10:00 Attending Physician Maria Dolores Singh MD Admitting Physician [place] Consult Allergies and Home Medications Allergies Coded Allergies: No Known Drug Allergies (Unverified , 11/12/09) Home Medications Melatonin 5 Mg Capsule, 5 MG PO HS, (Reported) Pantoprazole Sodium 40 Mg Tablet.dr, 40 MG PO BID Prescribed by: MARIA DOLORES SINGH on 02/21/19 1404 Sucralfate 1 Gm Tablet, 1 GM PO QID Prescribed by: MARIA DOLORES SINGH on 02/21/19 1404 Patient Home Medication List Home Medication List Reviewed: Yes Past Jtqflce-Gmafvu-Ubmrwj Hx Patient Social History Living Status: Lives with grandparents Alcohol Use: Regular Use Number of Drinks Today: FF Alcohol Beverage of Choice: Vodka Recreational Drug Use: Yes (CANNIBUS) Drug of Choice: THC, METH, OPIATES, BENZODIAZEPINES Smoking Status: Current Everyday Smoker Type Used: Cigarettes (2ppd for 4 yrs ) 2nd Hand Smoke Exposure: No Recent Foreign Travel: No Contact w/other who traveled: No Recent Hopitalizations: No Recent Infectious Disease Expo: No Immunizations Up To Date Tetanus Booster (TDap): Unknown Pediatric: No Date of Influenza Vaccine: Dec 10, 2018 Seasonal Allergies Seasonal Allergies: No Surgeries No Respiratory No Currently Using CPAP: No Currently Using BIPAP: No Cardiovascular No Neurological No Reproductive System Hx 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) Sexually Transmitted Disease: No Genitourinary Yes Bladder Infection Gastrointestinal Yes Liver Disease/Jaundice Musculoskeletal No Endocrine History of Endocrine Disorders: No HEENT History of HEENT Disorders: No Cancer No Psychosocial History of Psychiatric Problem: Yes (alcohol dependence) Behavioral Health Disorders: Anxiety, Suicide Attempts, Depression Integumentary History of Skin or Integumenta: Yes (LESION LEFT THIGH) Blood Transfusions History of Blood Disorders: No Adverse Reaction to a Blood Tr: No Family Medical History Significant Family History: COPD (grandmother) Review of Systems Constitutional: no symptoms reported; No chills, No dizziness EENTM: nose pain Respiratory: no symptoms reported; No dyspnea on exertion, No short of breath Cardiovascular: no symptoms reported; No chest pain, No edema, No palpitations Gastrointestinal: abdominal pain, hematemesis, heartburn, loss of appetite; No melena Genitourinary: no symptoms reported; No dysuria, No frequency, No hematuria Musculoskeletal: no symptoms reported; No back pain, No joint pain, No muscle pain Skin: no symptoms reported; No lesions, No rash Psychiatric/Neurological: No Symptoms Reported Physical Exam Vital Signs Vital Signs - First Documented 02/20/19 13:39 Temp 36.9 Pulse 120 Resp 16 B/P (MAP) 118/86 (97) Pulse Ox 95 O2 Delivery Nasal Cannula O2 Flow Rate 2.00 Capillary Refill : Less Than 3 SecondsLess Than 3 Seconds Height, Weight, BMI Height: 5'4.00" Weight: 135lbs. 3.0oz. [id number]; 23.60 BMI Method:Stated General Appearance: No Apparent Distress, Thin HEENT: PERRL/EOMI Neck: Non Tender, Supple Respiratory: Chest Non Tender, Lungs Clear, Normal Breath Sounds, No Accessory Muscle Use, No Respiratory Distress Cardiovascular: Regular Rate, Rhythm, No Murmur, Normal Peripheral Pulses Gastrointestinal: Normal Bowel Sounds, Soft, Tenderness (epigastric pain, no rebound or gaurding) Back: No CVA Tenderness, No Vertebral Tenderness Extremity: Normal Range of Motion, Non Tender, No Calf Tenderness, No Pedal Edema Neurologic/Psychiatric: Alert, Oriented x3, Normal Mood/Affect, health it specialist II-XII Norm as Tested Skin: Normal Color, Warm/Dry Lymphatic: No Adenopathy Clinical Quality Measures Admission Status Admission Status: Observation DVT/VTE Risk/Contraindication: Risk Factor Score Per Nursin RFS Level Per Nursing on Admit: 1=Low/No VTE PPX Short Stay Diagnosis Discharge Diagnosis-Short Stay Admission Diagnosis: Hematemesis Abdominal pain EtOH Intoxication EtOH Abuse Final Discharge Diagnosis: Gastritis Erosive Esophagitis EtOH Abuse Conclusion Labs Laboratory Tests 02/20/19 14:15: Sodium Level 143, Potassium Level 3.6, Chloride Level 96L, Carbon Dioxide Level 28, Anion Gap 19H, Blood Urea Nitrogen 9, Creatinine 0.69, Estimat Glomerular Filtration Rate > 60, BUN/Creatinine Ratio 13, Glucose Level 117H, Calcium Level 7.8L, Corrected Calcium 8.0L, Total Bilirubin 2.7H, Aspartate Amino Transf (AST/SGOT) 231H, Alanine Aminotransferase (ALT/SGPT) 72H, Alkaline Phosphatase 159H, Total Protein 7.1, Albumin 3.8, Serum Alcohol 454*H 02/20/19 17:31: Gastric Fluid Occult Blood POSITIVEH 02/21/19 03:30: Sodium Level 136, Potassium Level 3.6, Chloride Level 93L, Carbon Dioxide Level 22, Anion Gap 21H, Blood Urea Nitrogen 7, Creatinine 0.66, Estimat Glomerular Filtration Rate > 60, BUN/Creatinine Ratio 11, Glucose Level 84, Calcium Level 7.8L, Corrected Calcium 8.2L, Total Bilirubin 3.3H, Aspartate Amino Transf (AST/SGOT) 202H, Alanine Aminotransferase (ALT/SGPT) 60H, Alkaline Phosphatase 142H, Total Protein 6.6, Albumin 3.5, White Blood Count 7.8, Red Blood Count 3.40L, Hemoglobin 11.5L, Hematocrit 33L, Mean Corpuscular Volume 98, Mean Corpuscular Hemoglobin 34, Mean Corpuscular Hemoglobin Concent 35, Red Cell Distribution Width 13.9, Platelet Count 109L, Mean Platelet Volume 10.2, Neutrophils (%) (Auto) 81H, Lymphocytes (%) (Auto) 15, Monocytes (%) (Auto) 4, Eosinophils (%) (Auto) 0, Basophils (%) (Auto) 1, Neutrophils # (Auto) 6.3, Lymphocytes # (Auto) 1.2, Monocytes # (Auto) 0.3, Eosinophils # (Auto) 0.0, Basophils # (Auto) 0.1, Phosphorus Level 2.8, Magnesium Level 1.5L Conclusion/Plan 23 yo Transgender female that presented here with hematemesis Upper GI bleed - Consult General surgery, Dr Nicholas to take patient for EGD, Hgb Stable, EGD showed gastritis and erosive esophagitis, started on protonix and sulcralfate EtOH Abuse - patient states that she is not interested in inpatient treatment, she is already established with outpatient ATS at [facility] next week MARIA DOLORES SINGH MD Feb 21, 2019 13:58 POS
[2019-02-21] MEDS ORDERED: SUCR1TAB PO (14:04)
[2019-02-21] MEDS ORDERED: PANT40TA2 PO (14:04)
--- NOTE | 2019-02-21 14:11 | Discharge Instructions ---
Discharge [facility] Reconcile Patient Problems Problems Reviewed?: Yes Discharge Medications New, Converted or Re-Newed RX: Transmitted to Pharmacy New Medications: Pantoprazole Sodium (Protonix) 40 Mg Tablet.dr 40 MG PO BID, #60 TAB Sucralfate (Sucralfate) 1 Gm Tablet 1 GM PO QID, #120 TAB Continued Medications: Melatonin (Melatonin) 5 Mg Capsule 5 MG PO HS, CAP Patient Instructions Goal/Follow Up Appt: Make appt with ATS Activity & Diet Discharge Diet: Soft Diet Activity as Tolerated: Yes MARIA DOLORES OHARA MD Feb 21, 2019 14:09 POS
--- NOTE | 2019-02-21 18:32 | OPERATIVE REPORT ---
DATE OF SERVICE: PREOPERATIVE DIAGNOSIS: Coffee ground emesis. POSTOPERATIVE DIAGNOSES: Gastritis, hiatal hernia, erosive esophagitis. PROCEDURE: EGD with biopsy. SURGEON: Jorden Nicholas DO. SURVEILLANCE SUPERVISOR: None. ANESTHESIA: IV sedation by DIRECTOR GLOBAL SALES. SPECIMEN: Biopsy from the antrum, biopsy from body of stomach, biopsy from the GE junction and biopsy of the esophagus. BLOOD LOSS: Scant. FLUIDS: Per anesthesia. POSTOPERATIVE CONDITION: Stable. INDICATION FOR PROCEDURE: The patient is a 23-year-old male who is in the middle of transitioning as severe alcoholic and has been having some coffee ground emesis. FINDINGS: The patient had erosive esophagitis. He had some gastritis in the stomach and a very small hiatal hernia. PROCEDURE NOTE: After informed consent was obtained, the patient was brought to the endoscopy suite and placed in the left lateral decubitus position. She was administered IV sedation by the DIRECTOR GLOBAL SALES who then monitored her vitals the entire time, heart rate, blood pressure and pulse ox. Scope was inserted down the mouth through the esophagus. In the bottom of the esophagus noted a pretty severe erosive esophagitis, took pictures, pushed into the stomach towards the antrum showed some gastritis in the antrum, pushed into the duodenum. Duodenum looked okay. Pulled back into the antrum, did a biopsy of the antrum and then pulled back and did a biopsy of body of stomach and then retroflexed the scope, saw very small hiatal hernia, took a picture and then pulled into the GE junction, did another biopsy and then pulled up into the lower esophagus and did a biopsy of erosive esophagitis. I did continue up until about lower mid esophagus, but the upper portion of the esophagus did not have any erosions. Pushed the scope back in, suctioned out all the air of the stomach and pulled the scope up the esophagus and out of the mouth. The patient tolerated the procedure, recovered in endoscopy suite. Job ID: [id number] DocumentID: [id number] Dictated Date: 02/21/2019 11:49:27 Therapeutic Riding Instructor Date: 02/21/2019 18:32:00 Dictated By: JORDEN NICHOLAS DO
== END 2019-02-21 14:25 | disposition left against medical advice (07) ==
LOC: EDUNIT# 13:30 → ER 13:31 → UNDOADMOB 16:23 → ICU 16:23 → SDC 17:00 → ICU 17:00 → UNDOFXSDCSVC 21:05 → CSD 21:05 → ICU 21:05 → CSD 21:05 → ICU 21:05 → SDC 02-21 14:25 → UNDODISOB 02-21 14:25
PROVIDERS: ATTEND Family Medicine
DX: K29.50 Unspecified chronic gastritis without bleeding (principal); K22.10 Ulcer of esophagus without bleeding; K31.89 Other diseases of stomach and duodenum; H53.149 Visual discomfort, unspecified; K44.9 Diaphragmatic hernia without obstruction or gangrene; F10.129 Alcohol abuse with intoxication, unspecified; R19.5 Other fecal abnormalities; F17.210 Nicotine dependence, cigarettes, uncomplicated; F41.9 Anxiety disorder, unspecified; F32.9 Major depressive disorder, single episode, unspecified; Z91.5 Personal history of self-harm; Z79.899 Other long term (current) drug therapy; Z83.6 Family history of other diseases of the respiratory system
CPT/HCPCS: 36415; 80053; 80320; 82271; 83735; 84100; 85025; 85610; 87081; 88305; 88312; 96361; 96374; 96375; 96376; G0378

== ENCOUNTER 2019-04-17 05:09 | Emergency (ER) | payer SELFPAY ==
[~2019-04-17] VITALS: Ht 162 cm; Wt 66.4 kg
[~2019-04-17 05:09] MED LIST changes: +OMEP-280 PO; -OMEP20CA13 PO; +PANT40TA2 PO; +SUCR1TAB PO
[2019-04-17] MEDS ORDERED: NS IV 1000 ML 1,000 ML IV SCH (05:11)
[2019-04-17] MEDS ORDERED: LACTATED RINGERS 1,000 ML IV ONE (05:11)
[2019-04-17 05:24] LABS: BASOPHILS # (AUTO) 0.2 10^3/uL (0.0-0.1); BASOPHILS % (AUTO) 2 % (0-10); EOSINOPHILS # (AUTO) 0.1 10^3/uL (0.0-0.3); EOSINOPHILS % (AUTO) 1 % (0-10); HEMATOCRIT 38 % (40-54); HEMOGLOBIN 13.1 G/DL (13.3-17.7); LYMPHOCYTES # (AUTO) 2.3 X 10^3 (1.0-4.0); LYMPHOCYTES % (AUTO) 21 % (12-44); MEAN CORPUSCULAR HEMOGLOBIN 35 PG (25-34); MEAN CORPUSCULAR HGB CONC 35 G/DL (32-36); MEAN CORPUSCULAR VOLUME 102 FL (80-99); MONOCYTES # (AUTO) 0.6 X 10^3 (0.0-1.0); MONOCYTES % (AUTO) 5 % (0-12); NEUTROPHILS # (AUTO) 7.6 X 10^3 (1.8-7.8); NEUTROPHILS % (AUTO) 71 % (42-75); PLATELET COUNT 282 10^3/uL (130-400); RED CELL DISTRIBUTION WIDTH 15.6 % (10.0-14.5); WHITE BLOOD COUNT 10.7 10^3/uL (4.3-11.0)
--- NOTE | 2019-04-17 05:29 | ED General ---
General Chief Complaint: Substance Abuse Stated Complaint: ALCOHOL WITHDRAWL Nursing Triage Note: Pt to [facility] via EMS with c/o "ETOH withdrawl". PT reports they drank 2 pints of vodka up until 1999 last night. Pt slurs words on arrival, is jaundice and states they've "been that way for four months". Pt states they've been seeking inpatient treatment. Nursing Sepsis Screen: No Definite Risk Source of Information: Patient, Old Records History of Present Illness Date Seen by Provider: Apr 17, 2019 Time Seen by Provider: 05:11 Initial Comments PT ARRIVES VIA EMS FROM HOME PT REQUESTED TO GO TO [facility] "FOR MEDICAL DETOX" FROM ALCOHOL, BUT EMS BROUGHT HIM HERE INSTEAD--HE TOLD EMS HE JUST GOT OUT OF THERE A WEEK AND A HALF AGO. PT REPORTS TO ME THAT "THEY SAID I DIDN'T NEED INPATIENT" AND REPORTS TO ME THAT HE HAS BEEN DOING "OUTPATIENT DETOX" THROUGH [facility] [place], AND LAST VISIT THERE WAS 1 1/2 WEEKS AGO PT STATES HE "THINKS HE'S HAVING ALCOHOL WITHDRAWL" --STATES HE DRANK 2 PINTS OF VODKA YESTERDAY/LAST EVENING WITH LAST ETOH AT 1999. PT DENIES ANY DRUG USE RECENTLY, BUT HAS HISTORY OF POLYSUBSTANCE ABUSE (THC, METH, OPIATES, BENZODIAZEPINES) IN ADDITION TO DAILY, VERY HEAVY ALCOHOL USE /ABUSE PT HAS NO ACTUAL COMPLAINTS OF ANY KIND NO SUICIDAL OR HOMICIDAL IDEATIONS ON ARRIVAL, PT IS NOTED TO BE VERY JAUNDICED, AND WHEN I ASKED HIM HOW LONG HE HAS BEEN THIS WAY, HE REPORTS "4 MONTHS" PT REPORTS THAT HIS GRANDMOTHER ( WHOM HE HAS LIVED WITH ) ON 04/01/19. PT WITH MULTITUDE OF VISITS FOR EXACT SAME ISSUES--ALWAYS THINKS HE IS "WITHDRAWING" FROM ALCOHOL, WHEN IN FACT HE HAS BEEN VERY HEAVILY INTOXICATED EVERY TIME HE HAS PRESENTED WITH THIS ISSUE. ALCOHOL LEVELS IN 300'S-400'S EVERY TIME, WITH SPEECH FAIRLY CLEAR AND GAIT STEADY AT THESE VERY HIGH LEVELS--WITH AT LEAST ONE INCIDENT OF LEVEL IN 500'S. PT HAS FREQUENTLY LEFT AMA HAS HAD POSSIBLE WITHDRAWL SEIZURE ON PRIOR VISIT. SEE OLD CHARTS FOR DETAILS LAST VISIT HERE WAS 02/20/19 AND HAD EGD FOR COFFEE-GROUND EMESIS, AND NOTED TO HAVE HIATAL HERNIA, EROSIVE ESOPHAGITIS, GASTRITIS. PT ALSO WELL KNOWN BY OTHER STAFF TO FREQUENT OTHER LOCAL HOSPITALS FOR THESE SAME ISSUES WELL. PT HAS HAD 19 VISITS TO THIS ER ALONE, IN THE LAST YEAR--ALL FOR ALCOHOL ABUSE RELATED ISSUES. PCP: [facility] Allergies and Home Medications Allergies Coded Allergies: No Known Drug Allergies (Unverified , 11/12/09) Home Medications Melatonin 5 Mg Capsule, 5 MG PO HS, (Reported) Pantoprazole Sodium 40 Mg Tablet.dr, 40 MG PO BID Prescribed by: MARIA DOLORES OHARA on 02/21/19 140 Sucralfate 1 Gm Tablet, 1 GM PO QID Prescribed by: MARIA DOLORES OHARA on 02/21/19 1404 Patient Home Medication List Home Medication List Reviewed: Yes Review of Systems Review of Systems Constitutional: no symptoms reported; No chills, No diaphoresis, No dizziness, No fever EENTM: no symptoms reported Respiratory: no symptoms reported; No cough, No short of breath Cardiovascular: no symptoms reported; No chest pain, No palpitations, No syncope Gastrointestinal: no symptoms reported; No abdominal pain, No diarrhea, No hematemesis, No melena, No nausea, No vomiting Genitourinary: no symptoms reported Musculoskeletal: no symptoms reported Skin: see HPI, change in color Psychiatric/Neurological: See HPI, Anxiety, Depressed; Denies Headache, Denies Numbness, Denies Paresthesia, Denies Seizure, Denies Tingling, Denies Tremors, Denies Weakness Hematologic/Lymphatic: No Symptoms Reported Immunological/Allergic: no symptoms reported Past Xnrfwlv-Gtbxrz-Okihsp Hx Patient Social History Alcohol Use: Regular Use (HEAVY, DAILY USE--USUALLY VODKA) Alcohol Beverage of Choice: Vodka Recreational Drug Use: Yes (THC, METH, OPIATES, BENZODIAZEPINES) Drug of Choice: THC, METH, OPIATES, BENZODIAZEPINES Smoking Status: Current Everyday Smoker (2 PPD) Type Used: Cigarettes (2 PPD) 2nd Hand Smoke Exposure: No Recent Foreign Travel: No Contact w/Someone Who Travel: No Recent Infectious Disease Expo: No Recent Hopitalizations: No Immunizations Up To Date Tetanus Booster (TDap): Unknown PED Vaccines UTD: No Date of Influenza Vaccine: Dec 10, 2018 Seasonal Allergies Seasonal Allergies: No Past Medical History Surgeries: Yes (EGD 02/20/19) Respiratory: Yes (ASPIRATION PNEUMONIA) Pneumonia Cardiac: No Neurological: Yes (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 ) Anxiety, Suicide Attempts, Depression Integumentary: Yes (LESION LEFT THIGH) Blood Disorders: No Adverse Reaction/Blood Tranf: No Family Medical History COPD Physical Exam Vital Signs Vital Signs - First Documented 04/17/19 05:10 Temp 36.9 Pulse 116 Resp 20 B/P (MAP) 128/90 (103) Pulse Ox 98 O2 Delivery Room Air Capillary Refill : Less Than 3 Seconds Height, Weight, BMI Height: 5'4.00" Weight: 135lbs. 3.0oz. 61.944496jm; 25.00 BMI Method:Stated General Appearance: No Apparent Distress, Thin, Other (SIGNIFICANTLY JAUNDICED. SMILING, TALKATIVE, SPEECH SLURRED. COOPERATIVE AND PLEASANT ON ARRIVAL. PRESS- ON RED FINGERNAILS. REEKS OF ALCOHOL--ALCOHOL ODOR NOTED AT THE DOOR. ) HEENT: Scleral Icterus (L), Scleral Icterus (R), Other (CHIPPED LEFT FRONT TOOTH) Neck: Normal Inspection Respiratory: Normal Breath Sounds, No Accessory Muscle Use, No Respiratory Distress Cardiovascular: Regular Rate, Rhythm, No Edema, No JVD, No Murmur, Normal Peripheral Pulses Gastrointestinal: Normal Bowel Sounds, No Pulsatile Mass, Non Tender, Soft, Hepatomegaly Back: Normal Inspection Extremity: Normal Capillary Refill, Normal Inspection, Normal Range of Motion, Non Tender, No Calf Tenderness, No Pedal Edema Neurologic/Psychiatric: Alert, Oriented x3, No Motor/Sensory Deficits, Normal Mood/Affect, 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 Norm as Tested Skin: Warm/Dry, Jaundice; No Petechia Comments NO TREMORS NOTED Procedures/Interventions Suture Size: 5-0 Progress/Results/Core Measures Suspected Sepsis Recent Fever Within 48 Hours: No Infection Criteria Present: None New/Unexplained Altered Menta: No Sepsis Screen: No Definite Risk SIRS Temperature: Pulse: 116 Respiratory Rate: 20 Laboratory Tests 04/17/19 05:18: White Blood Count 10.7 Blood Pressure 128 /90 Mean: 103 Laboratory Tests 04/17/19 05:18: Creatinine 0.67, INR Comment 1.4, Platelet Count 282, Total Bilirubin 13.2*H Results/Orders Lab Results Laboratory Tests Test 04/17/19 07:00 Range/Units Urine Color DARK YELLOW Urine Clarity CLEAR Urine pH 6.5 5-9 Urine Specific [place] 1.020 1.016-1.022 Urine Protein TRACE H NEGATIVE Urine Glucose (UA) TRACE H NEGATIVE Urine Ketones TRACE H NEGATIVE Urine Nitrite NEGATIVE NEGATIVE Urine Bilirubin 3+ H NEGATIVE Urine Urobilinogen >=8.0 < = 1.0 MG/DL Urine Leukocyte Esterase NEGATIVE NEGATIVE Urine RBC (Auto) NEGATIVE NEGATIVE Urine RBC NONE /HPF Urine WBC NONE /HPF Urine Squamous Epithelial Cells NONE /HPF Urine Crystals NONE /LPF Urine Amorphous Sediment FEW JAVIER URATES H /LPF Urine Bacteria NEGATIVE /HPF Urine Casts PRESENT /LPF Urine Hyaline Casts RARE /LPF Urine Coarse Granular Casts RARE H /LPF Urine Mucus NEGATIVE /LPF Urine Culture Indicated NO Urine Opiates Screen NEGATIVE NEGATIVE Urine Oxycodone Screen NEGATIVE NEGATIVE Urine Methadone Screen NEGATIVE NEGATIVE Urine Propoxyphene Screen NEGATIVE NEGATIVE Urine Barbiturates Screen NEGATIVE NEGATIVE Ur Tricyclic Antidepressants Screen NEGATIVE NEGATIVE Urine Phencyclidine Screen NEGATIVE NEGATIVE Urine Amphetamines Screen NEGATIVE NEGATIVE Urine Methamphetamines Screen NEGATIVE NEGATIVE Urine Benzodiazepines Screen NEGATIVE NEGATIVE Urine Cocaine Screen NEGATIVE NEGATIVE Urine Cannabinoids Screen POSITIVE H NEGATIVE My Orders Orders - ANGELA CELESTNI DO Thiamine Injection (Vitamin B-1 Injectio (04/17/19 06:30) Thiamine Injection (Vitamin B-1 Injectio (04/17/19 06:45) Hiv 1&2 Antibody (04/17/19 06:41) Catheter(Urinary) Insert & Ass 03,15 (04/17/19 06:53) Ketorolac Injection (Toradol Injection) (04/17/19 07:45) Ketorolac Injection (Toradol Injection) (04/17/19 07:33) Ondansetron Injection (Zofran Injectio (04/17/19 08:45) Pantoprazole Injection (Protonix Injecti (04/17/19 08:45) Medications Given in ED Vital Signs/I&O Capillary Refill : Less Than 3 Seconds Blood Pressure Mean: 103 Progress Note : Progress Note WANTING "SOMETHING FOR ANXIETY" SHORTLY AFTER ARRIVAL. DOES NOT APPEAR TO BE ANXIOUS IN ANY WAY. 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 NO SIGNS OF WITHDRAWL DURING ER STAY. MARKED DELAY IN TRANSFER DUE TO EMS NOT WILLING TO TRANSFER PT "UNTIL AFTER 0800" 0840--EMS HAS BEEN CONTACTED AGAIN, FOR ETA TO TRANSPORT PT. ECG Initial ECG Impression Date: Apr 17, 2019 Initial ECG Impression Time: 06:34 Initial ECG Rate: 99 Initial ECG Rhythm: Normal Sinus Initial ECG Impression: Nonspecific Changes Departure Communication (Admissions) Family Conversation 0645--GRANDFATHER IS NOW HERE. UPDATE ON PT'S CONDITION GIVEN TO HIM, AND EXPLAINED THE NEED FOR TRANSFER TO 0600--ATTEMPTING TO CONTACT DR. GARSIA, LIGHT INDUSTRIAL SUPERVISOR FOR [facility]. MESSAGE LEFT ON CELL. 0605--SPOKE WITH DR. GARSIA, SHE ADVISES TRANSFER TO FOR HEPATOLOGY. 0609--CALLED TRANSFER LINE. PAGING HOSPITALIST, WILL CALL BACK. 0635-- CALLED BACK, PT HAS BEEN ACCEPTED BY DR. BAKER, WILL CALL BACK WITH BED ASSIGNMENT Impression Primary Impression: Acute alcoholic hepatitis Additional Impressions: Alcohol intoxication in active alcoholic Marijuana abuse, continuous Disposition: 02 XFER SHT-TRM HOSP Condition: Stable Transfer Transfer Reason: Exceeds level of care Transfer Facility: Method of Transfer: EMS Departure-Patient Inst. Referrals: [facility] (PCP/Family) Primary Care Physician ANGELA CELESTIN DO Apr 17, 2019 05:29
[2019-04-17 05:37] LABS: INR 1.4 (0.8-1.4); PROTHROMBIN TIME PATIENT 17.3 SEC (12.2-14.7)
[2019-04-17 05:48] LABS: ACETAMINOPHEN < 10 UG/ML (10-30); ALANINE AMINOTRANSFERASE 86 U/L (0-55); ALBUMIN 3.8 GM/DL (3.2-4.5); ALKALINE PHOSPHATASE 290 U/L (40-136); AMMONIA 35 UMOL/L (11-32); AMYLASE 178 U/L (25-125); BUN/CREATININE RATIO 6; CALCIUM 9.1 MG/DL (8.5-10.1); CARBON DIOXIDE 26 MMOL/L (21-32); CHLORIDE 95 MMOL/L (98-107); CREATININE SERUM 0.67 MG/DL (0.60-1.30); GFR ESTIMATED > 60; GLUCOSE 128 MG/DL (70-105); LIPASE 8 U/L (8-78); MAGNESIUM 1.7 MG/DL (1.6-2.4); POTASSIUM 3.6 MMOL/L (3.6-5.0); SALICYLATE < 5.0 MG/DL (5.0-20.0); SODIUM 143 MMOL/L (135-145); TOTAL PROTEIN 8.2 GM/DL (6.4-8.2)
[2019-04-17 05:51] LABS: BILIRUBIN,TOTAL 13.2 MG/DL (0.1-1.0)
[2019-04-17] MEDS ORDERED: NS IV 1000 ML 1,000 ML IV ONE (06:09)
[2019-04-17] MEDS ORDERED: THIAMINE INJECTION 100 MG, FOLIC ACID INJECTION 1 MG, VITAMIN MULTI INJECTION 10 ML, MA... IV SCH ×5 (06:30)
--- NOTE | 2019-04-17 06:35 | NUR ---
Doe from [facility] called with an accepting physician at this time. Will call with room assignment when available.
[2019-04-17] MEDS ORDERED: THIAMINE INJECTION 100 MG, FOLIC ACID INJECTION 1 MG, VITAMIN MULTI INJECTION 10 ML, MA... IV ONE ×5 (06:45)
--- NOTE | 2019-04-17 06:51 | NUR ---
Report called to SHANE Mullen at [facility] at this time.
--- NOTE | 2019-04-17 06:55 | NUR ---
REPORT FROM ALESSANDRO LYNN
--- NOTE | 2019-04-17 06:57 | NUR ---
Report given to SHANE Elam at this time.
[2019-04-17 07:15] LABS: CLARITY,URINE CLEAR; COLOR,URINE DARK YELLOW; GLUCOSE, URINE (UA) TRACE (NEGATIVE); KETONES,URINE TRACE (NEGATIVE); LEUKOCYTE ESTERASE ,URINE NEGATIVE (NEGATIVE); NITRITE,URINE NEGATIVE (NEGATIVE); PH,URINE 6.5 (5-9); PROTEIN,URINE TRACE (NEGATIVE)
[2019-04-17 07:23] LABS: BILIRUBIN,URINE 3+ (NEGATIVE)
[2019-04-17 07:24] LABS: AMORPHOUS SEDIMENT,UR FEW AMOR URATES /LPF; BACTERIA,URINE NEGATIVE /HPF; HYALINE CASTS, URINE RARE /LPF
[2019-04-17 07:28] LABS: AMPHETAMINE SCREEN, URINE NEGATIVE (NEGATIVE); BARBITURATE SCREEN URINE NEGATIVE (NEGATIVE); BENZODIAZEPINES SCREEN URINE NEGATIVE (NEGATIVE); CANNABINOID SCREEN, URINE POSITIVE (NEGATIVE); COCAINE SCREEN URINE NEGATIVE (NEGATIVE); METHADONE STAT NEGATIVE (NEGATIVE); METHAMPHETAMINE SCREEN URINE S NEGATIVE (NEGATIVE); OPIATE SCREEN URINE NEGATIVE (NEGATIVE); OXYCODONE STAT NEGATIVE (NEGATIVE); PROPOXYPHENE STAT NEGATIVE (NEGATIVE); TRICYCLIC ANTIDEPRESSANTS SCRE NEGATIVE (NEGATIVE)
[2019-04-17] MEDS ORDERED: KETOROLAC 30 MG/ML VIAL ONE (07:33)
[2019-04-17] MEDS ORDERED: KETOROLAC 15 MG/ML VIAL IVP ONE (07:45)
--- NOTE | 2019-04-17 08:12 | NUR ---
CALLED TO REMIND EMS OF TRANSFER TO [facility]
[2019-04-17] MEDS ORDERED: PANTOPRAZOLE 40 MG (PROTONIX) VIAL IV ONE (08:45)
[2019-04-17] MEDS ORDERED: ONDANSETRON 4 MG/2 ML (SDV) Z0FRAN IVP ONE (08:45)
[2019-04-17 09:07] VITALS: BP 108/74
--- NOTE | 2019-04-17 09:45 | NUR ---
CALLED UPDATED REPORT TO SHANE RIVERA
[2019-04-18 12:53] LABS: HEPATITIS C ANTIBODY C Non-Reactive (Non-Reactive)
== END 2019-04-17 09:20 | disposition short-term general hospital (02) ==
LOC: EDUNIT# 05:09 → ER 05:11
DX: K70.10 Alcoholic hepatitis without ascites (principal); F10.229 Alcohol dependence with intoxication, unspecified; F12.10 Cannabis abuse, uncomplicated; F17.210 Nicotine dependence, cigarettes, uncomplicated
CPT/HCPCS: 36415; 51701; 80053; 80074; 80306; 80320; 80329; 81000; 82140; 82150; 83690; 83735; 85025; 85610; 85730; 86703; 93005; 93041

== ENCOUNTER 2019-10-12 01:48 | Emergency (ER) | payer SELFPAY ==
[~2019-10-12] VITALS: Ht 162.5 cm; Wt 66.4 kg
[~2019-10-12 01:48] MED LIST changes: -OMEP-280 PO; +OMEP20CA18 PO
--- OUTSIDE RECORDS SUMMARY | 2019-10-12 01:55 | XMS REPORT | Clinical Summary ---
Author Author [facility] Organization [facility] Address Unknown Phone Unavailable Care Team Providers Care Highway Worker Name Role Phone No Pcp, Na PCP Unavailable Source Comments Some departments are not documenting in the electronic medical record. If you d o not see the information that you expected, contact Release of Information in [facility] [employer] Information Management department at [phone] for further assistan ce in locating additional records.[facility] Allergies No Known Allergies Medications End Date Status Medication Sig Dispensed Refills Start Date Active melatonin 5 mg tab Take 5 mg by 0 mouth at bedtime as needed. Active folic acid (FOLVITE) 1 mg Take one 90 tablet 0 tablet tablet by 0 mouth daily. Active lactulose 10 gram/15 mL Take 30 mL by 1000 mL 0 oral solution mouth three 0 times daily. Active nicotine polacrilex Place one 2 box 0 (NICORETTE) 4 mg gum each inside 0 cheek (side of mouth) every 1 hour as needed. Chew to soften and park in mouth between lip and gum. Active thiamine mononitrate 100 Take one 90 tablet 0 0 mg tablet tablet by 0 mouth daily. Active nicotine (NICODERM CQ Apply one 28 patch 0 04/12 STEP 1) 21 mg/day patch to top 0 patchIndications: smoking of skin as cessation directed daily. Rotate patch location. Indications: stop smoking Active Problems Problem Noted Date Alcohol withdrawal 04/18/2019 Alcohol intoxication 04/17/2019 Alcoholic hepatitis 04/17/2019 Substance abuse 04/17/2019 Alcohol use disorder, severe, dependence 04/17/2019 Family History Medical History Relation Name Comments Alcohol abuse Father COPD Maternal Grandmother Alcohol abuse Mother Relation Name Status Comments Father Maternal Grandmother Mother Social History Date Tobacco Use Types Packs/Day Years Used Current Every Day Smoker 2 Smokeless Tobacco: Current User Drinks/Week oz/Week Comments Alcohol Use Yes Alcohol Habits Answer Date Recorded How often do you have a drink containing alcohol? 4 or mor e times a week 04/17/2019 How many drinks containing alcohol do you have on No t asked a typical day when you are drinking? How often do you have six or more drinks on one Not asked occasion? Sex Assigned at Date Recorded Not on file Industry Job Start Date Occupation Not on file Not on file Not on file Travel End Travel History Travel Start No recent travel history available. Last Filed Vital Signs Reading Time Taken Comments Vital Sign 105/66 04/23/2019 8:36 AM [employer] Blood Pressure 91 04/23/2019 8:36 AM [employer] Pulse 36.9 C (98.4 F) 04/23/2019 8:36 AM [employer] Temperature - - Respiratory Rate 100% 04/23/2019 8:36 AM [employer] Oxygen Saturation - - Inhaled Oxygen Concentration 65.3 kg (144 lb) 04/17/2019 3:10 PM [employer] TE[employer] Weight 162.6 cm (5' 4") 04/17/2019 3:10 PM [employer] TE[employer] Height 24.72 04/17/2019 3:10 PM [employer] TE[employer] Body Mass Index Plan of Treatment Health Maintenance Due Date Last Done Comments HPV VACCINES (1 - Male 2007 2-dose series) HIV SCREENING 2011 DTAP/TDAP VACCINES (1 - 2014 Tdap) PHYSICAL (COMPREHENSIVE) 2014 EXAM INFLUENZA VACCINE 12/11/2019 02/15/2018 HEPATITIS C SCREENING Completed 04/17/2019 Goals Goal Patient Associated Recent Progress Patient-Stat Aut hor Goal Type Problems ed? Improve quality of life Hospital Yes Jina Huff RN Note: "To quit drinking and get more healthy" Results Not on filefrom Last 3 Months Advance Directives Patient Chili Maker Explanation Type Date Recorded Advance 04/18/2019 7:41 AM Directive/DPOA Date Inactivated Comments Code Status Date Activated 04/23/2019 4:51 PM Full Code 04/18/2019 8:06 AM Provider has discussed Code Status Yes w/Patient or Family? 04/18/2019 8:05 AM Full Code 04/17/2019 2:23 PM Provider has discussed Code Status Yes w/Patient or Family?
--- OUTSIDE RECORDS SUMMARY | 2019-10-12 01:56 | XMS REPORT | Encounter Summary ---
Author Author [facility] Organization [facility] Address Unknown Phone Unavailable Care Team Providers Care System Designer Name Role Phone No Pcp, Na PCP Unavailable Encounter Details Care Team Description Date Type Department Zaria Marinelli MD [address] [place] [address] [phone] Basil Ribeiro MD [address] [place] [address] [phone] David Steiner DO [address] [place] [address] [phone] Alcohol intoxication (HCC) 04/17/2019 [facility] 04/23/2019 [address] [place] [address] Social History Date Tobacco Use Types Packs/Day [...] Travel Start No recent travel history available. documented as of this encounter Last Filed Vital Signs Reading Time Taken Comments Vital Sign 105/66 04/23/2019 8:36 AM CASE MAKER Blood Pressure 91 04/23/2019 8:36 AM CASE MAKER Pulse 36.9 C (98.4 F) 04/23/2019 8:36 AM CASE MAKER Temperature - - Respiratory Rate 100% 04/23/2019 8:36 AM CASE MAKER Oxygen Saturation - - Inhaled Oxygen Concentration 65.3 kg (144 lb) 04/17/2019 3:10 PM CASE MAKER Weight 162.6 cm (5' 4") 04/17/2019 3:10 PM CASE MAKER Height 24.72 04/17/2019 3:10 PM CASE MAKER Body Mass Index documented in this encounter Functional Status Date of Assessment Functional Status Response 04/17/2019 Does the patient have a hearing impairment: No documented as of this encounter Discharge Summaries * David Steiner DO - 04/23/2019 2:46 PM CASE MAKER Physician Discharge Summary Name: Steve Cardenas Date Of : 1995 Age: 23 years Admit date: 04/17/2019 Discharge date: 04/23/2019 Attending Physician: Sara Service: [facility] S - [id number] Physician Summary completed by: David Steinre DO Reason for hospitalization: Hepatitis Significant PMH: Medical History: Diagnosis Date Alcohol abuse Erosive esophagitis Generalized anxiety disorder Allergies: Patient has no known allergies. Admission Physical Exam notable for: GEN: Alert and oriented x 4, no acute distress, cooperative, appropriately parti cipative in exam. HEAD: Head is normocephalic and atraumatic. EYES: Pupils equal and reactive to light. Conjunctiva and sclera are clear. Extr aocular movements are intact bilaterally. ENT: Ears are clear bilaterally. Oropharynx pink and moist. CHEST: Lungs, clear to auscultation bilaterally with no wheezes, rales or rhonch i. No accessory muscle use or respiratory distress. CV: Regular rhythm. S1 and S2 noted. No murmurs noted. BUE/BLE pulses 2+. ABD: Soft, non-tender, non-distended. Bowel Sounds present. No rebound tendernes s, no guarding. MSK: Adequately aligned spine. ROM intact spine and extremities. No joint erythe ma or tenderness. Normal muscular development. EXTRM: No significant deformity or joint abnormality. No edema. HEME/LYMPH: No active bleeding. No cervical, supraclavicular or infraclavicular lymphadenopathy appreciated. SKIN: No rashes or lesions. NEURO: CN II-XII grossly intact. Behavior, speech, mood, thought content appropr iate. Sensation and strength grossly intact throughout. Admission Lab/Radiology studies notable for: Labs from April at 6, creatinine 1.67, INR 1.4, platelet 282, total bilirubin 13.2, AST 504, AL T 86, alkaline phosphatase 290, ammonia 35, total protein 8.2, amylase level 178, lipase 8, salicylate level, acetaminophen level within normal limits. Serum alcohol 476, and iron gap 22, hemoglobin 13.1, white blood cell 10.7 Brief Hospital Course: The patient was admitted and the following issues were a ddressed during this hospitalization: (with pertinent details). Alcoholic Hepatitis/ESLD: Patient with transaminitis into thousands, MELD as hig h as 27, severely elevated from February likely 04/13 continued alcohol intake. H epatology consulted, patient stabilized with supportive care, counseled gonzález bear on risk factor modification. Polysubstance use/severe alcohol dependence: Patient with severe alcohol depende nce, psychiatry consulted, extended withdrawal with significant concern for quang o seeking behaviors. Patient was treated with benzo minimizing protocol and was discharged with short gabapentin taper for withdrawls. Patient unmotivated to change behaviors, declined to call [employer], not interested in other substance abuse options. Additional financial barriers to medications for substance abuse. Patient extremely high risk for further alcohol use and fur ther liver injury and decompensation. Condition at Discharge: Serious Discharge Diagnoses: Hospital Problems Active Problems Alcohol intoxication (HCC) Alcoholic hepatitis Substance abuse (HCC) Alcohol use disorder, severe, dependence (HCC) Alcohol withdrawal (HCC) Surgical Procedures: None Significant Diagnostic Studies and Procedures: noted in brief hospital course CHEST SINGLE VIEW Final Result No acute cardiopulmonary abnormality. Finalized by Ck Perales M.D. on 04/20/2019 11:26 AM. Dictated by Silvia John on 04/20/2019 11:25 AM. US DOPPLER ABD PELV RETROPER COMP Final Result 1. Nondilated gallbladder with gallbladder wall thickening/edema which may be r elated to liver disease and/or hypoalbuminemia. Cholelithiasis and gallbladder s ludge are present with reportedly positive sonographic Nesbitt sign, although, la ck of gallbladder distention would be atypical for acute cholecystitis. Clinical and laboratory correlation recommended. 2. Moderate hepatomegaly with heterogeneous parenchyma and increased echogenici ty which may be secondary to steatosis and/or edema related to acute hepatitis. Correlation with labs is suggested. 3. Patent hepatic vasculature with normal direction of flow. By my electronic signature, I attest that I have personally reviewed the images for this examination and formulated the interpretations and opinions expressed i n this report Finalized by Juan Swartz M.D. on 04/17/2019 8:22 PM. Dictated by Sonia talamantes M.D. on 04/17/2019 7:50 PM. US ABDOMEN COMPLETE Final Result 1. Nondilated gallbladder with gallbladder wall thickening/edema which may be r elated to liver disease and/or hypoalbuminemia. Cholelithiasis and gallbladder s ludge are present with reportedly positive sonographic Nesbitt sign, although, la ck of gallbladder distention would be atypical for acute cholecystitis. Clinical and laboratory correlation recommended. 2. Moderate hepatomegaly with heterogeneous parenchyma and increased echogenici ty which may be secondary to steatosis and/or edema related to acute hepatitis. Correlation with labs is suggested. 3. Patent hepatic vasculature with normal direction of flow. By my electronic signature, I attest that I have personally reviewed the images for this examination and formulated the interpretations and opinions expressed i n this report Finalized by Juan Swartz M.D. on 04/17/2019 8:22 PM. Dictated by Sonia talamantes M.D. on 04/17/2019 7:50 PM. Consults: Hepatology and Psychiatry Patient Disposition: Home Patient instructions/medications: Activity as Tolerated It is important to keep increasing your activity level after you leave the hosp ital. Moving around can help prevent blood clots, lung infection (pneumonia) an d other problems. Gradually increasing the number of times you are up moving ar ound will help you return to your normal activity level more quickly. Continue to increase the number of times you are up to the chair and walking daily to ret urn to your normal activity level. Begin to work toward your normal activity lev el at discharge Report These Signs and Symptoms Please contact your doctor if you have any of the following symptoms: worsening confusion, severe abdominal pain, vomiting Questions About Your Stay If you have an emergency after discharge, please dial 9-1-1. You may contact your discharging physician up to 7 days after discharge for ques tions about your hospitalization, discharge instructions, or medications by call [facility] [employer] [facility] [employer] [phone] during regular business hours (8AM-4PM) and asking to speak to the doctor listed on the discharge information. If you are not calling during business hours, ask for the on-call doctor. If you have new or worsening symptoms, you may be directed to your primary care provider (PCP) for ongoing questions, an Emergency Department, or an Urgent Care Clinic for a more immediate evaluation. For all calls or questions more than 7 days after discharge, please contact your primary care provider (PCP). For medications after discharge: pain (opioid) medicine cannot be refilled or pr escribed by calling your discharging physician. These medications need to be fi lled by your primary care provider (PCP). Regular refill requests should be dir ected to your primary care provider (PCP). Discharging attending physician: DAVID STEINER [[id number]] Low Sodium Diet You will need to monitor the amount of sodium in your diet. Do not eat more blaise n 2g (grams) or 2000mg (milligrams) per day. If you have questions regarding your diet at home, you may contact a dietitian a t . Current Discharge Medication List START taking these medications Details folic acid (FOLVITE) 1 mg tablet Take one tablet by mouth daily. Qty: 90 tablet, Refills: 0 PRESCRIPTION TYPE: Normal gabapentin (NEURONTIN) 100 mg capsule Take two capsules by mouth twice daily for 2 days, THEN one capsule twice daily for 2 days. Qty: 12 capsule, Refills: 0 PRESCRIPTION TYPE: Normal lactulose 10 gram/15 mL oral solution Take 30 mL by mouth three times daily. Qty: 1000 mL, Refills: 0 PRESCRIPTION TYPE: Normal nicotine (NICODERM CQ STEP 1) 21 mg/day patch Apply one patch to top of skin as directed daily. Rotate patch location. Indications: stop smoking Qty: 28 patch, Refills: 0 PRESCRIPTION TYPE: Normal nicotine polacrilex (NICORETTE) [address] one each inside cheek (side of mo uth) every 1 hour as needed. Chew to soften and park in mouth between lip and gu m. Qty: 2 box, Refills: 0 PRESCRIPTION TYPE: Normal thiamine mononitrate 100 mg tablet Take one tablet by mouth daily. Qty: 90 tablet, Refills: 0 PRESCRIPTION TYPE: Normal CONTINUE these medications which have NOT CHANGED Details melatonin 5 mg tab Take 5 mg by mouth at bedtime as needed. PRESCRIPTION TYPE: Historical Med The following medications were removed from your list. This list includes medic ations discontinued this stay and those removed from your prior med list in our system Wrzqfdj-Suaklfxtdgk-EC-Acetam (NIGHT TIME COLD-FLU RELIEF) 7.5-60-30-1,000 mg/3 0 mL liqd ibuprofen (ADVIL) 200 mg tablet LORazepam (ATIVAN) 1 mg tablet Scheduled appointments: Follow up with your primary care physician Pending items needing follow up: Substance cessation and primary care follow up Signed: David Steiner DO 04/23/2019 cc: Primary Care Physician: No Pcp, Na PCP Unknown Referring physicians: Saskia Dong DO Additional provider(s): MAKER documented in this encounter Discharge Instructions * Appointments* David Steiner DO - 04/23/2019 10:01 AM CASE MAKER Follow up with your primary care physician MAKER * Attachments The following attachments cannot be sent through Care Everywhere.* Acamprosate delayed-release tablets (SAMOAN) documented in this encounter Medications at Time of Discharge Start Date End Date Medication Sig Dispensed Refills 2019 folic acid (FOLVITE) 1 mg Take one 90 tablet 0 tablet tablet by mouth daily. 04/23/2019 lactulose 10 gram/15 mL Take 30 mL by 1000 mL 0 oral solution mouth three times daily. melatonin 5 mg tab Take 5 mg by 0 mouth at bedtime as needed. 2019 nicotine (NICODERM CQ Apply one 28 patch 0 STEP 1) 21 mg/day patch to top patchIndications: smoking of skin as cessation directed daily. Rotate patch location. Indications: stop smoking 04/23/[address] one 2 box 0 (NICORETTE) 4 mg gum each inside cheek (side of mouth) every 1 hour as needed. Chew to soften and park in mouth between lip and gum. 2019 thiamine mononitrate 100 Take one 90 tablet 0 mg tablet tablet by mouth daily. 04/23/2019 04/27/2019 gabapentin (NEURONTIN) Take two 12 capsule 0 100 mg capsule capsules by mouth twice daily for 2 days, THEN one capsule twice daily for 2 days. documented as of this encounter Progress Notes * Nafisa Evans, OT - 04/23/2019 12:05 PM CASE MAKER OCCUPATIONAL THERAPY PSYCHOSOCIAL TREATMENT NOTE Name: Steve Cardenas : 1995 Age: 23 y.o. Admission Date: 04/17/2019 LOS: 6 days Pt seen for: Therapist discussed OT Discharge Planning Checklist with pt to addr ess various areas: Review Wellness Plan, Community Resources, Daily Structure, C oping Skills, Supports, Staying Motivated, inspirational/positive affirmations. Affect: Euthymic, Relaxed and Receptive Mood: "OK"; 5/10 (10 is best) Eye Contact: Within functional limits Interaction: Adequate contributions to discussion Activity Level: Within functional limits Seated EOB Concentration: Able to adequately participate in group activity/discussion Adequate attention span Comments: Adequate participation Appeared receptive to information Attentive to activity/discussion Calm Cooperative Pt's psychosocial OT Discharge Plan: Do yoga at home, walk the dog (daily) Good nutrition (ie grilled chicken, green beans, salad, tomatoes) Avoid alcohol (AA and outpatient treatment. "Do it in memory of my grandmother. 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 Wellness Assessment administered again, and pt's scored improved from 2.4/5 ( on 04/21/19) to 3.4/5 (5 is the best) This assessment ranks/addresses areas of Moo d, Coping, Self Esteem, Sleep, Relationships, Concentration in the past week. GOALS: Identify feelings x1 weekly Identify x1 coping skill/weekly for management of symptoms: met Participate with stable mood 25% OT activities: met Participate without reference to anxiety 25% OT activities: met Patient will state x1 future plan or reason for living: met In the event pt will not be discharged today, Plan for next visit: would be Self -Care Assessment of Coping skills. Plan: OT 3x/week for self management if pt isn't discharged today. Recommend: continued education in symptom management and community based resourc es Therapist: Nafisa Evans OT Psychosocial OT Voalte [id number] Date: 04/23/2019 Philly Ragland M.Div, [facility] - 04/23/2019 11:00 AM CASE MAKER Row Boss Hoeing Note: Admit Date: 04/17/2019 The patient prefers she/her/hers pronouns and the name Deepika. The patient is Sikhism and does not attend mu-ism regularly. She feels she victoria sn't "fit into" the congregations in [place], [place]. She is grieving the of her grandmother, which was April 01 of this yea r. Her grandmother supported her and filled the role of mother to the patient, according to the patient. I guided the patient in remembering her grandmother, talking about coping method s, and talking about coping with her alcoholism. She currently wants to stop dr ruby, but does not have a plan of how to do so. I offered the patient words of comfort, support, and reassurance. The spiritual care team is available as needed, 02/10, through the [facility] ([phone]). For immediate response, please page [phone]. For a response within 24 hours, please submit an order in O2 for a sewing machine operator semiautomatic consult. Date/Time: User: Pager: [phone] 04/23/2019 11:00 AM Philly Palumbo M.Div, [facility] Jung Collins, SHANE - 04/23/2019 10:35 AM CASE MAKER RN educated pt regarding all d/c instructions. All questions addressed and answ ered. PIV removed without complication. Pt verbalized understanding regarding where and which medications to peanut picker. Pt also verbalized understanding that i f he is going to smoke nicotine patch needs to be removed. Pt also verbalized u nderstanding to take patch off tomorrow AM and switch out with new rx. All pt b elongings returned. Pt currently waiting in room for mom to arrive for d/c. MAKER * David Steiner DO - 04/23/2019 10:01 AM CASE MAKER Day of Discharge Note Day of discharge progress note for Steve Cardenas Chart data reviewed including medications, consultation notes, lab, vitals, imag ing. Patient was seen and examined with pertinent information listed below. Subjective: Patient without acute issues, requesting ativan on discharge, explai von severe level of liver injury and need to avoid benzodiazepines if possible a nd absolutely avoid any more alcohol as this could worsening life threatning jesika er injury. Patient ambivalent, evasive about future drinking plans Exam: Gen: NAD, AOx3 Eyes: EOMI, severe icterus Neck: Supple, No JVP Chest: CTAB, NTTP Heart: RRR, No murmurs appreciated Extremities: pulses 2+ Bilat LE, slight tremor Neuro: CN II-XII grossly intact, moving all extremities spontaneously Integument: Pronounced jaundice Psych: Flat affect MELD-Na score: 23 at 04/23/2019 4:19 AM MELD score: 22 at 04/23/2019 4:19 AM Calculated from: Serum Creatinine: 0.54 MG/DL (Rounded to 1 MG/DL) at 04/23/2019 4:19 AM Serum Sodium: 136 MMOL/L at 04/23/2019 4:19 AM Total Bilirubin: 16.8 MG/DL at 04/23/2019 4:19 AM INR(ratio): 1.5 at 04/22/2019 4:26 AM Age: 23 years Discharge plans and pertinent follow up items after discharge: Patient discharged with short gabapentin taper for residual etoh withdrawal, as well as vitamin replacement Patient without insurance or financial resources, encouraged to establish with c are closer to home Patient feels comfortable with plans for discharge. All questions were answered . Discharge discussion, including follow up/discharge instructions, occurred wi th patient [id number]. David Steiner DO 04/23/2019 Discharge Planning: greater than 30 minutes spent in pt dc care today spent coun seling pt, coordinating dc care, placing dc orders and helping complete dc summa ry. MAKER * Sloane Rodrigez RN - 04/22/2019 4:27 PM CASE MAKER Pt calling out, states he feels like he is going to have a seizure. RN went in r oom and pt reported he had 2 seizures. RN went to get dynamap and went in room, pt had eyes closed, was moaning, and had slight tremors. RN put blood pressure c uff around pt's arm and pt helped hold arm up but still would not respond. See d oc flowsheet for pt's vitals. Pt then wakes up, is A/Ox4, and asks what they can have for seizures. Pt also is reporting throbbing chest pain rated a 9/10 and a bdominal pain. Notified Navjot Oleary with [employer]. No new orders at this time. Pt scoring a 5 on AWAS. Will give PRN Atarax for anxiety. Philly Ragland M.Div, [facility] - 04/22/2019 12:38 PM CASE MAKER Row Boss Hoeing Note: Admit Date: 04/17/2019 The patient is Sikhism and was sleepy when I visited. He asked that I pray for him on my own. The spiritual care team is available as needed, 02/10, through the [facility] ([phone]). For immediate response, please page [phone]. For a response within 24 hours, please submit an order in O2 for a sewing machine operator semiautomatic consult. Date/Time: User: Pager: [phone] 04/22/2019 12:38 PM Philly Palumbo M.Div, [facility] MAKER Roseline Pavon - 04/22/2019 10:16 AM CASE MAKER CLINICAL NUTRITION Clinical Nutrition Follow-Up Assessment Name: Steve Cardenas : 1995 Age: 23 y.o. Admission Date: 04/17/2019 LOS: 5 days Recommendation: Continue diet as ordered. Comments: 23 yo male to female transgender, with PMH of alcohol abuse and erosive esophagi tis who was transferred from OSH for alcohol intoxification and elevated LFT con cerning for alcoholic hepatitis. See RD note from 04/18 for subjective information /nutritional Hx. Pt reports that their appetite has been fair. Yesterday they hawthorne d 100% of 3 meals. This morning they ordered tater tots and a sausage link for vidya sanches. I reviewed healthy eating practices and encouraged pt to follow My [employer] te model of making 1/2 of plate from fruits and vegetables, 1/4 from protein, 1/ 4 from a whole grain, and a low-fat or fat-free dairy source. Suggested avoiding excess added sugar and caffeine during withdrawal. Briefly reviewed low sodium diet with pt, but they began having N/V during visit. program director air talent to bedside for m edication administration. Nutrition Assessment of Patient: Admit Weight: 65.3 kg(bed scale); Weight Change Since Admit: no new BMI (Calculated): 24.72; BMI Categories Adult: Acceptable: 18.5-24.9(24.7) Pertinent Allergies/Intolerances: none Pertinent Labs: reviewed; Pertinent Meds: folic acid, thiamine, MVI, lactulose, ativan, K Phos; Oral Diet Order: Low sodium; Current Oral Intake: Improving Estimated Calorie Needs: 1950(30 kcal/kg admit wt) Estimated Protein Needs: 98(1.5 gm/kg) Malnutrition Assessment: Does not meet criteria; ; ; ; ; Nutrition Focused Physical Assessment: Loss of Subcutaneous Fat: No; ; Muscle Wasting: No; ; Edema: No; ; Pressure Injury: none Nutrition Diagnosis: Inadequate protein-energy intake Etiology: chronic alcohol intake, N/V during admission Signs & Symptoms: diet Hx of inconsistent PO intake likely dependent on alcohol intake Intervention / Plan: Monitor PO intakes, weight trends, labs, meds, GI health. Goals: Patient to consume >75% of meals Time Frame: Within 72 hours Status: Met;New goal established Patient to consume >85% of meals Time Frame: Throughout stay MAKER * David Steiner DO - 04/22/2019 7:29 AM CASE MAKER Encounter Date: 04/22/2019 7:29 AM Name: Steve Cardenas Admission Date: 04/17/2019 LOS: 5 days ASSESSMENT AND PLAN Steve Cardenas is a 23 y.o. male to female transgender, with past medical history of Alcohol abuse, Erosive esophagitis, and Generalized anxiety disorder transfer red from OSH for alcohol intoxification and elevated LFT concerning for alcoholi c hepatitis. # Elevated liver enzymes concerning for alcoholic hepatitis vs decompensated jesika er cirrhosis MELD-Na score: 22 at 04/22/2019 4:26 AM MELD score: 21 at 04/22/2019 4:26 AM Calculated from: Serum Creatinine: 0.51 MG/DL (Rounded to 1 MG/DL) at 04/22/2019 4:26 AM Serum Sodium: 135 MMOL/L at 04/22/2019 4:26 AM Total Bilirubin: 15.0 MG/DL at 04/22/2019 4:26 AM INR(ratio): 1.5 at 04/22/2019 4:26 AM Age: 23 years At presentation, serum alcohol level 476, bilirubin 13.2, AST 504, LDL 86, fabi ia 35, ALP 290, INR is 1.4, creatinine 1.67 Work-up: Salicylate levels, acetaminophen levels within normal limits, hepatitis panel within normal limits, History of alcohol abuse with 2 pints of vodka daily Previous admission was February 2019 for hematemesis. Plan Hepatology consulted, discussed with Dr Springer Ultrasound abdomen-positive for sonographic cholecystitis however clinically les s likely, he has generalized abdominal pain, gallbladder wall thickening most li edgar due to edema and hypoalbuminemia. # Alcohol intoxification # Polysubstance abuse - used marijuana and morphine in the past - Heave ETOH abuse hx, at least 2 pint vodka daily. Last drink on 04/16 8pm had 2 pint of vodka. Plan: > continue to downtitrate ativan q12h > continue thiamine/folate replacement > Did express the will stop drinking, need SW assist on provide info for alcohol rehab. -Psychiatry was consulted, avoid PRN Ativan, questionable benzodiazepine seeking behavior. > Psychiatry team concerned about ativan seeking behavior, unable to tolerate naltrexone with acute liver disease, unable to afford acamprosate. > continue gabapentin # General Anxiety disorder STOP PRN Ativan, Add hydroxyzine 25 mg 3 times daily for anxiety Appreciate psychiatry follow-up, case management to discuss with [facility] Pancytopenia - 2/2 etoh and ESLD Microcytic anemia - likely 2/2 alcohol use Hypomagnesemia - replace Hypophosphatemia: - improving Malnutrition Details: Fluids, electrolytes and Nutrition: IVF: 1 L NS Electrolytes: Monitor and replace PRN. Diet: DIET REGULAR Code status: Full Code - will discuss further Disposition: Admit inpatient VTE Ppx: Continuous Infusions: CODE STATUS: Full Code Patient is severely ill with liver damage from etoh use complicated by withdrawl s, MDM high with progressive liver failure and life threatening risk of complica tions. Dispo: anticipate DC 04/23 home with family SUBJECTIVE: Patient reports anxious, no fever, no significant abdominal pain. Patient with intermittent nausea but improving PO intake. Medications: Scheduled Meds: enoxaparin (LOVENOX) syringe 40 mg, 40 mg, Subcutaneous, QDAY(21 ) folic acid (FOLVITE) tablet 1 mg, 1 mg, Oral, QDAY gabapentin (NEURONTIN) capsule 200 mg, 200 mg, Oral, TID lactulose oral solution 20 g, 30 mL, Oral, TID lidocaine (LIDODERM) 5 % topical patch 1 patch, 1 patch, Topical, QDAY And Verification of Patch Placement and Integrity - Lidocaine 5%, , Transdermal, BID melatonin tablet 5 mg, 5 mg, Oral, QHS nicotine (NICODERM CQ STEP 1) 21 mg/day patch 1 patch, 1 patch, Transdermal, QDA Y And Verification of Patch Placement and Integrity - Nicotine 21 MG/24HR, , Transderm al, BID pantoprazole DR (PROTONIX) tablet 40 mg, 40 mg, Oral, QDAY phytonadione (VITAMIN K) 10 mg in dextrose 5% (D5W) 50 mL IVPB, 10 mg, Intraveno us, QDAY polyethylene glycol 3350 (MIRALAX) packet 17 g, 1 packet, Oral, QDAY potassium phosphate (K-PHOS ORIGINAL) dispersable tablet 2 tablet, 2 tablet, Ora l, BID thiamine mononitrate tablet 100 mg, 100 mg, Oral, QDAY vitamins, multiple tablet 1 tablet, 1 tablet, Oral, QDAY OBJECTIVE: Vital Signs: Last Filed Vital Signs: 24 Abbi r Range BP: 100/65 (04/22 406) Temp: 37.4 C (99.3 F) (04/22 406) Pulse: 100 (04/22 406) Respirations: 18 PER MINUTE (04/22 406) SpO2: 98 % (04/22 406) BP: (100-115)/(60-71) Temp: [37.2 C (98.9 F)-37.4 C (99.4 F)] Pulse: [100-118] Respirations: [18 PER MINUTE] SpO2: [97 %-100 %] Intensity Pain Scale (Self Report): 4 (04/21/19 1357) Vitals: 04/17/19 1510 Weight: 65.3 kg (144 lb) Intake/Output Summary: (Last 24 hours) Intake/Output Summary (Last 24 hours) at 04/22/2019 0729 Last data filed at 04/22/2019 0600 Gross per 24 hour Intake 1840 ml Output 800 ml Net 1040 ml Stool Occurrence: 0 Weight Change: BMI: Body mass index is 24.72 kg/m. 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 4/5, gait non antalgic not requirin g assisstance, no significant asterixis Laboratory Data: 24-hour labs: Results for orders placed or performed during the hospital encounter of 04/17/19 (from the past 24 hour(s)) CBC AND DIFF Collection Time: 04/22/19 4:26 AM Result Value Ref Range White Blood Cells 7.8 4.5 - 11.0 K/UL RBC 2.36 (L) 4.4 - 5.5 M/UL Hemoglobin 8.8 (L) 13.5 - 16.5 GM/DL Hematocrit 25.6 (L) 40 - 50 % MCV 108.3 (H) 80 - 100 FL MCH 37.3 (H) 26 - 34 PG MCHC 34.5 32.0 - 36.0 G/DL RDW 15.6 (H) 11 - 15 % Platelet Count 165 150 - 400 K/UL MPV 9.0 7 - 11 FL Neutrophils 75 41 - 77 % Lymphocytes 13 (L) 24 - 44 % Monocytes 9 4 - 12 % Eosinophils 2 0 - 5 % Basophils 1 0 - 2 % Absolute Neutrophil Count 5.90 1.8 - 7.0 K/UL Absolute Lymph Count 1.00 1.0 - 4.8 K/UL Absolute Monocyte Count 0.70 0 - 0.80 K/UL Absolute Eosinophil Count 0.20 0 - 0.45 K/UL Absolute Basophil Count 0.10 0 - 0.20 K/UL COMPREHENSIVE METABOLIC PANEL Collection Time: 04/22/19 4:26 AM Result Value Ref Range Sodium 135 (L) 137 - 147 MMOL/L Potassium 4.0 3.5 - 5.1 MMOL/L Chloride 100 98 - 110 MMOL/L Glucose 87 70 - 100 MG/DL Blood Urea Nitrogen 7 7 - 25 MG/DL Creatinine 0.51 0.4 - 1.24 MG/DL Calcium 8.1 (L) 8.5 - 10.6 MG/DL Total Protein 5.5 (L) 6.0 - 8.0 G/DL Total Bilirubin 15.0 (H) 0.3 - 1.2 MG/DL Albumin 2.7 (L) 3.5 - 5.0 G/DL Alk Phosphatase 139 (H) 25 - 110 U/L AST (SGOT) 49 (H) 7 - 40 U/L CO2 27 21 - 30 MMOL/L ALT (SGPT) 21 7 - 56 U/L Anion Gap 8 3 - 12 eGFR Non >60 >60 mL/min eGFR >60 >60 mL/min PROTIME INR (PT) Collection Time: 04/22/19 4:26 AM Result Value Ref Range INR 1.5 (H) 0.8 - 1.2 MAGNESIUM Collection Time: 04/22/19 4:26 AM Result Value Ref Range Magnesium 1.7 1.6 - 2.6 mg/dL PHOSPHORUS Collection Time: 04/22/19 4:26 AM Result Value Ref Range Phosphorus 2.8 2.0 - 4.5 MG/DL Glucose: 87 (04/22/19 0426) Us Abdomen Complete Result Date: 04/17/2019 1. Nondilated gallbladder with gallbladder wall thickening/edema which may be r elated to liver disease and/or hypoalbuminemia. Cholelithiasis and gallbladder s ludge are present with reportedly positive sonographic Nesbitt sign, although, la ck of gallbladder distention would be atypical for acute cholecystitis. Clinical and laboratory correlation recommended. 2. Moderate hepatomegaly with heteroge neous parenchyma and increased echogenicity which may be secondary to steatosis and/or edema related to acute hepatitis. Correlation with labs is suggested. 3. Patent hepatic vasculature with normal direction of flow. By my electronic sign ature, I attest that I have personally reviewed the images for this examination and formulated the interpretations and opinions expressed in this report Finali sun by Juan Swartz M.D. on 04/17/2019 8:22 PM. Dictated by Silvia Orellana on 04/17/2019 7:50 PM. Us Doppler Abd Pelv Retroper Comp Result Date: 04/17/2019 1. Nondilated gallbladder with gallbladder wall thickening/edema which may be r elated to liver disease and/or hypoalbuminemia. Cholelithiasis and gallbladder s ludge are present with reportedly positive sonographic Nesbitt sign, although, la ck of gallbladder distention would be atypical for acute cholecystitis. Clinical and laboratory correlation recommended. 2. Moderate hepatomegaly with heteroge neous parenchyma and increased echogenicity which may be secondary to steatosis and/or edema related to acute hepatitis. Correlation with labs is suggested. 3. Patent hepatic vasculature with normal direction of flow. By my electronic sign ature, I attest that I have personally reviewed the images for this examination and formulated the interpretations and opinions expressed in this report Finali sun by Juan Swartz M.D. on 04/17/2019 8:22 PM. Dictated by Silvia Orellana on 04/17/2019 7:50 PM. Complex medical decision making, multisystem involvement as mentioned above. David Steiner DO 04/22/2019 7:29 AM MAKER * Sara Aaron MD - 04/21/2019 5:12 PM CASE MAKER Brief Update Note: Patient seen this morning by resident; reports feeling anxious but states abdomi nal pain, n/v improving. VS reviewed and wnl. Exam remarkable for patient alert and oriented, NAD, jaundi judith, abdominal exam without tenderness or distention, no LE edema, slowed speech . Labs with improvement in transaminases: AST: 52, ALT: 23, Alk Phos: 141, T cisco i improved to 15.6 (previously 17.7), INR: 1.8 (previously 2.4). MELD 23. A/P: Alcoholic hepatitis Severe Alcohol Use Disorder/Dependence Alcohol Withdrawal No plans for steroid therapy. Given lack of insurance may [facility]. Continue supportive therapy. Cont inue to encourage alcohol cessation on discharge. Hepatology will sign off at this time. Patient was discussed with Dr. Roy, attending physician. Sara Aaron MD Internal Medicine, PGY-3 Pager MAKER * Jung Sparks RN - 04/21/2019 3:47 PM CASE MAKER Per pt he states he had a seizure. VSS, alert and oriented x4. Seizure not wit nessed by any staff member. MD Steiner notified via volate. MD to speak with neurology. Pt is scoring 5 on AWAS. Will continue to monitor. MAKER * David Steiner DO - 04/21/2019 9:41 AM CASE MAKER Encounter Date: 04/21/2019 9:41 AM Name: Steve Cardenas Admission Date: 04/17/2019 LOS: 4 days ASSESSMENT AND PLAN Steve Cardenas is a 23 y.o. male to female transgender, with past medical history of Alcohol abuse, Erosive esophagitis, and Generalized anxiety disorder transfer red from OSH for alcohol intoxification and elevated LFT concerning for alcoholi c hepatitis. # Elevated liver enzymes concerning for alcoholic hepatitis vs decompensated jesika er cirrhosis MELD-Na score: 23 at 04/21/2019 4:40 AM MELD score: 23 at 04/21/2019 4:40 AM Calculated from: Serum Creatinine: 0.53 MG/DL (Rounded to 1 MG/DL) at 04/21/2019 4:40 AM Serum Sodium: 138 MMOL/L (Rounded to 137 MMOL/L) at 04/21/2019 4:40 AM Total Bilirubin: 15.6 MG/DL at 04/21/2019 4:40 AM INR(ratio): 1.8 at 04/21/2019 4:40 AM Age: 23 years At presentation, serum alcohol level 476, bilirubin 13.2, AST 504, LDL 86, fabi ia 35, ALP 290, INR is 1.4, creatinine 1.67 Work-up: Salicylate levels, acetaminophen levels within normal limits, hepatitis panel within normal limits, History of alcohol abuse with 2 pints of vodka daily Previous admission was February 2019 for hematemesis. Plan Hepatology consulted, discussed with Dr Springer Ultrasound abdomen-positive for sonographic cholecystitis however clinically les s likely, he has generalized abdominal pain, gallbladder wall thickening most li edgar due to edema and hypoalbuminemia. # Alcohol intoxification # Polysubstance abuse - used marijuana and morphine in the past - Heave ETOH abuse hx, at least 2 pint vodka daily. Last drink on 04/16 8pm had 2 pint of vodka. Plan: > AWAS protocol > continue thiamine/folate replacement > Did express the will stop drinking, need SW assist on provide info for alcohol rehab. -Psychiatry was consulted, avoid PRN Ativan, questionable benzodiazepine seeking behavior. Psychiatry team concerned about ativan seeking behavior, unable to tolerate nal trexone with acute liver disease, unable to afford acamprosate. Will try some l ow dose gabapentin # General Anxiety disorder STOP PRN Ativan, Add hydroxyzine 25 mg 3 times daily for anxiety Appreciate psychiatry follow-up, case management to discuss with [facility] Pancytopenia - 2/2 etoh and ESLD Microcytic anemia - likely 2/2 alcohol use Hypomagnesemia > continuing Replacement Hypophosphatemia: > replacing aggressively with IV and PO Malnutrition Details: Fluids, electrolytes and Nutrition: IVF: 1 L NS Electrolytes: Monitor and replace PRN. Diet: DIET REGULAR Code status: Full Code - will discuss further Disposition: Admit inpatient VTE Ppx: Continuous Infusions: CODE STATUS: Full Code Patient is severely ill with liver damage from etoh use complicated by withdrawl s, MDM high with progressive liver failure and life threatening risk of complica tions. SUBJECTIVE: Patient reports anxious, no fever, no significant abdominal pain. Patient with nausea, multiple bowel movements without lactulose. Psychiatry team concerned a bout ativan seeking behavior, unable to tolerate naltrexone with acute liver dis ease, unable to afford acamprosate Medications: Scheduled Meds: enoxaparin (LOVENOX) syringe 40 mg, 40 mg, Subcutaneous, QDAY(21 ) folic acid (FOLVITE) tablet 1 mg, 1 mg, Oral, QDAY lactulose oral solution 20 g, 30 mL, Oral, TID lidocaine (LIDODERM) 5 % topical patch 1 patch, 1 patch, Topical, QDAY And Verification of Patch Placement and Integrity - Lidocaine 5%, , Transdermal, BID melatonin tablet 5 mg, 5 mg, Oral, QHS nicotine (NICODERM CQ STEP 1) 21 mg/day patch 1 patch, 1 patch, Transdermal, QDA Y And Verification of Patch Placement and Integrity - Nicotine 21 MG/24HR, , Transderm al, BID pantoprazole (PROTONIX) injection 40 mg, 40 mg, Intravenous, QDAY phytonadione (VITAMIN K) 10 mg in dextrose 5% (D5W) 50 mL IVPB, 10 mg, Intraveno us, QDAY polyethylene glycol 3350 (MIRALAX) packet 17 g, 1 packet, Oral, QDAY potassium phosphate (K-PHOS ORIGINAL) dispersable tablet 2 tablet, 2 tablet, Ora l, BID thiamine (VITAMIN B-1) injection 100 mg, 100 mg, Intravenous, QDAY vitamins, multiple tablet 1 tablet, 1 tablet, Oral, QDAY OBJECTIVE: Vital Signs: Last Filed Vital Signs: 24 Abbi r Range BP: 109/65 (04/21 704) Temp: 37.2 C (98.9 F) (04/21 704) Pulse: 111 (04/21 704) Respirations: 18 PER MINUTE (04/21 704) SpO2: 100 % (04/21 704) BP: (96-115)/(62-76) Temp: [36.7 C (98.1 F)-37.5 C (99.5 F)] Pulse: [92-115] Respirations: [16 PER MINUTE-20 PER MINUTE] SpO2: [98 %-100 %] Intensity Pain Scale (Self Report): Asleep (04/21/19 0325) Vitals: 04/17/19 1510 Weight: 65.3 kg (144 lb) Intake/Output Summary: (Last 24 hours) Intake/Output Summary (Last 24 hours) at 04/21/2019 0941 Last data filed at 04/21/2019 0845 Gross per 24 hour Intake 890 ml Output 150 ml Net 740 ml Stool Occurrence: 1 Weight Change: BMI: Body mass index is 24.72 kg/m. 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 4/5, gait non antalgic not requirin g assisstance, no significant asterixis Laboratory Data: 24-hour labs: Results for orders placed or performed during the hospital encounter of 04/17/19 (from the past 24 hour(s)) CULTURE-BLOOD W/SENSITIVITY Collection Time: 04/20/19 12:00 PM Result Value Ref Range Battery Name BLOOD CULTURE Specimen Description BLOOD LEFT PIV Special Requests NONE Culture NO GROWTH 1 DAY Report Status CULTURE-BLOOD W/SENSITIVITY Collection Time: 04/20/19 12:15 PM Result Value Ref Range Battery Name BLOOD CULTURE Specimen Description BLOOD ANTECUBITAL RIGHT Special Requests NONE Culture NO GROWTH 1 DAY Report Status LACTIC ACID(LACTATE) Collection Time: 04/20/19 12:15 PM Result Value Ref Range Lactic Acid 2.2 (H) 0.5 - 2.0 MMOL/L URINALYSIS DIPSTICK REFLEX TO CULTURE Collection Time: 04/20/19 12:40 PM Result Value Ref Range Color,UA ANA Turbidity,UA CLEAR CLEAR-CLEAR Specific [place]-Urine 1.010 1.003 - 1.035 pH,UA 6.0 5.0 - 8.0 Protein,UA NEG NEG-NEG Glucose,UA NEG NEG-NEG Ketones,UA NEG NEG-NEG Bilirubin,UA POS (A) NEG-NEG Blood,UA NEG NEG-NEG Urobilinogen,UA INCREASED (A) NORM-NORMAL Nitrite,UA NEG NEG-NEG Leukocytes,UA NEG NEG-NEG Urine Ascorbic Acid, UA NEG NEG-NEG URINALYSIS MICROSCOPIC REFLEX TO CULTURE Collection Time: 04/20/19 12:40 PM Result Value Ref Range WBCs,UA 0-2 0 - 2 /HPF RBCs,UA NONE 0 - 3 /HPF Comment,UA Criteria for reflex to culture are WBC>10, Positive Nitrite, and/or >=+1 leukocytes. If quantity is not sufficient, an addendum will follow. MucousUA TRACE Squamous Epithelial Cells 0-2 0 - 5 Hyaline Cast 2-5 CBC AND DIFF Collection Time: 04/21/19 4:40 AM Result Value Ref Range White Blood Cells 9.3 4.5 - 11.0 K/UL RBC 2.36 (L) 4.4 - 5.5 M/UL Hemoglobin 8.8 (L) 13.5 - 16.5 GM/DL Hematocrit 25.1 (L) 40 - 50 % MCV 106.6 (H) 80 - 100 FL MCH 37.5 (H) 26 - 34 PG MCHC 35.2 32.0 - 36.0 G/DL RDW 14.9 11 - 15 % Platelet Count 126 (L) 150 - 400 K/UL MPV 9.9 7 - 11 FL Neutrophils 80 (H) 41 - 77 % Lymphocytes 11 (L) 24 - 44 % Monocytes 7 4 - 12 % Eosinophils 1 0 - 5 % Basophils 1 0 - 2 % Absolute Neutrophil Count 7.50 (H) 1.8 - 7.0 K/UL Absolute Lymph Count 1.00 1.0 - 4.8 K/UL Absolute Monocyte Count 0.60 0 - 0.80 K/UL Absolute Eosinophil Count 0.00 0 - 0.45 K/UL Absolute Basophil Count 0.10 0 - 0.20 K/UL COMPREHENSIVE METABOLIC PANEL Collection Time: 04/21/19 4:40 AM Result Value Ref Range Sodium 138 137 - 147 MMOL/L Potassium 4.0 3.5 - 5.1 MMOL/L Chloride 105 98 - 110 MMOL/L Glucose 103 (H) 70 - 100 MG/DL Blood Urea Nitrogen 5 (L) 7 - 25 MG/DL Creatinine 0.53 0.4 - 1.24 MG/DL Calcium 8.1 (L) 8.5 - 10.6 MG/DL Total Protein 5.5 (L) 6.0 - 8.0 G/DL Total Bilirubin 15.6 (H) 0.3 - 1.2 MG/DL Albumin 2.7 (L) 3.5 - 5.0 G/DL Alk Phosphatase 141 (H) 25 - 110 U/L AST (SGOT) 52 (H) 7 - 40 U/L CO2 27 21 - 30 MMOL/L ALT (SGPT) 23 7 - 56 U/L Anion Gap 6 3 - 12 eGFR Non >60 >60 mL/min eGFR >60 >60 mL/min PROTIME INR (PT) Collection Time: 04/21/19 4:40 AM Result Value Ref Range INR 1.8 (H) 0.8 - 1.2 MAGNESIUM Collection Time: 04/21/19 4:40 AM Result Value Ref Range Magnesium 1.8 1.6 - 2.6 mg/dL PHOSPHORUS Collection Time: 04/21/19 4:40 AM Result Value Ref Range Phosphorus 2.9 2.0 - 4.5 MG/DL Glucose: (!) 103 (04/21/19 0440) Us Abdomen Complete Result Date: 04/17/2019 1. Nondilated gallbladder with gallbladder wall thickening/edema which may be r elated to liver disease and/or hypoalbuminemia. Cholelithiasis and gallbladder s ludge are present with reportedly positive sonographic Nesbitt sign, although, la ck of gallbladder distention would be atypical for acute cholecystitis. Clinical and laboratory correlation recommended. 2. Moderate hepatomegaly with heteroge neous parenchyma and increased echogenicity which may be secondary to steatosis and/or edema related to acute hepatitis. Correlation with labs is suggested. 3. Patent hepatic vasculature with normal direction of flow. By my electronic sign ature, I attest that I have personally reviewed the images for this examination and formulated the interpretations and opinions expressed in this report Finali zed by Juan Swartz M.D. on 04/17/2019 8:22 PM. Dictated by Silvia Orellana on 04/17/2019 7:50 PM. Us Doppler Abd Pelv Retroper Comp Result Date: 04/17/2019 1. Nondilated gallbladder with gallbladder wall thickening/edema which may be r elated to liver disease and/or hypoalbuminemia. Cholelithiasis and gallbladder s ludge are present with reportedly positive sonographic Nesbitt sign, although, la ck of gallbladder distention would be atypical for acute cholecystitis. Clinical and laboratory correlation recommended. 2. Moderate hepatomegaly with heteroge neous parenchyma and increased echogenicity which may be secondary to steatosis and/or edema related to acute hepatitis. Correlation with labs is suggested. 3. Patent hepatic vasculature with normal direction of flow. By my electronic sign ature, I attest that I have personally reviewed the images for this examination and formulated the interpretations and opinions expressed in this report Finali zed by Juan Swartz M.D. on 04/17/2019 8:22 PM. Dictated by Silvia Orellana on 04/17/2019 7:50 PM. Complex medical decision making, multisystem involvement as mentioned above. David Steiner DO 04/21/2019 9:41 AM MAKER * Nafisa Evans, OT - 04/21/2019 8:07 AM CASE MAKER OCCUPATIONAL THERAPY PSYCHOSOCIAL ASSESSMENT NOTE Name: Steve Cardenas : 1995 Age: 23 y.o. Admission Date: 04/17/2019 LOS: 4 days Chart review/Initial contact: 04/21/2019 Attending Physician: David Steiner DO Admission Diagnosis: jaundiced, intoxicated Pt referred to occupational therapy for evaluation and treatment of functioning in life roles. Reason For Referral to Psychosocial OT: Anxiety and Depression Comments: Chart review from psych consult: Steve Cardenas is a 23 y.o. male>female transgender patient with a past psychiatric history of multiple substance use disorder, most concerning is daily alcohol use, reporting 2-3 1/2 pints of vodka daily. First drink age 12, heavy drinking began at age 19 when moved to new apartment, heaviest period of drinking was 1/2 gallon daily before. Patient has hx of depression and anxiety (reports taking 2mg Q4H at home) but me anwhile severe Alcohol abuse hx(2pint vodka daily). Admitted to alcohol withdraw and alcohol hepatitis. Reports severe anxiety, need psych input on management of anxiety Pt notes having anxiety that is described as "nervousness" which impairs sleep, and notes worries about "everything my whole life". She notes mood has been depr essed since grandmother's two weeks ago. Notes she was very close with her grandmother and lived with her. Social History: Preferred name "Keyana", male to female transgender person. Born: [place], [place] Raised by: mother, bio dad until divorce Family/Siblings: 1 sibling Level of Education: 9th grade Occupational Status: unemployed Relationships: single Current Living Situation: with grandparents. INTERVIEW Subjective: "I've had not time to cope since grandma . She April 01. " Stressors: "grandma's and no job." Transitioning to female from male Affect: Somnolent Mood: 5/10 - " tired " Eye Contact: none. Eyes closed SUMMARY: Somnolent during OT interview. Low energy. Pt scored 2.4/5 (5 is the best) on Wellness Assessment, which ranks/addresses areas of Mood, Coping, Self Esteem, Sleep, Relationships, Healthy Habits, Concentration, Decisions, Motivati on in the past week. Related that recently she hasn't been very satisfied with h er relationships, that "I get frustrated." Admitted that since grandmother , she has not had good healthy habits. Due to pt's somnolence, Self-Care Assessment of coping skills was not administer ed. Will follow up with that next session. Pt indicated interest in psychosocial OT f/u sessions 2-3x/week. PROBLEM AREAS: Anxiety and Depressed Mood OT INTERVENTION Pt to be seen x2-3 weekly Communication/Self Expression Pt Education Self Management Plan for next visit: Self-Care Assessment of Coping skills GOALS: Identify feelings x1 weekly Identify x1 coping skill/weekly for management of symptoms Participate with stable mood 25% OT activities Participate without reference to anxiety 25% OT activities Patient will state x1 future plan or reason for living Potential functional outcome: Fair Therapist: Nafisa Evans OT Psychosocial OT Voalte [id number] Date: 04/21/2019 MAKER * Alec Mckinney MD - 04/21/2019 8:05 AM CASE MAKER Psychiatric Consultation Progress Note LOS: 4 days Current Psychotropic Meds: Haldol 1mg Q4H PRN PO/IM Hydroxyzine 25mg TID PRN Ativan Taper for alcohol withdrawal Psychiatric Assessment: 1. Alcohol use disorder, severe, in current alcohol withdrawal. 2. Sedative hypnotic use disorder, severe 3. Opioid use disorder, severe, in sustained remission 4. Stimulant Use Disorder, methamphetamines, in sustained remission 5. Cannabis use disorder, mild 6. Tobacco Use Disorder, severe 7. Bereavement 8. Transgender Person 9. R/o Alcohol Induced Depressive and Anxiety Disorder Recommendations: Continue Hydroxyzine 25mg TID PRN for acute anxiety Continue AWAS monitoring with Ativan Protocol - Score of 5 today Agree with use of benzodiazepines to prevent further alcohol withdrawal sympt oms but do not recommend usage for anxiety. Discussed medication options for alcohol cravings including Acamprosate which may be an option however finances may be a barrier to use, provided handout with medication information for the patient. If he would like to trial this can have SW/CM provide Good Rx coupons for patient for lowered cost if available. Per CM, provided pt with [facility] information for substance use programming however pt e ndorsed not wanting to call them at this time. Would continue to encourage rehab programming. Seen and discussed with: Dr. Vergara. Please feel free to contact us with any additional questions or concerns by oriana scruggs the consult team between 8am and 5pm on weekdays and between 8am and 3pm on [facility] at [phone]. Otherwise, page the vice president sales regional director of finance. Subjective: Pt seen in room this AM for follow up. Pt reports feeling "ok" in terms of mood today and notes better sleep last night than previous. Appetite remains stable. No SI/HI reported. Some reports of "hallucinations" but states this is "thinking I am somewhere I am not". Denies AVH to at this moment. Pt notes ongoing anxiety and discussed that anxiety would be expected during acute alcohol withdrawal p eriods and to remain on scheduled ativan taper. Discussed [facility] and resources fo r rehab programming as well during visit. Review of Systems Gastrointestinal: Positive for nausea. Negative for vomiting. Neurological: Negative for tremors and headaches. Psychiatric/Behavioral: Negative for hallucinations and suicidal ideas. Objective: Vital Signs: Current Vital Signs: 24 Hour Range BP: 109/65 (04/21 704) Temp: 37.2 C (98.9 F) (04/21 704) Pulse: 111 (04/21 704) Respirations: 18 PER MINUTE (04/21 704) SpO2: 100 % (04/21 704) BP: (96-115)/(62-76) Temp: [36.7 C (98.1 F)-37.5 C (99.5 F)] Pulse: [92-115] Respirations: [16 PER MINUTE-20 PER MINUTE] SpO2: [98 %-100 %] Intensity Pain Scale (Self Report): (not recorded) Scheduled Medications: enoxaparin (LOVENOX) syringe 40 mg, 40 mg, Subcutaneous, QDAY(21) folic acid (FOLVITE) tablet 1 mg, 1 mg, Oral, QDAY lactulose oral solution 20 g, 30 mL, Oral, TID lidocaine (LIDODERM) 5 % topical patch 1 patch, 1 patch, Topical, QDAY And Verification of Patch Placement and Integrity - Lidocaine 5%, , Transdermal, BID melatonin tablet 5 mg, 5 mg, Oral, QHS methylPREDNISolone (SOLU-Medrol) injection 40 mg, 40 mg, Intravenous, Q24H* nicotine (NICODERM CQ STEP 1) 21 mg/day patch 1 patch, 1 patch, Transdermal, QDA Y And Verification of Patch Placement and Integrity - Nicotine 21 MG/24HR, , Transderm al, BID pantoprazole (PROTONIX) injection 40 mg, 40 mg, Intravenous, QDAY phytonadione (VITAMIN K) 10 mg in dextrose 5% (D5W) 50 mL IVPB, 10 mg, Intraveno us, QDAY polyethylene glycol 3350 (MIRALAX) packet 17 g, 1 packet, Oral, QDAY potassium phosphate (K-PHOS ORIGINAL) dispersable tablet 2 tablet, 2 tablet, Ora l, BID thiamine (VITAMIN B-1) injection 100 mg, 100 mg, Intravenous, QDAY vitamins, multiple tablet 1 tablet, 1 tablet, Oral, QDAY PRN Medications: acetaminophen Q6H PRN 650 mg at 04/21/19 0736, bismuth subsalicylate Q6H PRN 30 mL at 04/20/19 0938, haloperidol Q4H PRN OR haloperidol Q4H PRN, hydrOXYzine TID PRN 25 mg at 04/21/19 0218, LORazepam Q6H PRN 2 mg at 04/21/19 0736, nicoti ne polacrilex Q1H PRN 4 mg at 04/21/19 0221, prochlorperazine Q6H PRN 10 mg at 0 04/21/19 0234 Mental Status Exam: General/Constitutional: no acute distress, jaundiced appearing Speech/Motor: low tone/volume, nl rate, no pma/r Mood/Affect: "ok", flat affect Thought Process: linear Associations: intact Thought Content: denies SI/HI, no delusional content Perception: denies AVH Insight/Judgment: fair to poor/ fair to poor Orientation: AAOX4 Recent and Remote Memory: intact Attention span and concentration: intact Language: malaysian, nl fluency Fund of knowledge and vocabulary: full Focused Physical Exam: Musculoskeletal: moves all four extremities with ease Neuro: no tremors observed. Alec Mckinney MD MAKER Associated attestation - Saskia Vergara MD - 04/21/2019 10:51 AM CASE MAKER ATTESTATION I personally performed the whitehead portions of the E/M visit, discussed the case wit h the resident and concur with resident documentation of history, physical exam, assessment, and treatment plan unless otherwise noted. I personally participat ed in development of the plan of care. Please feel free to contact us with any additional questions or concerns by oriana scruggs the consult team between 8am and 5pm on weekdays and between 8am and 3pm on [facility] [phone]. Otherwise, page the vice president sales regional director of finance. Staff name: Saskia Vergara MD Date: 04/21/2019 * Nohemi Correia RN - 04/20/2019 8:30 PM CASE MAKER 04/20/19 1930 Vitals Temp 36.7 C (98.1 F) Temperature Source Oral Pulse 110 Respirations 20 PER MINUTE SpO2 99 % $$ O2 Delivery RA BP 109/67 Mean NBP (Calculated) 81 MM HG BP Source Arm, Left Upper BP Patient Position Supine Pt c/o ongoing nausea. PRN compazine exhausted, see MAR. VSS. MPS text paged reg arding further anti-emetics, tracking #[id number]. [facility]. 2044 Provider entered one-time order for Zofran, see MAR. Will implement and con tinue to monitor. MAKER * Mendy Springer MD - 04/20/2019 12:41 PM CASE MAKER [facility] Hepatology - Progress Note STEVE CARDENAS [id number] 04/20/2019 HISTORY OF PRESENT ILLNESS: Overnight mild progressive decline in mental status . Slightly improved during my visit with Steve. Steve has no acute complaints to report to me though some nausea has returned. PHYSICAL EXAM: General: Drowsy but appropriate HEENT: PERRL EOMI scleral icterus present. Respiratory: Normal respiratory effort. Cardiovascular: RRR Abdomen: Soft nontender Extremities: Mild edema Skin: Jaundiced Neuro: Oriented to person place event and time. Tremor noted, no asterixis. No focal deficits. IMPRESSION REPORT AND PLAN: #1. Alcoholic hepatitis #2. Sever alcohol use disorder #3. Alcohol withdrawal. Overall Steve remains clinically stable. During my assessment this morning, me ntal status is reassuring. Given history of severe alcohol withdrawal in the [facility], I do recommend aggressive treatment utilizing Lorazepam as needed., There d oes not appear to be significant hepatic encephalopathy at this time. Certainly if Steve becomes more obtunded decreasing dosage of lorazepam may be warranted. As noted previously I am not recommending steroid therapy given the overall prof ile with severe relapse history. Given lack of insurance may be very difficult to follow care as an outpatient while on steroids. Mendy Springer MD MAKER * David Steiner, - 04/20/2019 9:17 AM CASE MAKER Encounter Date: 04/20/2019 9:17 AM Name: Steve Cardenas Admission Date: 04/17/2019 LOS: 3 days ASSESSMENT AND PLAN Steve Cardenas is a 23 y.o. male to female transgender, with past medical history of Alcohol abuse, Erosive esophagitis, and Generalized anxiety disorder transfer red from OSH for alcohol intoxification and elevated LFT concerning for alcoholi c hepatitis. # Elevated liver enzymes concerning for alcoholic hepatitis vs decompensated jesika er cirrhosis MELD-Na score: 27 at 04/20/2019 4:06 AM MELD score: 27 at 04/20/2019 4:06 AM Calculated from: Serum Creatinine: 0.56 MG/DL (Rounded to 1 MG/DL) at 04/20/2019 4:06 AM Serum Sodium: 136 MMOL/L at 04/20/2019 4:06 AM Total Bilirubin: 17.7 MG/DL at 04/20/2019 4:06 AM INR(ratio): 2.4 at 04/20/2019 4:06 AM Age: 23 years At presentation, serum alcohol level 476, bilirubin 13.2, AST 504, LDL 86, fabi ia 35, ALP 290, INR is 1.4, creatinine 1.67 Work-up: Salicylate levels, acetaminophen levels within normal limits, hepatitis panel within normal limits, History of alcohol abuse with 2 pints of vodka daily Previous admission was February 2019 for hematemesis. Plan Hepatology consulted, discussed with Dr Springer Ultrasound abdomen-positive for sonographic cholecystitis however clinically les s likely, he has generalized abdominal pain, gallbladder wall thickening most li edgar due to edema and hypoalbuminemia. # Alcohol intoxification # Polysubstance abuse - used marijuana and morphine in the past - Heave ETOH abuse hx, at least 2 pint vodka daily. Last drink on 04/16 8pm had 2 pint of vodka. Plan: > AWAS protocol > banana bag started > Did express the will stop drinking, need SW assist on provide info for alcohol rehab. -Psychiatry was consulted, avoid PRN Ativan, questionable benzodiazepine seeking behavior. # General Anxiety disorder STOP PRN Ativan, Add hydroxyzine 25 mg 3 times daily for anxiety Appreciate psychiatry follow-up, case management to discuss with [facility] Pancytopenia - 2/2 etoh and ESLD Microcytic anemia - likely 2/2 alcohol use Hypomagnesemia > continuing Replacement Hypophosphatemia: > replacing aggressively with IV and PO Malnutrition Details: Fluids, electrolytes and Nutrition: IVF: 1 L NS Electrolytes: Monitor and replace PRN. Diet: DIET REGULAR Code status: Full Code - will discuss further Disposition: Admit inpatient VTE Ppx: Continuous Infusions: CODE STATUS: Full Code Patient is severely ill with liver damage from etoh use complicated by withdrawl s, MDM high with progressive liver failure and life threatening risk of complica tions. SUBJECTIVE: Patient reports anxious, no fever, no significant abdominal pain. Patient with 4 bowel movements overnight, significant weakness, worsening jaundice, resting t remor and inability to relax contractions on exam. AOx4 but slowed mentation. Medications: Scheduled Meds: enoxaparin (LOVENOX) syringe 40 mg, 40 mg, Subcutaneous, QDAY(21 ) folic acid (FOLVITE) tablet 1 mg, 1 mg, Oral, QDAY lidocaine (LIDODERM) 5 % topical patch 1 patch, 1 patch, Topical, QDAY And Verification of Patch Placement and Integrity - Lidocaine 5%, , Transdermal, BID LORazepam (ATIVAN) injection 1 mg, 1 mg, Intravenous, Q6H* Followed by LORazepam (ATIVAN) injection 1 mg, 1 mg, Intravenous, Q8H* Followed by [START ON 04/21/2019] LORazepam (ATIVAN) injection 1 mg, 1 mg, Intravenous, Q12H* melatonin tablet 5 mg, 5 mg, Oral, QHS nicotine (NICODERM CQ STEP 1) 21 mg/day patch 1 patch, 1 patch, Transdermal, QDA Y And Verification of Patch Placement and Integrity - Nicotine 21 MG/24HR, , Transderm al, BID pantoprazole (PROTONIX) injection 40 mg, 40 mg, Intravenous, QDAY polyethylene glycol 3350 (MIRALAX) packet 17 g, 1 packet, Oral, QDAY potassium phosphate (K-PHOS ORIGINAL) dispersable tablet 2 tablet, 2 tablet, Ora l, QDAY thiamine (VITAMIN B-1) injection 100 mg, 100 mg, Intravenous, QDAY vitamins, multiple tablet 1 tablet, 1 tablet, Oral, QDAY OBJECTIVE: Vital Signs: Last Filed Vital Signs: 24 Abbi r Range BP: 103/64 (04/20 730) Temp: 37.3 C (99.2 F) (04/20 730) Pulse: 109 (04/20 730) Respirations: 20 PER MINUTE (04/20 730) SpO2: 100 % (04/20 730) BP: (99-106)/(61-71) Temp: [37 C (98.6 F)-38.1 C (100.6 F)] Pulse: [89-115] Respirations: [20 PER MINUTE] SpO2: [98 %-100 %] Intensity Pain Scale (Self Report): Asleep (04/20/19 0400) Vitals: 04/17/19 1510 Weight: 65.3 kg (144 lb) Intake/Output Summary: (Last 24 hours) Intake/Output Summary (Last 24 hours) at 04/20/2019 0917 Last data filed at 04/19/2019 2220 Gross per 24 hour Intake 300 ml Output 551 ml Net -251 ml Stool Occurrence: 1 Weight Change: BMI: Body mass index is 24.72 kg/m. 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 4/5, gait non antalgic not requirin g assisstance, no significant asterixis Laboratory Data: 24-hour labs: Results for orders placed or performed during the hospital encounter of 04/17/19 (from the past 24 hour(s)) BASIC METABOLIC PANEL Collection Time: 04/19/19 4:38 PM Result Value Ref Range Sodium 135 (L) 137 - 147 MMOL/L Potassium 3.5 3.5 - 5.1 MMOL/L Chloride 102 98 - 110 MMOL/L CO2 22 21 - 30 MMOL/L Anion Gap 11 3 - 12 Glucose 169 (H) 70 - 100 MG/DL Blood Urea Nitrogen 3 (L) 7 - 25 MG/DL Creatinine 0.73 0.4 - 1.24 MG/DL Calcium 7.9 (L) 8.5 - 10.6 MG/DL eGFR Non >60 >60 mL/min eGFR >60 >60 mL/min MAGNESIUM Collection Time: 04/19/19 4:38 PM Result Value Ref Range Magnesium 3.0 (H) 1.6 - 2.6 mg/dL PHOSPHORUS Collection Time: 04/19/19 4:38 PM Result Value Ref Range Phosphorus 2.7 2.0 - 4.5 MG/DL CBC AND DIFF Collection Time: 04/20/19 4:06 AM Result Value Ref Range White Blood Cells 8.3 4.5 - 11.0 K/UL RBC 2.65 (L) 4.4 - 5.5 M/UL Hemoglobin 9.8 (L) 13.5 - 16.5 GM/DL Hematocrit 28.2 (L) 40 - 50 % MCV 106.4 (H) 80 - 100 FL MCH 36.8 (H) 26 - 34 PG MCHC 34.6 32.0 - 36.0 G/DL RDW 14.9 11 - 15 % Platelet Count 87 (L) 150 - 400 K/UL MPV 10.6 7 - 11 FL Neutrophils 79 (H) 41 - 77 % Lymphocytes 13 (L) 24 - 44 % Monocytes 5 4 - 12 % Eosinophils 2 0 - 5 % Basophils 1 0 - 2 % Absolute Neutrophil Count 6.60 1.8 - 7.0 K/UL Absolute Lymph Count 1.10 1.0 - 4.8 K/UL Absolute Monocyte Count 0.40 0 - 0.80 K/UL Absolute Eosinophil Count 0.10 0 - 0.45 K/UL Absolute Basophil Count 0.10 0 - 0.20 K/UL COMPREHENSIVE METABOLIC PANEL Collection Time: 04/20/19 4:06 AM Result Value Ref Range Sodium 136 (L) 137 - 147 MMOL/L Potassium 3.3 (L) 3.5 - 5.1 MMOL/L Chloride 103 98 - 110 MMOL/L Glucose 105 (H) 70 - 100 MG/DL Blood Urea Nitrogen 4 (L) 7 - 25 MG/DL Creatinine 0.56 0.4 - 1.24 MG/DL Calcium 8.2 (L) 8.5 - 10.6 MG/DL Total Protein 5.7 (L) 6.0 - 8.0 G/DL Total Bilirubin 17.7 (H) 0.3 - 1.2 MG/DL Albumin 2.8 (L) 3.5 - 5.0 G/DL Alk Phosphatase 164 (H) 25 - 110 U/L AST (SGOT) 84 (H) 7 - 40 U/L CO2 24 21 - 30 MMOL/L ALT (SGPT) 31 7 - 56 U/L Anion Gap 9 3 - 12 eGFR Non >60 >60 mL/min eGFR >60 >60 mL/min PROTIME INR (PT) Collection Time: 04/20/19 4:06 AM Result Value Ref Range INR 2.4 (H) 0.8 - 1.2 MAGNESIUM Collection Time: 04/20/19 4:06 AM Result Value Ref Range Magnesium 1.9 1.6 - 2.6 mg/dL PHOSPHORUS Collection Time: 04/20/19 4:06 AM Result Value Ref Range Phosphorus 2.5 2.0 - 4.5 MG/DL Glucose: (!) 105 (04/20/19 0406) Us Abdomen Complete Result Date: 04/17/2019 1. Nondilated gallbladder with gallbladder wall thickening/edema which may be r elated to liver disease and/or hypoalbuminemia. Cholelithiasis and gallbladder s ludge are present with reportedly positive sonographic Nesbitt sign, although, la ck of gallbladder distention would be atypical for acute cholecystitis. Clinical and laboratory correlation recommended. 2. Moderate hepatomegaly with heteroge neous parenchyma and increased echogenicity which may be secondary to steatosis and/or edema related to acute hepatitis. Correlation with labs is suggested. 3. Patent hepatic vasculature with normal direction of flow. By my electronic sign ature, I attest that I have personally reviewed the images for this examination and formulated the interpretations and opinions expressed in this report Finali zed by Juan Swartz M.D. on 04/17/2019 8:22 PM. Dictated by Silvia Orellana on 04/17/2019 7:50 PM. Us Doppler Abd Pelv Retroper Comp Result Date: 04/17/2019 1. Nondilated gallbladder with gallbladder wall thickening/edema which may be r elated to liver disease and/or hypoalbuminemia. Cholelithiasis and gallbladder s ludge are present with reportedly positive sonographic Nesbitt sign, although, la ck of gallbladder distention would be atypical for acute cholecystitis. Clinical and laboratory correlation recommended. 2. Moderate hepatomegaly with heteroge neous parenchyma and increased echogenicity which may be secondary to steatosis and/or edema related to acute hepatitis. Correlation with labs is suggested. 3. Patent hepatic vasculature with normal direction of flow. By my electronic sign ature, I attest that I have personally reviewed the images for this examination and formulated the interpretations and opinions expressed in this report Finali sun by Juan Swartz M.D. on 04/17/2019 8:22 PM. Dictated by Silvia Orellana on 04/17/2019 7:50 PM. Complex medical decision making, multisystem involvement as mentioned above. David Steiner DO 04/20/2019 9:17 AM MAKER * David Steiner DO - 04/19/2019 8:49 AM CASE MAKER Encounter Date: 04/19/2019 8:49 AM Name: Steve Cardenas Admission Date: 04/17/2019 LOS: 2 days ASSESSMENT AND PLAN Steve Cardenas is a 23 y.o. male to female transgender, with past medical history of Alcohol abuse, Erosive esophagitis, and Generalized anxiety disorder transfer red from OSH for alcohol intoxification and elevated LFT concerning for alcoholi c hepatitis. # Elevated liver enzymes concerning for alcoholic hepatitis vs decompensated jesika er cirrhosis MELD-Na score: 25 at 04/19/2019 4:12 AM MELD score: 25 at 04/19/2019 4:12 AM Calculated from: Serum Creatinine: 0.54 MG/DL (Rounded to 1 MG/DL) at 04/19/2019 4:12 AM Serum Sodium: 138 MMOL/L (Rounded to 137 MMOL/L) at 04/19/2019 4:12 AM Total Bilirubin: 16.9 MG/DL at 04/19/2019 4:12 AM INR(ratio): 2.0 at 04/19/2019 4:12 AM Age: 23 years At presentation, serum alcohol level 476, bilirubin 13.2, AST 504, LDL 86, fabi ia 35, ALP 290, INR is 1.4, creatinine 1.67 Work-up: Salicylate levels, acetaminophen levels within normal limits, hepatitis panel within normal limits, History of alcohol abuse with 2 pints of vodka daily Previous admission was February 2019 for hematemesis. Plan Hepatology consulted, Ultrasound abdomen-positive for sonographic cholecystitis however clinically les s likely, he has generalized abdominal pain, gallbladder wall thickening most li edgar due to edema and hypoalbuminemia. He is mildly nauseous, but no vomiting this morning # Alcohol intoxification # Polysubstance abuse - used marijuana and morphine in the past - Heave ETOH abuse hx, at least 2 pint vodka daily. Last drink on 04/16 8pm had 2 pint of vodka. Plan: > AWAS protocol > banana bag started > Did express the will stop drinking, need SW assist on provide info for alcohol rehab. -Psychiatry was consulted, avoid PRN Ativan, questionable benzodiazepine seeking behavior. # General Anxiety disorder STOP PRN Ativan, Add hydroxyzine 25 mg 3 times daily for anxiety Appreciate psychiatry follow-up, case management to discuss with [facility] Pancytopenia - 2/2 etoh and ESLD Microcytic anemia - likely 2/2 alcohol use Hypomagnesemia > continuing Replacement Hypophosphatemia: > replacing aggressively with IV and PO Malnutrition Details: Fluids, electrolytes and Nutrition: IVF: 1 L NS Electrolytes: Monitor and replace PRN. Diet: DIET REGULAR Code status: Full Code - will discuss further Disposition: Admit inpatient VTE Ppx: Continuous Infusions: CODE STATUS: Full Code SUBJECTIVE: Patient reports anxious, no fever, no significant abdominal pain. Patient has s mall episode of nonbloody emesis this am, otherwise no new complaints. Medications: Scheduled Meds: enoxaparin (LOVENOX) syringe 40 mg, 40 mg, Subcutaneous, QDAY(21 ) folic acid (FOLVITE) tablet 1 mg, 1 mg, Oral, QDAY lidocaine (LIDODERM) 5 % topical patch 1 patch, 1 patch, Topical, QDAY And Verification of Patch Placement and Integrity - Lidocaine 5%, , Transdermal, BID LORazepam (ATIVAN) injection 2 mg, 2 mg, Intravenous, Q4H* Followed by LORazepam (ATIVAN) injection 1 mg, 1 mg, Intravenous, Q6H* Followed by [START ON 04/20/2019] LORazepam (ATIVAN) injection 1 mg, 1 mg, Intravenous, Q8H* Followed by [START ON 04/21/2019] LORazepam (ATIVAN) injection 1 mg, 1 mg, Intravenous, Q12H* melatonin tablet 5 mg, 5 mg, Oral, QHS nicotine (NICODERM CQ STEP 1) 21 mg/day patch 1 patch, 1 patch, Transdermal, QDA Y And Verification of Patch Placement and Integrity - Nicotine 21 MG/24HR, , Transderm al, BID pantoprazole (PROTONIX) injection 40 mg, 40 mg, Intravenous, QDAY thiamine (VITAMIN B-1) injection 100 mg, 100 mg, Intravenous, QDAY vitamins, multiple tablet 1 tablet, 1 tablet, Oral, QDAY OBJECTIVE: Vital Signs: Last Filed Vital Signs: 24 Abbi r Range BP: 120/71 (04/19 730) Temp: 37.2 C (99 F) (04/19 730) Pulse: 118 (04/19 730) Respirations: 20 PER MINUTE (04/19 730) SpO2: 100 % (04/19 730) BP: (108-121)/(64-77) Temp: [36.8 C (98.3 F)-37.6 C (99.7 F)] Pulse: [106-124] Respirations: [18 PER MINUTE-22 PER MINUTE] SpO2: [98 %-100 %] Intensity Pain Scale (Self Report): Asleep (04/19/19 0625) Vitals: 04/17/19 1510 Weight: 65.3 kg (144 lb) Intake/Output Summary: (Last 24 hours) Intake/Output Summary (Last 24 hours) at 04/19/2019 0849 Last data filed at 04/19/2019 0505 Gross per 24 hour Intake 940 ml Output 2000 ml Net -1060 ml Stool Occurrence: 1 Weight Change: BMI: Body mass index is 24.72 kg/m. 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 4/5, gait non antalgic not requirin g assisstance, no significant asterixis Laboratory Data: 24-hour labs: Results for orders placed or performed during the hospital encounter of 04/17/19 (from the past 24 hour(s)) PROTIME INR (PT) Collection Time: 04/18/19 9:55 AM Result Value Ref Range INR 1.7 (H) 0.8 - 1.2 COMPREHENSIVE METABOLIC PANEL Collection Time: 04/18/19 9:55 AM Result Value Ref Range Sodium 135 (L) 137 - 147 MMOL/L Potassium 3.6 3.5 - 5.1 MMOL/L Chloride 98 98 - 110 MMOL/L Glucose 119 (H) 70 - 100 MG/DL Blood Urea Nitrogen 3 (L) 7 - 25 MG/DL Creatinine 0.68 0.4 - 1.24 MG/DL Calcium 8.7 8.5 - 10.6 MG/DL Total Protein 6.5 6.0 - 8.0 G/DL Total Bilirubin 16.8 (H) 0.3 - 1.2 MG/DL Albumin 3.2 (L) 3.5 - 5.0 G/DL Alk Phosphatase 219 (H) 25 - 110 U/L AST (SGOT) 258 (H) 7 - 40 U/L CO2 25 21 - 30 MMOL/L ALT (SGPT) 49 7 - 56 U/L Anion Gap 12 3 - 12 eGFR Non >60 >60 mL/min eGFR >60 >60 mL/min PHOSPHORUS Collection Time: 04/18/19 9:55 AM Result Value Ref Range Phosphorus 1.7 (L) 2.0 - 4.5 MG/DL MAGNESIUM Collection Time: 04/18/19 9:55 AM Result Value Ref Range Magnesium 1.9 1.6 - 2.6 mg/dL CBC AND DIFF Collection Time: 04/18/19 9:55 AM Result Value Ref Range White Blood Cells 4.6 4.5 - 11.0 K/UL RBC 2.89 (L) 4.4 - 5.5 M/UL Hemoglobin 10.5 (L) 13.5 - 16.5 GM/DL Hematocrit 30.2 (L) 40 - 50 % MCV 104.5 (H) 80 - 100 FL MCH 36.4 (H) 26 - 34 PG MCHC 34.9 32.0 - 36.0 G/DL RDW 14.8 11 - 15 % Platelet Count 103 (L) 150 - 400 K/UL MPV 9.1 7 - 11 FL Neutrophils 77 41 - 77 % Lymphocytes 16 (L) 24 - 44 % Monocytes 6 4 - 12 % Eosinophils 0 0 - 5 % Basophils 1 0 - 2 % Absolute Neutrophil Count 3.60 1.8 - 7.0 K/UL Absolute Lymph Count 0.70 (L) 1.0 - 4.8 K/UL Absolute Monocyte Count 0.30 0 - 0.80 K/UL Absolute Eosinophil Count 0.00 0 - 0.45 K/UL Absolute Basophil Count 0.00 0 - 0.20 K/UL CBC AND DIFF Collection Time: 04/19/19 4:12 AM Result Value Ref Range White Blood Cells 6.1 4.5 - 11.0 K/UL RBC 2.84 (L) 4.4 - 5.5 M/UL Hemoglobin 10.4 (L) 13.5 - 16.5 GM/DL Hematocrit 29.6 (L) 40 - 50 % MCV 104.5 (H) 80 - 100 FL MCH 36.5 (H) 26 - 34 PG MCHC 35.0 32.0 - 36.0 G/DL RDW 15.1 (H) 11 - 15 % Platelet Count 87 (L) 150 - 400 K/UL MPV 9.4 7 - 11 FL Neutrophils 80 (H) 41 - 77 % Lymphocytes 14 (L) 24 - 44 % Monocytes 4 4 - 12 % Eosinophils 1 0 - 5 % Basophils 1 0 - 2 % Absolute Neutrophil Count 4.90 1.8 - 7.0 K/UL Absolute Lymph Count 0.90 (L) 1.0 - 4.8 K/UL Absolute Monocyte Count 0.30 0 - 0.80 K/UL Absolute Eosinophil Count 0.10 0 - 0.45 K/UL Absolute Basophil Count 0.00 0 - 0.20 K/UL COMPREHENSIVE METABOLIC PANEL Collection Time: 04/19/19 4:12 AM Result Value Ref Range Sodium 138 137 - 147 MMOL/L Potassium 3.3 (L) 3.5 - 5.1 MMOL/L Chloride 101 98 - 110 MMOL/L Glucose 107 (H) 70 - 100 MG/DL Blood Urea Nitrogen 3 (L) 7 - 25 MG/DL Creatinine 0.54 0.4 - 1.24 MG/DL Calcium 8.6 8.5 - 10.6 MG/DL Total Protein 6.0 6.0 - 8.0 G/DL Total Bilirubin 16.9 (H) 0.3 - 1.2 MG/DL Albumin 3.0 (L) 3.5 - 5.0 G/DL Alk Phosphatase 191 (H) 25 - 110 U/L AST (SGOT) 166 (H) 7 - 40 U/L CO2 25 21 - 30 MMOL/L ALT (SGPT) 38 7 - 56 U/L Anion Gap 12 3 - 12 eGFR Non >60 >60 mL/min eGFR >60 >60 mL/min PROTIME INR (PT) Collection Time: 04/19/19 4:12 AM Result Value Ref Range INR 2.0 (H) 0.8 - 1.2 MAGNESIUM Collection Time: 04/19/19 4:12 AM Result Value Ref Range Magnesium 1.7 1.6 - 2.6 mg/dL PHOSPHORUS Collection Time: 04/19/19 4:12 AM Result Value Ref Range Phosphorus 3.3 2.0 - 4.5 MG/DL Glucose: (!) 107 (04/19/19 0412) Us Abdomen Complete Result Date: 04/17/2019 1. Nondilated gallbladder with gallbladder wall thickening/edema which may be r elated to liver disease and/or hypoalbuminemia. Cholelithiasis and gallbladder s ludge are present with reportedly positive sonographic Nesbitt sign, although, la ck of gallbladder distention would be atypical for acute cholecystitis. Clinical and laboratory correlation recommended. 2. Moderate hepatomegaly with heteroge neous parenchyma and increased echogenicity which may be secondary to steatosis and/or edema related to acute hepatitis. Correlation with labs is suggested. 3. Patent hepatic vasculature with normal direction of flow. By my electronic sign ature, I attest that I have personally reviewed the images for this examination and formulated the interpretations and opinions expressed in this report Finali zed by Juan Swartz M.D. on 04/17/2019 8:22 PM. Dictated by Silvia Orellana on 04/17/2019 7:50 PM. Us Doppler Abd Pelv Retroper Comp Result Date: 04/17/2019 1. Nondilated gallbladder with gallbladder wall thickening/edema which may be r elated to liver disease and/or hypoalbuminemia. Cholelithiasis and gallbladder s ludge are present with reportedly positive sonographic Nesbitt sign, although, la ck of gallbladder distention would be atypical for acute cholecystitis. Clinical and laboratory correlation recommended. 2. Moderate hepatomegaly with heteroge neous parenchyma and increased echogenicity which may be secondary to steatosis and/or edema related to acute hepatitis. Correlation with labs is suggested. 3. Patent hepatic vasculature with normal direction of flow. By my electronic sign ature, I attest that I have personally reviewed the images for this examination and formulated the interpretations and opinions expressed in this report Finali zed by Juan Swartz M.D. on 04/17/2019 8:22 PM. Dictated by Silvia Orellana on 04/17/2019 7:50 PM. Complex medical decision making, multisystem involvement as mentioned above. David Steiner DO 04/19/2019 8:49 AM MAKER * Osman Toussaint MD - 04/18/2019 2:35 PM CASE MAKER Encounter Date: 04/18/2019 2:35 PM Name: Steve Cardenas Admission Date: 04/17/2019 LOS: 1 day ASSESSMENT AND PLAN Steve Cardenas is a 23 y.o. male to female transgender, with past medical history of Alcohol abuse, Erosive esophagitis, and Generalized anxiety disorder transfer red from OSH for alcohol intoxification and elevated LFT concerning for alcoholi c hepatitis. # Elevated liver enzymes concerning for alcoholic hepatitis vs decompensated jesika er cirrhosis MELD-Na score: 24 at 04/18/2019 9:55 AM MELD score: 23 at 04/18/2019 9:55 AM Calculated from: Serum Creatinine: 0.68 MG/DL (Rounded to 1 MG/DL) at 04/18/2019 9:55 AM Serum Sodium: 135 MMOL/L at 04/18/2019 9:55 AM Total Bilirubin: 16.8 MG/DL at 04/18/2019 9:55 AM INR(ratio): 1.7 at 04/18/2019 9:55 AM Age: 23 years At presentation, serum alcohol level 476, bilirubin 13.2, AST 504, LDL 86, fabi ia 35, ALP 290, INR is 1.4, creatinine 1.67 Work-up: Salicylate levels, acetaminophen levels within normal limits, hepatitis panel within normal limits, History of alcohol abuse with 2 pints of vodka daily Previous admission was February 2019 for hematemesis. Plan Hepatology consulted, Ultrasound abdomen-positive for sonographic cholecystitis however clinically les s likely, he has generalized abdominal pain, gallbladder wall thickening most li edgar due to edema and hypoalbuminemia. He is mildly nauseous, but no vomiting this morning # Alcohol intoxification # Polysubstance abuse - used marijuana and morphine in the past - Heave ETOH abuse hx, at least 2 pint vodka daily. Last drink on 04/16 8pm had 2 pint of vodka. Plan: > AWAS protocol > banana bag started > Did express the will stop drinking, need SW assist on provide info for alcohol rehab. -Psychiatry was consulted, avoid PRN Ativan, questionable benzodiazepine seeking behavior. # General Anxiety disorder STOP PRN Ativan, Add hydroxyzine 25 mg 3 times daily for anxiety Appreciate psychiatry follow-up, case management to discuss with [facility] Microcytic anemia due to alcohol use hypomagnesemia: Replaced Hypophosphatemia: Replacing Malnutrition Details: Fluids, electrolytes and Nutrition: IVF: no IVF Electrolytes: Monitor and replace PRN. Diet: DIET REGULAR Code status: Full Code Disposition: Admit inpatient VTE Ppx: Continuous Infusions: CODE STATUS: Full Code SUBJECTIVE: Patient reports anxious, no fever, no chills nausea vomiting. Had mild nausea b ut no vomiting, Complains of generalized body pains, episode today, tremors in upper extremities , appears dehydrated Medications: Scheduled Meds: enoxaparin (LOVENOX) syringe 40 mg, 40 mg, Subcutaneous, QDAY(21 ) folic acid (FOLVITE) tablet 1 mg, 1 mg, Oral, QDAY lidocaine (LIDODERM) 5 % topical patch 1 patch, 1 patch, Topical, QDAY And Verification of Patch Placement and Integrity - Lidocaine 5%, , Transdermal, BID LORazepam (ATIVAN) injection 2 mg, 2 mg, Intravenous, Q4H* Followed by [START ON 04/19/2019] LORazepam (ATIVAN) injection 1 mg, 1 mg, Intravenous, Q6H* Followed by [START ON 04/20/2019] LORazepam (ATIVAN) injection 1 mg, 1 mg, Intravenous, Q8H* Followed by [START ON 04/21/2019] LORazepam (ATIVAN) injection 1 mg, 1 mg, Intravenous, Q12H* melatonin tablet 5 mg, 5 mg, Oral, QHS nicotine (NICODERM CQ STEP 1) 21 mg/day patch 1 patch, 1 patch, Transdermal, QDA Y And Verification of Patch Placement and Integrity - Nicotine 21 MG/24HR, , Transderm al, BID pantoprazole (PROTONIX) injection 40 mg, 40 mg, Intravenous, QDAY thiamine mononitrate tablet 100 mg, 100 mg, Oral, QDAY vitamins, multiple tablet 1 tablet, 1 tablet, Oral, QDAY OBJECTIVE: Vital Signs: Last Filed Vital Signs: 24 Abbi r Range BP: 121/76 (04/18 1205) Temp: 37.2 C (98.9 F) (04/18 1205) Pulse: 121 (04/18 120) Respirations: 18 PER MINUTE (04/18 1205) SpO2: 100 % (02/07 1206) Height: 162.6 cm (64") (04/17 1510) BP: (106-129)/(69-85) Temp: [37 C (98.6 F)-37.8 C (100 F)] Pulse: [103-121] Respirations: [16 PER MINUTE-18 PER MINUTE] SpO2: [98 %-100 %] Intensity Pain Scale (Self Report): 4 (04/18/19 1100) Vitals: 04/17/19 1510 Weight: 65.3 kg (144 lb) Intake/Output Summary: (Last 24 hours) Intake/Output Summary (Last 24 hours) at 04/18/2019 1435 Last data filed at 04/18/2019 1328 Gross per 24 hour Intake 2885 ml Output 1200 ml Net 1685 ml Stool Occurrence: 1 Weight Change: BMI: Body mass index is 24.72 kg/m. PHYSICAL EXAM: Gen: , No distress, resting comfortably, appears very weak and dehydrated Neck: No JVD Lungs: Normal breath sounds, no wheezing, normal air entry, no distress Heart: S1, S2 present, RRR Abdomen: Soft, non tender, BS present, Extremities: No cyanosis, No edema Phychiatric: Normal mood, normal affect Neuro: Alert, Oriented times 3 Laboratory Data: 24-hour labs: Results for orders placed or performed during the hospital encounter of 04/17/19 (from the past 24 hour(s)) INFLUENZA A/B AND RSV PCR Collection Time: 04/17/19 3:45 PM Result Value Ref Range Influenza A Virus NEG NEG-NEG Influenza B Virus NEG NEG-NEG RSV NEG NEG-NEG CBC AND DIFF Collection Time: 04/17/19 5:28 PM Result Value Ref Range White Blood Cells 6.7 4.5 - 11.0 K/UL RBC 2.80 (L) 4.4 - 5.5 M/UL Hemoglobin 10.3 (L) 13.5 - 16.5 GM/DL Hematocrit 29.1 (L) 40 - 50 % MCV 104.0 (H) 80 - 100 FL MCH 36.7 (H) 26 - 34 PG MCHC 35.3 32.0 - 36.0 G/DL RDW 15.4 (H) 11 - 15 % Platelet Count 144 (L) 150 - 400 K/UL MPV 8.8 7 - 11 FL Neutrophils 78 (H) 41 - 77 % Lymphocytes 15 (L) 24 - 44 % Monocytes 6 4 - 12 % Eosinophils 0 0 - 5 % Basophils 1 0 - 2 % Absolute Neutrophil Count 5.20 1.8 - 7.0 K/UL Absolute Lymph Count 1.00 1.0 - 4.8 K/UL Absolute Monocyte Count 0.40 0 - 0.80 K/UL Absolute Eosinophil Count 0.00 0 - 0.45 K/UL Absolute Basophil Count 0.10 0 - 0.20 K/UL COMPREHENSIVE METABOLIC PANEL Collection Time: 04/17/19 5:28 PM Result Value Ref Range Sodium 137 137 - 147 MMOL/L Potassium 3.4 (L) 3.5 - 5.1 MMOL/L Chloride 96 (L) 98 - 110 MMOL/L Glucose 115 (H) 70 - 100 MG/DL Blood Urea Nitrogen 5 (L) 7 - 25 MG/DL Creatinine 0.58 0.4 - 1.24 MG/DL Calcium 8.4 (L) 8.5 - 10.6 MG/DL Total Protein 6.2 6.0 - 8.0 G/DL Total Bilirubin 11.6 (H) 0.3 - 1.2 MG/DL Albumin 3.1 (L) 3.5 - 5.0 G/DL Alk Phosphatase 221 (H) 25 - 110 U/L AST (SGOT) 310 (H) 7 - 40 U/L CO2 24 21 - 30 MMOL/L ALT (SGPT) 51 7 - 56 U/L Anion Gap 17 (H) 3 - 12 eGFR Non >60 >60 mL/min eGFR >60 >60 mL/min MAGNESIUM Collection Time: 04/17/19 5:28 PM Result Value Ref Range Magnesium 1.6 1.6 - 2.6 mg/dL PHOSPHORUS Collection Time: 04/17/19 5:28 PM Result Value Ref Range Phosphorus 2.3 2.0 - 4.5 MG/DL PROTIME INR (PT) Collection Time: 04/17/19 5:28 PM Result Value Ref Range INR 1.6 (H) 0.8 - 1.2 HEPATITIS PANEL, ACUTE Collection Time: 04/17/19 5:28 PM Result Value Ref Range Hepatitis A IgM NEG NEG-NEG Anti HBc IgM NEG NEG-NEG HBsAg NEG NEG-NEG Anti HCV NEG NEG-NEG PROTIME INR (PT) Collection Time: 04/18/19 9:55 AM Result Value Ref Range INR 1.7 (H) 0.8 - 1.2 COMPREHENSIVE METABOLIC PANEL Collection Time: 04/18/19 9:55 AM Result Value Ref Range Sodium 135 (L) 137 - 147 MMOL/L Potassium 3.6 3.5 - 5.1 MMOL/L Chloride 98 98 - 110 MMOL/L Glucose 119 (H) 70 - 100 MG/DL Blood Urea Nitrogen 3 (L) 7 - 25 MG/DL Creatinine 0.68 0.4 - 1.24 MG/DL Calcium 8.7 8.5 - 10.6 MG/DL Total Protein 6.5 6.0 - 8.0 G/DL Total Bilirubin 16.8 (H) 0.3 - 1.2 MG/DL Albumin 3.2 (L) 3.5 - 5.0 G/DL Alk Phosphatase 219 (H) 25 - 110 U/L AST (SGOT) 258 (H) 7 - 40 U/L CO2 25 21 - 30 MMOL/L ALT (SGPT) 49 7 - 56 U/L Anion Gap 12 3 - 12 eGFR Non >60 >60 mL/min eGFR >60 >60 mL/min PHOSPHORUS Collection Time: 04/18/19 9:55 AM Result Value Ref Range Phosphorus 1.7 (L) 2.0 - 4.5 MG/DL MAGNESIUM Collection Time: 04/18/19 9:55 AM Result Value Ref Range Magnesium 1.9 1.6 - 2.6 mg/dL CBC AND DIFF Collection Time: 04/18/19 9:55 AM Result Value Ref Range White Blood Cells 4.6 4.5 - 11.0 K/UL RBC 2.89 (L) 4.4 - 5.5 M/UL Hemoglobin 10.5 (L) 13.5 - 16.5 GM/DL Hematocrit 30.2 (L) 40 - 50 % MCV 104.5 (H) 80 - 100 FL MCH 36.4 (H) 26 - 34 PG MCHC 34.9 32.0 - 36.0 G/DL RDW 14.8 11 - 15 % Platelet Count 103 (L) 150 - 400 K/UL MPV 9.1 7 - 11 FL Neutrophils 77 41 - 77 % Lymphocytes 16 (L) 24 - 44 % Monocytes 6 4 - 12 % Eosinophils 0 0 - 5 % Basophils 1 0 - 2 % Absolute Neutrophil Count 3.60 1.8 - 7.0 K/UL Absolute Lymph Count 0.70 (L) 1.0 - 4.8 K/UL Absolute Monocyte Count 0.30 0 - 0.80 K/UL Absolute Eosinophil Count 0.00 0 - 0.45 K/UL Absolute Basophil Count 0.00 0 - 0.20 K/UL Glucose: (!) 119 (04/18/19 0955) Us Abdomen Complete Result Date: 04/17/2019 1. Nondilated gallbladder with gallbladder wall thickening/edema which may be r elated to liver disease and/or hypoalbuminemia. Cholelithiasis and gallbladder s ludge are present with reportedly positive sonographic Nesbitt sign, although, la ck of gallbladder distention would be atypical for acute cholecystitis. Clinical and laboratory correlation recommended. 2. Moderate hepatomegaly with heteroge neous parenchyma and increased echogenicity which may be secondary to steatosis and/or edema related to acute hepatitis. Correlation with labs is suggested. 3. Patent hepatic vasculature with normal direction of flow. By my electronic sign ature, I attest that I have personally reviewed the images for this examination and formulated the interpretations and opinions expressed in this report Finali sun by Juan Swartz M.D. on 04/17/2019 8:22 PM. Dictated by Silvia Orellana on 04/17/2019 7:50 PM. Us Doppler Abd Pelv Retroper Comp Result Date: 04/17/2019 1. Nondilated gallbladder with gallbladder wall thickening/edema which may be r elated to liver disease and/or hypoalbuminemia. Cholelithiasis and gallbladder s ludge are present with reportedly positive sonographic Nesbitt sign, although, la ck of gallbladder distention would be atypical for acute cholecystitis. Clinical and laboratory correlation recommended. 2. Moderate hepatomegaly with heteroge neous parenchyma and increased echogenicity which may be secondary to steatosis and/or edema related to acute hepatitis. Correlation with labs is suggested. 3. Patent hepatic vasculature with normal direction of flow. By my electronic sign ature, I attest that I have personally reviewed the images for this examination and formulated the interpretations and opinions expressed in this report Finali sun by Juan Swartz M.D. on 04/17/2019 8:22 PM. Dictated by Silvia Orellana on 04/17/2019 7:50 PM. Complex medical decision making, multisystem involvement as mentioned above. Osman Toussaint MD 04/18/2019 2:35 PM MAKER * Jung Sparks RN - 04/18/2019 10:20 AM CASE MAKER Per pt he states he had a seizure. VSS, alert and oriented x4 and requesting to shower/eat/drink. Seizire not witnessed by any staff member. MD Toussaint not ified while on floor. MD to assess pt, states not to give PRN dose of Ativan at this time as pt is scoring 5 on AWAS. Will continue to monitor. MAKER * Sara Aaron MD - 04/18/2019 8:08 AM CASE MAKER General Consult Note Admission Date: 04/17/2019 LOS: 1 day Reason for Consult: alcohol abuse concern for alcohol hepatitis, currently in t he process of getting records Consult type: Opinion with orders Assessment/Plan Steve Cardenas is 23 year old M to F transgender pt transferred from [facility] [place] with acute alcoholic hepatitis. Alcoholic Hepatitis Possible Cirrhosis secondary to Alcohol Use; likely Fibrosis MELD-Na score: 24 at 04/18/2019 9:55 AM MELD score: 23 at 04/18/2019 9:55 AM Calculated from: Serum Creatinine: 0.68 MG/DL (Rounded to 1 MG/DL) at 04/18/2019 9:55 AM Serum Sodium: 135 MMOL/L at 04/18/2019 9:55 AM Total Bilirubin: 16.8 MG/DL at 04/18/2019 9:55 AM INR(ratio): 1.7 at 04/18/2019 9:55 AM Age: 23 years -At presentation, serum alcohol level 476, bilirubin 13.2, AST 504, ALT 86, Alk Phos 290, INR is 1.4; transaminases improving; T bili is elevated to 16.8 (previ ously 11.6). Work-up: Salicylate levels, acetaminophen levels within normal limits, acute hep atitis panel negative History of alcohol abuse with 2 pints of vodka daily -RUQ u/s with moderate hepatomegaly with heterogenous parenchyma and increased e chogenicity; likely secondary to steatosis -heavy alcohol use history, drinking 2-3 pints of vodka daily prior to admission Severe alcohol use disorder -Heavy alcohol use 2-3 pints vodka/day over last few months and drinking up to 1 /2 gallon per day in last four years; alcohol use dates back to age 12 -no prior inpatient treatment Polysubstance Use -admits to abuse of Rx opioids and marijuana -prior hx of meth and cocaine use Hx of erosive esophagitis, alcoholic gastritis -EGD in 02/2019: erosive esophagitis, gastritis, small hiatal hernia Recommendations: -Low concern for cholecystitis (noted positive sonographic Nesbitt's sign), but w ith rising bilirubin continue to trend CMP and monitor closely. -Give IV thiamine 100 mg x 5 days given poor absorption of PO thiamine -Check phos and mag; replace phos aggressively. (20 mmol of sodium phos ordered in addition to 16 mmol of K-phos already ordered by primary team.) -Will check alpha 1 antitrypsin phenotype to check for any concurrent underlying etiology to liver disease in addition to alcohol. -Needs continued counseling on alcohol cessation. Hepatology will not plan to see patient over the weekend. If questions or mary rns arise please reach out to Hepatology regional director of finance. Patient was seen and discussed with Dr. Springer, attending physician. Recommendations were discussed with Dr. Pavon (covering physician for Med-Melissa cande Aaron MD Internal Medicine, PGY-3 Pager Subjective: No acute events overnight. Patient reported having hallucinations; r eceived haloperidol and seemed quite groggy on exam this morning but was still r equesting medications to treat tremors and anxiety. She reports ongoing nausea, vomiting and abdominal pain. Allergies: Patient has no known allergies. Scheduled Meds:enoxaparin (LOVENOX) syringe 40 mg, 40 mg, Subcutaneous, QDAY(21) folic acid (FOLVITE) tablet 1 mg, 1 mg, Oral, QDAY lidocaine (LIDODERM) 5 % topical patch 1 patch, 1 patch, Topical, QDAY And Verification of Patch Placement and Integrity - Lidocaine 5%, , Transdermal, BID LORazepam (ATIVAN) injection 2 mg, 2 mg, Intravenous, Q4H* Followed by [START ON 04/19/2019] LORazepam (ATIVAN) injection 1 mg, 1 mg, Intravenous, Q6H* Followed by [START ON 04/20/2019] LORazepam (ATIVAN) injection 1 mg, 1 mg, Intravenous, Q8H* Followed by [START ON 04/21/2019] LORazepam (ATIVAN) injection 1 mg, 1 mg, Intravenous, Q12H* melatonin tablet 5 mg, 5 mg, Oral, QHS nicotine (NICODERM CQ STEP 1) 21 mg/day patch 1 patch, 1 patch, Transdermal, QDA Y And Verification of Patch Placement and Integrity - Nicotine 21 MG/24HR, , Transderm al, BID pantoprazole (PROTONIX) injection 40 mg, 40 mg, Intravenous, QDAY potassium phosphate 16 mmol in dextrose 5% (D5W) 250 mL IVPB (std), 16 mmol, Int ravenous, ONCE sodium phosphate 20 mmol in dextrose 5% (D5W) 250 mL IVPB, 20 mmol, Intravenous, ONCE [START ON 04/19/2019] thiamine (VITAMIN B-1) injection 100 mg, 100 mg, Intravenous , QDAY vitamins, multiple tablet 1 tablet, 1 tablet, Oral, QDAY Continuous Infusions: PRN and Respiratory Meds:acetaminophen Q6H PRN, bismuth subsalicylate Q6H PRN, h aloperidol Q4H PRN OR haloperidol Q4H PRN, hydrOXYzine TID PRN, ondansetron (ZOFRAN) IV Q6H PRN Review of Systems: A 14 point review of systems was negative except for: Gastrointestinal: Positive for nausea, vomiting and abdominal pain. Positive for jaundice. Behavioral/Psych: Positive for anxiety. Vital Signs: Last Filed in 24 hours Vital Signs: 24 hour Range BP: 121/76 (04/18 1206) Temp: 37.2 C (98.9 F) (04/18 1206) Pulse: 121 (04/18 1206) Respirations: 18 PER MINUTE (04/18 1206) SpO2: 100 % (04/18 1206) BP: (106-121)/(69-76) Temp: [37.2 C (98.9 F)-37.6 C (99.7 F)] Pulse: [103-121] Respirations: [16 PER MINUTE-18 PER MINUTE] SpO2: [98 %-100 %] Physical Exam: GEN: Drowsy, appears fatigued. HEAD: Head is normocephalic and atraumatic. EYES: Pupils equal and reactive to light. Scleral icterus. CHEST: Lungs, clear to auscultation bilaterally. CV: Regular rhythm. S1 and S2 noted. No murmurs noted. ABD: Soft, tender over epigastrium. Bowel Sounds present. EXTRM: No significant deformity or joint abnormality. No edema. HEME/LYMPH: No active bleeding. No cervical, supraclavicular or infraclavicular lymphadenopathy appreciated. SKIN: No rashes or lesions. Grossly jaundiced NEURO: CN II-XII grossly intact. Behavior, speech, mood, thought content appropr iate. Denies SI. Lab/Radiology/Other Diagnostic Tests: Pertinent labs reviewed No pertinent radiology. Sara Aaron MD Pager [phone] MAKER Associated attestation - Mendy Springer MD - 04/19/2019 1:10 PM CASE MAKER ATTESTATION I personally performed the whitehead portions of the E/M visit, discussed case with re sident and concur with resident documentation of history, physical exam, assessm ent, and treatment plan unless otherwise noted. Staff name: Mendy Springer MD Date: 04/18/2019 * Francine Mccauley RN - 04/18/2019 1:44 AM CASE MAKER 0145 Pt with claims of "hearing voices talking to him". 2 mg of oral Haldol pr ovided. 0230 Pt with c/o mid sternal CP rating 7/10 without radiation to either arm or jaw, no c/o SOB or increased nausea. VSS, MP O notified, orders received for GI cocktail. MAKER * Valentine Herrera RN - 04/17/2019 11:50 AM CASE MAKER Patient arrived to room # 7109 via cart accompanied by transport. Patient transf erred to the bed without assistance. Bedside safety checks completed. Initial pa tient assessment completed. Refer to flowsheet for details. Admission skin assessment completed with: Sloane Pressure injury present on arrival?: No 1. Head/Face/Neck: No 2. Trunk/Back: No 3. Upper Extremities: No 4. Lower Extremities: No 5. Pelvic/Coccyx: No 6. Assessed for device associated injury? Yes 7. Malnutrition Screening Tool (Nursing Nutrition Assessment) Completed? Yes See Doc Flowsheet for additional wound details. INTERVENTIONS: n/a MAKER documented in this encounter H&P Notes * Basil Ribeiro MD - 04/17/2019 12:25 PM CASE MAKER Admission History and Physical Examination Name: Steve Cardenas Admission Date: 04/17/2019 Assessment/Plan: Active Problems: Alcohol intoxication (HCC) Alcoholic hepatitis Substance abuse (HCC) Steve Cardenas is a 23 y.o. male to female transgender, with past medical history of Alcohol abuse, Erosive esophagitis, and Generalized anxiety disorder. transfe rred from OSH for alcohol intoxification and elevated LFT concerning for alcohol ic hepatitis. # Elevated liver enzymes concerning for alcoholic hepatitis vs decompensated jesika er cirrhosis - Labs from April at 6, creatinine 1.67, INR 1.4, platelet 282, total bilirub in 13.2, AST 504, ALT 86, alkaline phosphatase 290, ammonia 35 - serum Alcohol 476 - Salicylate level, acetaminophen level within normal limits. - Hx of alcohol abuse: at least 2 pint of vodka daily. - he was admitted to hospital on February 20 2019 for hematemesis, showed that INR 1.3, total bilirubin 2.7, AST 231, ALTs 72, alcohol phosphatase 159 Plan: > Consult hepatology. # Alcohol intoxification # Polysubstance abuse - used marijuana and morphine in the past - Heave ETOH abuse hx, at least 2 pint vodka daily. Last drink on 04/16 8pm had 2 pint of vodka. Plan: > AWAS protocol > banana bag started > Did express the will stop drinking, need SW assist on provide info for alcohol rehab. # General Anxiety disorder - He reports that he takes ativan 2mg Q4H for anxiety? With his heavy alcohol ab use hx, I recommended him to stop taking benzo for anxiety, psych consulted for alternative for anxiety. Fluids, electrolytes and Nutrition: IVF: no IVF Electrolytes: Monitor and replace PRN. Diet: DIET REGULAR Prophylaxis: DVT: lovenox Code status: Full Code Disposition: Admit inpatient Total 70 minutes spent in patient care performing history and physical, clarifyi medical history, reviewing prior visits with patient, checking facts, reviewi recommendations, placing orders for admission, 35 minutes were spent in couns eling and coordination of care. Prolonged non-face to face time was spent 35 mins reviewing outside hospital rec ords sent by via Brittany Ribeiro M.D. Attending Physician Department of Internal Medicine Primary Care Physician: No primary care provider on file. Chief Complaint: Alcohol intoxification Subjective: Steve Cardenas is a 23 y.o. male to female transgender, with past medical history of Alcohol abuse, Erosive esophagitis, and Generalized anxiety disorder. transfe rred from OSH for alcohol intoxification and elevated LFT concerning for alcohol ic hepatitis. Patient presented to [facility] ER was complaining of alcohol withdrawal. He r eports that he drank 2 pints of vodka up until 8 PM on April 16. Per records patient slurred words on arrival, his jaundice and reports that he has been claire diced for 4 months. He also reports that he was experiencing some flu-like sympt oms about 3 weeks ago and about 3-4 days ago, he was not feeling well again with some symptoms of muscle pain, running nose and itchy nose. He is still having s ome cough with clear mucous. Not aware of any obvious sick contact. Denies fever , chills or sore throat. Of note, patient was presented to ER on February 20 for hematemesis, he was also found to be in the alcohol intoxication, he had a EGD at that time which find o ut he had erosive esophagitis. His left back in February 20 2019 showed that IN R 1.3, total bilirubin 2.7, AST 231, ALTs 72, alcohol phosphatase 159, albumin 3 .8 and serum alcohol at that time was 454. OSH records: Labs from April at 6, creatinine 1.67, INR 1.4, platelet 282, total bilirubin 13.2, AST 504, AL T 86, alkaline phosphatase 290, ammonia 35, total protein 8.2, amylase level 178, lipase 8, salicylate level, acetaminophen level within normal limits. Serum alcohol 476, and iron gap 22, hemoglobin 13.1, white blood cell 10.7 ROS: A comprehensive 14-point ROS was negative except for: Medical History: Diagnosis Date Alcohol abuse Erosive esophagitis Generalized anxiety disorder Surgical History: Procedure Laterality Date UPPER GASTROINTESTINAL ENDOSCOPY Family History Problem Relation Age of Onset Alcohol abuse Mother Alcohol abuse Father COPD Maternal Grandmother Social History Socioeconomic History Marital status: Not on file Spouse name: Not on file Number of children: Not on file Years of education: Not on file Highest education level: Not on file Occupational History Not on file Tobacco Use Smoking status: Current Every Day Smoker Packs/day: 2.00 Smokeless tobacco: Current User Substance and Sexual Activity Alcohol use: Yes Frequency: 4 or more times a week Drug use: Not on file Sexual activity: Not on file Other Topics Concern Not on file Social History Narrative Not on file Allergies: Patient has no known allergies. Medications: No current facility-administered medications on file prior to encounter. No current outpatient medications on file prior to encounter. Physical Exam: Vitals: Vital Signs: Last Filed In 24 Hours Vital Signs: 24 Hour Range BP: 114/77 (04/17 1203) Temp: 36.8 C (98.2 F) (04/17 1203) Pulse: 98 (04/17 1203) Respirations: 16 PER MINUTE (04/17 1203) SpO2: 100 % (04/17 1203) BP: (114)/(77) Temp: [36.8 C (98.2 F)] Pulse: [98] Respirations: [16 PER MINUTE] SpO2: [100 %] Intensity Pain Scale (Self Report): 4 (04/17/19 1155) GEN: Alert and oriented x 4, no acute distress, cooperative, appropriately parti cipative in exam. HEAD: Head is normocephalic and atraumatic. EYES: Pupils equal and reactive to light. Conjunctiva and sclera are clear. Extr aocular movements are intact bilaterally. ENT: Ears are clear bilaterally. Oropharynx pink and moist. CHEST: Lungs, clear to auscultation bilaterally with no wheezes, rales or rhonch i. No accessory muscle use or respiratory distress. CV: Regular rhythm. S1 and S2 noted. No murmurs noted. BUE/BLE pulses 2+. ABD: Soft, non-tender, non-distended. Bowel Sounds present. No rebound tendernes s, no guarding. MSK: Adequately aligned spine. ROM intact spine and extremities. No joint erythe ma or tenderness. Normal muscular development. EXTRM: No significant deformity or joint abnormality. No edema. HEME/LYMPH: No active bleeding. No cervical, supraclavicular or infraclavicular lymphadenopathy appreciated. SKIN: No rashes or lesions. NEURO: CN II-XII grossly intact. Behavior, speech, mood, thought content appropr iate. Sensation and strength grossly intact throughout. Lab/Radiology/Other Diagnostic Tests: No results for input(s): NA, K, CL, CO2, GAP, BUN, CR, GLU, CA, ALBUMIN, MG, PO4 , HGBA1C, TSH, WANDA in the last 72 hours. No results for input(s): WBC, HGB, HCT, PLTCT, PT, INR, PTT, AST, ALT, ALKPHOS, CKMB, MYOGLB, TNI in the last 72 hours. CrCl cannot be calculated (No successful lab value found.).There were no vitals filed for this visit. No results for input(s): PHART, PO2ART in the last 72 hour s. Invalid input(s): PC02A Pertinent radiology reviewed Basil Ribeiro MD MAKER documented in this encounter Consult Notes * Roseline Deleon - 04/18/2019 11:32 AM CASE MAKER Associated Order(s): CONSULT DIETITIAN CLINICAL NUTRITION Clinical Nutrition Initial Assessment Name: Steve Cardenas : 1995 Age: 23 y.o. Admission Date: 04/17/2019 LOS: 1 day Recommendation: Continue regular diet as ordered with encouragement of well-balance meals wit h inclusion of protein source with every meal. Continue to monitor K+, Phos, Mg closely and replace aggressively. Continue d aily MVI. Comments: 23 yo male to female transgender, with PMH of alcohol abuse and erosive esophagi tis who was transferred from OSH for alcohol intoxification and elevated LFT con cerning for alcoholic hepatitis. Consult received for nutritional assessment. Pt with report of unintentional weight loss and decreased appetite. Pt reported th at about a year ago they weighed ~115 lb and has now regained to ~145 lb. During review of chart it was noted that pt has a hx of anorexia, but pt did not bring this up when explaining weight Hx. 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 For breakfast this morning she had 5 pieces of khan, cottage cheese, and toast. She was planning to also order lunch. I encouraged in take of well-balanced meals that include a good protein source, variety of fruit s and vegetables, etc with each meal. Pt was experiencing N/V yesterday but this is resolved today. I discussed importance of gradually increasing PO intakes ea ch day due to inconsistencies in PO intakes + chronic alcohol intake [employer]. Team i s monitoring K+, Phos, Mg closely and replacing. Pt received 1 L banana bag yest erday and remains on IV thiamine and PO folic acid. Pt currently on MVI. Reports taking vitamin D3 at home. Nutrition Assessment of Patient: Admit Weight: 65.3 kg(bed scale); Usual Weight: 65.8 kg(was ~115 lb about a year ago); BMI (Calculated): 24.72; BMI Categories Adult: Acceptable: 18.5-24.9(24.7); Appe arance: Appropriate Pertinent Allergies/Intolerances: none Pertinent Labs: phos 1.7, Mg 1.9 ; Pertinent Meds: IV thiamine, K+, Mg, folic ac id, MVI, GI cocktail; Oral Diet Order: Regular; Current Oral Intake: Improving Estimated Calorie Needs: 1950(30 kcal/kg admit wt) Estimated Protein Needs: 98(1.5 gm/kg) Malnutrition Assessment: Does not meet criteria; ; ; ; ; Nutrition Focused Physical Assessment: Loss of Subcutaneous Fat: No; ; Muscle Wasting: No; ; Edema: No; ; Pressure Injury: none Nutrition Diagnosis: Inadequate protein-energy intake Etiology: chronic alcohol intake, N/V during admission Signs & Symptoms: diet Hx of inconsistent PO intake likely dependent on alcohol intake Intervention / Plan: Encouraged gradual increase in PO intake to avoid refeeding due to alcohol abuse . Monitor PO intakes, weight trends, labs, meds, GI health. Goals: Patient to consume >75% of meals Time Frame: Within 72 hours Anne-Marie Deleon MS, RD, LD Voalte: [phone] MAKER * Sara Aaron MD - 04/17/2019 2:01 PM CASE MAKER Associated Order(s): CONSULT HEPATOLOGY PHYSICIAN General Consult Note Admission Date: 04/17/2019 LOS: 0 days Reason for Consult: alcohol abuse concern for alcohol hepatitis, currently in t he process of getting records Consult type: Opinion with orders Assessment/Plan Ms. Cardenas is 23 year old M to F transgender pt transferred from [facility] in [place], [place] with acute alcoholic hepatitis. Alcoholic Hepatitis MELD-Na: 20 from OSH labs (increased from 13 during prior hospitalization in Feb) AST: 504, ALT: 86 T. Bili: 13 PT: 17.3 (ref. Range: 12.2 - 14.7) plt ct: 282 K -no abdominal imaging for review -heavy alcohol use Severe alcohol use disorder -Heavy alcohol use 2-3 pints vodka/day over last few months and drinking up to 1 /2 gallon per day in last four years; alcohol use dates back to age 12 -no prior inpatient treatment Polysubstance Use -admits to abuse of Rx opioids and marijuana -prior hx of meth and cocaine use Hx of erosive esophagitis, alcoholic gastritis -EGD in 02/2019: erosive esophagitis, gastritis, small hiatal hernia Recommendations: -No indication for steroids for treatment of alcoholic hepatitis. -Give IV thiamine 100 mg x 5 days and replace folic acid. -Check acute viral hepatitis serologies. -Obtain RUQ u/s with dopplers -Check daily CMP, phos and mag; replace phos aggressively. -Nutrition consult. -IV PPI while vomiting to treat gastritis/esophagitis; change to PO when able to tolerate. -High risk for alcohol withdrawal; monitor closely. Recommend inpatient alcohol use d/o treatment on discharge. -Agree with Psychiatry referral. Patient was seen and discussed with Dr. Springer, attending physician. Recommendations discussed with Dr. Ribeiro of the primary team. Sara Aaron MD Internal Medicine, PGY-3 Pager History of Present Illness: Steve Cardenas is a 23 y.o. male to female transgender person who prefers to go by "Keyana" who was transferred to the [facility] for lab abnormalities concerning for acute hepatitis likely secon julius to alcohol use. Hepatology is consulted for further management and recomme ndations of her alcoholic hepatitis. Patient reports that she has a long history of alcohol use starting at age 12. She reports that drinking increased at age 19 and at one point she was drinking half a gallon of vodka per day. Recently, she has been drinking 2 to 3 pints of vodka daily. Her last drink was this morning at approximately 2:30 AM. Per [facility] record review, she has been admitted to the hospital at least monthly for the last several months for alcohol intoxication withdrawal and often leaves [facility] per outside records. She states she was recently at [facility] in the ICU for 9 days. She reports a history of withdrawal seizures. She reports that her most recent visit to [facility] ED in [place], [place] this morni ng was prompted by abdominal pain and chest discomfort. Blood alcohol level at [facility] this morning was 476. AST was elevated to 504 and ALT to 86. INR wa s 1.4. Platelet count 282. Patient also reports polysubstance use including pre scription opioid abuse and marijuana recently and prior history of methamphetami ne and cocaine use. She is a current tobacco user. 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 She resides with her grandfather, an aunt and her boyfriend, and an uncle. She reports that there ar e alcohol and drugs in the home. She states that recently her grandmother (who was the person she was closest with) on April 01. Other physical symptoms that the patient complains of are blood-streaked emesis last occurring 2 days ago. She denies any blood in her vomit currently. She hawthorne s vomited several times since coming to the hospital and is vomiting during the interview. She denies recent weight loss but does report a history of anorexia. She describes her chest discomfort as midline, substernal, and burning. She st ates she has been jaundiced for 4-6 months, however, family members report they felt she had only been jaundiced for 1 day. She has had a prior EGD for hematem esis in February 2019 which noted severe erosive esophagitis, gastritis and a sm all hiatal hernia. There is no mention of esophageal varices. Additional medical history includes anxiety for which the patient reports she ta kes Ativan on a daily basis. She states that she is prescribed this when she is hospitalized. She reports that she was on estrogen and antiandrogen hormones f rom the ages of [age] for her male to female transgender transformation. She hawthorne s not sought inpatient treatment for alcohol cessation, but states she is intere sted in doing so. Medical History: Diagnosis Date Alcohol abuse Erosive esophagitis Surgical History: Procedure Laterality Date UPPER GASTROINTESTINAL ENDOSCOPY Social History Socioeconomic History Marital status: Not on file Spouse name: Not on file Number of children: Not on file Years of education: Not on file Highest education level: Not on file Occupational History Not on file Social Needs Financial resource strain: Not on file Food insecurity: Worry: Not on file Inability: Not on file Transportation needs: Medical: Not on file Non-medical: Not on file Tobacco Use Smoking status: Current Every Day Smoker Packs/day: 2.00 Smokeless tobacco: Current User Substance and Sexual Activity Alcohol use: Yes Frequency: 4 or more times a week Drug use: Not on file Sexual activity: Not on file Lifestyle Physical activity: Days per week: Not on file Minutes per session: Not on file Stress: Not on file Relationships Social connections: Talks on phone: Not on file Gets together: Not on file Attends hinduism service: Not on file Active member of club or organization: Not on file Attends meetings of clubs or organizations: Not on file Relationship status: Not on file Intimate partner violence: Fear of current or ex partner: Not on file Emotionally abused: Not on file Physically abused: Not on file Forced sexual activity: Not on file Other Topics Concern Not on file Social History Narrative Not on file Family History Problem Relation Age of Onset Alcohol abuse Mother Alcohol abuse Father COPD Maternal Grandmother Allergies: Patient has no known allergies. Scheduled Meds:nicotine (NICODERM CQ STEP 1) 21 mg/day patch 1 patch, 1 patch, T ransdermal, QDAY And Verification of Patch Placement and Integrity - Nicotine 21 MG/24HR, , Transderm al, BID sodium chloride 0.9% (NS) 1,000 mL with multivitamin, adult 10 mL, folic acid 1 mg, thiamine (VITAMIN B-1) 100 mg IV infusion, , Intravenous, QDAY Continuous Infusions: PRN and Respiratory Meds:haloperidol Q4H PRN OR haloperidol Q4H PRN, LORazep am Q6H PRN Review of Systems: A 14 point review of systems was negative except for: Respiratory: positive for pleurisy/chest pain Cardiovascular: positive for chest pain, chest pressure/discomfort Gastrointestinal: positive for reflux symptoms, nausea, vomiting and abdominal p ain. Positive for jaundice. Behavioral/Psych: positive for drug and alcohol use Vital Signs: Last Filed in 24 hours Vital Signs: 24 hour Range BP: 114/77 (04/17 1203) Temp: 36.8 C (98.2 F) (04/17 1203) Pulse: 98 (04/17 1203) Respirations: 16 PER MINUTE (04/17 1203) SpO2: 100 % (04/173) BP: (114)/(77) Temp: [36.8 C (98.2 F)] Pulse: [98] Respirations: [16 PER MINUTE] SpO2: [100 %] Physical Exam: GEN: Alert and oriented x 4, actively vomiting during exam, cooperative, appropr iately participative in exam. HEAD: Head is normocephalic and atraumatic. EYES: Pupils equal and reactive to light. Scleral icterus. CHEST: Lungs, clear to auscultation bilaterally. CV: Regular rhythm. S1 and S2 noted. No murmurs noted. ABD: Soft, tender over epigastrium. Bowel Sounds present. EXTRM: No significant deformity or joint abnormality. No edema. HEME/LYMPH: No active bleeding. No cervical, supraclavicular or infraclavicular lymphadenopathy appreciated. SKIN: No rashes or lesions. NEURO: CN II-XII grossly intact. Behavior, speech, mood, thought content appropr iate. Denies SI. Lab/Radiology/Other Diagnostic Tests: Pertinent labs reviewed No pertinent radiology. Sara Aaron MD Pager [phone] MAKER Associated attestation - eMndy Springer MD - 04/17/2019 7:53 PM CASE MAKER ATTESTATION I personally performed the whitehead portions of the E/M visit, discussed case with re sident and concur with resident documentation of history, physical exam, assessm ent, and treatment plan unless otherwise noted. STAFF IMPRESSION AND PLAN: Steve presents with evidence of alcoholic hepatitis, the possibility of underlying cirrhosis cannot be ruled out. Given the heavy a lcohol use history over several years there is a high likelihood of advanced fib rosis. At this time management is supportive in nature. She is having a great deal of nausea and vomiting, if this does not respond to z ofran, consideration of lorazepam may be beneficial. Hepatitis serologies are warranted given history of methamphetamine abuse. Remainder of plan as outlined in Dr. Aaron's note from today. Staff name: Mendy Springer MD Date: 04/17/2019 * Alec Mckinney MD - 04/17/2019 1:45 PM CASE MAKER Associated Order(s): CONSULT ADULT PSYCHIATRY PHYSICIAN PSYCHIATRY CONSULT NOTE Room/Bed: [id number]/01 Admission Date: 04/17/2019 LOS: 0 days Consult type: Opinion with orders Reason for Consult: Patient has hx of depression and anxiety (reports taking 2mg Q4H at home) but me anwhile severe Alcohol abuse hx(2pint vodka daily). Admitted to alcohol withdraw and alcohol hepatitis. Reports severe anxiety, need psych input on management of anxiety while inpatient since he hasn't meet AWAS score to have ativan for Alc hol withdraw yet, also need suggestion regarding what alternative he can take ou tpatient in the setting of alcohol abuse Assessment: 1. Alcohol use disorder, severe, in current alcohol withdrawal. 2. Sedative hypnotic use disorder, severe 3. Opioid use disorder, severe, in sustained remission 4. Stimulant Use Disorder, methamphetamines, in sustained remission 5. Cannabis use disorder, mild 6. Tobacco Use Disorder, severe 7. Bereavement 8. Transgender Person 9. R/o Alcohol Induced Depressive and Anxiety Disorder Recommendations: Add Hydroxyzine 25mg TID PRN for acute anxiety Continue AWAS monitoring with Ativan Protocol given hx of withdrawal seizures . Would use caution in utilization of additional benzodiazepines for anxiety ma nagement given chronic alcohol use and multiple substance use disorders. Will di scontinue PRN Ativan at this time. Would be concerned for medication seeking beh aviors. OT will be consulted for coping skills. Psychiatry will continue to follow this patient to determine need for resourc es for inpatient / outpatient substance use resources. Pt would benefit from inp atient rehabilitation after discharge, would have case management discuss [facility] with this patient for potential inpatient rehab stay. Reviewed EMR. Reviewed Laboratory studies. BAL 476, ALT 86, AST 504 Seen and discussed with: Dr. Vergara. Please feel free to contact us with any additional questions or concerns by oriana scruggs the consult team between 8am and 5pm on weekdays and between 8am and 3pm on [facility] at [phone]. Otherwise, page the vice president sales regional director of finance. Chief Concern: Anxiety History of Present Illness: Steve Cardenas is a 23 y.o. male with a past psychiatric history of multiple subst ance use disorder, most concerning is daily alcohol use, reporting 2-3 1/2 pints of vodka daily. First drink age 12, heavy drinking began at age 19 when moved to new apartment, heaviest period of drinking was 1/2 gallon daily before. Last d rink prior to admission, BAL 476 at [facility]. Pt notes having anxiety that is described as "nervousness" which impairs sleep, and notes worries about "everything my whole life". Denies symptoms of PTSD or O CD. Notes having a panic attack 1x in 3 months. She notes mood has been depresse d since grandmother's two weeks ago. Notes she was very close with her gra ndmother and lived with her. Denies hx of manic symptoms outside of stimulant abuse. Reports hx of hallucinat ions only in context of alcohol withdrawal. Reports hx of withdrawal seizures Preferred name "Keyana", male to female transgender person. Access to firearms? None Past Psychiatric History: Onset: age 12, alcohol use. Outpatient Provider: none, did report [facility] in [place], who would prescrib e ativan for her. Diagnoses: Alcohol Use Disorder Medications: reported Ativan Psychiatric Hospitalizations: multiple admission for alcohol detox, no other psy chiatric admissions Past Self-Injurious Behaviors: denies Past Suicide Attempts: denies Family Psychiatric History: Bio Father - overdose attempt, currently Substance Use: Tobacco: 1-2ppd Alcohol: see above for pattern of use, hx of withdrawals and seizures, one DUI i n hx, has cravings. Marijuana: occaisional use Cocaine: used 1x Heroin: denied Methamphetamines/Stimulants: past use over 2 years in the past, reported manic s ymptoms when using, via smoking, no IVDA Prescription opiates: reports hx of hydrocodone and liquid morphine abuse. Other: Denied PCP. Psychosocial History: Born: [place], [place] Raised by: mother, bio dad until divorce Family/Siblings: 1 sibling Level of Education: 9th grade Occupational Status: unemployed Relationships: single Legal History: none Current Living Situation: with grandparents. Social History Socioeconomic History Marital status: Not on file Spouse name: Not on file Number of children: Not on file Years of education: Not on file Highest education level: Not on file Occupational History Not on file Tobacco Use Smoking status: Current Every Day Smoker Packs/day: 2.00 Smokeless tobacco: Current User Substance and Sexual Activity Alcohol use: Yes Frequency: 4 or more times a week Drug use: Not on file Sexual activity: Not on file Other Topics Concern Not on file Social History Narrative Not on file Past Medical/Surgical History: Medical History: Diagnosis Date Alcohol abuse Erosive esophagitis : Surgical History: Procedure Laterality Date UPPER GASTROINTESTINAL ENDOSCOPY : Home Medications: No medications prior to admission. Hospital Medications: Scheduled Meds:nicotine (NICODERM CQ STEP 1) 21 mg/day patch 1 patch, 1 patch, T ransdermal, QDAY And Verification of Patch Placement and Integrity - Nicotine 21 MG/24HR, , Transderm al, BID sodium chloride 0.9% (NS) 1,000 mL with multivitamin, adult 10 mL, folic acid 1 mg, thiamine (VITAMIN B-1) 100 mg IV infusion, , Intravenous, QDAY Continuous Infusions: PRN and Respiratory Meds:haloperidol Q4H PRN OR haloperidol Q4H PRN, LORazep am Q6H PRN : Allergies: Patient has no known allergies. Review of Systems: A 14 point review of systems was negative except for: Gastrointestinal: positive for nausea Vital Signs: Last Filed in 24 hours Vital Signs: 24 hour Range BP: 114/77 (04/17 1203) Temp: 36.8 C (98.2 F) (04/17 1203) Pulse: 98 (04/17 1203) Respirations: 16 PER MINUTE (04/17 1203) SpO2: 100 % (04/17 1203) BP: (114)/(77) Temp: [36.8 C (98.2 F)] Pulse: [98] Respirations: [16 PER MINUTE] SpO2: [100 %] Mental Status Evaluation: General/Constitutional: Pt appears jaundiced, no acute distress Eye Contact: fair Behavior: cooperative Speech: nl rate/tone/volume Mood: "depressed" Affect: restricted, mood congruent Thought Process: linear and goal oriented Thought Content: denies suicidal or homicidal ideations Perception: denies auditory or visual hallucinations. No evidence of delusions. Associations: intact Insight: poor Judgement: poor Orientation: AAOX4 Recent and remote memory: intact per interview Attention span and concentration: intact per interview Cognition: intact Language: Zambian Fund of knowledge/vocabulary: full Focused Physical Exam: Neuro: no tremors Musculoskeletal: moves all four extremities with ease Lab/Radiology/Other Diagnostic Tests: 24-hour labs: No results found for this visit on 04/17/19 (from the past 24 abbi r(s)). Alec Mckinney MD MAKER Associated attestation - Saskia Vergara MD - 04/18/2019 10:36 AM CASE MAKER ATTESTATION I personally performed the whitehead portions of the E/M visit, discussed the case wit h the resident and concur with resident documentation of history, physical exam, assessment, and treatment plan unless otherwise noted. I personally participat ed in development of the plan of care. Does patient have alcohol use disorder? yes Has patient been offered first line therapy? yes Patient has been offered: Discussed use of medication for craving including naltrexone however will hold o ff at this time given elevated LFTs Please feel free to contact us with any additional questions or concerns by oriana scruggs the consult team between 8am and 5pm on weekdays and between 8am and 3pm on [facility] [phone]. Otherwise, page the vice president sales regional director of finance. Staff name: Saskia Vergara MD Date: 04/17/2019 documented in this encounter Miscellaneous Notes * Care Plan - Jung Sparks RN - 04/23/2019 10:10 AM CASE MAKER Problem: Discharge Planning Goal: Participation in plan of care Outcome: Goal Achieved Goal: Knowledge regarding plan of care Outcome: Goal Achieved Goal: Prepared for discharge Outcome: Goal Achieved Problem: Nutrition Deficit Goal: Adequate nutritional intake Outcome: Goal Achieved Goal: Body weight within specified parameters Outcome: Goal Achieved Problem: Anxiety Goal: Alleviation of anxiety Outcome: Goal Achieved Problem: Health Maintenance - Impaired Goal: Establish therapeutic relationships Outcome: Goal Achieved Goal: Knowledge of health maintenance Outcome: Goal Achieved Problem: Mood - Altered Goal: Stabilize mood Outcome: Goal Achieved Goal: Knowledge of Altered Mood Outcome: Goal Achieved Problem: Falls, High Risk of Goal: Absence of falls-Adult Patient Outcome: Goal Achieved MAKER * Care Plan - Francine Mccauley RN - 04/22/2019 2:37 AM CASE MAKER Problem: Discharge Planning Goal: Participation in plan of care Outcome: Goal Ongoing Goal: Knowledge regarding plan of care Outcome: Goal Ongoing Goal: Prepared for discharge Outcome: Goal Ongoing Problem: Nutrition Deficit Goal: Adequate nutritional intake Outcome: Goal Ongoing Goal: Body weight within specified parameters Outcome: Goal Ongoing Problem: Anxiety Goal: Alleviation of anxiety Outcome: Goal Ongoing Problem: Health Maintenance - Impaired Goal: Establish therapeutic relationships Outcome: Goal Ongoing Goal: Knowledge of health maintenance Outcome: Goal Ongoing Problem: Mood - Altered Goal: Stabilize mood Outcome: Goal Ongoing Goal: Knowledge of Altered Mood Outcome: Goal Ongoing MAKER * Case Mgmt DC Plan - Maryellen Cevallos RN - 04/21/2019 10:06 AM CASE MAKER Case Management Admission Assessment NAME:Steve Cardenas : AGE: 23 y.o. ADMISSION DATE: 04/17/2019 DAYS ADMITTED: LOS: 4 days Todays Date: 04/21/2019 Source of Information: Patient 23 y.o. male to female transgender, with past medical history of Alcohol abuse, Erosive esophagitis, and Generalized anxiety disorder. transferred from OSH for alcohol intoxification and elevated LFT concerning for alcoholic hepatitis. This CM met with pt for assessment on this date. Provided contact information a nd explanation of SW/NCM roles. Reviewed [facility], Pre[facility] har[facility], and Preferred Provider Network hand-outs. Provided opportunity for quest ions and discussion. Pt/family encouraged to contact Case Management team with q uestions and concerns during hospitalization and until patient is able to transi tion back to the patient's primary care physician. Patient lives with grandfather and notes she is usually independent of ADL's but at times her grandfather has to help get her out of the bathtub. Patient not es has a manual w/c at home and has to use it on occasion for mobility but does not have to use daily. Patient does not have a PCP and was offered by [facility] to see if able to assist w ith locating a safety net clinic in her area. Patient declined and noted she benjamin l seek a PCP at [facility]. CAT discussed with patient and the process. Patient declined to make call a nd noted will take a hand out on the program. Information on addiction treatment from [facility] program's and contact info for appointment provided to patient. Patient notes her grandfather or mother will provide transport at discharge b nh needs notice to provide to family as [place] two [place] away. Patient would like discharge meds to be sent to [facility]. Patient is self pa y and asked if we had a voucher program. Patient informed SW will assess to see if patient eligible for that program. SW informed. Patient notes she does not have a DPOA and declined to complete an Advanced D irective. EMR reviewed NCM to attend [facility]. NCM will continue to follow for ongoing dc planning needs. Plan Plan: Case Management Assessment, Assist PRN with SW/NCM Services, Discharge Nico nning for Home Anticipated Patient Address/Phone [address] [facility] [phone] (home) Emergency Contact Extended Emergency Contact Information Primary Emergency Contact: Temitope Pyle Mobile Relation: Mother Healthcare Directive Healthcare Directive: No, patient does not have a healthcare directive Would patient like to fill out a (a new) Healthcare Directive?: No, patient decl ined Psych Advance Directive (Psych unit only): No, patient does not have a Psych Adv ance Directive Transportation Does the patient need discharge transport arranged?: No Transportation Name, Phone and Availability #1: Grandfather Transportation Name, Phone and Availability #2: Mother -- Temitope Pyle Does the patient use Medicaid Transportation?: No Expected Discharge Date Expected Discharge Date: 04/23/19 Expected Discharge Time: 1600 Living Situation Prior to Admission ? Living Arrangements Type of Residence: Home, dependent on others Living Arrangements: Family members(lives with grandfather) Bathroom Shower / Tub: Tub/Shower Unit How many levels in the residence?: 1 Can patient live on one level if needed?: Yes Does residence have entry and/or side stairs?: Yes(4 steps) Assistance needed prior to admit or anticipated on discharge: Yes Who provides assistance or could if needed?: Grandfather assist with getting in and out of the tub when needed Are they in good health?: Unknown ? Level of Function Prior level of function: Needs assist with ADLs Which ADLs require assistance?: transfer in and out of bathtub Who assists with ADLs?: Grandfather ? Cognitive Abilities Cognitive Abilities: Alert and Oriented, Participates in decision making Financial Resources ? Coverage Primary Insurance: No insurance Secondary Insurance: No insurance Additional Coverage: None ? Source of Income Source Of Income: Unemployed ? Financial Assistance Needed? n/a Psychosocial Needs ? Mental Health Mental Health History: No ? Substance Use History Substance Use History Screen: Yes Comment: etoh use and smokes 2 packs of cigarettes daily since the age of 19. ? Other n/a Current/Previous Services ? PCP No Pcp, Na, None, None ? Pharmacy [facility] [address] [facility] [id number] [facility] [address] [facility] [address] [id number] [facility] [address] [facility] [address] [facility] [address] ? Durable Medical Equipment Durable Medical Equipment at home: Wheelchair (manual)(use only as needed) ? Home Health Receiving home health: No ? Hemodialysis or Peritoneal Dialysis Undergoing hemodialysis or peritoneal dialysis: No ? Tube/Enteral Feeds Receive tube/enteral feeds: No ? Infusion Receive infusions: No ? Private Duty Private duty help used: No ? Home and Community Based Services Home and community based services: No ? Stephon Cevallos: No ? Hospice Hospice: No ? Outpatient Therapy PT: No OT: No GOLDBEATER: No ? Half-Way Facility/Fpc SNF: No NH: No ? Inpatient Rehab IPR: No ? Long-Term Acute Care Hospital LTACH: No ? Acute Hospital Stay Acute Hospital Stay: No Maryellen Cevallos RN, BSN Integrated Nurse Chief Controller Phone cell(not for patient use):[phone] Office hours: M-F 8-4 MAKER * Case Mgmt DC Plan - Lizabeth Somers - 04/21/2019 9:55 AM CASE MAKER Inpatient Medication Voucher Assessment Date: 04/21/2019 Primary Insurance: No Rx Coverage: No Medicaid pending: No Medicare Part D [place]: No VA Benefits (include location of services if applicable): No Is patient eligible for a Medication Voucher? Yes Date of last Medication Voucher: Charitable Fund to be utilized (include name of fund if applicable): No Narcotics can be included on voucher: No Other information: Reminders: has authorized a Medication Voucher for up to $125. If Voucher is over th is amount, please contact . Vouchers are to be provided once during a 12-month period. Vouchers cannot include medications on the Generic Drug List ($4.99 or $11.99 ), OTC meds, nicotine patches, or co-pays. Vouchers should include only new medications; ongoing refills should not be a uthorized. No more than a 30-day supply should be authorized. Please contact with needs outside of these parameters. Lizabeth Somers LMSW Pager/Cell: [phone] MAKER * Care Coordination-Inpatient - Zaria Marinelli MD - 04/18/2019 5:40 AM CASE MAKER For any questions prior to 8am please call Team [facility] Private O-2, pager [phone]. Aft er 8am contact Team Med Private S, pager [phone] MAKER * Advanced Care Planning/Resuscitation Status - Basil Ribeiro MD - 04/17/2019 1:12 PM CASE MAKER Advance Care Planning/Resuscitation Status Conversation Individuals present for advance care planning conversation: attending physician Pertinent details of conversation (including direct quotes from patient or surro gate): Full code Outcome of conversation: Full Code Documents completed as a result of this conversation: None Other documents present, which outline patient/surrogate wishes: None Attestation? N/A MAKER documented in this encounter Plan of Treatment Not on filedocumented as of this encounter Goals Goal Patient Associated Recent Progress Patient-Stat Aut hor Goal Type Problems ed? Improve quality of life Hospital Yes Jina Huff, SHANE Note: "To quit drinking and get more healthy" documented as of this encounter Procedures Comments Procedure Name Priority Date/Time Associated Diag nosis HC CBC W/ AUTOMATED DIFF Routine 04/23/2019 4:19 AM CASE MAKER HC PHOSPHOROUS, SERUM Routine 04/23/2019 4:19 AM CASE MAKER HC MAGNESIUM Routine 04/23/2019 4:19 AM CASE MAKER HC COMPREHENSIVE Routine 04/23/2019 METABOLIC PANEL 4:19 AM CASE MAKER HC PT(INR) Routine 04/22/2019 4:26 AM CASE MAKER HC CBC W/ AUTOMATED DIFF Routine 04/22/2019 4:26 AM CASE MAKER HC PHOSPHOROUS, SERUM Routine 04/22/2019 4:26 AM CASE MAKER HC MAGNESIUM Routine 04/22/2019 4:26 AM CASE MAKER HC COMPREHENSIVE Routine 04/22/2019 METABOLIC PANEL 4:26 AM CASE MAKER HC PT(INR) Routine 04/21/2019 4:40 AM CASE MAKER HC CBC W/ AUTOMATED DIFF Routine 04/21/2019 4:40 AM CASE MAKER HC PHOSPHOROUS, SERUM Routine 04/21/2019 4:40 AM CASE MAKER HC MAGNESIUM Routine 04/21/2019 4:40 AM CASE MAKER HC COMPREHENSIVE Routine 04/21/2019 METABOLIC PANEL 4:40 AM CASE MAKER UA REFLEX CULTURE LABEL Routine 04/20/2019 12:40 PM CASE MAKER URINALYSIS MICROSCOPIC Routine 04/20/2019 REFLEX TO CULTURE 12:40 PM CASE MAKER HC URINALYSIS UAR Routine 04/20/2019 12:40 PM CASE MAKER HC CULTURE-BLOOD STAT 04/20/2019 12:15 PM CASE MAKER HC LACTIC ACID(LACTATE) STAT 04/20/2019 12:15 PM CASE MAKER CULTURE-BLOOD STAT 04/20/2019 W/SENSITIVITY 12:00 PM CASE MAKER CHEST SINGLE VIEW Routine 04/20/2019 11:16 AM CASE MAKER HC PT(INR) Routine 04/20/2019 4:06 AM CASE MAKER HC CBC W/ AUTOMATED DIFF Routine 04/20/2019 4:06 AM CASE MAKER HC PHOSPHOROUS, SERUM Routine 04/20/2019 4:06 AM CASE MAKER HC MAGNESIUM Routine 04/20/2019 4:06 AM CASE MAKER HC COMPREHENSIVE Routine 04/20/2019 METABOLIC PANEL 4:06 AM CASE MAKER HC PHOSPHOROUS, SERUM STAT 04/19/2019 4:38 PM CASE MAKER HC MAGNESIUM STAT 04/19/2019 4:38 PM CASE MAKER HC BASIC METABOLIC PANEL STAT 04/19/2019 4:38 PM CASE MAKER HC [id number] Routine 04/19/2019 PHENOTYPI 4:12 AM CASE MAKER HC PT(INR) Routine 04/19/2019 4:12 AM CASE MAKER HC CBC W/ AUTOMATED DIFF Routine 04/19/2019 4:12 AM CASE MAKER HC PHOSPHOROUS, SERUM Routine 04/19/2019 4:12 AM CASE MAKER HC MAGNESIUM Routine 04/19/2019 4:12 AM CASE MAKER HC LIPASE Add on 04/19/2019 4:12 AM CASE MAKER HC COMPREHENSIVE Routine 04/19/2019 METABOLIC PANEL 4:12 AM CASE MAKER HC PT(INR) Routine 04/18/2019 9:55 AM CASE MAKER HC CBC W/ AUTOMATED DIFF Routine 04/18/2019 9:55 AM CASE MAKER HC PHOSPHOROUS, SERUM Routine 04/18/2019 9:55 AM CASE MAKER HC MAGNESIUM Routine 04/18/2019 9:55 AM CASE MAKER HC COMPREHENSIVE Routine 04/18/2019 METABOLIC PANEL 9:55 AM CASE MAKER US DOPPLER ABD PELV Routine 04/17/2019 RETROPER COMP 7:44 PM CASE MAKER US ABDOMEN COMPLETE Routine 04/17/2019 7:44 PM CASE MAKER HC ACUTE HEPATITIS PANEL Routine 04/17/2019 5:28 PM CASE MAKER HC PT(INR) Routine 04/17/2019 5:28 PM CASE MAKER HC CBC W/ AUTOMATED DIFF Routine 04/17/2019 5:28 PM CASE MAKER HC PHOSPHOROUS, SERUM Routine 04/17/2019 5:28 PM CASE MAKER HC MAGNESIUM Routine 04/17/2019 5:28 PM CASE MAKER HC COMPREHENSIVE Routine 04/17/2019 METABOLIC PANEL 5:28 PM CASE MAKER HC INFLUENZA A/B AND Routine 04/17/2019 RSVPCR 3:45 PM CASE MAKER UA REFLEX CULTURE LABEL Routine 04/17/2019 4:23 AM CASE MAKER URINALYSIS MICROSCOPIC Routine 04/17/2019 REFLEX TO CULTURE 4:23 AM CASE MAKER HC URINALYSIS UAR Routine 04/17/2019 4:23 AM CASE MAKER HC CULTURE-URINE 04/17/2019 4:23 AM CASE MAKER documented in this encounter Results * CBC AND DIFF (04/23/2019 4:19 AM CASE MAKER) White Blood 7.1 4.5 - 11.0 K/UL [facility] Cells RBC 2.29 (L) 4.4 - 5.5 M/UL [facility] Hemoglobin 8.7 (L) 13.5 - 16.5 GM/DL [facility] Hematocrit 25.1 (L) 40 - 50 % [facility] MCV 109.2 (H) 80 - 100 FL [facility] MCH 37.8 (H) 26 - 34 PG [facility] MCHC 34.6 32.0 - 36.0 G/DL [facility] RDW 15.1 (H) 11 - 15 % [facility] Platelet Count 189 150 - 400 K/UL [facility] MPV 9.1 7 - 11 FL [facility] Neutrophils 67 41 - 77 % [facility] Lymphocytes 17 (L) 24 - 44 % [facility] Monocytes 11 4 - 12 % [facility] Eosinophils 3 0 - 5 % [facility] Basophils 2 0 - 2 % [facility] Absolute 4.80 1.8 - 7.0 K/UL [facility] Neutrophil Count Absolute Lymph 1.20 1.0 - 4.8 K/UL [facility] Count Absolute 0.80 0 - 0.80 K/UL [facility] Monocyte Count Absolute 0.20 0 - 0.45 K/UL [facility] Eosinophil Count Absolute 0.10 0 - 0.20 K/UL [facility] Basophil Count Specimen Blood Performing Organization Address City/State/Zipcode Ph one Number [facility] [address] [place] [address] * COMPREHENSIVE METABOLIC PANEL (04/23/2019 4:19 AM CASE MAKER) Sodium 136 (L) 137 - 147 MMOL/L [facility] Potassium 4.2 3.5 - 5.1 MMOL/L [facility] Chloride 101 98 - 110 MMOL/L [facility] Glucose 85 70 - 100 MG/DL [facility] Blood Urea 8 7 - 25 MG/DL [facility] Nitrogen Creatinine 0.54 0.4 - 1.24 MG/DL [facility] Calcium 8.3 (L) 8.5 - 10.6 MG/DL [facility] Total Protein 5.6 (L) 6.0 - 8.0 G/DL [facility] Total Bilirubin 16.8 (H) 0.3 - 1.2 MG/DL [facility] Albumin 2.8 (L) 3.5 - 5.0 G/DL [facility] Alk Phosphatase 138 (H) 25 - 110 U/L [facility] AST (SGOT) 57 (H) 7 - 40 U/L [facility] CO2 28 21 - 30 MMOL/L [facility] ALT (SGPT) 19 7 - 56 U/L [facility] Anion Gap 7 3 - 12 [facility] eGFR Non >60 >60 mL/min [facility] Comment: [place] The eGFR is not validated f or use in drug dosing adjustments. Continue to use estimated creatinine clearance per dosing reference text. Please contact the Clinical Pharmacist for questions. eGFR >60 >60 mL/min [facility] [place] Comment: The eGFR is not validated for use in drug dosing adjustments. Continue to use estimated creatinine clearance per dosing reference text. Please contact the Clinical Pharmacist for questions. Specimen Blood Performing Organization Address [facility] one Number [facility] [address] [place] [address] * PHOSPHORUS (04/23/2019 4:19 AM CASE MAKER) Phosphorus 3.7Comment: NOTE NEW REFERENCE 2.0 - 4.5 MG/DL [facility] RANGES Specimen Blood Performing Organization Address [facility] one Number [facility] [address] [place] [address] * MAGNESIUM (04/23/2019 4:19 AM CASE MAKER) Magnesium 2.1 1.6 - 2.6 mg/dL [facility] Specimen Blood Performing Organization Address [facility] one Number MAIN LAB [address] [place] [address] * PHOSPHORUS (04/22/2019 4:26 AM CASE MAKER) Phosphorus 2.8Comment: NOTE NEW REFERENCE 2.0 - 4.5 MG/DL [facility] RANGES Specimen Blood Performing Organization Address [facility] one Number MAIN LAB [address] [phone] * MAGNESIUM (04/22/2019 4:26 AM CASE MAKER) Magnesium 1.7 1.6 - 2.6 mg/dL [facility] Specimen Blood Performing Organization Address [facility] one Number MAIN LAB [address] [place] [address] * COMPREHENSIVE METABOLIC PANEL (04/22/2019 4:26 AM CASE MAKER) Sodium 135 (L) 137 - 147 MMOL/L [facility] Potassium 4.0 3.5 - 5.1 MMOL/L [facility] Chloride 100 98 - 110 MMOL/L [facility] Glucose 87 70 - 100 MG/DL [facility] Blood Urea 7 7 - 25 MG/DL [facility] Nitrogen Creatinine 0.51 0.4 - 1.24 MG/DL [facility] Calcium 8.1 (L) 8.5 - 10.6 MG/DL [facility] Total Protein 5.5 (L) 6.0 - 8.0 G/DL [facility] Total Bilirubin 15.0 (H) 0.3 - 1.2 MG/DL [facility] Albumin 2.7 (L) 3.5 - 5.0 G/DL [facility] Alk Phosphatase 139 (H) 25 - 110 U/L [facility] AST (SGOT) 49 (H) 7 - 40 U/L [facility] CO2 27 21 - 30 MMOL/L [facility] ALT (SGPT) 21 7 - 56 U/L [facility] Anion Gap 8 3 - 12 [facility] eGFR Non >60 >60 mL/min [facility] Comment: [place] The eGFR is not validated f or use in drug dosing adjustments. Continue to use estimated creatinine clearance per dosing reference text. Please contact the Clinical Pharmacist for questions. eGFR >60 >60 mL/min [facility] [place] Comment: The eGFR is not validated for use in drug dosing adjustments. Continue to use estimated creatinine clearance per dosing reference text. Please contact the Clinical Pharmacist for questions. Specimen Blood Performing Organization Address City/State/Zipcode Ph one Number [facility] [address] [place] [address] * CBC AND DIFF (04/22/2019 4:26 AM CASE MAKER) White Blood 7.8 4.5 - 11.0 K/UL [facility] Cells RBC 2.36 (L) 4.4 - 5.5 M/UL [facility] Hemoglobin 8.8 (L) 13.5 - 16.5 GM/DL [facility] Hematocrit 25.6 (L) 40 - 50 % [facility] MCV 108.3 (H) 80 - 100 FL [facility] MCH 37.3 (H) 26 - 34 PG [facility] MCHC 34.5 32.0 - 36.0 G/DL [facility] RDW 15.6 (H) 11 - 15 % [facility] Platelet Count 165 150 - 400 K/UL [facility] MPV 9.0 7 - 11 FL [facility] Neutrophils 75 41 - 77 % [facility] Lymphocytes 13 (L) 24 - 44 % [facility] Monocytes 9 4 - 12 % [facility] Eosinophils 2 0 - 5 % [facility] Basophils 1 0 - 2 % [facility] Absolute 5.90 1.8 - 7.0 K/UL [facility] Neutrophil Count Absolute Lymph 1.00 1.0 - 4.8 K/UL [facility] Count Absolute 0.70 0 - 0.80 K/UL [facility] Monocyte Count Absolute 0.20 0 - 0.45 K/UL [facility] Eosinophil Count Absolute 0.10 0 - 0.20 K/UL [facility] Basophil Count Specimen Blood Performing Organization Address [facility] one Number MAIN LAB [address] [place] [address] * PROTIME INR (PT) (04/22/2019 4:26 AM CASE MAKER) INR 1.5 (H) 0.8 - 1.2 [facility] Specimen Blood Performing Organization Address [facility] one Number MAIN LAB [address] [place] [address] * PHOSPHORUS (04/21/2019 4:40 AM CASE MAKER) Phosphorus 2.9Comment: NOTE NEW REFERENCE 2.0 - 4.5 MG/DL [facility] RANGES Specimen Blood Performing Organization Address [facility] one Number MAIN LAB [address] [place] [address] * MAGNESIUM (04/21/2019 4:40 AM CASE MAKER) Magnesium 1.8 1.6 - 2.6 mg/dL [facility] Specimen Blood Performing Organization Address [facility] one Number MAIN LAB [address] [place] [address] * COMPREHENSIVE METABOLIC PANEL (04/21/2019 4:40 AM CASE MAKER) Sodium 138 137 - 147 MMOL/L [facility] Potassium 4.0 3.5 - 5.1 MMOL/L [facility] Chloride 105 98 - 110 MMOL/L [facility] Glucose 103 (H) 70 - 100 MG/DL [facility] Blood Urea 5 (L) 7 - 25 MG/DL [facility] Nitrogen Creatinine 0.53 0.4 - 1.24 MG/DL [facility] Calcium 8.1 (L) 8.5 - 10.6 MG/DL [facility] Total Protein 5.5 (L) 6.0 - 8.0 G/DL [facility] Total Bilirubin 15.6 (H) 0.3 - 1.2 MG/DL [facility] Albumin 2.7 (L) 3.5 - 5.0 G/DL [facility] Alk Phosphatase 141 (H) 25 - 110 U/L [facility] AST (SGOT) 52 (H) 7 - 40 U/L [facility] CO2 27 21 - 30 MMOL/L [facility] ALT (SGPT) 23 7 - 56 U/L [facility] Anion Gap 6 3 - 12 [facility] eGFR Non >60 >60 mL/min [facility] Comment: [place] The eGFR is not validated f or use in drug dosing adjustments. Continue to use estimated creatinine clearance per dosing reference text. Please contact the Clinical Pharmacist for questions. eGFR >60 >60 mL/min [facility] [place] Comment: The eGFR is not validated for use in drug dosing adjustments. Continue to use estimated creatinine clearance per dosing reference text. Please contact the Clinical Pharmacist for questions. Specimen Blood Performing Organization Address City/State/Zipcode Ph one Number [facility] [address] [place] [address] * CBC AND DIFF (04/21/2019 4:40 AM CASE MAKER) White Blood 9.3 4.5 - 11.0 K/UL [facility] Cells RBC 2.36 (L) 4.4 - 5.5 M/UL [facility] Hemoglobin 8.8 (L) 13.5 - 16.5 GM/DL [facility] Hematocrit 25.1 (L) 40 - 50 % [facility] MCV 106.6 (H) 80 - 100 FL [facility] MCH 37.5 (H) 26 - 34 PG [facility] MCHC 35.2 32.0 - 36.0 G/DL [facility] RDW 14.9 11 - 15 % [facility] Platelet Count 126 (L) 150 - 400 K/UL [facility] MPV 9.9 7 - 11 FL [facility] Neutrophils 80 (H) 41 - 77 % [facility] Lymphocytes 11 (L) 24 - 44 % [facility] Monocytes 7 4 - 12 % [facility] Eosinophils 1 0 - 5 % [facility] Basophils 1 0 - 2 % [facility] Absolute 7.50 (H) 1.8 - 7.0 K/UL [facility] Neutrophil Count Absolute Lymph 1.00 1.0 - 4.8 K/UL [facility] Count Absolute 0.60 0 - 0.80 K/UL [facility] Monocyte Count Absolute 0.00 0 - 0.45 K/UL [facility] Eosinophil Count Absolute 0.10 0 - 0.20 K/UL [facility] Basophil Count Specimen Blood Performing Organization Address [facility] one Number MAIN LAB [address] [place] [address] * PROTIME INR (PT) (04/21/2019 4:40 AM CASE MAKER) Pathologist [facility] INR 1.8 (H) 0.8 - 1.2 [facility] Specimen Blood Performing Organization Address [facility] one Number MAIN LAB [address] [place] [address] * UA REFLEX CULTURE LABEL (04/20/2019 12:40 PM CASE MAKER) Pathologist [facility] UA Reflex Criteria [facility] Culture are WBC>10, Positive Nitrit e, and/or >=+1 leukocytes. If quantity is not sufficient, an addendum will follow. Specimen Urine Performing Organization Address [facility] one Number MAIN LAB [address] [place] [address] * URINALYSIS MICROSCOPIC REFLEX TO CULTURE (04/20/2019 12:40 PM CASE MAKER) Pathologist [facility] WBCs,UA 0-2 0 - 2 /HPF MAIN LAB RBCs,UA NONE 0 - 3 /HPF [facility] Comment,UA Criteria for reflex to culture [facility] NATA N LAB are WBC>10, Positive Nitrite, and/or >=+1 leukocytes. If quantity is not sufficient, an addendum will follow. MucousUA TRACE [facility] Squamous 0-2 0 - 5 MAIN LAB Epithelial Cells Hyaline Cast 2-5 MAIN LAB Specimen Urine Performing Organization Address [facility] one Number MAIN LAB [address] [place] [address] * URINALYSIS DIPSTICK REFLEX TO CULTURE (04/20/2019 12:40 PM CASE MAKER) Pathologist [facility] Color,UA ANA [facility] Turbidity,UA CLEAR CLEAR-CLEAR [facility] Specific 1.010 1.003 - 1.035 [facility] [place]-Urine pH,UA 6.0 5.0 - 8.0 [facility] Protein,UA NEG NEG-NEG [facility] Glucose,UA NEG NEG-NEG [facility] Ketones,UA NEG NEG-NEG [facility] Bilirubin,UA POS (A) NEG-NEG [facility] Blood,UA NEG NEG-NEG [facility] Urobilinogen,UA INCREASED (A) NORM-NORMAL [facility] Nitrite,UA NEG NEG-NEG [facility] Leukocytes,UA NEG NEG-NEG [facility] Urine Ascorbic NEG NEG-NEG MAIN LAB Acid, UA Specimen Urine Performing Organization Address City/[facility] Ph one Number MAIN LAB [address] [place] [address] * LACTIC ACID(LACTATE) (04/20/2019 12:15 PM CASE MAKER) Lactic Acid 2.2 (H) 0.5 - 2.0 MMOL/L [facility] Specimen Performing Organization Address [facility] Ph one Number MAIN LAB [address] [place] [phone] * CULTURE-BLOOD W/SENSITIVITY (04/20/2019 12:15 PM CASE MAKER) Battery Name BLOOD CULTURE MAIN LAB Specimen BLOOD MAIN LAB Description ANTECUBITAL RIGHT Special NONE MAIN LAB Requests Culture NO GROWTH 5 DAYS MAIN LAB Report Status FINAL MAIN LAB 04/26/2019 Specimen Blood Performing Organization Address [facility] Ph one Number MAIN LAB [address] [place] [address] * CULTURE-BLOOD W/SENSITIVITY (04/20/2019 12:00 PM CASE MAKER) Battery Name BLOOD CULTURE MAIN LAB Specimen BLOOD MAIN LAB Description LEFT PIV Special NONE MAIN LAB Requests Culture NO GROWTH 5 DAYS MAIN LAB Report Status FINAL MAIN LAB 04/26/2019 Specimen Blood Performing Organization Address [facility] Ph one Number MAIN LAB [address] [place] [address] * CHEST SINGLE VIEW (04/20/2019 11:16 AM CASE MAKER) Specimen Impressions Performed At No acute cardiopulmonary abnormality. [facility] RAD RESULTS Finalized by Ck Perales M.D. on 04/20/19 11:26 AM. Dictated by Ck Perales M.D. on 04/20/2019 11:25 AM. Narrative Performed At Single view of the chest [facility] RAD RESULTS Clinical history: Concern for infection. Findings: Comparison chest film: None available. The heart and pulmonary vasculature are within normal limits. There are no consolidating infiltrates, effusions or pneumothoraces identified. Procedure Note Interface, Radiant Results - 04/20/2019 11:29 AM CASE MAKER Single view of the chest Clinical history: Concern for infection. Findings: Comparison chest film: None available. The heart and pulmonary vasculature are within normal limits. There are no consolidating infiltrates, effusions or pneumothoraces identified. IMPRESSION No acute cardiopulmonary abnormality. Finalized by Ck Perales M.D. on 04/20/2019 11:26 AM. Dictated by Ck Perales M.D. on 04/20/2019 11:25 AM. Performing Organization Address [facility] one Number [facility] RAD RESULTS * PHOSPHORUS (04/20/2019 4:06 AM CASE MAKER) Phosphorus 2.5Comment: NOTE NEW REFERENCE 2.0 - 4.5 MG/DL [facility] RANGES Specimen Blood Performing Organization Address [facility] one Number [facility] [address] [place] [address] * MAGNESIUM (04/20/2019 4:06 AM CASE MAKER) Magnesium 1.9 1.6 - 2.6 mg/dL [facility] Specimen Blood Performing Organization Address [facility] one Number [facility] [address] [place] [address] * COMPREHENSIVE METABOLIC PANEL (04/20/2019 4:06 AM CASE MAKER) Sodium 136 (L) 137 - 147 MMOL/L [facility] Potassium 3.3 (L) 3.5 - 5.1 MMOL/L [facility] Chloride 103 98 - 110 MMOL/L [facility] Glucose 105 (H) 70 - 100 MG/DL [facility] Blood Urea 4 (L) 7 - 25 MG/DL [facility] Nitrogen Creatinine 0.56 0.4 - 1.24 MG/DL [facility] Calcium 8.2 (L) 8.5 - 10.6 MG/DL [facility] Total Protein 5.7 (L) 6.0 - 8.0 G/DL [facility] Total Bilirubin 17.7 (H) 0.3 - 1.2 MG/DL [facility] Albumin 2.8 (L) 3.5 - 5.0 G/DL [facility] Alk Phosphatase 164 (H) 25 - 110 U/L [facility] AST (SGOT) 84 (H) 7 - 40 U/L [facility] CO2 24 21 - 30 MMOL/L [facility] ALT (SGPT) 31 7 - 56 U/L [facility] Anion Gap 9 3 - 12 [facility] eGFR Non >60 >60 mL/min [facility] Comment: [place] The eGFR is not validated f or use in drug dosing adjustments. Continue to use estimated creatinine clearance per dosing reference text. Please contact the Clinical Pharmacist for questions. eGFR >60 >60 mL/min [facility] [place]ian Comment: The eGFR is not validated for use in drug dosing adjustments. Continue to use estimated creatinine clearance per dosing reference text. Please contact the Clinical Pharmacist for questions. Specimen Blood Performing Organization Address City/State/Zipcode Ph one Number [facility] [address] [place] [address] * CBC AND DIFF (04/20/2019 4:06 AM CASE MAKER) White Blood 8.3 4.5 - 11.0 K/UL [facility] Cells RBC 2.65 (L) 4.4 - 5.5 M/UL [facility] Hemoglobin 9.8 (L) 13.5 - 16.5 GM/DL [facility] Hematocrit 28.2 (L) 40 - 50 % [facility] MCV 106.4 (H) 80 - 100 FL [facility] MCH 36.8 (H) 26 - 34 PG [facility] MCHC 34.6 32.0 - 36.0 G/DL [facility] RDW 14.9 11 - 15 % [facility] Platelet Count 87 (L) 150 - 400 K/UL [facility] MPV 10.6 7 - 11 FL [facility] Neutrophils 79 (H) 41 - 77 % [facility] Lymphocytes 13 (L) 24 - 44 % [facility] Monocytes 5 4 - 12 % [facility] Eosinophils 2 0 - 5 % [facility] Basophils 1 0 - 2 % [facility] Absolute 6.60 1.8 - 7.0 K/UL [facility] Neutrophil Count Absolute Lymph 1.10 1.0 - 4.8 K/UL [facility] Count Absolute 0.40 0 - 0.80 K/UL [facility] Monocyte Count Absolute 0.10 0 - 0.45 K/UL [facility] Eosinophil Count Absolute 0.10 0 - 0.20 K/UL [facility] Basophil Count Specimen Blood Performing Organization Address [facility] one Number [facility] [address] [place] [address] * PROTIME INR (PT) (04/20/2019 4:06 AM CASE MAKER) INR 2.4 (H) 0.8 - 1.2 [facility] Specimen Blood Performing Organization Address [facility] one Number MAIN LAB [address] [place] [address] * PHOSPHORUS (04/19/2019 4:38 PM CASE MAKER) Phosphorus 2.7Comment: NOTE NEW REFERENCE 2.0 - 4.5 MG/DL [facility] RANGES Specimen Blood Performing Organization Address [facility] one Number MAIN LAB [address] [place] [address] * MAGNESIUM (04/19/2019 4:38 PM CASE MAKER) Magnesium 3.0 (H) 1.6 - 2.6 mg/dL [facility] Specimen Blood Performing Organization Address [facility] one Number MAIN LAB [address] [place] [address] * BASIC METABOLIC PANEL (04/19/2019 4:38 PM CASE MAKER) Sodium 135 (L) 137 - 147 MMOL/L [facility] Potassium 3.5 3.5 - 5.1 MMOL/L [facility] Chloride 102 98 - 110 MMOL/L [facility] CO2 22 21 - 30 MMOL/L [facility] Anion Gap 11 3 - 12 [facility] Glucose 169 (H) 70 - 100 MG/DL [facility] Blood Urea 3 (L) 7 - 25 MG/DL [facility] Nitrogen Creatinine 0.73 0.4 - 1.24 MG/DL [facility] Calcium 7.9 (L) 8.5 - 10.6 MG/DL [facility] eGFR Non >60 >60 mL/min [facility] Comment: [place] The eGFR is not validated f or use in drug dosing adjustments. Continue to use estimated creatinine clearance per dosing reference text. Please contact the Clinical Pharmacist for questions. eGFR >60 >60 mL/min [facility] [place] Comment: The eGFR is not validated for use in drug dosing adjustments. Continue to use estimated creatinine clearance per dosing reference text. Please contact the Clinical Pharmacist for questions. Specimen Blood Performing Organization Address City/[facility] one Number [facility] [address] [place] [address] * LIPASE (04/19/2019 4:12 AM CASE MAKER) Lipase 18 11 - 82 U/L [facility] Specimen Performing Organization Address [facility] one Number [facility] [address] [place] [address] * PHOSPHORUS (04/19/2019 4:12 AM CASE MAKER) Phosphorus 3.3Comment: NOTE NEW REFERENCE 2.0 - 4.5 MG/DL [facility] RANGES Specimen Blood Performing Organization Address [facility] one Number [facility] [address] [place] [address] * MAGNESIUM (04/19/2019 4:12 AM CASE MAKER) Magnesium 1.7 1.6 - 2.6 mg/dL [facility] Specimen Blood Performing Organization Address [facility] one Number [facility] [address] [place] [address] * COMPREHENSIVE METABOLIC PANEL (04/19/2019 4:12 AM CASE MAKER) Sodium 138 137 - 147 MMOL/L [facility] Potassium 3.3 (L) 3.5 - 5.1 MMOL/L [facility] Chloride 101 98 - 110 MMOL/L [facility] Glucose 107 (H) 70 - 100 MG/DL [facility] Blood Urea 3 (L) 7 - 25 MG/DL [facility] Nitrogen Creatinine 0.54 0.4 - 1.24 MG/DL [facility] Calcium 8.6 8.5 - 10.6 MG/DL [facility] Total Protein 6.0 6.0 - 8.0 G/DL [facility] Total Bilirubin 16.9 (H) 0.3 - 1.2 MG/DL [facility] Albumin 3.0 (L) 3.5 - 5.0 G/DL [facility] Alk Phosphatase 191 (H) 25 - 110 U/L [facility] AST (SGOT) 166 (H) 7 - 40 U/L [facility] CO2 25 21 - 30 MMOL/L [facility] ALT (SGPT) 38 7 - 56 U/L [facility] Anion Gap 12 3 - 12 [facility] eGFR Non >60 >60 mL/min [facility] Comment: [place] The eGFR is not validated f or use in drug dosing adjustments. Continue to use estimated creatinine clearance per dosing reference text. Please contact the Clinical Pharmacist for questions. eGFR >60 >60 mL/min [facility] [place] Comment: The eGFR is not validated for use in drug dosing adjustments. Continue to use estimated creatinine clearance per dosing reference text. Please contact the Clinical Pharmacist for questions. Specimen Blood Performing Organization Address City/State/Zipcode Ph one Number [facility] [address] [place] [address] * CBC AND DIFF (04/19/2019 4:12 AM CASE MAKER) White Blood 6.1 4.5 - 11.0 K/UL [facility] Cells RBC 2.84 (L) 4.4 - 5.5 M/UL [facility] Hemoglobin 10.4 (L) 13.5 - 16.5 GM/DL [facility] Hematocrit 29.6 (L) 40 - 50 % [facility] MCV 104.5 (H) 80 - 100 FL [facility] MCH 36.5 (H) 26 - 34 PG [facility] MCHC 35.0 32.0 - 36.0 G/DL [facility] RDW 15.1 (H) 11 - 15 % [facility] Platelet Count 87 (L) 150 - 400 K/UL [facility] MPV 9.4 7 - 11 FL [facility] Neutrophils 80 (H) 41 - 77 % [facility] Lymphocytes 14 (L) 24 - 44 % [facility] Monocytes 4 4 - 12 % [facility] Eosinophils 1 0 - 5 % [facility] Basophils 1 0 - 2 % [facility] Absolute 4.90 1.8 - 7.0 K/UL [facility] Neutrophil Count Absolute Lymph 0.90 (L) 1.0 - 4.8 K/UL [facility] Count Absolute 0.30 0 - 0.80 K/UL [facility] Monocyte Count Absolute 0.10 0 - 0.45 K/UL [facility] Eosinophil Count Absolute 0.00 0 - 0.20 K/UL [facility] Basophil Count Specimen Blood Performing Organization Address [facility] one Number [facility] [address] [place] [address] * ALPHA 1 ANTITRYPSIN PHENOTYPE (04/19/2019 4:12 AM CASE MAKER) [facility] Alpha 1 235 (H) REFERENCE LAB Anti-Trypsin Comment: Reference range: 100 to 190 Unit: mg/dL [facility], [address] [place] [address] Alpha 1 MM REFERENCE LAB Antitrypsin Unit: bands Phenotype A single M isoform is detected. In the context of a normal [id number] concentration, this is consistent with an MM phenotype. [facility], [address] [place] [address] Specimen Blood Performing Organization Address [facility] one Number REFERENCE LAB REFERENCE LAB See results for address. * PROTIME INR (PT) (04/19/2019 4:12 AM CASE MAKER) [facility] INR 2.0 (H) 0.8 - 1.2 MAIN LAB Specimen Blood Performing Organization Address [facility] one Number [facility] [address] [place] [address] * CBC AND DIFF (04/18/2019 9:55 AM CASE MAKER) [facility] White Blood 4.6 4.5 - 11.0 K/UL MAIN LAB Cells RBC 2.89 (L) 4.4 - 5.5 M/UL MAIN LAB Hemoglobin 10.5 (L) 13.5 - 16.5 GM/DL MAIN LAB Hematocrit 30.2 (L) 40 - 50 % MAIN LAB MCV 104.5 (H) 80 - 100 FL MAIN LAB MCH 36.4 (H) 26 - 34 PG MAIN LAB MCHC 34.9 32.0 - 36.0 G/DL MAIN LAB RDW 14.8 11 - 15 % [facility] Platelet Count 103 (L) 150 - 400 K/UL MAIN LAB MPV 9.1 7 - 11 FL MAIN LAB Neutrophils 77 41 - 77 % [facility] Lymphocytes 16 (L) 24 - 44 % MAIN LAB Monocytes 6 4 - 12 % [facility] Eosinophils 0 0 - 5 % [facility] Basophils 1 0 - 2 % [facility] Absolute 3.60 1.8 - 7.0 K/UL [facility] Neutrophil Count Absolute Lymph 0.70 (L) 1.0 - 4.8 K/UL [facility] Count Absolute 0.30 0 - 0.80 K/UL [facility] Monocyte Count Absolute 0.00 0 - 0.45 K/UL [facility] Eosinophil Count Absolute 0.00 0 - 0.20 K/UL [facility] Basophil Count Specimen Blood Performing Organization Address [facility] Ph one Number [facility] [address] [place] [address] * MAGNESIUM (04/18/2019 9:55 AM CASE MAKER) Pathologist [facility] Magnesium 1.9 1.6 - 2.6 mg/dL [facility] Specimen Blood Performing Organization Address [facility] one Number [facility] [address] [place] [address] * PHOSPHORUS (04/18/2019 9:55 AM CASE MAKER) Pathologist [facility] Phosphorus 1.7 (L)Comment: NOTE NEW 2.0 - 4.5 MG/DL [facility] Specimen Blood Performing Organization Address [facility] one Number [facility] [address] [place] [address] * COMPREHENSIVE METABOLIC PANEL (04/18/2019 9:55 AM CASE MAKER) Pathologist [facility] Sodium 135 (L) 137 - 147 MMOL/L [facility] Potassium 3.6 3.5 - 5.1 MMOL/L [facility] Chloride 98 98 - 110 MMOL/L [facility] Glucose 119 (H) 70 - 100 MG/DL [facility] Blood Urea 3 (L) 7 - 25 MG/DL [facility] Nitrogen Creatinine 0.68 0.4 - 1.24 MG/DL [facility] Calcium 8.7 8.5 - 10.6 MG/DL [facility] Total Protein 6.5 6.0 - 8.0 G/DL [facility] Total Bilirubin 16.8 (H) 0.3 - 1.2 MG/DL [facility] Albumin 3.2 (L) 3.5 - 5.0 G/DL [facility] Alk Phosphatase 219 (H) 25 - 110 U/L [facility] AST (SGOT) 258 (H) 7 - 40 U/L [facility] CO2 25 21 - 30 MMOL/L [facility] ALT (SGPT) 49 7 - 56 U/L [facility] Anion Gap 12 3 - 12 [facility] eGFR Non >60 >60 mL/min [facility] Comment: [place] The eGFR is not validated f or use in drug dosing adjustments. Continue to use estimated creatinine clearance per dosing reference text. Please contact the Clinical Pharmacist for questions. eGFR >60 >60 mL/min [facility] [place] Comment: The eGFR is not validated for use in drug dosing adjustments. Continue to use estimated creatinine clearance per dosing reference text. Please contact the Clinical Pharmacist for questions. Specimen Blood Performing Organization Address City/[facility]/Zipcode Ph one Number [facility] [address] [place] [address] * PROTIME INR (PT) (04/18/2019 9:55 AM CASE MAKER) INR 1.7 (H) 0.8 - 1.2 [facility] Specimen Blood Performing Organization Address [facility] Ph one Number [facility] [address] [place] [address] * US ABDOMEN COMPLETE (04/17/2019 7:44 PM CASE MAKER) Specimen Impressions Performed At 1. Nondilated gallbladder with gallbl adder wall thickening/edema which may be [facility] RESULTS related to liver disease and/or hypoalb uminemia. Cholelithiasis and gallbladder sludge are present with reportedly posi tive sonographic Nesbitt sign, although, lack of gallbladder distention would be atypical for acute cholecystitis. Clinical and laboratory correlation rec ommended. 2. Moderate hepatomegaly with heterog eneous parenchyma and increased echogenicity which may be secondary to steatosis and/or edema related to acute hepatitis. Correlation with labs is sug gested. 3. Patent hepatic vasculature with no rmal direction of flow. By my electronic signature, I attest th at I have personally reviewed the images for this examination and formulated the interpretations and opinions expressed in this report Finalized by Juan Swartz M.D. on 020 8:22 PM. Dictated by Sonia Ng M.D. on 04/17/2019 7:50 PM. Narrative Performed At Abdominal Ultrasound with Doppler [facility] RES[facility] Clinical Indication: Male, 23 years; co ncern for alcoholic hepatitis versus cirrhosis. Technique: Multiple grayscale sonograph ic images were obtained through the abdomen with additional color and spect ral Doppler acquisitions. Comparison: None Findings: Liver and Biliary System: Heterogeneo us echotexture, increased echogenicity, and moderately enlarged measuring 25.8 cm. No discrete hepatic masses are identified. There is no intrahepatic bi le duct dilatation. The common duct measures 0.4 cm. The gallbladder is n ondilated with gallbladder wall thickening and edema measuring up to 1. 2 cm in thickness. Cholelithiasis and gallbladder sludge. Reportedly positive sonographic Nesbitt's sign. No significant wall hyperemia. Main portal vein: Hepatopetal, peak candace ocity 19 cm/sec. Right and left portal veins: Hepatope yamilka. Splenic vein: Normal direction of flow at midline and splenic hilum. IVC: Patent, normal pulsatility. Hepatic veins: Patent, normal pulsatili ty. Hepatic arteries: Normal systolic accel eration; PHA resistive index is 0.65. Pancreas: Visualized portions of the pa ncreas are unremarkable. Spleen: Normal in size measuring 10.7 c m. Aorta: Visualized portions of the aorta are normal in caliber. Kidneys: The right kidney measures up t o 11.9 cm. The left kidney measures up to 12.7 cm . No hydronephrosis. Peritoneal Space: The urinary bladder i s minimally distended and poorly evaluated. No abdominopelvic ascites. Procedure Note Interface, Radiant Results - 04/17/2019 8:26 PM CASE MAKER Abdominal Ultrasound with Doppler Clinical Indication: Male, 23 years; concern for alcoholic hepatitis versus cirrhosis. Technique: Multiple grayscale sonographic images were obtained through the abdomen with additional color and spectral Doppler acquisitions. Comparison: None Findings: Liver and Biliary System: Heterogeneous echotexture, increased echogenicity, and moderately enlarged measuring 25.8 cm. No discrete hepatic masses are identified. There is no intrahepatic bile duct dilatation. The common duct measures 0.4 cm. The gallbladder is nondilated with gallbladder wall thickening and edema measuring up to 1.2 cm in thickness. Cholelithiasis and gallbladder sludge. Reportedly positive sonographic Nesbitt's sign. No significant wall hyperemia. Main portal vein: Hepatopetal, peak velocity 19 cm/sec. Right and left portal veins: Hepatopetal. Splenic vein: Normal direction of flow at midline and splenic hilum. IVC: Patent, normal pulsatility. Hepatic veins: Patent, normal pulsatility. Hepatic arteries: Normal systolic acceleration; PHA resistive index is 0.65. Pancreas: Visualized portions of the pancreas are unremarkable. Spleen: Normal in size measuring 10.7 cm. Aorta: Visualized portions of the aorta are normal in caliber. Kidneys: The right kidney measures up to 11.9 cm. The left kidney measures up to 12.7 cm . No hydronephrosis. Peritoneal Space: The urinary bladder is minimally distended and poorly evaluated. No abdominopelvic ascites. IMPRESSION 1. Nondilated gallbladder with gallblad tammy wall thickening/edema which may be related to liver disease and/or hypoalbuminemia. Cholelithiasis and gallbladder sludge are present with reportedly positive sonographic Nesbitt sign, although, lack of gallbladder distention would be atypical for acute cholecystitis. Clinical and laboratory correlation recommended. 2. Moderate hepatomegaly with heterogen eous parenchyma and increased echogenicity which may be secondary to steatosis and/or edema related to acute hepatitis. Correlation with labs is suggested. 3. Patent hepatic vasculature with norm al direction of flow. By my electronic signature, I attest that I have personally reviewed the images for this examination and formulated the interpretations and opinions expressed in this report Finalized by Juan Swartz M.D. on 04/17/2019 8:22 PM. Dictated by Sonia Ng M.D. on 04/17/2019 7:50 PM. Performing Organization Address City/State/Zipcode Ph one Number [facility] RESULTS * US DOPPLER ABD PELV RETROPER COMP (04/17/2019 7:44 PM CASE MAKER) Specimen Impressions Performed At 1. Nondilated gallbladder with gallbl adder wall thickening/edema which may be [facility] RESULTS related to liver disease and/or hypoalb uminemia. Cholelithiasis and gallbladder sludge are present with reportedly posi tive sonographic Nesbitt sign, although, lack of gallbladder distention would be atypical for acute cholecystitis. Clinical and laboratory correlation rec ommended. 2. Moderate hepatomegaly with heterog eneous parenchyma and increased echogenicity which may be secondary to steatosis and/or edema related to acute hepatitis. Correlation with labs is sug gested. 3. Patent hepatic vasculature with no rmal direction of flow. By my electronic signature, I attest th at I have personally reviewed the images for this examination and formulated the interpretations and opinions expressed in this report Finalized by Juan Swartz M.D. on 020 8:22 PM. Dictated by Sonia Ng M.D. on 04/17/2019 7:50 PM. Narrative Performed At Abdominal Ultrasound with Doppler [facility] RES[facility] Clinical Indication: Male, 23 years; co ncern for alcoholic hepatitis versus cirrhosis. Technique: Multiple grayscale sonograph ic images were obtained through the abdomen with additional color and spect ral Doppler acquisitions. Comparison: None Findings: Liver and Biliary System: Heterogeneo us echotexture, increased echogenicity, and moderately enlarged measuring 25.8 cm. No discrete hepatic masses are identified. There is no intrahepatic bi le duct dilatation. The common duct measures 0.4 cm. The gallbladder is n ondilated with gallbladder wall thickening and edema measuring up to 1. 2 cm in thickness. Cholelithiasis and gallbladder sludge. Reportedly positive sonographic Nesbitt's sign. No significant wall hyperemia. Main portal vein: Hepatopetal, peak candace ocity 19 cm/sec. Right and left portal veins: Hepatope yamilka. Splenic vein: Normal direction of flow at midline and splenic hilum. IVC: Patent, normal pulsatility. Hepatic veins: Patent, normal pulsatili ty. Hepatic arteries: Normal systolic accel eration; PHA resistive index is 0.65. Pancreas: Visualized portions of the pa ncreas are unremarkable. Spleen: Normal in size measuring 10.7 c m. Aorta: Visualized portions of the aorta are normal in caliber. Kidneys: The right kidney measures up t o 11.9 cm. The left kidney measures up to 12.7 cm . No hydronephrosis. Peritoneal Space: The urinary bladder i s minimally distended and poorly evaluated. No abdominopelvic ascites. Procedure Note Interface, Radiant Results - 04/17/2019 8:26 PM CASE MAKER Abdominal Ultrasound with Doppler Clinical Indication: Male, 23 years; concern for alcoholic hepatitis versus cirrhosis. Technique: Multiple grayscale sonographic images were obtained through the abdomen with additional color and spectral Doppler acquisitions. Comparison: None Findings: Liver and Biliary System: Heterogeneous echotexture, increased echogenicity, and moderately enlarged measuring 25.8 cm. No discrete hepatic masses are identified. There is no intrahepatic bile duct dilatation. The common duct measures 0.4 cm. The gallbladder is nondilated with gallbladder wall thickening and edema measuring up to 1.2 cm in thickness. Cholelithiasis and gallbladder sludge. Reportedly positive sonographic Nesbitt's sign. No significant wall hyperemia. Main portal vein: Hepatopetal, peak velocity 19 cm/sec. Right and left portal veins: Hepatopetal. Splenic vein: Normal direction of flow at midline and splenic hilum. IVC: Patent, normal pulsatility. Hepatic veins: Patent, normal pulsatility. Hepatic arteries: Normal systolic acceleration; PHA resistive index is 0.65. Pancreas: Visualized portions of the pancreas are unremarkable. Spleen: Normal in size measuring 10.7 cm. Aorta: Visualized portions of the aorta are normal in caliber. Kidneys: The right kidney measures up to 11.9 cm. The left kidney measures up to 12.7 cm . No hydronephrosis. Peritoneal Space: The urinary bladder is minimally distended and poorly evaluated. No abdominopelvic ascites. IMPRESSION 1. Nondilated gallbladder with gallblad tammy wall thickening/edema which may be related to liver disease and/or hypoalbuminemia. Cholelithiasis and gallbladder sludge are present with reportedly positive sonographic Nesbitt sign, although, lack of gallbladder distention would be atypical for acute cholecystitis. Clinical and laboratory correlation recommended. 2. Moderate hepatomegaly with heterogen eous parenchyma and increased echogenicity which may be secondary to steatosis and/or edema related to acute hepatitis. Correlation with labs is suggested. 3. Patent hepatic vasculature with norm al direction of flow. By my electronic signature, I attest that I have personally reviewed the images for this examination and formulated the interpretations and opinions expressed in this report Finalized by Juan Swartz M.D. on 04/17/2019 8:22 PM. Dictated by Sonia Ng M.D. on 04/17/2019 7:50 PM. Performing Organization Address City/[facility] Number [facility] * HEPATITIS PANEL, ACUTE (04/17/2019 5:28 PM CASE MAKER) Hepatitis A IgM NEG NEG-NEG [facility] Anti HBc IgM NEG NEG-NEG [facility] HBsAg NEG NEG-NEG [facility] Anti HCV NEG NEG-NEG [facility] Specimen Blood Performing Organization Address City/[facility] one Number [facility] [address] [address] * PROTIME INR (PT) (04/17/2019 5:28 PM CASE MAKER) INR 1.6 (H) 0.8 - 1.2 [facility]IN [facility] Specimen Blood Performing Organization Address [facility] one Number [facility]IN [facility] [address] [place] [address] * PHOSPHORUS (04/17/2019 5:28 PM CASE MAKER) Pathologist [facility] Phosphorus 2.3Comment: NOTE NEW REFERENCE 2.0 - 4.5 MG/DL [facility] MAIN [facility] RANGES Specimen Blood Performing Organization Address [facility] Ph one Number [facility] [address] [place] [address] * MAGNESIUM (04/17/2019 5:28 PM CASE MAKER) Pathologist [facility] Magnesium 1.6 1.6 - 2.6 mg/dL [facility] Specimen Blood Performing Organization Address [facility] one Number MAIN LAB [address] [place] [address] * COMPREHENSIVE METABOLIC PANEL (04/17/2019 5:28 PM CASE MAKER) Sodium 137 137 - 147 MMOL/L [facility] Potassium 3.4 (L) 3.5 - 5.1 MMOL/L [facility] Chloride 96 (L) 98 - 110 MMOL/L [facility] Glucose 115 (H) 70 - 100 MG/DL [facility] Blood Urea 5 (L) 7 - 25 MG/DL [facility] Nitrogen Creatinine 0.58 0.4 - 1.24 MG/DL [facility] Calcium 8.4 (L) 8.5 - 10.6 MG/DL [facility] Total Protein 6.2 6.0 - 8.0 G/DL [facility] Total Bilirubin 11.6 (H) 0.3 - 1.2 MG/DL [facility] Albumin 3.1 (L) 3.5 - 5.0 G/DL [facility] Alk Phosphatase 221 (H) 25 - 110 U/L [facility] AST (SGOT) 310 (H) 7 - 40 U/L [facility] CO2 24 21 - 30 MMOL/L [facility] ALT (SGPT) 51 7 - 56 U/L [facility] Anion Gap 17 (H) 3 - 12 [facility] eGFR Non >60 >60 mL/min [facility] Comment: [place] The eGFR is not validated f or use in drug dosing adjustments. Continue to use estimated creatinine clearance per dosing reference text. Please contact the Clinical Pharmacist for questions. eGFR >60 >60 mL/min [facility] [place]ian Comment: The eGFR is not validated for use in drug dosing adjustments. Continue to use estimated creatinine clearance per dosing reference text. Please contact the Clinical Pharmacist for questions. Specimen Blood Performing Organization Address City/[facility] Ph one Number [facility] [address] [place] [address] * CBC AND DIFF (04/17/2019 5:28 PM CASE MAKER) White Blood 6.7 4.5 - 11.0 K/UL [facility] Cells RBC 2.80 (L) 4.4 - 5.5 M/UL [facility] Hemoglobin 10.3 (L) 13.5 - 16.5 GM/DL [facility] Hematocrit 29.1 (L) 40 - 50 % [facility] MCV 104.0 (H) 80 - 100 FL [facility] MCH 36.7 (H) 26 - 34 PG [facility] MCHC 35.3 32.0 - 36.0 G/DL [facility] RDW 15.4 (H) 11 - 15 % [facility] Platelet Count 144 (L) 150 - 400 K/UL [facility] MPV 8.8 7 - 11 FL [facility] Neutrophils 78 (H) 41 - 77 % [facility] Lymphocytes 15 (L) 24 - 44 % [facility] Monocytes 6 4 - 12 % [facility] Eosinophils 0 0 - 5 % [facility] Basophils 1 0 - 2 % [facility] Absolute 5.20 1.8 - 7.0 K/UL [facility] Neutrophil Count Absolute Lymph 1.00 1.0 - 4.8 K/UL [facility] Count Absolute 0.40 0 - 0.80 K/UL [facility] Monocyte Count Absolute 0.00 0 - 0.45 K/UL [facility] Eosinophil Count Absolute 0.10 0 - 0.20 K/UL [facility] Basophil Count Specimen Blood Performing Organization Address City/[facility] Ph one Number [facility] [address] [place] [address] * INFLUENZA A/B AND RSV PCR (04/17/2019 3:45 PM CASE MAKER) Pathologist [facility] Influenza A NEG NEG-NEG MAIN LAB Virus Influenza B NEG NEG-NEG MAIN LAB Virus RSV NEG NEG-NEG MAIN LAB Specimen Nasopharyngeal Swab Performing Organization Address [facility] one Number MAIN LAB [address] [place] [address] * CULTURE-URINE W/SENSITIVITY (04/17/2019 4:23 AM CASE MAKER) Battery Name URINE CULTURE MAIN LAB Specimen URINE MAIN LAB Description Special NONE MAIN LAB Requests Culture NO GROWTH [facility] Report Status FINAL MAIN LAB 04/19/2019 Specimen Urine Performing Organization Address [facility] one Number MAIN LAB [address] [place] [address] * UA REFLEX CULTURE LABEL (04/17/2019 4:23 AM CASE MAKER) Pathologist [facility] UA Reflex Criteria for reflex to culture NATA N LAB Culture are WBC>10, Positive Nitrit e, and/or >=+1 leukocytes. If quantity is not sufficient, an addendum will follow. Specimen Urine Performing Organization Address [facility] one Number MAIN LAB [address] [place] [address] * URINALYSIS MICROSCOPIC REFLEX TO CULTURE (04/17/2019 4:23 AM CASE MAKER) Pathologist [facility] WBCs,UA 10-20 0 - 2 /HPF MAIN LAB RBCs,UA PACKED 0 - 3 /HPF MAIN LAB Comment,UA Criteria for reflex to culture [facility] NATA N [facility] are WBC>10, Positive Nitrite, and/or >=+1 leukocytes. If quantity is not sufficient, an addendum will follow. MucousUA TRACE MAIN LAB Squamous 2-5 0 - 5 MAIN LAB Epithelial Cells Amorphous MANY MAIN LAB Sedimate,UA Specimen Urine Performing Organization Address [facility] Ph one Number MAIN LAB [address] [place] [address] * URINALYSIS DIPSTICK REFLEX TO CULTURE (04/17/2019 4:23 AM CASE MAKER) Color,UA ANA [facility] Turbidity,UA 2+ (A) CLEAR-CLEAR MAIN LAB Specific 1.018 1.003 - 1.035 MAIN LAB [place]-Urine pH,UA 8.0 5.0 - 8.0 [facility] Protein,UA 2+ (A) NEG-NEG [facility] Glucose,UA NEG NEG-NEG [facility] Ketones,UA TRACE (A) NEG-NEG [facility] Bilirubin,UA POS (A) NEG-NEG [facility] Blood,UA 3+ (A) NEG-NEG [facility] Urobilinogen,UA INCREASED (A) NORM-NORMAL [facility] Nitrite,UA NEG NEG-NEG [facility] Leukocytes,UA TRACE (A) NEG-NEG [facility] Urine Ascorbic NEG NEG-NEG [facility] Acid, UA Specimen Urine Performing Organization Address City/State/[facility] Ph one Number [facility] [address] [place] [address] documented in this encounter Visit Diagnoses Diagnosis Tobacco use Tobacco use disorder Alcoholic intoxication without complica tion (HCC) Alcoholic hepatitis without ascites Acute alcoholic hepatitis Alcohol use disorder, severe, dependenc e (HCC) Substance abuse (HCC) Other, mixed, or unspecified nondepende nt drug abuse, unspecified Alcohol withdrawal (HCC) Alcohol withdrawal documented in this encounter Admitting Diagnoses Diagnosis Alcohol intoxication (HCC) Alcohol abuse, unspecified Alcoholic hepatitis Acute alcoholic hepatitis Alcohol withdrawal (HCC) Alcohol withdrawal documented in this encounter Administered Medications Action Date Dose Rate Site Medication Order MAR Action 04/23/2019 8:41 AM CASE MAKER 650 mg acetaminophen (TYLENOL) tablet 650 mg Given 650 mg, Oral, EVERY 6 HOURS PRN, Starting Renee 04/17/19 at 1608, Until 04/23/19 at 1646, Pain non-opioid: july e used alone or in combination with opioi d analgesia, TOTAL ACETAMINOPHEN DOSE NOT TO EXCEED 4GM DAILY, 650 mg Given 04/23/2019 12:06 AM CASE MAKER 650 mg Given 04/22/2019 4:49 PM CASE MAKER 04/18/2019 4:01 AM CASE MAKER 30 mL acetaminophen/lidocaine/antacid DS(#) Given (GI COCKTAIL) 1:1:3 suspension 30 mL 30 mL, Oral, ONCE, 1 dose, Sun04/18/19 a t 0330, 30mL (1:1:3)=192mg/6mL acetamin-6mL 2% vis lidocaine-18mL Antacid DS, 04/22/2019 2:06 PM CASE MAKER 30 mL bismuth subsalicylate (PEPTO-BISMOL) Given oral suspension 30 mL 30 mL, Oral, EVERY 6 HOURS PRN, Starting Renee 04/17/19 at 1608, Until 04/23/19 at 1646, Indigestion/Heartburn, DO NOT EXCEED 8 DOSES/DAY, 30 mL Given 04/21/2019 11:23 AM CASE MAKER 30 mL Given 04/20/2019 9:38 AM CASE MAKER 04/22/2019 9:02 PM CASE MAKER 40 mg Abdomina l Tissue enoxaparin (LOVENOX) syringe 40 mg Given 40 mg, Subcutaneous, DAILY, First dose on Sun04/18/19 at 2100, Until Discontinued, For patients undergoing surgery: Consult physician in advance - - enoxaparin is an anticoagulant and may need to be held for 12hr prior to surgery or invasive procedures. NOTE: This is a HIGH ALERT Medication., 40 mg Arm, Right Given 04/22/2019 12:10 AM CASE MAKER 40 mg Arm, Left Given 04/20/2019 9:18 PM CASE MAKER 04/23/2019 8:42 AM CASE MAKER 1 mg folic acid (FOLVITE) tablet 1 mg Given 1 mg, Oral, DAILY, First dose on Renee 04/17/19 at 1645, Until Discontinued 1 mg Given 04/22/2019 8:55 AM CASE MAKER 1 mg Given 04/21/2019 8:45 AM CASE MAKER 04/23/2019 8:41 AM CASE MAKER 200 mg gabapentin (NEURONTIN) capsule 200 mg Given 200 mg, Oral, THREE TIMES DAILY, First dose on 04/21/19 at 1115, Until Discontinued 200 mg Given 04/22/2019 9:02 PM CASE MAKER 200 mg Given 04/22/2019 2:22 PM CASE MAKER haloperidol (HALDOL) injection 1 mg 1 mg, Intramuscular, EVERY 4 HOURS PRN , Starting 04/19/19 at 0934, Until Sun04/23/19 at 1646, Hallucinations, PROTEC T FROM LIGHT Haloperidol lactate can be given IV or IM, please review route ordered by provider and the IVP med reference list if necessary. , haloperidol (HALDOL) tablet 1 mg 1 mg, Oral, EVERY 4 HOURS PRN, Startin g 04/19/19 at 0934, Until Sun04/23/19 a t 1646, Hallucinations 04/18/2019 1:30 PM CASE MAKER 2 mg haloperidol (HALDOL) tablet 2 mg Given 2 mg, Oral, EVERY 4 HOURS PRN, Startin g Renee 04/17/19 at 1226, Until 04/19/19 at 0934, Hallucinations 2 mg Given 04/18/2019 9:37 AM CASE MAKER 2 mg Given 04/18/2019 1:42 AM CASE MAKER 04/23/2019 11:27 AM CASE MAKER 25 mg hydrOXYzine (ATARAX) tablet 25 mg Given 25 mg, Oral, THREE TIMES DAILY PRN, Starting Renee 04/17/19 at 1426, Until 04/23/19 at 1646, Anxiety PO 25 mg Given 04/23/2019 8:41 AM CASE MAKER 25 mg Given 04/23/2019 12:02 AM CASE MAKER 04/20/2019 10:06 PM CASE MAKER 20 g lactulose oral solution 20 g Given 20 g (30 mL), Oral, THREE TIMES DAILY, First dose on 04/20/19 at 1045, Until Discontinued 20 g Given 04/20/2019 3:26 PM CASE MAKER 20 g Given 04/20/2019 10:21 AM CASE MAKER 04/23/2019 8:40 AM CASE MAKER 1 patch Chest, R ight lidocaine (LIDODERM) 5 % topical patch 1 Patch/Topic a patch l Applied 1 patch, Topical, Administer over 12 Hours, DAILY, First dose on Sun04/18/19 at 0245, Until Discontinued, NURSING PLEASE NOTE: Apply patch ONCE DAILY to chest and REMOVE after designated duration. Apply only to intact skin. Patch may be cut to fit affected area., 1 patch Chest, Left Patch/Topical Applied 04/22/2019 8:57 AM CASE MAKER 1 patch Chest, Left Patch/Topical Applied 04/21/2019 8:46 AM CASE MAKER 04/20/2019 10:46 AM CASE MAKER 1 mg LORazepam (ATIVAN) injection 0.5-1 mg Given 0.5-1 mg, Intravenous, EVERY 8 HOURS PRN, Starting 04/20/19 at 1011, Until 04/20/19 at 1211, Anxiety Injectable, PROTECT FROM LIGHT, 04/20/2019 4:32 AM CASE MAKER 1 mg LORazepam (ATIVAN) injection 1 mg Given 1 mg, Intravenous, EVERY 6 HOURS, 4 doses, First dose on 04/19/19 at 1630 , Last dose on 04/20/19 at 1030, *Asses s patient every 4 hours while awake using the AWAS and document the score. *If AWAS score >7 give an extra 1-2 mg lorazepam IV prn every 4 hours to supplement regular dose. *Hold any dos e if patient asleep, somnolent or ataxic. *Dosage should not exceed 20 mg/24 hrs. *Call physician if scale needs upward o r downward adjustments. *Send inbasket message to pharmacy to change route to PO if needed. , Conditional Meds (Order sets only) 1 mg Given 04/19/2019 10:37 PM CASE MAKER 1 mg Given 04/19/2019 4:04 PM CASE MAKER 04/18/2019 6:35 AM CASE MAKER 2 mg LORazepam (ATIVAN) injection 1-2 mg Given 1-2 mg, Intravenous, EVERY 4 HOURS PRN , Starting Sun04/18/19 at 0430, Until Sun04/18/19 at 1435, Withdrawal Symptoms, RN to release and initiate once AWAS score >5 along with lorazepam taper regimen. *If AWAS score >7 give an extra 1-2 mg lorazepam IV prn every 4 hours to supplement regular dose. *Hold any dos e if patient asleep, somnolent or ataxic. *Dosage should not exceed 20 mg/24 hrs. *Call physician if scale needs upward o f downward adjustments. *Note: This orde r is to be discontinued when scheduled lorazepam taper is completed. *Send inbasket message to pharmacy to change route to PO if needed. PROTECT FROM LIGHT, Conditional Meds (Order sets only) 2 mg Given 04/18/2019 2:24 AM CASE MAKER 04/19/2019 9:08 AM CASE MAKER 2 mg LORazepam (ATIVAN) injection 2 mg Given 2 mg, Intravenous, EVERY 4 HOURS, 9 doses, First dose on Sun04/18/19 at 0430 , Last dose on Sun04/19/19 at 1230, IF AWAS SCORE >5 RELEASE AND BEGIN LORAZEPAM SCHEDULED REGIMEN *Assess patient every 4 hours while awake using the AWAS and document the score. *If AWAS score >7 give an extra 1-2 mg lorazepam IV prn every 4 hours to supplement regular dose. *Hold any dos e if patient asleep, somnolent or ataxic. *Dosage should not exceed 20 mg/24 hrs. *Call physician if scale needs upward o r downward adjustments. *Send inbasket message to pharmacy to change route to PO if needed. , Conditional Meds (Order sets only) 2 mg Given 04/18/2019 4:14 PM CASE MAKER 2 mg Given 04/18/2019 12:34 PM CASE MAKER 04/17/2019 1:19 PM CASE MAKER 1 mg LORazepam (ATIVAN) tablet 1 mg Given 1 mg, Oral, EVERY 6 HOURS PRN, Startin g Renee 04/17/19 at 1309, Until Renee 04/17/19 at 1426, Anxiety PO 04/17/2019 9:15 PM CASE MAKER 2 mg LORazepam (ATIVAN) tablet 1-2 mg Given 1-2 mg, Oral, EVERY 4 HOURS PRN, Starting Renee 04/17/19 at 1626, Until 04/18/19 at 0040, Withdrawal Symptoms, RN to release and initiate once AWAS score >5 along with lorazepam taper regimen. *If AWAS score >7 give an extra 1-2 mg lorazepam PO prn every 4 hours to supplement regular dose. *Hold any dos e if patient asleep, somnolent or ataxic. *Dosage should not exceed 20 mg/24 hrs. *Call physician if scale needs upward o f downward adjustments. *Note: This orde r is to be discontinued when scheduled lorazepam taper is completed. *Send in[employer]vantage message to pharmacy to change route to IV if needed. PROTECT FROM LIGHT, Conditional Meds (Order sets only) 04/22/2019 12:34 AM CASE MAKER 2 mg LORazepam (ATIVAN) tablet 1-2 mg Given 1-2 mg, Oral, EVERY 6 HOURS PRN, Starting 04/20/19 at 1211, Until Sun04/22/19 at 0730, Withdrawal Symptoms, R N to release and initiate once AWAS score >5 along with lorazepam taper regimen. *If AWAS score >7 give an extra 1-2 mg lorazepam PO prn every 4 hours to supplement regular dose. *Hold any dos e if patient asleep, somnolent or ataxic. *Dosage should not exceed 20 mg/24 hrs. *Call physician if scale needs upward o f downward adjustments. *Note: This orde r is to be discontinued when scheduled lorazepam taper is completed. *Send in[employer] message to pharmacy to change route to IV if needed. PROTECT FROM LIGHT, Conditional Meds (Order sets only) 2 mg Given 04/21/2019 2:00 PM CASE MAKER 2 mg Given 04/21/2019 7:36 AM CASE MAKER 04/23/2019 1:34 PM CASE MAKER 2 mg LORazepam (ATIVAN) tablet 1-2 mg Given 1-2 mg, Oral, EVERY 8 HOURS PRN, Starting Sun04/22/19 at 0730, Until Sun04/23/19 at 1646, Withdrawal Symptoms, R N to release and initiate once AWAS score >5 along with lorazepam taper regimen. *If AWAS score >7 give an extra 1-2 mg lorazepam PO prn every 4 hours to supplement regular dose. *Hold any dos e if patient asleep, somnolent or ataxic. *Dosage should not exceed 20 mg/24 hrs. *Call physician if scale needs upward o f downward adjustments. *Note: This orde r is to be discontinued when scheduled lorazepam taper is completed. *Send inbasket message to pharmacy to change route to IV if needed. PROTECT FROM LIGHT, Conditional Meds (Order sets only) 2 mg Given 04/23/2019 5:35 AM CASE MAKER 2 mg Given 04/22/2019 10:23 AM CASE MAKER 04/18/2019 12:22 AM CASE MAKER 2 mg LORazepam (ATIVAN) tablet 2 mg Given 2 mg, Oral, EVERY 4 HOURS, 12 doses, First dose on Renee 04/17/19 at 1630, Last dose on 04/19/19 at 1230, IF AWAS SCORE >5 RELEASE AND BEGIN LORAZEPAM SCHEDULED REGIMEN *Assess patient every 4 hours while awake using the TIERRA S and document the score. *If AWAS scor e >7 give an extra 1-2 mg lorazepam PO pr n every 4 hours to supplement regular dose. *Hold any dose if patient asleep , somnolent or ataxic. *Dosage should no t exceed 20 mg/24 hrs. *Call physician if scale needs upward or downward adjustments. *Send inbasket message to pharmacy to change route to IV if needed. , Conditional Meds (Order sets only) 2 mg Given 04/17/2019 8:29 PM CASE MAKER 2 mg Given 04/17/2019 5:04 PM CASE MAKER 04/17/2019 9:35 PM CASE MAKER 1 g 100 mL/hr magnesium sulfate 1 g/D5W 100 mL IVPB Given - New 1 g, Intravenous, 100 mL, Administer Bag over 1 Hours, EVERY 1 HOUR FOR 2 DOSES , 2 doses, First dose on Sun04/17/19 at 1900, Last dose on Sun04/17/19 at 2000, Each 1gm delivers 8.1 mEq Magnesium., 1 g 100 mL/hr Given - New Bag 04/17/2019 8:29 PM CASE MAKER 04/19/2019 2:20 PM CASE MAKER 1 g 100 mL/hr magnesium sulfate 1 g/D5W 100 mL IVPB Given - New 1 g, Intravenous, 100 mL, Administer Bag over 1 Hours, EVERY 1 HOUR FOR 4 DOSES , 4 doses, First dose on [facility] 04/19/19 at 1000, Last dose on 04/19/19 at 1300, Each 1gm delivers 8.1 mEq Magnesium., 1 g 100 mL/hr Given - New Bag 04/19/2019 1:15 PM CASE MAKER 1 g 100 mL/hr Given - New Bag 04/19/2019 12:10 PM CASE MAKER 04/20/2019 10:22 AM CASE MAKER 1 g 100 mL/hr magnesium sulfate 1 g/D5W 100 mL IVPB Given - New 1 g, Intravenous, 100 mL, Administer Bag over 1 Hours, ONCE, 1 dose, [place] 04/20/19 at 1015, Each 1gm delivers 8.1 mEq Magnesium., 04/22/2019 12:07 PM CASE MAKER 1 g 100 mL/hr magnesium sulfate 1 g/D5W 100 mL IVPB Given - New 1 g, Intravenous, 100 mL, Administer Bag over 1 Hours, EVERY 1 HOUR FOR 2 DOSES , 2 doses, First dose on Sun04/22/19 at 0800, Last dose on Sun04/22/19 at 0900, Each 1gm delivers 8.1 mEq Magnesium., 1 g 100 mL/hr Given - New Bag 04/22/2019 10:57 AM CASE MAKER 04/22/2019 9:02 PM CASE MAKER 5 mg melatonin tablet 5 mg Given 5 mg, Oral, AT BEDTIME DAILY, First dos e on Renee 04/17/19 at 2245, Until Discontinued 5 mg Given 04/22/2019 12:09 AM CASE MAKER 5 mg Given 04/20/2019 10:07 PM CASE MAKER 04/20/2019 12:07 PM CASE MAKER 40 mg methylPREDNISolone (SOLU-Medrol) Given injection 40 mg 40 mg, Intravenous, 1 mL, Administer over 15 Minutes, EVERY 24 HOURS, First dose on Sun04/20/19 at 1115, Until Discontinued 04/23/2019 8:42 AM CASE MAKER 1 patch Arm, Lef t nicotine (NICODERM CQ STEP 1) 21 mg/day Patch/Topica patch 1 patch l Applied 1 patch, Transdermal, Administer over 2 4 Hours, DAILY, First dose on Sun04/17/19 at 1245, Until Discontinued 1 patch Shoulder, Right Patch/Topical Applied 04/22/2019 8:59 AM CASE MAKER 1 patch Shoulder, Left Patch/Topical Applied 04/21/2019 8:46 AM CASE MAKER 04/23/2019 1:10 PM CASE MAKER 4 mg nicotine polacrilex (NICORETTE) gum 4 mg Given 4 mg, Buccal, EVERY 1 HOUR PRN, Starting Sun04/20/19 at 1654, Until Sun04/23/19 at 1646, Cravings 4 mg Given 04/23/2019 8:41 AM CASE MAKER 4 mg Given 04/22/2019 3:06 PM CASE MAKER 04/19/2019 7:40 AM CASE MAKER 4 mg ondansetron (ZOFRAN) injection 4 mg Given 4 mg, Intravenous, EVERY 6 HOURS PRN, Starting Renee 04/17/19 at 1454, Until 04/19/19 at 0932, Nausea/Vomiting Injectable 4 mg Given 04/19/2019 12:35 AM CASE MAKER 4 mg Given 04/18/2019 6:17 PM CASE MAKER 04/20/2019 9:18 PM CASE MAKER 4 mg ondansetron (ZOFRAN) injection 4 mg Given 4 mg, Intravenous, ONCE, 1 dose, [place] 04/20/19 at 2045 04/22/2019 10:57 AM CASE MAKER 8 mg ondansetron (ZOFRAN) injection 8 mg Given 8 mg, Intravenous, ONCE, 1 dose, [facility] 04/22/19 at 1145 04/21/2019 8:45 AM CASE MAKER 40 mg pantoprazole (PROTONIX) injection 40 mg Given 40 mg, Intravenous, DAILY, First dose o n Renee 04/17/19 at 1900, Until Discontinued 40 mg Given 04/20/2019 8:35 AM CASE MAKER 40 mg Given 04/19/2019 9:08 AM CASE MAKER 04/23/2019 8:42 AM CASE MAKER [address] (PROTONIX) tablet 40 mg Given 40 mg, Oral, DAILY, First dose on Sun04/22/19 at 0900, Until Discontinued, Do not crush or chew tablet., 40 mg Given 04/22/2019 8:54 AM CASE MAKER 04/22/2019 8:54 AM CASE MAKER 10 mg 100 mL/hr phytonadione (VITAMIN K) 10 mg in Given - New dextrose 5% (D5W) 50 mL IVPB Bag 50 mL, Intravenous, Administer over 30 Minutes, at 100 mL/hr, DAILY, 3 doses, First dose on Sun04/20/19 at 1115, Last dose on Sun04/22/19 at 0900 10 mg 100 mL/hr Given - New Bag 04/21/2019 8:46 AM CASE MAKER 10 mg 100 mL/hr Given - New Bag 04/20/2019 12:07 PM CASE MAKER polyethylene glycol 3350 (MIRALAX) packet 17 g 17 g (1 packet), Oral, DAILY, First dos e on [facility] 04/19/19 at 1045, Until Discontinued, 8.5 GRAMS = 0.5 PACKET 17 GRAMS = 1 PACKET 34 GRAMS = 2 PACKETS, 04/17/2019 8:29 PM CASE MAKER 40 mEq potassium chloride SR (K-DUR) tablet 40 Given mEq 40 mEq, Oral, ONCE, 1 dose, [facility] 04/17/19 at 1845, Do NOT break or crush table t , 04/20/2019 10:22 AM CASE MAKER 40 mEq potassium chloride SR (K-DUR) tablet 40 Given mEq 40 mEq, Oral, ONCE, 1 dose, [place] 04/20/19 at 0930, Do NOT break or crush table t , 04/19/2019 11:06 AM CASE MAKER 60 mEq potassium chloride SR (K-DUR) tablet 60 Given mEq 60 mEq, Oral, ONCE, 1 dose, [facility] 04/19/19 at 0930, Do NOT break or crush table t , 04/19/2019 11:07 AM CASE MAKER 2 tablets potassium phosphate (K-PHOS ORIGINAL) Given dispersable tablet 2 tablet 2 tablet, Oral, DAILY, First dose on t 04/19/19 at 1030, Until Discontinued, DO NOT SWALLOW TABLET DISSOLVE IN WATER PRIOR TO ADMINISTRATION - The tablets are administered by dissolving two tablets in 6-8 ounces of water. - For best results, soak tablets in water for two to five minutes, or more if necessary, and stir. - If any tablet particles remain undissolved, they may be crushed and stirred vigorously to speed dissolution. Each tablet delivers 114 mg Phosphorus (3.6 mMol) and 3.7 mE q Potassium., 04/20/2019 10:30 AM CASE MAKER 2 tablets potassium phosphate (K-PHOS ORIGINAL) Given dispersable tablet 2 tablet 2 tablet, Oral, ONCE, 1 dose, Sun 0 at 1015, DO NOT SWALLOW TABLET DISSOLVE IN WATER PRIOR TO ADMINISTRATION - The tablets are administered by dissolving two tablets in 6-8 ounces of water. - For best results, soak tablets in water for two to five minutes, or more if necessary, and stir. - If any tablet particles remain undissolved, they may be crushed and stirred vigorously to speed dissolution. Each tablet delivers 114 m g Phosphorus (3.6 mMol) and 3.7 mEq Potassium., 04/23/2019 8:42 AM CASE MAKER 2 tablets potassium phosphate (K-PHOS ORIGINAL) Given dispersable tablet 2 tablet 2 tablet, Oral, TWICE DAILY, First dose (after last modification) on Sun04/20/19 at 2100, Until Discontinued, DO NOT SWALLOW TABLET DISSOLVE IN WATER PRIOR TO ADMINISTRATION - The tablet s are administered by dissolving two tablets in 6-8 ounces of water. - For best results, soak tablets in water for two to five minutes, or more if necessary, and stir. - If any tablet particles remain undissolved, they may be crushed and stirred vigorously to speed dissolution. Each tablet delivers 114 mg Phosphorus (3.6 mMol) and 3.7 mE q Potassium., 2 tablets Given 04/22/2019 9:02 PM CASE MAKER 2 tablets Given 04/22/2019 8:59 AM CASE MAKER 04/18/2019 4:14 PM CASE MAKER 16 mmol 63 mL/hr potassium phosphate 16 mmol in dextrose Given - New 5% (D5W) 250 mL IVPB (std) Bag 16 mmol, Intravenous, 250 mL, Administe r over 4 Hours, ONCE, 1 dose, Sun04/18/19 at 1600, Each 10mM K Phos delivers 14.7meq K+ NOTE: This is a HIGH ALERT Medication., 04/23/2019 8:41 AM CASE MAKER 10 mg prochlorperazine (COMPAZINE) injection Given 10 mg 10 mg, Intravenous, EVERY 6 HOURS PRN, Starting 04/19/19 at 0931, Until 04/23/19 at 1646, Nausea/Vomiting Injectable, PROTECT FROM LIGHT -- May b e given undiluted, or each 5mg may be diluted with 9 mL of NS to facilitate titration., 10 mg Given 04/22/2019 11:45 PM CASE MAKER 10 mg Given 04/22/2019 2:22 PM CASE MAKER 04/19/2019 11:04 AM CASE MAKER 1,000 mL 100 mL/hr sodium chloride 0.9 % infusion Given - New 1,000 mL, 1,000 mL, Intravenous, at 100 Bag mL/hr, ONCE, 1 dose, 04/19/19 at 1030 04/17/2019 3:47 PM CASE MAKER 100 mL/hr sodium chloride 0.9% (NS) 1,000 mL with Given multivitamin, adult 10 mL, folic acid 1 mg, thiamine (VITAMIN B-1) 100 mg IV infusion 1,001.2 mL, Intravenous, at 100 mL/hr, DAILY, 3 doses, First dose on Renee 0 at 1330, Last dose on 04/19/19 at 0900, Followed by thiamine PO and Folic Acid PO Banana Bag ([facility]), 04/18/2019 8:56 PM CASE MAKER 20 mmol 63 mL/hr sodium phosphate 20 mmol in dextrose 5% Given - New (D5W) 250 mL IVPB Bag 20 mmol, Intravenous, 250 mL, Administe r over 4 Hours, ONCE, 1 dose, Sun04/18/19 at 1715 04/17/2019 5:04 PM CASE MAKER 100 mg thiamine (VITAMIN B-1) injection 100 mg Given 100 mg, 2 mL, Intravenous, Administer over 5 Minutes, ONCE, 1 dose, Renee 0 at 1630 04/21/2019 8:46 AM CASE MAKER 100 mg thiamine (VITAMIN B-1) injection 100 mg Given 100 mg, 2 mL, Intravenous, Administer over 5 Minutes, DAILY, First dose (afte r last modification) on Sun04/18/19 at 1700, Until Discontinued 100 mg Given 04/20/2019 8:37 AM CASE MAKER 100 mg Given 04/19/2019 11:07 AM CASE MAKER 04/18/2019 1:30 PM CASE MAKER 100 mg thiamine mononitrate tablet 100 mg Given 100 mg, Oral, DAILY, First dose on Sun04/18/19 at 1430, Until Discontinued 04/23/2019 8:42 AM CASE MAKER 100 mg thiamine mononitrate tablet 100 mg Given 100 mg, Oral, DAILY, First dose on Sun04/22/19 at 0900, Until Discontinued 100 mg Given 04/22/2019 8:54 AM CASE MAKER 04/23/2019 8:42 AM CASE MAKER Chest, R ight Verification of Patch Placement and Patch/Topica Integrity - Lidocaine 5% l Verified TWICE DAILY, First dose on Sun04/18/19 a t 0245, Until Discontinued, Patch checks are required every shift to ensure the patch is still intact and in place. Please verify patch check findings angela drake this MAY entry., Other Patch/Topical Verified 04/22/2019 9:03 PM CASE MAKER Chest, Left Patch/Topical Verified 04/22/2019 8:57 AM CASE MAKER 04/23/2019 8:42 AM CASE MAKER Arm, Lef t Verification of Patch Placement and Patch/Topica Integrity - Nicotine 21 MG/24HR l Verified TWICE DAILY, First dose on Sun04/17/19 a t 1245, Until Discontinued, Patch checks are required every shift to ensure the patch is still intact and in place. Please verify patch check findings angela drake this MAY entry., Shoulder, Right Patch/Topical Verified 04/22/2019 9:03 PM CASE MAKER Shoulder, Right Patch/Topical Verified 04/22/2019 8:59 AM CASE MAKER 04/23/2019 8:42 AM CASE MAKER 1 tablet vitamins, multiple tablet 1 tablet Given 1 tablet, Oral, DAILY, First dose on 04/18/19 at 0900, Until Discontinued 1 tablet Given 04/22/2019 8:54 AM CASE MAKER 1 tablet Given 04/21/2019 8:45 AM CASE MAKER documented in this encounter
[2019-10-12] MEDS ORDERED: AMOXICILLIN 500 MG (POLYMOX) CAP PO STA (02:44)
--- NOTE | 2019-10-12 02:48 | ED General ---
General Chief Complaint: Substance Abuse Stated Complaint: ANXIETY,ALCOHOLIC Source of Information: Patient Exam Limitations: No Limitations History of Present Illness Date Seen by Provider: Oct 12, 2019 Time Seen by Provider: 02:37 Initial Comments Keyana is a 24-year-old male who identifies as a female and is well-known to me from prior visits related to alcohol abuse. He presents to the emergency room today requesting detox and complaining of right lower dental pain. He had been seen at [facility] earlier in the day and reportedly received a Toradol injection and anesthetic gauze pads or cotton balls to treat his dental pain. He reports no antibiotics were prescribed. He has been afebrile. He states his last alcohol consumption was around noon but he smells of alcohol and appears under the influence at present. He reportedly has an appointment with the substance abuse treatment team at [facility] on the sixth. Allergies and Home Medications Allergies Coded Allergies: No Known Drug Allergies (Unverified , 11/12/09) Home Medications Amoxicillin 500 Mg Capsule, 1,000 MG PO BID Prescribed by: KIMMIE NEVILLE on 10/12/19 0249 Melatonin 5 Mg Capsule, 5 MG PO HS, (Reported) Pantoprazole Sodium 40 Mg Tablet.dr, 40 MG PO BID Prescribed by: MARIA DOLORES OHARA on 02/21/19 1404 Sucralfate 1 Gm Tablet, 1 GM PO QID Prescribed by: MARIA DOLORES OHARA on 02/21/19 1404 Patient Home Medication List Home Medication List Reviewed: Yes Review of Systems Review of Systems Constitutional: no symptoms reported EENTM: see HPI Respiratory: no symptoms reported Cardiovascular: no symptoms reported Gastrointestinal: no symptoms reported Genitourinary: no symptoms reported Musculoskeletal: no symptoms reported Skin: no symptoms reported Psychiatric/Neurological: See HPI Hematologic/Lymphatic: No Symptoms Reported Immunological/Allergic: no symptoms reported Past Rdyehaj-Qyzygp-Cfvhxd Hx Past Med/Social Hx: Reviewed Nursing Past Med/Soc Hx Patient Social History Alcohol Beverage of Choice: Vodka Drug of Choice: Marijuana Type Used: Cigarettes 2nd Hand Smoke Exposure: No Recent Foreign Travel: No Contact w/Someone Who Travel: No Recent Hopitalizations: No Immunizations Up To Date Tetanus Booster (TDap): Unknown PED Vaccines UTD: No Date of Influenza Vaccine: Dec 10, 2018 Seasonal Allergies Seasonal Allergies: No Past Medical History Surgeries: Yes (EGD 02/20/19) Respiratory: Yes (ASPIRATION PNEUMONIA) Pneumonia Cardiac: No Neurological: Yes (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 ) Anxiety, Suicide Attempts, Depression Integumentary: Yes (LESION LEFT THIGH) Blood Disorders: No Adverse Reaction/Blood Tranf: No Family Medical History COPD Transgender, male to female Physical Exam Vital Signs Vital Signs - First Documented 10/12/19 10/12/19 02:05 02:53 Temp 36.7 Pulse 102 Resp 16 B/P (MAP) 114/85 (95) Pulse Ox 98 O2 Delivery Room Air Capillary Refill : Height, Weight, BMI Height: 5'4.00" Weight: 135lbs. 3.0oz. 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 Norm as Tested, Other (Appears mildly under the influence of alcohol) Skin: Normal Color, Warm/Dry Procedures/Interventions Suture Size: 5-0 Progress/Results/Core Measures Suspected Sepsis SIRS Temperature: Pulse: Respiratory Rate: Blood Pressure / Mean: Results/Orders My Orders Orders - KIMMIE YOUNG MD Amoxicillin Capsule (Polymox Capsule) (10/12/19 02:44) Vital Signs/I&O 10/12/19 10/12/19 02:05 02:53 Temp 36.7 36.7 Pulse 102 88 Resp 16 16 B/P (MAP) 114/85 (95) 112/82 (95) Pulse Ox 98 O2 Delivery Room Air Capillary Refill : Progress Note : Progress Note Amoxicillin was given for initial treatment of probable early dental abscess. Request to admit for detox was declined. Patient is not withdrawing and he has an appointment set up with the substance abuse treatment team at [facility] already. He does not have a rehabilitation bed secured to ensure appropriate follow- through after detox. Departure Impression Primary Impression: Dental abscess Additional Impression: Alcohol dependence Qualified Codes: F10.29 - Alcohol dependence with unspecified alcohol- induced disorder Disposition: HOME, SELF-CARE Condition: Improved Departure-Patient Inst. Decision time for Depature: 02:46 Referrals: [facility] (PCP/Family) Primary Care Physician Patient Instructions: ALCOHOL AND SUBSTANCE ABUSE, Tooth Abscess (DC) Add. Discharge Instructions: Complete your antibiotics as prescribed and follow-up with the dentist as soon as possible. [place] your teeth twice daily with a soft bristle toothbrush. You may use the numbing gauze pads provided by the clinic per their instructions. Additionally you may use a combination of ibuprofen up to 600 mg every 6 hours and Tylenol (acetaminophen) up to 1000 mg every 6 hours as needed. For detox please make arrangements with the substance abuse clinic at [facility]. Outpatient treatment options are available. Alternatively, detox can be arranged after a rehabilitation facility bed is secured. Please discuss with the clinic staff to review options. Return to emergency room if you have other problems or concerns or worsening symptoms. All discharge instructions reviewed with patient and/or family. Voiced understanding. Scripts Amoxicillin (Amoxicillin) 500 Mg Capsule 1000 MG PO BID, #40 CAP 0 Refills Prov: KIMMIE YOUNG MD 10/12/19 Copy Copies To 1: LOC SALAS JOSHUA T MD Oct 12, 2019 02:48
[2019-10-12] MEDS ORDERED: AMOX500C2 PO (02:49)
[2019-10-12 02:53] VITALS: BP 112/82
== END 2019-10-12 02:53 | disposition home or self-care (01) ==
LOC: EDUNIT# 01:48 → ER 01:50
DX: K04.7 Periapical abscess without sinus (principal); F10.29 Alcohol dependence with unspecified alcohol-induced disorder; F41.9 Anxiety disorder, unspecified; F32.9 Major depressive disorder, single episode, unspecified; Z87.19 Personal history of other diseases of the digestive system
CPT/HCPCS: 99283

== ENCOUNTER 2019-10-26 03:50 | Emergency (ER) | payer SELFPAY ==
[~2019-10-26] VITALS: Ht 162.6 cm; Wt 68.0 kg
[~2019-10-26 03:50] MED LIST changes: +AMOX500C2 PO
[2019-10-26] MEDS ORDERED: LACTATED RINGERS 1,000 ML IV ONE ×3 (04:33→05:11)
[2019-10-26 04:37] LABS: BASOPHILS % (AUTO) 1 % (0-10); EOSINOPHILS # (AUTO) 0.1 10^3/uL (0.0-0.3); EOSINOPHILS % (AUTO) 1 % (0-10); HEMATOCRIT 41 % (40-54); HEMOGLOBIN 14.1 G/DL (13.3-17.7); LYMPHOCYTES # (AUTO) 1.5 X 10^3 (1.0-4.0); LYMPHOCYTES % (AUTO) 21 % (12-44); MEAN CORPUSCULAR HEMOGLOBIN 33 PG (25-34); MEAN CORPUSCULAR HGB CONC 34 G/DL (32-36); MEAN CORPUSCULAR VOLUME 98 FL (80-99); MEAN PLATELET VOLUME 9.4 FL (7.4-10.4); MONOCYTES # (AUTO) 0.4 X 10^3 (0.0-1.0); MONOCYTES % (AUTO) 6 % (0-12); NEUTROPHILS # (AUTO) 5.1 X 10^3 (1.8-7.8); NEUTROPHILS % (AUTO) 72 % (42-75); PLATELET COUNT 223 10^3/uL (130-400); RED CELL DISTRIBUTION WIDTH 13.4 % (10.0-14.5)
--- NOTE | 2019-10-26 04:40 | ED General ---
General Chief Complaint: Respiratory Problems Stated Complaint: SOB Nursing Triage Note: PT TO ROOM 09 WITH C/O SOB, COUGH, AND SORE THOAT X1.5 WEEKS. Nursing Sepsis Screen: No Definite Risk Source of Information: Patient History of Present Illness Date Seen by Provider: Oct 26, 2019 Time Seen by Provider: 03:53 Initial Comments PT ARRIVES VIA EMS FROM HOME STATES HE HAS BEEN SICK FOR OVER A WEEK C/O PRODUCTIVE COUGH WITH OCCASIONAL YELLOW SPUTUM C/O SHORTNESS OF BREATH C/O FEVER UP TO 101 C/O SORE THROAT--STATES IT FEELS LIKE HIS THROAT IS CLOSING UP, BUT NO PROBLEMS SWALLOWING, EATING /DRINKING OR TALKING--HAS BEEN EATING AND DRINKING NORMALLY, AND VOIDING NORMALLY C/O BODY ACHES C/O HEADACHE C/O LOSS OF SENSE OF SMELL C/O NAUSEA, NO VOMITING HAS HAD DIARRHEA--5-6 STOOLS TODAY. STOOLS ARE ALWAYS BLACK NO ABDOMINAL PAIN C/O FATIGUE PT STATES HE CURRENTLY LIVES WITH HIS GRANDFATHER, HIS GRANDFATHER'S UNCLE, HIS AUNT, AND HIS AUNT'S BOYFRIEND AUNT WORKS AT [employer], WHERE AT LEAST 3 OF HER CO-WORKERS HAVE TESTED POSITIVE FOR COVID-19 GRANDFATHER HAS ALSO BEEN SICK THIS WEEK WITH FEVER, COUGH, SHORTNESS OF BREATH--HE HAS NOT SOUGHT CARE OR BEEN TESTED FOR COVID-19 PT HAS NOT SOUGHT CARE UNTIL JOHN TOOK TYLENOL YESTERDAY AT 1800 FOR FEVER AND BODY ACHES AND HEADACHE OTHERWISE HAS NOT TAKEN ANYTHING ELSE FOR SYMPTOMS OTHER THAN OTC COUGH DROPS PT HAS EXTENSIVE HISTORY OF DRUG AND ALCOHOL ABUSE WAS TRANSFERRED TO IN APRIL FOR ACUTE ALCOHOLIC HEPATITIS ---STATES HE WAS ADMITTED FOR 5 DAYS AND SENT HOME. HAS NOT FOLLOWED UP WITH THEM SINCE STATES HE "RELAPSED" A MONTH AGO--HAS HAD "3 BEERS" TODAY AND SMOKED MARIJUANA TODAY--CLAIMS LAST ETOH WAS AT 1500 YESTERDAY AFTERNOON PT CLAIMS HE IS IN [place]" AND IN [facility] DRUG AND ALCOHOL ABUSE OUTPATIENT PROGRAM. SEEN HERE AND ALSO AT [facility] 10/12/19 FOR DENTAL ABSCESS--GIVEN RX FOR AMOXIL. PCP: [facility] Allergies and Home Medications Allergies Coded Allergies: No Known Drug Allergies (Unverified , 11/12/09) Home Medications Amoxicillin 500 Mg Capsule, 1,000 MG PO BID Prescribed by: KIMMIE NEVILLE on 10/12/19 0249 Azithromycin 500 Mg Tablet, 500 MG PO DAILY Prescribed by: ANGELA CELESTIN on 10/26/19522 Cefdinir 300 Mg Capsule, 300 MG PO BID Prescribed by: ANGELA CELESTIN on 10/26/19522 Fluconazole 200 Mg Tablet, 200 MG PO DAILY Prescribed by: ANGELA CELESTIN on 10/26/19522 Melatonin 5 Mg Capsule, 5 MG PO HS, (Reported) Pantoprazole Sodium 40 Mg Tablet.dr, 40 MG PO BID Prescribed by: MARIA DOLORES OHARA on 02/21/191403 Sucralfate 1 Gm Tablet, 1 GM PO QID Prescribed by: MARIA DOLORES OHARA on 02/21/191403 Patient Home Medication List Home Medication List Reviewed: Yes Review of Systems Review of Systems Constitutional: see HPI, fever, malaise, weakness EENTM: see HPI, throat pain; No ear pain, No hoarseness Respiratory: see HPI, cough, phlegm, short of breath Cardiovascular: no symptoms reported; No chest pain, No edema, No palpitations, No syncope Gastrointestinal: see HPI; No abdominal pain; diarrhea, nausea, vomiting Genitourinary: no symptoms reported Musculoskeletal: see HPI (BODY ACHES) Skin: no symptoms reported; No rash Psychiatric/Neurological: See HPI, Headache; Denies Numbness, Denies Paresthesia, Denies Seizure, Denies Tingling, Denies Weakness Hematologic/Lymphatic: No Symptoms Reported Immunological/Allergic: no symptoms reported Past Hxbulrp-Fxfyrn-Wcthyf Hx Past Med/Social Hx: Reviewed and Corrections made Patient Social History Alcohol Use: Regular Use (HEAVY, DAILY USE FOR YEARS) Number of Drinks Today: FF Alcohol Beverage of Choice: Vodka Recreational Drug Use: Yes (EXTENSIVE DRUG USE) Drug of Choice: EXTENISVE DRUG USE Smoking Status: Current Everyday Smoker (2 PPD) Type Used: Cigarettes 2nd Hand Smoke Exposure: No Recent Foreign Travel: No Contact w/Someone Who Travel: No Recent Infectious Disease Expo: No Recent Hopitalizations: No Physical Abuse: No Sexual Abuse: No Mistreated: No Fear: No Immunizations Up To Date Tetanus Booster (TDap): Unknown PED Vaccines UTD: No Date of Influenza Vaccine: Dec 10, 2018 Seasonal Allergies Seasonal Allergies: No Past Medical History Surgeries: Yes (EGD 12/12/19) Respiratory: Yes (ASPIRATION PNEUMONIA) Pneumonia Currently Using CPAP: No Currently Using BIPAP: No Cardiac: No Neurological: Yes (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 ) Anxiety, Suicide Attempts, Depression Integumentary: Yes (LESION LEFT THIGH) Blood Disorders: No Adverse Reaction/Blood Tranf: No Family Medical History COPD Transgender, male to female--NO SURGERY OR MEDICATIONS/HORMONES SOCIAL HISTORY: -HEAVY, DAILY ETOH USE--USUALLY VODKA -EXTENSIVE DRUG ABUSE--RX DRUGS AND ILLEGAL DRUGS, INCLUDING DAILY MARIJUANA USE, MORPHINE/OPIATES, METH, BENZODIAZEPINES -SMOKES 2 PPD -SMOKES PMH: -04/2019--ACUTE ALCOHOLIC HEPATITIS/LIVER FAILURE--TRANSFERRED TO /ADMITTED FOR 5 DAYS AND SENT HOME, PER PT. HAS NOT FOLLOWED UP WITH THEM Physical Exam Vital Signs Vital Signs - First Documented 10/26/19 04:27 Temp 36.7 Pulse 105 Resp 22 B/P (MAP) 118/84 (95) O2 Delivery Room Air Capillary Refill : Less Than 3 Seconds Height, Weight, BMI Height: 5'4.00" Weight: 135lbs. 3.0oz. 61.164338bc; 25.00 BMI Method:Stated General Appearance: No Apparent Distress, WD/WN, Other (SPEECH IS CLEAR. DOES NOT APPEAR TO BE INTOXICATED. ) HEENT: PERRL/EOMI, TMs Normal, Pharynx Normal; No Pharyngeal Erythema, No Photophobia, No Scleral Icterus (L), No Scleral Icterus (R), No Tonsillar Exudate, No Tonsillar Enlargement; Other (TONGUE WITH THICK WHITE/YELLOW COATING) Neck: Full Range of Motion, Normal Inspection, Non Tender, Supple; No JVD, No Lymphadenopathy (L), No Lymphadenopathy (R) Respiratory: Normal Breath Sounds, No Accessory Muscle Use, No Respiratory Distress Cardiovascular: No Edema, No JVD, No Murmur, Normal Peripheral Pulses, Tachycardia (110-120'S) Gastrointestinal: Normal Bowel Sounds, No Pulsatile Mass, Non Tender, Soft, Hepatomegaly (3 FB'S BELOW RIGHT COSTAL MARGIN BUT NON-TENDER) Back: Normal Inspection, No CVA Tenderness, No Vertebral Tenderness Extremity: Normal Capillary Refill, Normal Inspection, Normal Range of Motion, Non Tender, No Calf Tenderness, No Pedal Edema Neurologic/Psychiatric: Alert, Oriented x3, No Motor/Sensory Deficits, Normal 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/Affect, 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 Norm as Tested, Other (SPEECH CLEAR) Skin: Normal Color, Warm/Dry; No Rash Focused Exam Lactate Level 10/26/19 04:17: Lactic Acid Level 2.27*H Lactic Acid Level Laboratory Tests Test 10/26/19 04:17 Lactic Acid Level 2.27 MMOL/L (0.50-2.00) *H Procedures/Interventions Suture Size: 5-0 Progress/Results/Core Measures Suspected Sepsis Recent Fever Within 48 Hours: No Infection Criteria Present: None New/Unexplained Altered Menta: No Sepsis Screen: No Definite Risk SIRS Temperature: Pulse: 105 Respiratory Rate: 22 Laboratory Tests 10/26/19 04:17: White Blood Count 7.0 Blood Pressure 118 /84 Mean: 95 10/26/19 04:17: Lactic Acid Level 2.27*H Laboratory Tests 10/26/19 04:17: Creatinine 0.68, INR Comment 1.1, Platelet Count 223, Total Bilirubin 1.5H Results/Orders Lab Results Laboratory Tests Test 10/26/19 04:17 10/26/19 04:25 10/26/19 05:11 Range/Units White Blood Count 7.0 4.3-11.0 10^3/uL Red Blood Count 4.24 L 4.35-5.85 10^6/uL Hemoglobin 14.1 13.3-17.7 G/DL Hematocrit 41 40-54 % Mean Corpuscular Volume 98 80-99 FL Mean Corpuscular Hemoglobin 33 25-34 PG Mean Corpuscular Hemoglobin Concent 34 32-36 G/DL Red Cell Distribution Width 13.4 10.0-14.5 % Platelet Count 223 130-400 10^3/uL Mean Platelet Volume 9.4 7.4-10.4 FL Neutrophils (%) (Auto) 72 42-75 % Lymphocytes (%) (Auto) 21 12-44 % Monocytes (%) (Auto) 6 0-12 % Eosinophils (%) (Auto) 1 0-10 % Basophils (%) (Auto) 1 0-10 % Neutrophils # (Auto) 5.1 1.8-7.8 X 10^3 Lymphocytes # (Auto) 1.5 1.0-4.0 X 10^3 Monocytes # (Auto) 0.4 0.0-1.0 X 10^3 Eosinophils # (Auto) 0.1 0.0-0.3 10^3/uL Basophils # (Auto) 0.0 0.0-0.1 10^3/uL Prothrombin Time 14.3 12.2-14.7 SEC INR Comment 1.1 0.8-1.4 Activated Partial Thromboplast Time 29 24-35 SEC Sodium Level 141 135-145 MMOL/L Potassium Level 3.5 L 3.6-5.0 MMOL/L Chloride Level 97 L 98-107 MMOL/L Carbon Dioxide Level 29 21-32 MMOL/L Anion Gap 15 H 5-14 MMOL/L Blood Urea Nitrogen 5 L 7-18 MG/DL Creatinine 0.68 0.60-1.30 MG/DL Estimat Glomerular Filtration Rate > 60 BUN/Creatinine Ratio 7 Glucose Level 103 70-105 MG/DL Lactic Acid Level 2.27 *H 0.50-2.00 MMOL/L Calcium Level 9.3 8.5-10.1 MG/DL Corrected Calcium 9.1 8.5-10.1 MG/DL Magnesium Level 2.0 1.6-2.4 MG/DL Total Bilirubin 1.5 H 0.1-1.0 MG/DL Aspartate Amino Transf (AST/SGOT) 407 H 5-34 U/L Alanine Aminotransferase (ALT/SGPT) 105 H 0-55 U/L Alkaline Phosphatase 204 H 40-136 U/L Lactate Dehydrogenase 408 H 125-220 U/L Troponin I < 0.028 <0.028 NG/ML C-Reactive Protein High Sensitivity 0.80 H 0.00-0.50 MG/DL B-Type Natriuretic Peptide < 10.0 <100.0 PG/ML Total Protein 7.9 6.4-8.2 GM/DL Albumin 4.3 3.2-4.5 GM/DL Amylase Level 356 H 25-125 U/L Lipase 56 8-78 U/L Procalcitonin 0.16 H <0.10 NG/ML Serum Alcohol 288 H <10 MG/DL Monoscreen NEGATIVE NEGATIVE Group A Streptococcus Screen NEGATIVE NEGATIVE Urine Color YELLOW Urine Clarity CLOUDY Urine pH 8.0 5-9 Urine Specific [place] 1.010 L 1.016-1.022 Urine Protein NEGATIVE NEGATIVE Urine Glucose (UA) NEGATIVE NEGATIVE Urine Ketones NEGATIVE NEGATIVE Urine Nitrite NEGATIVE NEGATIVE Urine Bilirubin NEGATIVE NEGATIVE Urine Urobilinogen 1.0 < = 1.0 MG/DL Urine Leukocyte Esterase NEGATIVE NEGATIVE Urine RBC (Auto) NEGATIVE NEGATIVE Urine RBC RARE /HPF Urine WBC NONE /HPF Urine Squamous Epithelial Cells 0-2 /HPF Urine Crystals NONE /LPF Urine Bacteria NEGATIVE /HPF Urine Casts NONE /LPF Urine Mucus NEGATIVE /LPF Urine Culture Indicated NO Urine Opiates Screen NEGATIVE NEGATIVE Urine Oxycodone Screen NEGATIVE NEGATIVE Urine Methadone Screen NEGATIVE NEGATIVE Urine Propoxyphene Screen NEGATIVE NEGATIVE Urine Barbiturates Screen NEGATIVE NEGATIVE Ur Tricyclic Antidepressants Screen NEGATIVE NEGATIVE Urine Phencyclidine Screen NEGATIVE NEGATIVE Urine Amphetamines Screen NEGATIVE NEGATIVE Urine Methamphetamines Screen NEGATIVE NEGATIVE Urine Benzodiazepines Screen NEGATIVE NEGATIVE Urine Cocaine Screen NEGATIVE NEGATIVE Urine Cannabinoids Screen POSITIVE H NEGATIVE My Orders Orders - ANGELA CELESTIN DO Ed Iv/Invasive Line Start (10/26/19 04:00) Ekg Tracing (10/26/19 04:00) Monitor-Rhythm Ecg Trace Only (10/26/19 04:00) Chest 1 View, Ap/Pa Only (10/26/19 04:00) Alcohol (10/26/19 04:00) Amylase (10/26/19 04:00) BNP (10/26/19 04:00) Cbc With Automated Diff (10/26/19 04:00) Comprehensive Metabolic Panel (10/26/19 04:00) Drug Screen Stat (Urine) (10/26/19 04:00) Lactic Acid Analyzer (10/26/19 04:00) Lipase (10/26/19 04:00) Magnesium (10/26/19 04:00) Protime With Inr (10/26/19 04:00) Partial Thromboplastin Time (10/26/19 04:00) Ua Culture If Indicated (10/26/19 04:00) Troponin I (10/26/19 04:00) Procalcitonin (Pct) (10/26/19 04:00) Hs C Reactive Protein (10/26/19 04:00) LDH (10/26/19 04:00) Coronavirus Sars-Cov-2 So 2018 (10/26/19 04:00) Ed Iv/Invasive Line Start (10/26/19 04:33) Lactated Ringers (Lr 1000 Ml Iv Solution (10/26/19 04:33) Monotest (10/26/19 04:33) Rapid Strep A Screen (10/26/19 04:33) Blood Culture (10/26/19 04:33) Lactated Ringers (Lr 1000 Ml Iv Solution (10/26/19 04:34) Ed Iv/Invasive Line Start (10/26/19 05:11) Lactated Ringers (Lr 1000 Ml Iv Solution (10/26/19 05:11) Azithromycin Tablet (Zithromax Tablet) (10/26/19 05:15) Ceftriaxone For Iv Use (Rocephin For I (10/26/19 05:15) Medications Given in ED Current Medications Medications Dose Ordered Sig/[place] Route Start Time Stop Time Status Last Admin Dose Admin Azithromycin 500 mg ONCE ONCE PO 10/26/19 05:15 10/26/19 05:16 DC 10/26/19 05:27 500 MG Ceftriaxone Sodium 1000 mg/ Sterile Water 10 ml @ 200 mls/hr ONCE ONCE IV 10/26/19 05:15 10/26/19 05:17 DC 10/26/19 05:24 200 MLS/HR Lactated Ringer's 1,000 ml @ 0 mls/hr Q0M ONCE IV 10/26/19 04:33 10/26/19 04:35 DC 10/26/19 04:39 999 MLS/HR Lactated Ringer's 1,000 ml @ 0 mls/hr Q0M ONCE IV 10/26/19 05:11 10/26/19 05:12 DC 10/26/19 05:24 999 MLS/HR Vital Signs/I&O 10/26/19 04:27 Temp 36.7 Pulse 105 Resp 22 B/P (MAP) 118/84 (95) O2 Delivery Room Air Capillary Refill : Less Than 3 Seconds Blood Pressure Mean: 95 Progress Note : Progress Note PT PLACED IN ISOLATION ROOM, PPE WORN AT ALL TIMES COVID-19 TESTING PERFORMED GIVEN IV FLUIDS AND ROCEPHIN/ZITHROMAX NO DYSPNEA, NO HYPOXIA AT ANY TIME HAS RARE, NON-PRODUCTIVE COUGH NO FEVER NOTED. VITALS STABLE ECG Initial ECG Impression Date: Oct 26, 2019 Initial ECG Impression Time: 04:17 Initial ECG Rate: 108 Initial ECG Rhythm: S.Tach Diagnostic Imaging Comments CXR--CHANGES IN RLL, ARE UNCHANGED FROM 01/2019--PENDING RADIOLOGIST REVIEW Reviewed: Reviewed by Me Departure Impression Primary Impression: Person under investigation for COVID-19 Additional Impressions: Alcohol intoxication in active alcoholic Elevated liver enzymes MILD PANCREATITIS POSSIBLE THRUSH ON TONGUE Marijuana use Disposition: HOME, SELF-CARE Condition: Stable Departure-Patient Inst. Referrals: [facility] (PCP/Family) Primary Care Physician Patient Instructions: Alcohol Abuse and Alcoholism (DC), Coronavirus Disease 2019 (COVID-19) (DC), Effects of Alcohol on Your Health, Liver Function Test, Pancreatitis (DC), Preventing the Spread of an Infectious Disease, Thrush (DC) Add. Discharge Instructions: HOME, REST NO ALCOHOL!!!!!! NO DRUGS!!!!!!! LOTS OF CLEAR LIQUIDS--WATER, BROTH, JELLO, GATORADE, POPSICLES FOLLOW UP WITH [facility] OR RETURN TO ER IF SYMPTOMS WORSEN, OTHERWISE FOLLOW UP WITH THEM IN 2 WEEKS TO RECHECK LAB YOU AND ALL HOUSEHOLD MEMBERS AND CLOSE CONTACTS NEED TO QUARANTINE FOR 2 WEEKS, OR LONGER IF NECESSARY All discharge instructions reviewed with patient and/or family. Voiced understanding. Scripts Fluconazole (Diflucan) 200 Mg Tablet 200 MG PO DAILY, #7 TAB Prov: ANGELA CELESTIN DO 10/26/19 Azithromycin (Zithromax) 500 Mg Tablet 500 MG PO DAILY for 5 Days, #5 TAB Prov: ANGELA CELESTIN DO 10/26/19 Cefdinir (Cefdinir) 300 Mg Capsule 300 MG PO BID, #20 CAP Prov: ANGELA CELESTIN DO 10/26/19 Work/School Note: Family Work Note Patient Received Medical Care In the Emergency Department On: Oct 26, 2019 Patient Restrictions: QUARANTINE ALL HOUSEHOLD MEMBERS FOR 2 WEEKS ANGELA CELESTIN DO Oct 26, 2019 04:40
[2019-10-26 04:54] LABS: ALBUMIN 4.3 GM/DL (3.2-4.5); CHLORIDE 97 MMOL/L (98-107); INR 1.1 (0.8-1.4); POTASSIUM 3.5 MMOL/L (3.6-5.0); PROTHROMBIN TIME PATIENT 14.3 SEC (12.2-14.7); SODIUM 141 MMOL/L (135-145)
[2019-10-26 04:56] LABS: AMYLASE 356 U/L (25-125); CALCIUM 9.3 MG/DL (8.5-10.1)
[2019-10-26 04:57] LABS: GLUCOSE 103 MG/DL (70-105); TOTAL PROTEIN 7.9 GM/DL (6.4-8.2)
[2019-10-26 04:58] LABS: CARBON DIOXIDE 29 MMOL/L (21-32)
[2019-10-26 04:59] LABS: BILIRUBIN,TOTAL 1.5 MG/DL (0.1-1.0)
[2019-10-26 05:00] LABS: ALKALINE PHOSPHATASE 204 U/L (40-136)
[2019-10-26 05:01] LABS: CREATININE SERUM 0.68 MG/DL (0.60-1.30); GFR ESTIMATED > 60
[2019-10-26 05:02] LABS: BUN/CREATININE RATIO 7
[2019-10-26 05:04] LABS: ALANINE AMINOTRANSFERASE 105 U/L (0-55)
[2019-10-26 05:05] LABS: LIPASE 56 U/L (8-78)
[2019-10-26 05:15] LABS: BILIRUBIN,URINE NEGATIVE (NEGATIVE); CLARITY,URINE CLOUDY; COLOR,URINE YELLOW; GLUCOSE, URINE (UA) NEGATIVE (NEGATIVE); KETONES,URINE NEGATIVE (NEGATIVE); LEUKOCYTE ESTERASE ,URINE NEGATIVE (NEGATIVE); NITRITE,URINE NEGATIVE (NEGATIVE); PROTEIN,URINE NEGATIVE (NEGATIVE)
[2019-10-26] MEDS ORDERED: AZITHROMYCIN 250 MG TAB (ZITHROMAX) PO ONE (05:15)
[2019-10-26] MEDS ORDERED: cefTRIAXone FOR IV USE 1,000 MG in WATER (STERILE) FOR INJECTION 10 ML IV ONE (05:15)
[2019-10-26] MEDS ORDERED: FLUC200T PO (05:23)
[2019-10-26] MEDS ORDERED: CEFD300C3 PO (05:23)
[2019-10-26] MEDS ORDERED: AZIT500T PO (05:23)
[2019-10-26 05:24] LABS: BACTERIA,URINE NEGATIVE /HPF; RBC,URINE RARE /HPF; SQUAMOUS EPITHELIAL CELL,UR 0-2 /HPF
[2019-10-26 05:26] LABS: AMPHETAMINE SCREEN, URINE NEGATIVE (NEGATIVE); BARBITURATE SCREEN URINE NEGATIVE (NEGATIVE); BENZODIAZEPINES SCREEN URINE NEGATIVE (NEGATIVE); CANNABINOID SCREEN, URINE POSITIVE (NEGATIVE); COCAINE SCREEN URINE NEGATIVE (NEGATIVE); METHADONE STAT NEGATIVE (NEGATIVE); METHAMPHETAMINE SCREEN URINE S NEGATIVE (NEGATIVE); OPIATE SCREEN URINE NEGATIVE (NEGATIVE); OXYCODONE STAT NEGATIVE (NEGATIVE); PROPOXYPHENE STAT NEGATIVE (NEGATIVE); TRICYCLIC ANTIDEPRESSANTS SCRE NEGATIVE (NEGATIVE)
[2019-10-26 05:59] VITALS: BP 130/73
--- NOTE | 2019-10-26 06:45 | Diagnostic Imaging Report ---
CHEST 1 VIEW, AP/PA ONLY Indication: Fever and cough. Comparison: 02/05/2019 Findings: No focal airspace disease in the visualized lungs. Please note that the posterior lower lobes are poorly evaluated by portable radiography. No pleural effusion or pneumothorax. Normal cardiomediastinal silhouette. Impression: 1. No acute cardiopulmonary process by portable radiography. Dictated by: Dictated on workstation # [id number]
== END 2019-10-26 05:59 | disposition home or self-care (01) ==
LOC: EDUNIT# 03:50 → ER 03:52
DX: F10.229 Alcohol dependence with intoxication, unspecified (principal); R94.5 Abnormal results of liver function studies; K85.90 Acute pancreatitis without necrosis or infection, unspecified; F12.90 Cannabis use, unspecified, uncomplicated; F17.210 Nicotine dependence, cigarettes, uncomplicated; Z20.828 Contact with and (suspected) exposure to other viral communicable diseases
CPT/HCPCS: 71045; 80053; 80306; 81000; 82150; 83605; 83615; 83690; 83735; 83880; 84145; 84484; 85025; 85610; 85730; 86141; 86308; 87040; 87430; 93005; 93041; 99284; G0480; U0002; 36415; 80320; 87635